=== PATIENT | male | born 1945 | race Caucasian/White ===

== ENCOUNTER 2018-01-18 03:44 | Outpatient (RCR) | payer MEDICARE, OTHER, SELFPAY | END 2018-01-18 23:59 | disposition home or self-care (01) | LOC: PRC 03:44 | DX: J44.9 Chronic obstructive pulmonary disease, unspecified (principal) ==

== ENCOUNTER 2018-01-30 10:45 | Emergency (ER) | payer MEDICARE, SELFPAY ==
[2018-01-30] VITALS (49 sets, daily range): BP systolic 97–143; BP diastolic 42–88; PULSE 68–87; RESP 8–30; TEMP 36.5; O2SAT 87–95
--- NOTE | 2018-01-30 11:02 | W.ED.GENAD ---
Discharge Plan Disposition Patient Disposition: AGAINST MEDICAL ADVICE Condition: Fair Discharge Details Chief Complaint: SOB Clinical Impression: COPD exacerbation Reason For Visit: SHORTNESS OF BREATH Primary Care Provider: [place] [place] Provider: Ness Selby Home Meds and New Rx's Prescriptions: New prednisone 50 mg tablet 50 mg PO DAILY Qty: 4 RF: 0 Continue albuterol sulfate 0.63 MG/3 ML solution for nebulization 0.5 mg NEB QID PRNRF: 0 atorvastatin 80 MG tablet 80 mg PO DAILY RF: 0 albuterol sulfate [ProAir HFA] 8.5 GM HFA aerosol inhaler 2 puff Inhalation Q4H PRN RF: 0 prednisone 20 MG tablet 40 mg PO DAILY PRNRF: 0 metformin 1,000 MG tablet 1,000 mg PO BID RF: 0 lisinopril 10 MG tablet 10 mg PO BID RF: 0 nitroglycerin [Nitrostat] 0.4 MG tablet, sublingual 0.4 mg Sublingual ONCE PRNRF: 0 furosemide 20 MG tablet 60 mg PO DAILY RF: 0 theophylline [Nikolay-24] 300 MG capsule,extended release 24hr 300 mg PO DAILY RF: 0 metoprolol tartrate 25 MG tablet 25 mg PO BID RF: 0 tiotropium bromide [Spiriva with HandiHaler] 18 MCG capsule, w/inhalation device 18 mcg Inhalation DAILY RF: 0 budesonide-formoterol [Symbicort] 10.2 GM HFA aerosol inhaler 2 puff Inhalation BID RF: 0 guaifenesin 600 MG tablet extended release 12hr 600 mg PO BID PRNRF: 0 benzonatate 200 MG capsule 200 mg PO TID PRN (Reason: Cough) Qty: 90 RF: 0 prednisone 20 MG tablet 40 mg PO DAILY Qty: 14 RF: 0 Discharge Instructions Instructions: COPD (Chronic Obstructive Pulmonary Disease) (ED), Energy Conservation Techniques (ED) Additional Instructions: You have elected to leave the emergency department AGAINST MEDICAL ADVICE. The risks of doing so are or permanent disability. May return to the emergency department any time if you change your mind. Please return to the emergency department immediately if you develop any new or worsening symptoms or if he become otherwise concerned. It is extremely important that you make an appointment to be seen by your primary care doctor within the next 24-48 hours in follow-up for this Referrals: [place] [place] [Primary Care Provider] - Discharge Data Discharge Date/Time-TO BE ENTERED AT DEPARTURE: 01/30/18 16:40 Medical Decision Making MDM Narrative Medical decision making narrative: Kiran Matthews is a-year-old man with history of COPD, chronic kidney disease, diarrhea presenting to the emergency department with cough and shortness of breath chronically but much worse in the past few days after recent course of prednisone finished. On exam patient appears somewhat chronically ill. He is mildly tachypneic but is able to speak in complete sentences. Bilateral wheeze on auscultation. Concern for COPD exacerbation versus pneumonia versus PE versus less likely ACS versus other. Exam/history not consistent with sepsis, acute aortic pathology at this time. Plan for EKG, chest x-ray, screening labs, telemetry, duo nebs, Solu-Medrol. Will monitor and reassess. Pt reports feeling improved after DuoNeb, so with continued wheeze. We will plan to repeat. Labs show leukocytosis, x-ray okay. Patient reports that he feels well and would like to go home after second DuoNeb. Patient appears mildly short of breath on exam. Wheeze improved. Plan for trial ambulation. Ambulation patient walked approximately 10 feet and became so dyspneic he was unable to continue and had to sit down. Patient reports that this is the condition that he came to the emergency department for today. He reports that since having breathing treatments he feels better while at rest, but unchanged with exertion. Plan for admission for COPD exacerbation. Pt reports that he does not want to be admitted to the hospital. He reports that he would be much more comfortable at home, and feels that his level of shortness of breath is chronic. He reports that he feels he would not be able to care for himself at home, and has family home will take care of him. Given significant dyspnea with short distance of ambulation it is my opinion that the patient would benefit from admission. Lengthy discussion with the patient regarding risks of leaving AGAINST MEDICAL ADVICE including and permanent disability, patient verbalizes understanding of these risks and continues to decline admission at this time. Patient offered DuoNeb and Rx prednisone and azithromycin. Patient accepted. A lengthy discussion with patient regarding return to emergency department precautions, the patient may return any time to the emergency department if he changes his mind, and importance of outpatient follow-up with his primary care divider within the next 48 hours. Care management was involved by me to facilitate outpatient follow-up within the next 2 days. Medical Records Medical records reviewed: Yes I reviewed the patient's medical records. Imaging Data Radiologic Study: Attestation: I personally reviewed and interpreted this imaging study as follows: Radiologist's impression: CHEST X-RAY, PA AND LATERAL: Comparison is 10/02/17 and 04/28/17. The heart size and pulmonary vasculature are within normal limits. No focal consolidating infiltrates, effusions or pneumothoraces are identified. There does appear to be some plate atelectasis or scarring in the left base. Degenerative changes are seen in the spine. No effusion or pneumothorax is identified. IMPRESSION: No acute pulmonary process. Lab Data Lab results reviewed: Yes I reviewed the patient's lab results. ECG Data Attestation: I personally reviewed and interpreted this ECG (s) as follows: Interpretation: EKG shows normal sinus rhythm at 68 with normal axis, 1 mm J-point elevation in lead II, leads V4 through V6, this appears consistent with his prior 09/2017 though there is artifact on both EKGs. No STEMI HPI - General Adult General Mode of arrival: wheelchair. Date/Time Provider Initiated Documentation: 01/30/18 11:02. Limitations to Documentation: no limitations. Information obtained by: patient. HPI Narrative: Kiran Matthews is a 9-year-old man with history of COPD, chronic kidney disease, diabetes presenting to the emergency department with shortness of breath. Patient reports that he has had issues with dyspnea for the past 15 years, but this is much worse in the past 2 days. He states that 2 or 3 weeks ago he was started on a course of prednisone for his COPD, but the prednisone course ended a few days ago and his symptoms seem to be much worse since then. He has had a productive cough over the past few weeks that is worsening. He denies any pain. No fevers. Has been eating and drinking normally. No nausea, vomiting, diarrhea. Has been very short of breath at rest and also with any exertion inside of his house. Has been using his COPD medications at home with minimal relief. Patient reports that he is on 3-1/2 L of oxygen 24 hours a day. His baseline O2 sat on home O2 is 93%. Related Data Home Medications Medication Instructions Recorded Confirmed albuterol sulfate 0.5 mg NEB QID PRN 02/28/17 10/02/17 albuterol sulfate [ProAir HFA] 2 puff INHALATION Q4H PRN inhaler 02/28/17 01/30/18 atorvastatin 80 mg PO DAILY tab-cap 02/28/17 01/30/18 budesonide-formoterol [Symbicort] 2 puff INHALATION BID inhaler 03/01/17 01/30/18 furosemide 60 mg PO DAILY tab-cap 03/01/17 01/30/18 guaifenesin 600 mg PO BID PRN 03/01/17 01/30/18 lisinopril 10 mg PO BID tab-cap 03/01/17 01/30/18 metformin 1,000 mg PO BID tab-cap 03/01/17 01/30/18 metoprolol tartrate 25 mg PO BID tab-cap 03/01/17 01/30/18 nitroglycerin [Nitrostat] 0.4 mg SUBLINGUAL ONCE PRN tab-cap 03/01/17 10/02/17 prednisone 40 mg PO DAILY PRN tab-cap 03/01/17 10/02/17 theophylline [Nikolay-24] 300 mg PO DAILY tab-cap 03/01/17 10/02/17 tiotropium bromide [Spiriva with 18 mcg INHALATION DAILY tab-cap 03/01/17 01/30/18 HandiHaler] Previous Rx's Medication Instructions Recorded benzonatate 200 mg PO TID PRN #90 cap 04/30/17 prednisone 40 mg PO DAILY #14 tab 10/03/17 prednisone 50 mg PO DAILY #4 tab 01/30/18 Allergies Allergy/AdvReac Type Severity Reaction Status Date / Time levofloxacin [From Levaquin] AdvReac Itching Verified 10/02/17 04:59 General Stated Complaint: SOB LAURA: 2 Review of Systems Review of Systems Constitutional: denies fevers Eyes: denies eye pain ENT: denies facial pain, dental pain, sore throat Cardiovascular: denies chest pain, denies edema Respiratory: reports SOB, cough GI: denies abdominal pain, vomiting, diarrhea : denies flank pain MSK: denies back pain, neck pain, arhtralgias, myalgias Skin: denies rash Neuro: denies headaches, lightheadedness, weakness PFSH Social History Smoking/Tobacco Use Status: Former Tobacco Use Exam Narrative Exam Narrative: Constitutional: non-toxic chronically ill-appearing, pleasant, conversing normally HENT: head atraumatic, normocephalic normal inspection, mucous membranes moist Eyes: conjunctiva normal, sclera normal, pupils 3mm b/l Neck: no stridor, normal ROM, trachea midline Chest: normal inspection Resp: Mildly increased work of breathing with mild tachypnea, somewhat decreased breath sounds bilaterally with mild wheezes bilaterally upon auscultation Cardio: normal rate, normal rhythm Back: normal inspection, no rash Skin: warm, dry, normal color, no rash Neuro: alert, not altered, grossly non-focal, normal tone Ext: Chronic venous stasis skin changes, posterior calves nontender to palpation, +1 edema bilaterally the patient reports is chronic in the Psych: normal mod, normal affect, normal behavior Course Vital Signs Temperature 36.5 C 01/30/18 10:54 Pulse 69 01/30/18 10:54 Respiratory Rate 22 01/30/18 10:54 Blood Pressure 123/56 L 01/30/18 10:54 Pulse Oximetry 94 L 01/30/18 10:54 Temperature 36.5 C 01/30/18 10:54 Pulse 69 01/30/18 10:54 Respiratory Rate 22 01/30/18 10:54 Blood Pressure 123/56 L 01/30/18 10:54 Pulse Oximetry 94 L 01/30/18 10:54
--- NOTE | 2018-01-30 11:19 | ED.GENADUL_ITS ---
Discharge Plan Disposition Patient Disposition: AGAINST MEDICAL ADVICE Condition: Fair Discharge Details Chief Complaint: SOB Clinical Impression: COPD exacerbation Reason For Visit: SHORTNESS OF BREATH Primary Care Provider: [place] Provider: Ness Selby Home Meds and New Rx's Prescriptions: New prednisone 50 mg tablet 50 mg PO DAILY Qty: 4 RF: 0 Continue albuterol sulfate 0.63 MG/3 ML solution for nebulization 0.5 mg NEB QID PRNRF: 0 atorvastatin 80 MG tablet 80 mg PO DAILY RF: 0 albuterol sulfate [ProAir HFA] 8.5 GM HFA aerosol inhaler 2 puff Inhalation Q4H PRN RF: 0 prednisone 20 MG tablet 40 mg PO DAILY PRNRF: 0 metformin 1,000 MG tablet 1,000 mg PO BID RF: 0 lisinopril 10 MG tablet 10 mg PO BID RF: 0 nitroglycerin [Nitrostat] 0.4 MG tablet, sublingual 0.4 mg Sublingual ONCE PRNRF: 0 furosemide 20 MG tablet 60 mg PO DAILY RF: 0 theophylline [Nikolay-24] 300 MG capsule,extended release 24hr 300 mg PO DAILY RF: 0 metoprolol tartrate 25 MG tablet 25 mg PO BID RF: 0 tiotropium bromide [Spiriva with HandiHaler] 18 MCG capsule, w/inhalation device 18 mcg Inhalation DAILY RF: 0 budesonide-formoterol [Symbicort] 10.2 GM HFA aerosol inhaler 2 puff Inhalation BID RF: 0 guaifenesin 600 MG tablet extended release 12hr 600 mg PO BID PRNRF: 0 benzonatate 200 MG capsule 200 mg PO TID PRN (Reason: Cough) Qty: 90 RF: 0 prednisone 20 MG tablet 40 mg PO DAILY Qty: 14 RF: 0 Discharge Instructions Instructions: COPD (Chronic Obstructive Pulmonary Disease) (ED), Energy Conservation Techniques (ED) Additional Instructions: You have elected to leave the emergency department AGAINST MEDICAL ADVICE. The risks of doing so are or permanent disability. May return to the emergency department any time if you change your mind. Please return to the emergency department immediately if you develop any new or worsening symptoms or if he become otherwise concerned. It is extremely important that you make an appointment to be seen by your primary care doctor within the next 24-48 hours in follow-up for this Referrals: [place] [place] [Primary Care Provider] - Discharge Data Discharge Date/Time-TO BE ENTERED AT DEPARTURE: 01/30/18 16:40 Medical Decision Making MDM Narrative Medical decision making narrative: Kiran Matthesw is a-year-old man with history of COPD, chronic kidney disease, diarrhea presenting to the emergency department with cough and shortness of breath chronically but much worse in the past few days after recent course of prednisone finished. On exam patient appears somewhat chronically ill. He is mildly tachypneic but is able to speak in complete sentences. Bilateral wheeze on auscultation. Concern for COPD exacerbation versus pneumonia versus PE versus less likely ACS versus other. Exam/history not consistent with sepsis, acute aortic pathology at this time. Plan for EKG, chest x-ray, screening labs, telemetry, duo nebs, Solu-Medrol. Will monitor and reassess. Pt reports feeling improved after DuoNeb, so with continued wheeze. We will plan to repeat. Labs show leukocytosis, x-ray okay. Patient reports that he feels well and would like to go home after second DuoNeb. Patient appears mildly short of breath on exam. Wheeze improved. Plan for trial ambulation. Ambulation patient walked approximately 10 feet and became so dyspneic he was unable to continue and had to sit down. Patient reports that this is the condition that he came to the emergency department for today. He reports that since having breathing treatments he feels better while at rest, but unchanged with exertion. Plan for admission for COPD exacerbation. Pt reports that he does not want to be admitted to the hospital. He reports that he would be much more comfortable at home, and feels that his level of shortness of breath is chronic. He reports that he feels he would not be able to care for himself at home, and has family home will take care of him. Given significant dyspnea with short distance of ambulation it is my opinion that the patient would benefit from admission. Lengthy discussion with the patient regarding risks of leaving AGAINST MEDICAL ADVICE including and permanent disability, patient verbalizes understanding of these risks and continues to decline admission at this time. Patient offered DuoNeb and Rx prednisone and azithromycin. Patient accepted. A lengthy discussion with patient regarding return to emergency department precautions, the patient may return any time to the emergency department if he changes his mind, and importance of outpatient follow-up with his primary care divider within the next 48 hours. Care management was involved by me to facilitate outpatient follow-up within the next 2 days. Medical Records Medical records reviewed: Yes I reviewed the patient's medical records. Imaging Data Radiologic Study: Attestation: I personally reviewed and interpreted this imaging study as follows: Radiologist's impression: CHEST X-RAY, PA AND LATERAL: Comparison is 10/02/17 and 04/28/17. The heart size and pulmonary vasculature are within normal limits. No focal consolidating infiltrates, effusions or pneumothoraces are identified. There does appear to be some plate atelectasis or scarring in the left base. Degenerative changes are seen in the spine. No effusion or pneumothorax is identified. IMPRESSION: No acute pulmonary process. Lab Data Lab results reviewed: Yes I reviewed the patient's lab results. ECG Data Attestation: I personally reviewed and interpreted this ECG (s) as follows: Interpretation: EKG shows normal sinus rhythm at 68 with normal axis, 1 mm J- point elevation in lead II, leads V4 through V6, this appears consistent with his prior 09/2017 though there is artifact on both EKGs. No STEMI HPI - General Adult General Mode of arrival: wheelchair . Date/Time Provider Initiated Documentation: 01/30/18 11:02 . Limitations to Documentation: no limitations . Information obtained by: patient . HPI Narrative: Kiran Matthews is a 9-year-old man with history of COPD, chronic kidney disease, diabetes presenting to the emergency department with shortness of breath. Patient reports that he has had issues with dyspnea for the past 15 years, but this is much worse in the past 2 days. He states that 2 or 3 weeks ago he was started on a course of prednisone for his COPD, but the prednisone course ended a few days ago and his symptoms seem to be much worse since then. He has had a productive cough over the past few weeks that is worsening. He denies any pain. No fevers. Has been eating and drinking normally. No nausea , vomiting, diarrhea. Has been very short of breath at rest and also with any exertion inside of his house. Has been using his COPD medications at home with minimal relief. Patient reports that he is on 3-1/2 L of oxygen 24 hours a day. His baseline O2 sat on home O2 is 93%. Related Data Home Medications Medication Instructions Recorded Confirmed albuterol sulfate 0.5 mg NEB QID PRN 02/28/17 10/02/17 albuterol sulfate [ProAir HFA] 2 puff INHALATION Q4H PRN inhaler 02/28/1701/30 atorvastatin 80 mg PO DAILY tab-cap 02/28/17 01/30/18 budesonide-formoterol [Symbicort] 2 puff INHALATION BID inhaler 03/01/17 furosemide 60 mg PO DAILY tab-cap 03/01/17 01/30/18 guaifenesin 600 mg PO BID PRN 03/01/17 01/30/18 lisinopril 10 mg PO BID tab-cap 03/01/17 01/30/18 metformin 1,000 mg PO BID tab-cap 03/01/17 01/30/18 metoprolol tartrate 25 mg PO BID tab-cap 03/01/17 01/30/18 nitroglycerin [Nitrostat] 0.4 mg SUBLINGUAL ONCE PRN tab-cap 03/01/17 10/02/17 prednisone 40 mg PO DAILY PRN tab-cap 03/01/17 10/02/17 theophylline [Nikolay-24] 300 mg PO DAILY tab-cap 03/01/17 10/02/17 tiotropium bromide [Spiriva with 18 mcg INHALATION DAILY tab-cap 03/01/1701/30 HandiHaler] Previous Rx's Medication Instructions Recorded benzonatate 200 mg PO TID PRN #90 cap 04/30/17 prednisone 40 mg PO DAILY #14 tab 10/03/17 prednisone 50 mg PO DAILY #4 tab 01/30/18 Allergies Allergy/AdvReac Type Severity Reaction Status Date / Time levofloxacin [From Levaquin] AdvReac Itching Verified 10/02/17 04:59 General Stated Complaint: SOB LAURA: 2 Review of Systems Review of Systems Constitutional: denies fevers Eyes: denies eye pain ENT: denies facial pain, dental pain, sore throat Cardiovascular: denies chest pain, denies edema Respiratory: reports SOB, cough GI: denies abdominal pain, vomiting, diarrhea : denies flank pain MSK: denies back pain, neck pain, arhtralgias, myalgias Skin: denies rash Neuro: denies headaches, lightheadedness, weakness PFSH Social History Smoking/Tobacco Use Status: Former Tobacco Use Exam Narrative Exam Narrative: Constitutional: non-toxic chronically ill-appearing, pleasant, conversing normally HENT: head atraumatic, normocephalic normal inspection, mucous membranes moist Eyes: conjunctiva normal, sclera normal, pupils 3mm b/l Neck: no stridor, normal ROM, trachea midline Chest: normal inspection Resp: Mildly increased work of breathing with mild tachypnea, somewhat decreased breath sounds bilaterally with mild wheezes bilaterally upon auscultation Cardio: normal rate, normal rhythm Back: normal inspection, no rash Skin: warm, dry, normal color, no rash Neuro: alert, not altered, grossly non-focal, normal tone Ext: Chronic venous stasis skin changes, posterior calves nontender to palpation , +1 edema bilaterally the patient reports is chronic in the Psych: normal mod, normal affect, normal behavior Course Vital Signs Temperature 36.5 C 01/30/18 10:54 Pulse 69 01/30/18 10:54 Respiratory Rate 22 01/30/18 10:54 Blood Pressure 123/56 L 01/30/18 10:54 Pulse Oximetry 94 L 01/30/18 10:54 Temperature 36.5 C 01/30/18 10:54 Pulse 69 01/30/18 10:54 Respiratory Rate 22 01/30/18 10:54 Blood Pressure 123/56 L 01/30/18 10:54 Pulse Oximetry 94 L 01/30/18 10:54
--- NOTE | 2018-01-30 11:22 | DI.RAD_ITS ---
SYMPTOMS/DIAGNOSIS: SHORTNESS OF BREATH CHEST X-RAY, PA AND LATERAL: Comparison is 10/02/17 and 04/28/17. The heart size and pulmonary vasculature are within normal limits. No focal consolidating infiltrates, effusions or pneumothoraces are identified. There does appear to be some plate atelectasis or scarring in the left base. Degenerative changes are seen in the spine. No effusion or pneumothorax is identified. IMPRESSION: No acute pulmonary process.
[2018-01-30] MEDS: Albuterol/Ipratropium 3 ML UPD VIAL UPD ×4 (11:45→16:20)
[2018-01-30] MEDS: methylPREDNISolone SUCC 125 MG VIAL IVP (11:45)
[2018-01-30 11:47] LABS: Abs Immature Grans 0.13 k/cumm (0.0-0.09); Absolute Basophil Count 0.07 k/cumm (0.0-0.2); Absolute Eosinophil Count 1.03 k/cumm (0.0-0.7); Absolute Lymphocyte Count 1.49 k/cumm (1.2-3.4); Absolute Monocyte Count 0.96 k/cumm (0.11-0.7); Absolute Neutrophil Count 9.84 k/cumm (1.2-6.7); Basophils % 0.5; Eosinophils % 7.6; HCO3 (Venous) 36 mmol/L (22-28); HCT 39.3 % (40.0-50.0); HGB 12.9 g/dL (13.5-17.5); Mean Corp. HGB Concentration 32.8 g/dL (32.0-36.0); Mean Corpuscular Hemoglobin 30.7 pg (27.0-33.0); Mean Corpuscular Volume 93.6 fL (80-95); Mean Platelet Volume 10.4 fL (8.0-11.0); Monocytes % 7.1; Neutrophils % 72.8; O2 Sat (Venous) 96 % (70-80); Platelet Count 269 x1000/uL (130-400); RBC Distribution Width 14.3 % (11.8-14.1); TCO2 (Venous) 32 mmol/L (22-29); White Blood Cell Count 13.52 k/cumm (4.4-10.8); pCO2 (Venous) 58 mm/Hg (34-47); pO2 (Venous) 85 mm/Hg (28-44)
[2018-01-30 11:49] LABS: Lactate-non-spesis 1.8 mmol/L (0.6-1.4)
[2018-01-30 12:00] LABS: Diff Comment Diff Reviewed; RBC Morphology Normal
[2018-01-30 12:14] LABS: ALT 26 U/L (12-78); AST 14 U/L (15-37); Albumin 3.5 g/dL (3.4-5.0); Alkaline Phosphatase 137 U/L (46-116); Anion Gap 2.7 mmol/L (3-11); BUN 28 mg/dL (7-18); Bilirubin, Total 0.5 mg/dL (0.2-1.0); CO2 36.3 mmol/L (21.0-32.0); CREATININE 1.22 mg/dL (0.70-1.30); Calcium 9.1 mg/dL (8.5-10.1); Chloride 100 mmol/L (98-107); Estimated GFR 58.73 (mL/min/1.73m2); Glucose 148 mg/dL (70-100); Potassium 4.9 mmol/L (3.5-5.1); Sodium 139 mmol/L (136-145); Total Protein 6.6 g/dL (6.4-8.2)
[2018-01-30 12:16] LABS: Troponin I < 0.02 ng/mL (0.00-0.06)
[2018-01-30 12:22] LABS: D-Dimer 469 ng/mlFEU (<500)
[2018-01-30 12:59] LABS: NT-proBNP 101 pg/mL
[2018-01-30 15:47] LABS: Troponin I < 0.02 ng/mL (0.00-0.06)
[2018-01-30] MEDS: Azithromycin 250 MG TAB 500 MG PO (16:20)
== END 2018-01-30 16:40 | disposition left against medical advice (07) ==
PROVIDERS: Emergency Provider Student in an Organized Health Care Education/Training Program
DX: J44.1 Chronic obstructive pulmonary disease with (acute) exacerbation (principal); Z87.891 Personal history of nicotine dependence; Z99.81 Dependence on supplemental oxygen; E11.22 Type 2 diabetes mellitus with diabetic chronic kidney disease; Z79.84 Long term (current) use of oral hypoglycemic drugs; I12.9 Hypertensive chronic kidney disease with stage 1 through stage 4 chronic kidney disease, or unspecified chronic kidney disease; N18.3 Chronic kidney disease, stage 3 (moderate)
CPT/HCPCS: 36415; 80053; 82805; 93005; 94640; 96374; 99285; 71046; 83605; 83880; 84484; 85025; 85379; 93010; J2930; J7620

== ENCOUNTER 2018-10-31 15:13 | Outpatient (REF) | payer MEDICARE, SELFPAY ==
[2018-10-31 16:48] LABS: Abs Immature Grans 0.21 k/cumm (0.0-0.09); Absolute Basophil Count 0.04 k/cumm (0.0-0.2); Absolute Eosinophil Count 0.14 k/cumm (0.0-0.7); Absolute Lymphocyte Count 0.52 k/cumm (1.2-3.4); Absolute Neutrophil Count 10.44 k/cumm (1.2-6.7); Basophils % 0.3; Eosinophils % 1.2; HCT 37.4 % (40.0-50.0); HGB 11.9 g/dL (13.5-17.5); Immature Grans % 1.8; Lymphocytes % 4.4; Mean Corp. HGB Concentration 31.8 g/dL (32.0-36.0); Mean Corpuscular Hemoglobin 30.3 pg (27.0-33.0); Mean Corpuscular Volume 95.2 fL (80-95); Mean Platelet Volume 11.2 fL (8.0-11.0); Monocytes % 4.2; Neutrophils % 88.1; Platelet Count 231 x1000/uL (130-400); RBC 3.93 m/cumm (4.50-6.00); RBC Distribution Width 14.2 % (11.8-14.1); White Blood Cell Count 11.85 k/cumm (4.4-10.8)
== END 2018-10-31 15:33 ==
LOC: LBN 15:13
PROVIDERS: Visit Provider Internal Medicine
DX: L03.90 Cellulitis, unspecified (principal)
CPT/HCPCS: 85025

== ENCOUNTER 2019-05-19 20:04 | Outpatient (REF) | payer MEDICARE, SELFPAY ==
[2019-05-19 18:50] LABS: Absolute Basophil Count 0.05 k/cumm (0.0-0.2); Absolute Eosinophil Count 0.13 k/cumm (0.0-0.7); Absolute Lymphocyte Count 1.17 k/cumm (1.2-3.4); Absolute Monocyte Count 0.91 k/cumm (0.11-0.7); Absolute Neutrophil Count 13.22 k/cumm (1.2-6.7); Basophils % 0.3; Eosinophils % 0.8; HCT 39.2 % (40.0-50.0); HGB 12.8 g/dL (13.5-17.5); Immature Grans % 1.9; Lymphocytes % 7.4; Mean Corp. HGB Concentration 32.7 g/dL (32.0-36.0); Mean Corpuscular Hemoglobin 30.9 pg (27.0-33.0); Mean Corpuscular Volume 94.7 fL (80-95); Mean Platelet Volume 11.1 fL (8.0-11.0); Monocytes % 5.8; Neutrophils % 83.8; Platelet Count 282 x1000/uL (130-400); RBC 4.14 m/cumm (4.50-6.00); White Blood Cell Count 15.77 k/cumm (4.4-10.8)
== END 2019-05-19 20:24 ==
LOC: LBN 20:04
PROVIDERS: Visit Provider Nurse Practitioner Primary Care
DX: E11.628 Type 2 diabetes mellitus with other skin complications (principal); L12.0 Bullous pemphigoid; Z48.00 Encounter for change or removal of nonsurgical wound dressing
CPT/HCPCS: 85025

== ENCOUNTER 2019-05-20 10:25 | Emergency (ER) | payer OTHER, SELFPAY ==
[2019-05-20 10:41] VITALS: BP 124/60; PULSE 74; RESP 20; TEMP 36.5; O2SAT 96
[2019-05-20 11:19] VITALS: BP 124/60; PULSE 74; RESP 20; TEMP 36.5; O2SAT 96
--- NOTE | 2019-05-20 12:15 | ED.GENADUL_ITS ---
Discharge Plan Disposition Patient Disposition: HOME Condition: Good Discharge Details Chief Complaint: Orthopedic Clinical Impression: Muscle strain Primary Care Provider: [facility] ED Provider: Brigette Romero Home Meds and New Rx's Prescriptions: Continued albuterol sulfate 0.63 MG/3 ML solution for nebulization 0.5 mg NEB QID PRNRF: 0 atorvastatin 80 MG tablet 80 mg PO DAILY RF: 0 albuterol sulfate [ProAir HFA] 8.5 GM HFA aerosol inhaler 2 puff Inhalation Q4H PRN RF: 0 prednisone 20 MG tablet 40 mg PO DAILY PRNRF: 0 metformin 1,000 MG tablet 1,000 mg PO BID RF: 0 lisinopril 10 MG tablet 10 mg PO BID RF: 0 nitroglycerin [Nitrostat] 0.4 MG tablet, sublingual 0.4 mg Sublingual ONCE PRNRF: 0 furosemide 20 MG tablet 60 mg PO DAILY RF: 0 theophylline [Nikolay-24] 300 MG capsule,extended release 24hr 300 mg PO DAILY RF: 0 metoprolol tartrate 25 MG tablet 25 mg PO BID RF: 0 tiotropium bromide [Spiriva with HandiHaler] 18 MCG capsule, w/inhalation device 18 mcg Inhalation DAILY RF: 0 budesonide-formoterol [Symbicort] 10.2 GM HFA aerosol inhaler 2 puff Inhalation BID RF: 0 guaifenesin 600 MG tablet extended release 12hr 600 mg PO BID PRNRF: 0 prednisone 50 mg tablet 50 mg PO DAILY Qty: 4 RF: 0 benzonatate 200 MG capsule 200 mg PO TID PRN (Reason: Cough) Qty: 90 RF: 0 prednisone 20 MG tablet 40 mg PO DAILY Qty: 14 RF: 0 Discharge Instructions Instructions: Muscle Strain (ED) Additional Instructions: Encourage hydration. Please continue with weight loss, good job with this. Stretching and rolling to the right thigh as discussed. I have asked for referral to home physical therapy be placed. Please follow-up with primary care for reevaluation in the next 2 weeks if not improving. If you develop new or worsening symptoms please seek care urgently once again. Referrals: [facility] [Primary Care Provider] - Discharge Data Discharge Date/Time-TO BE ENTERED AT DEPARTURE: 05/20/19 14:34 Medical Decision Making Patient is a pleasant 73-year-old male with hx of COPD, stage renal disease, type 2 diabetes, hyperkalemia presenting today with chief complaint of right thigh pain. He reports that 1 week ago he was getting into a jeep when he strained his hip. He states that he did not immediately have pain but did note this later in the evening. States that the pain is somewhat migratory. He reports that most of his pain is posteriorly toward the buttock. He does not have any pain with ambulation. No pain when weightbearing. States the pain is fairly intermittent and not easily reducible. He denies any altered sensation. No history of blood clot. Patient is chronically short of breath, requires home O2 at baseline, no change in this since onset of his discomfort. No recent travel. Patient is very sedentary at baseline. On exam, patient is obese gentleman on nasal cannula oxygen. He has full range of motion of his hip, 5 out of 5 strength. No pain elicited with flexion, extension, abduction or abduction against resistance. His pain is difficult to pinpoint. The area of discomfort seems to migrate and is not easily reproducible. No ecchymosis, evidence of trauma. No evidence to suggest a muscle rupture. The location is not consistent with DVT. However, given the patient's chronic comorbidities and sedentary nature, this is on the differential and will obtain an ultrasound. Patient was evaluated by Dr. Ngo. He advised the patient findings are most consistent with a rectus strain. However, given the patient's past medical history, I feel that further evaluation to rule out DVT is appropriate. Ultrasound was reviewed, read to be negative. Discussed these findings with the patient. Encourage stretching. Encouraged that he try to exercise more frequently and avoid his sedentary lifestyle. I encouraged close follow-up with primary care. Referral for physical therapy will be sent, patient does have home health care I feel the home physical therapy would be of benefit and of asked healthcare financial analyst help arrange for this. I also advised follow-up with orthopedics. He will follow-up with Dr. Ngo he was evaluated by today. He was given strict return precautions. All of his questions and concerns were addressed and he is in agreement this plan. HPI General Mode of arrival: wheelchair (ambulatory in the room) . Date/Time Provider Initiated Documentation: 05/20/19 12:07 . Limitations to Documentation: no limitations . Information obtained by: patient, family (daughter) and RN notes reviewed . History of Present Illness 73 year old M presents to the emergency department with the chief complaint of right thigh pain, described as moderate, with intensity rated at 7. Quality is described as aching, and is localized to the right and lower extremity. Patient reports no radiation. Patient started experiencing this week(s) (1) and it has been intermittent. Immobilization improves symptom(s), Movement worsens symptoms (not reproducible) . Patient notes no other symptoms.; denies fever/chills, nausea/vomiting, shortness of breath, syncope and weakness. Patient did receive the following treatments prior to arrival, none Related Data Home Medications Medication Instructions Recorded Confirmed albuterol sulfate 0.5 mg NEB QID PRN 02/28/17 10/02/17 albuterol sulfate [ProAir HFA] 2 puff INHALATION Q4H PRN inhaler 02/28/17 01/30/18 atorvastatin 80 mg PO DAILY tab-cap 02/28/17 01/30/18 budesonide-formoterol [Symbicort] 2 puff INHALATION BID inhaler 03/01/17 01/30/18 furosemide 60 mg PO DAILY tab-cap 03/01/17 01/30/18 guaifenesin 600 mg PO BID PRN 03/01/17 01/30/18 lisinopril 10 mg PO BID tab-cap 03/01/17 01/30/18 metformin 1,000 mg PO BID tab-cap 03/01/17 01/30/18 metoprolol tartrate 25 mg PO BID tab-cap 03/01/17 01/30/18 nitroglycerin [Nitrostat] 0.4 mg SUBLINGUAL ONCE PRN tab-cap 03/01/17 10/02/17 prednisone 40 mg PO DAILY PRN tab-cap 03/01/17 10/02/17 theophylline [Nikolay-24] 300 mg PO DAILY tab-cap 03/01/17 10/02/17 tiotropium bromide [Spiriva with 18 mcg INHALATION DAILY tab-cap 03/01/17 01/30/18 HandiHaler] benzonatate 200 mg PO TID PRN #90 cap 04/30/17 01/30/18 prednisone 40 mg PO DAILY #14 tab 10/03/17 prednisone 50 mg PO DAILY #4 tab 01/30/18 Previous Rx's Medication Instructions Recorded benzonatate 200 mg PO TID PRN #90 cap 04/30/17 prednisone 40 mg PO DAILY #14 tab 10/03/17 prednisone 50 mg PO DAILY #4 tab 01/30/18 Allergies Allergy/AdvReac Type Severity Reaction Status Date / Time levofloxacin [From Levaquin] AdvReac Itching Verified 05/20/19 11:22 General Stated Complaint: Orthopedic LAURA: 3 Review of Systems Constitutional Constitutional: Reports as per HPI, Denies chills, Denies fever(s), Denies headache(s) and Denies weakness ENT Ears, Nose, Mouth, and Throat: Denies headache(s) Cardiovascular Cardiovascular: Reports as per HPI and Reports dyspnea on exertion (chronic, unchanged, on home O2) Respiratory Respiratory: Reports as per HPI, Denies cough and Reports dyspnea on exertion (chronic, unchanged, on home O2) Musculoskeletal Musculoskeletal: Reports as per HPI and Denies tingling Integumentary/Breasts Skin/Breast: Reports as per HPI, Denies rash and Denies wounds Neurologic Neurologic: Reports as per HPI, Denies headache(s), Denies tingling, Denies paresthesias and Denies weakness [facility] Medical History Chronic renal disease, stage 3, moderately decreased glomerular filtration rate (GFR) between 30-59 mL/min/1.73 square meter (Acute) COPD exacerbation (Acute) Hyperkalemia, diminished renal excretion (Acute) Morbid obesity (Acute) Type 2 diabetes mellitus (Acute) Social History Smoking/Tobacco Use Status: Former Tobacco Use Alcohol Intake: never Drug use: Never Substance use type: does not use Do you feel safe at home: Yes Do you feel safe in your relationship?: Yes Exam Const General: cooperative, comfortable, no acute distress, well developed, well groomed and ill appearing chronically (obese, chronic O2 use) Nutritional Appearance: well nourished and obese Orientation: alert and awake Resp Effort & Inspection: normal respiratory effort, able to speak in complete sentences, no respiratory distress and other (breathing comfortably on [place] O2) Auscultation: clear to auscultation bilaterally Cardio Rate: regular rate Rhythm: regular rhythm Heart Sounds: S1 normal Skin General skin exam: no rashes or lesions noted Lesions: no lesions Rashes: no rashes Trauma: no lacerations or abrasions Neuro General: alert and awake Cognition: normal cognition Speech: speech normal Gait: normal gait Motor: muscle tone normal throughout Sensory Exam: no sensory deficits noted Extrem General: normal to inspection, full ROM, normal capillary refill, no joint enl argement, no calf tenderness and normal gait Right lower extremity: normal to inspection, full ROM, no joint enlargement, hip/thigh Details: normal to inspection and normal ROM; no tenderness, no swelling, no abrasions, no lacerations, no ecchymosis, no crepitus and no deformity and knee Details: normal to inspection, normal ROM and knee ligament exam normal; no tenderness and no swelling Psych Appearance: grossly normal and well kempt Mental Status: mental status grossly normal Speech and Movement: speech and movement normal Course Vital Signs Vital signs: Vital Signs Temperature 36.5 C 05/20/19 10:41 Pulse 74 05/20/19 10:41 Respiratory Rate 20 05/20/19 10:41 Blood Pressure 124/60 05/20/19 10:41 Pulse Oximetry 96 05/20/19 10:41 Temperature 36.5 C 05/20/19 11:19 Temperature Source Temporal Artery Scan 05/20/19 11:19 Pulse 74 05/20/19 11:19 Respiratory Rate 20 05/20/19 11:19 Respiratory Effort Non-Labored 05/20/19 11:20 Blood Pressure 124/60 05/20/19 11:19 Blood Pressure Position Sitting 05/20/19 11:19 Pulse Oximetry 96 05/20/19 11:19 Oxygen Delivery Method Room Air 05/20/19 11:19 Oxygen Flow Rate 0 05/20/19 11:19 Pain Level 7 05/20/19 11:19 Comment 05/20/19 10:41
--- NOTE | 2019-05-20 13:38 | DI.US_ITS ---
EXAM: US LOWER EXTREMITY VENOUS RT US LOWER EXTREMITY VENOUS RT CLINICAL HISTORY: posterior right thigh. posterior right thigh TECHNIQUE: Ultrasound performed using standard protocol. COMPARISON: No exams were available for comparison FINDINGS: Duplex venous ultrasound was performed according to the usual protocol. The deep veins are freely com pressible throughout and there is normal flow augmentation with manual calf compression. 2D and Doppl er evaluation are unremarkable. IMPRESSION: No evidence of deep venous thrombosis of the lower extremity
--- NOTE | 2019-05-20 14:33 | NUR.NOTE ---
patient received discharge and follow up instruction per provide rNursing Note:
--- NOTE | 2019-05-20 18:54 | PDOC.ERCMPRO ---
- If Service Date Differs Date of service: 05/20/19 Time of Service: 18:54 Care Management Progress Note CM was asked by ED provider to assist with adding Physical Therapy to the home health services for Kiran. He presented to the ED today with right thigh pain. CM contacted [facility] and requested that in addition to nursing, Kiran receive PT. HH will follow up with the order from provider in ED chart
--- NOTE | 2019-05-26 22:52 | W.ORTHOCONSU ---
Date of service: 05/20/19 Time of Service: 15:53 History of Present Illness History of Present Illness Chief Complaint: Right Hip/Thigh Pain Narrative: Kiran is a 73-year-old who presents to the emergency department today for right hip and thigh pain. This is described as being primarily anterior. He denies having any this pain prior until this week when he noticed that after trying to step up onto the high step of his truck. He has had weakness and fullness of the right thigh originate from the groin going down the anterior aspect of the right leg. It is not associate with any numbness or tingling. He does feel some discomfort around the hip itself but again the majority of the pain is anterior. He denies numbness or tingling. He denies any preinjury hip or groin pain. He does feel that there may be some increased swelling of the right leg. He denies any notable discoloration of the right leg although he does have some chronic stasis changes and chronic changes to the lower extremities with notable kidney disease and edema. No new shortness of breath or chest pain. Consults Consult date: 05/20/19 Requesting physician: Brigette Romero Consult Reason Right hip and thigh pain. Assessment and Plan Assessment and plan (1) Strain of flexor muscle of right hip: Status: Acute Assessment and plan: Kiran is a 73-year-old who has likely had a strain of his right hip flexor, rectus femorris. Could be a partial tear as well. Either way, the treatment would be the same. This likely happened due to him trying to get in and out of the high step of his truck. This is not something he usually does and given his large weight, it is quite likely this is all that happened. However, he does have some chronic medical conditions and given the pain in the right leg and ipsilateral swelling a DVT study is not unreasonable to rule out any clot. However, I expect that the symptoms will improve on their own. I reviewed some exercises to be performed. He currently has home health services coming to the house and we can arrange for home physical therapy as well. This likely will need no formal follow-up and should be self-limiting. Qualifiers: Encounter type: initial encounter Qualified Code(s): S76.011A - Strain of muscle, fascia and tendon of right hip, initial encounter Review of Systems All systems reviewed & are unremarkable except as noted in HPI and below PFSH Medical History (Updated 05/26/19 @ 22:59 by Bakari Ngo MD) Chronic renal disease, stage 3, moderately decreased glomerular filtration rate (GFR) between 30-59 mL/min/1.73 square meter (Acute) COPD exacerbation (Acute) Hyperkalemia, diminished renal excretion (Acute) Morbid obesity (Acute) Type 2 diabetes mellitus (Acute) Social History Smoking/Tobacco Use Status: Former Tobacco Use Alcohol Intake: never Drug use: Never Substance use type: does not use Do you feel safe at home: Yes Do you feel safe in your relationship?: Yes Exam Narrative Exam Narrative: Morbidly obese male sitting in a wheelchair. He is in no acute distress with oxygen. Evaluation of the right leg is somewhat challenging due to patient habitus. Abdominal pannus overlaps nearly to the knee in a seated position. Evaluation of the right thigh and leg does not show any signs of ecchymosis. There is a large girth of the right thigh which is difficult to compare to the contralateral side. 2+ pitting edema the right leg which is comparable to the left side. There is no significant pain to palpation throughout the posterior aspect of the thigh or into the popliteal space. Gentle, passive range of motion of the right hip does show some limited range to about 5 degrees of internal rotation and 40 degrees of external rotation. However, this does not necessarily reproduce pain. Any attempt at hip flexion causes pain. This is worsened if he also incorporates knee extension. He is unable to demonstrate a straight leg raise due to pain. Sensation intact light touch over the femoral nerve distribution. Very mild pain over the greater trochanter. Some pain to palpation along the anterior thigh especially at the anterior groin at the level of the AIIS. Results Last Vital Signs Temp 36.5 C 05/20/19 11:19 Pulse 74 05/20/19 11:19 Resp 20 05/20/19 11:19 BP 124/60 05/20/19 11:19 Pulse Ox 96 05/20/19 11:19
== END 2019-05-20 14:34 | disposition home or self-care (01) ==
PROVIDERS: Emergency Provider Physician Assistant
DX: S76.911A Strain of unspecified muscles, fascia and tendons at thigh level, right thigh, initial encounter (principal); X50.9XXA Other and unspecified overexertion or strenuous movements or postures, initial encounter; J44.9 Chronic obstructive pulmonary disease, unspecified; E11.22 Type 2 diabetes mellitus with diabetic chronic kidney disease; N18.3 Chronic kidney disease, stage 3 (moderate)
CPT/HCPCS: 99252; 99283; 99284; 93971

== ENCOUNTER 2019-06-13 12:04 | Emergency (ER) | payer OTHER, MEDICARE, SELFPAY ==
[2019-06-13 12:08] VITALS: BP 130/49; PULSE 77; RESP 20; TEMP 36.9; O2SAT 95
--- NOTE | 2019-06-13 12:20 | ED.GENADUL_ITS ---
Discharge Plan Disposition Patient Disposition: HOME Condition: Good Discharge Details Chief Complaint: Vascular Clinical Impression: Strain of flexor muscle of right hip Primary Care Provider: Sonia Alfonso ED Provider: Jasvir Gonzalez Home Meds and New Rx's Prescriptions: New lidocaine [Lidoderm] 1 PATCH patch 1 patch Topical Q24H Qty: 4 RF: 0 No Action albuterol sulfate 0.63 MG/3 ML solution for nebulization 0.5 mg NEB QID PRNRF: 0 atorvastatin 80 MG tablet 80 mg PO DAILY RF: 0 albuterol sulfate [ProAir HFA] 8.5 GM HFA aerosol inhaler 2 puff Inhalation Q4H PRN RF: 0 prednisone 20 MG tablet 40 mg PO DAILY PRNRF: 0 metformin 1,000 MG tablet 1,000 mg PO BID RF: 0 lisinopril 10 MG tablet 10 mg PO BID RF: 0 nitroglycerin [Nitrostat] 0.4 MG tablet, sublingual 0.4 mg Sublingual ONCE PRNRF: 0 furosemide 20 MG tablet 60 mg PO DAILY RF: 0 theophylline [Nikolay-24] 300 MG capsule,extended release 24hr 300 mg PO DAILY RF: 0 metoprolol tartrate 25 MG tablet 25 mg PO BID RF: 0 tiotropium bromide [Spiriva with HandiHaler] 18 MCG capsule, w/inhalation device 18 mcg Inhalation DAILY RF: 0 budesonide-formoterol [Symbicort] 10.2 GM HFA aerosol inhaler 2 puff Inhalation BID RF: 0 guaifenesin 600 MG tablet extended release 12hr 600 mg PO BID PRNRF: 0 prednisone 50 mg tablet 50 mg PO DAILY Qty: 4 RF: 0 benzonatate 200 MG capsule 200 mg PO TID PRN (Reason: Cough) Qty: 90 RF: 0 prednisone 20 MG tablet 40 mg PO DAILY Qty: 14 RF: 0 Discharge Instructions Instructions: Muscle Strain (ED) Additional Instructions: At this time your signs and symptoms are clinically consistent with a hip flexor muscle strain. There is no evidence of blood clot at this time. Please use a heating pad, and 1000 mg of Tylenol every 6 hours for the pain. Please also use the Lidoderm patch as directed. Gentle massage can also be helpful. If you notice any worsening of your symptoms, or any new symptoms such as vomiting, diarrhea, fever, chills, shortness of breath, chest pain, numbness, weakness, or fainting , please return immediately to the emergency department for reevaluation. Please follow up with your primary care provider as soon as possible for reassessment and reevaluation. As always, it was a pleasure participating in your medical care today. Referrals: Sonia Alfonso [Primary Care Provider] - Medical Decision Making This is a 73-year-old male with a past medical history of chronic renal disease, COPD, type 2 diabetes, morbid obesity, was recently diagnosed with muscle strain of his right anterior thigh. He was initially seen here few weeks ago where strain was suspected, rule out DVT ultrasound was performed whic h was negative at that time for any DVT. He was then seen and assessed by Dr. Ngo of orthopedics, who also felt that it was likely an anterior thigh muscle strain/potential partial tear. Is been doing well, and has had some mild continued pain but states that over the last 48 hours it has gotten slightly worse. It is worse with hip flexion, as well as trying to walk when he flexes his hip. Currently states he has 0 pain now while resting. Physical exam and history also demonstrate no concerning symptomatology concerning for acute fracture, cellulitis, trauma, or risk factors of PE/DVT with no recent long trips, surgeries procedures. Physical exam is unremarkable for the right lower extremity, no unilateral swelling, or evidence of vascular or neurologic compromise. Limited bedside ultrasound demonstrates no evidence of DVT all the major vessels. Is notable compressibility of all veins from the proximal inguinal crease distal through the calf. However in general patient signs and symptoms are clinically inconsistent with DVT and rather more clinically consistent with a muscle sprain/strain versus partial tear especially in respect to his chronic steroid use, of the sartorius muscle, or vastus medialis muscle. However even in spite of this I did offer formal ultrasonography the patient, however he has declined this and would like to hold off. At this time with sig ns and symptoms clinically inconsistent with DVT, and clinically consistent with a muscle strain/sprain, I do feel he can be safely discharged home with close follow-up. Recommend Lidoderm patch, Tylenol, heating pad, and close follow-up. Discussed red flags which to return, including signs and symptoms concerning for DVT which could occur in the future. I have extensively reviewed the treatment plan and discharge instructions with the patient and their family. I have addressed all patient concerns at this time. The patient and family was made aware of what symptoms to monitor for that would warrant a return to the emergency department. Discussed the plan with the patient and family, they demonstrate verbal understanding and agreement with our assessment and plan at this time. HPI General Date/Time Provider Initiated Documentation: 06/13/19 12:05 . HPI Narrative: This is a 73-year-old male with a past medical history of chronic renal disease, COPD, type 2 diabetes, morbid obesity, was recently diagnosed with muscle strain of his right anterior thigh. He was initially seen here few weeks ago where strain was suspected, rule out DVT ultrasound was performed which was negative at that time for any DVT. He was then seen and assessed by Dr. Ngo of orthopedics, who also felt that it was likely an anterior thigh muscle strain/potential partial tear. Is been doing well, and has had some mild continued pain but states that over the last 48 hours it has gotten slightly worse. It is worse with hip flexion, as well as trying to walk when he flexes his hip. Currently states he has 0 pain now while resting. He denies any redness, fever, chills, increased swelling in his lower extremities, cough, shortness of breath, chest pain, chest tightness. No other complaints at this time. He states that the consistency nature of the pain is otherwise unchanged. Related Data Home Medications Medication Instructions Recorded Confirmed albuterol sulfate 0.5 mg NEB QID PRN 02/28/17 10/02/17 albuterol sulfate [ProAir HFA] 2 puff INHALATION Q4H PRN inhaler 02/28/17 01/30/18 atorvastatin 80 mg PO DAILY tab-cap 02/28/17 01/30/18 budesonide-formoterol [Symbicort] 2 puff INHALATION BID inhaler 03/01/17 01/30/18 furosemide 60 mg PO DAILY tab-cap 03/01/17 01/30/18 guaifenesin 600 mg PO BID PRN 03/01/17 01/30/18 lisinopril 10 mg PO BID tab-cap 03/01/17 01/30/18 metformin 1,000 mg PO BID tab-cap 03/01/17 01/30/18 metoprolol tartrate 25 mg PO BID tab-cap 03/01/17 01/30/18 nitroglycerin [Nitrostat] 0.4 mg SUBLINGUAL ONCE PRN tab-cap 03/01/17 10/02/17 prednisone 40 mg PO DAILY PRN tab-cap 03/01/17 10/02/17 theophylline [Nikolay-24] 300 mg PO DAILY tab-cap 03/01/17 10/02/17 tiotropium bromide [Spiriva with 18 mcg INHALATION DAILY tab-cap 03/01/17 0 01/30/18 HandiHaler] benzonatate 200 mg PO TID PRN #90 cap 04/30/17 01/30/18 prednisone 40 mg PO DAILY #14 tab 10/03/17 prednisone 50 mg PO DAILY #4 tab 01/30/18 lidocaine [Lidoderm] 1 patch TOPICAL Q24H #4 patch 06/13/19 Previous Rx's Medication Instructions Recorded benzonatate 200 mg PO TID PRN #90 cap 04/30/17 prednisone 40 mg PO DAILY #14 tab 10/03/17 prednisone 50 mg PO DAILY #4 tab 01/30/18 lidocaine [Lidoderm] 1 patch TOPICAL Q24H #4 patch 06/13/19 Allergies Allergy/AdvReac Type Severity Reaction Status Date / Time levofloxacin [From Levaquin] AdvReac Itching Verified 05/20/19 11:22 General Stated Complaint: Vascular LAURA: 3 Review of Systems All systems reviewed & are unremarkable except as noted in HPI and below PFSH Social History Smoking/Tobacco Use Status: Former Tobacco Use Alcohol Intake: never Drug use: Never Substance use type: does not use Do you feel safe at home: Yes Do you feel safe in your relationship?: Yes Exam Narrative Exam Narrative: 1.Const: Well-nourished, Well-developed, appearing stated age, morbidly obese 2.Eyes: PERRL, no conjunctival injection, and symmetrical lids. 3.ENT: Atraumatic external nose and ears. Moist MM. Neck: Symmetric, trachea midline, No thyromegaly. 4.CVS: +S1/S2, No murmurs or gallops. Peripheral pulses 2+ and equal in all extremities. Brisk capillary refill in all extremities. 5.RESP: Unlabored respiratory effort. Clear to auscultation bilaterally. No wheezes rales or rhonchi 6.GI: Soft, Nontender/Nondistended, No hepatosplenomegaly. No guarding or rebound. 7.MSK: Normocephalic/Atraumatic, Extremities w/o deformity. No cyanosis or clubbing, compartments soft. No significant pain with palpation of the right anterior thigh or medial or lateral thigh. However with active flexion at the hip he does have pain that appears to be slightly superficial/muscular that goes from the inguinal crease rotating around medially to the medial aspect of the knee in the path of the sartorius and vastus medialis. He does have obese legs, but there is no unilateral swelling, no acute unilateral pitting edema. No evidence of vascular compromise with normal capillary refill, and dorsalis pedis pulse +2 bilaterally. Limited bedside ultrasound demonstrates no evidence of clot in the right lower extremity. Evaluating from the proximal right groin, all the way distally through the calf, there is good compressibility, good flow of all major vessels. No evidence of DVT. No warmth, no signs of cellulitis, no other significant abnormalities. 8.Skin: Warm, Dry. No rashes or lesions. 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 Sensation grossly intact, no focal neurologic deficits. 10.Psych: (AAO) x3. Appropriate mood and affect Course Vital Signs Vital signs: Vital Signs Temperature 36.9 C 06/13/19 12:08 Pulse 77 06/13/19 12:08 Respiratory Rate 20 06/13/19 12:08 Blood Pressure 130/49 L 06/13/19 12:08 Pulse Oximetry 95 06/13/19 12:08 Temperature 36.9 C 06/13/19 12:08 Temperature Source Skin 06/13/19 12:08 Pulse 77 06/13/19 12:08 Respiratory Rate 20 06/13/19 12:08 Respiratory Effort Non-Labored 06/13/19 12:13 Respiratory Depth Normal 06/13/19 12:13 Respiratory Pattern Normal 06/13/19 12:13 Blood Pressure 130/49 L 06/13/19 12:08 Blood Pressure Position Sitting 06/13/19 12:08 Pulse Oximetry 95 06/13/19 12:08 Oxygen Delivery Method Nasal Cannula 06/13/19 12:08 Oxygen Flow Rate 3 06/13/19 12:08 Pain Level 0 06/13/19 12:08
[2019-06-13] MEDS: Lidocaine 5% Patch 1 PATCH (12:36)
[2019-06-13 12:45] VITALS: BP 130/49; PULSE 77; RESP 20; TEMP 36.9; O2SAT 95
== END 2019-06-13 12:45 | disposition home or self-care (01) ==
LOC: ER 12:59
PROVIDERS: Emergency Provider Student in an Organized Health Care Education/Training Program; PCP Nurse Practitioner Primary Care
DX: S76.011A Strain of muscle, fascia and tendon of right hip, initial encounter (principal); X58.XXXA Exposure to other specified factors, initial encounter; E11.22 Type 2 diabetes mellitus with diabetic chronic kidney disease; N18.9 Chronic kidney disease, unspecified; Z79.84 Long term (current) use of oral hypoglycemic drugs; J44.9 Chronic obstructive pulmonary disease, unspecified; Z87.891 Personal history of nicotine dependence
CPT/HCPCS: 99283

== ENCOUNTER 2019-08-10 00:31 | Emergency (ER) | payer MEDICARE, SELFPAY ==
--- NOTE | 2019-08-10 00:30 | DI.RAD_ITS ---
EXAM: XR CHEST 2V PA LATERAL CLINICAL HISTORY: cough, sob TECHNIQUE: COMPARISON: PORTABLE CHEST ONE VIEW from 10/02/2017 XR CHEST 2V PA LATERAL from 01/30/2018 CT LUMBAR SPINE WO from 08/10/2019 CT LUMBAR SPINE WO from 08/10/2019 FINDINGS: AP and lateral views were obtained. There is a poor inspiration. Areas of scarring appear to be pre sent in both lung bases, mild associated atelectasis may be present as well. Apart from crowding of the pulmonary vessels, no definite infiltrate is seen. Comparison with prior chest films including S eptember 2018 does show question interval development of faint increased radiodensity in the left upp er lung field, focal infiltrate not entirely excluded. IMPRESSION: Poor inspiration, atelectasis and scarring. Left upper lobe infiltrate not excluded. Follow-up PA a nd lateral chest recommended.
--- NOTE | 2019-08-10 00:30 | DI.CT_ITS ---
EXAM: CT LUMBAR SPINE WO CLINICAL HISTORY: midline lumbar back pain TECHNIQUE: COMPARISON: No exams were available for comparison FINDINGS: CT examination lumbosacral spine was performed utilizing multi slice acquisition and multi planar rec onstruction. There are degenerative endplate and facet changes at L5-S1. There is moderate disc bul ge, mild superimposed disc herniation not excluded. At L4-5 there is loss of disc height and a prominent disc bulge. No convincing disc herniation. No central canal spinal stenosis. Moderate facet arthropathy present bilaterally. Mild loss of disc space height at L3-4, no evidence of disc herniation. No spinal stenosis. No significant findings at L 1 2 or L2-3. No focal bony lesion identified apart from the aforementioned degenerative changes. There are mild t o moderate hypertrophic degenerative changes of the SI joints noted. IMPRESSION: Degenerative changes as described above, no acute process.
[2019-08-10 00:31] VITALS: BP 134/96; PULSE 86; RESP 20; TEMP 36.7; O2SAT 99
--- NOTE | 2019-08-10 00:38 | ED.GENADUL_ITS ---
Discharge Plan Disposition Patient Disposition: HOME Condition: Good Discharge Details Chief Complaint: Nk/Back Pain Clinical Impression: Back pain Primary Care Provider: Sonia Alfonso ED Provider: Jasvir Gonzalez Home Meds and New Rx's Prescriptions: New cyclobenzaprine 10 mg tablet 10 mg PO TID Qty: 14 RF: 0 acetaminophen [Mapap Extra Strength] 500 MG tablet 1,000 mg PO Q6H 5 Days Qty: 60 RF: 0 prednisone 50 MG tablet 50 mg PO DAILY Qty: 5 RF: 0 lidocaine [Lidoderm] 1 PATCH patch 1 patch Topical Q24H Qty: 4 RF: 0 Continued albuterol sulfate 0.63 MG/3 ML solution for nebulization 0.5 mg NEB QID PRNRF: 0 atorvastatin 80 MG tablet 80 mg PO DAILY RF: 0 albuterol sulfate [ProAir HFA] 8.5 GM HFA aerosol inhaler 2 puff Inhalation Q4H PRN RF: 0 prednisone 20 MG tablet 40 mg PO DAILY PRNRF: 0 metformin 1,000 MG tablet 1,000 mg PO BID RF: 0 lisinopril 10 MG tablet 10 mg PO BID RF: 0 nitroglycerin [Nitrostat] 0.4 MG tablet, sublingual 0.4 mg Sublingual ONCE PRNRF: 0 furosemide 20 MG tablet 60 mg PO DAILY RF: 0 Nikolay-24 300 MG capsule,extended release 24hr 300 mg PO DAILY RF: 0 metoprolol tartrate 25 MG tablet 25 mg PO BID RF: 0 Spiriva with HandiHaler 18 MCG capsule, w/inhalation device 18 mcg Inhalation DAILY RF: 0 budesonide-formoterol [Symbicort] 10.2 GM HFA aerosol inhaler 2 puff Inhalation BID RF: 0 guaifenesin 600 MG tablet extended release 12hr 600 mg PO BID PRNRF: 0 prednisone 50 mg tablet 50 mg PO DAILY Qty: 4 RF: 0 benzonatate 200 MG capsule 200 mg PO TID PRN (Reason: Cough) Qty: 90 RF: 0 Discontinued lidocaine [Lidoderm] 1 PATCH patch 1 patch Topical Q24H Qty: 4 RF: 0 prednisone 20 MG tablet 40 mg PO DAILY Qty: 14 RF: 0 Discharge Instructions Instructions: Back Pain (ED) Additional Instructions: At this time your signs and symptoms are clinically consistent with a back sprain. This can cause significant pain and take a fair bit of time to heal. I expect 1 to 2 months for potential resolution. In the meantime do not lift anything greater than 5 pounds for the next 2 weeks. Avoid any significant vigorous physical activity. Perform easy gentle regular activities at home without any significant bending or lifting. Please take the steroids as directed. You have been given a prescription for Lidoderm patch. If your insurance does not cover this you can get [id number] Lidoderm patches at 4% which are almost just as effective. Please take the Flexeril as directed but do not take it when driving or operating any vehicles or heavy machinery, swimming, taking long baths, or operating firearms. Please use a heating pad as often as possible on your back. Perform daily gentle stretches on your back. Please continue to take the Tylenol and Motrin. You can take 1000 mg of Tylenol every 6 hours and 600 mg of ibuprofen every 6 hours. If you notice any worsening of your symptoms, or any new symptoms such as vomiting, diarrhea, fever, chills, shortness of breath, chest pain, numbness or tingling in your groin or legs, weakness in your legs, loss of control for your bowels or bladder, or fainting , please return immediately to the emergency department for reevaluation. Please follow up with your primary care provider as soon as possible for reassessment and reevaluation. As always, it was a pleasure participating in your medical care today. Referrals: Sonia Alfonso [Primary Care Provider] - Medical Decision Making This is a 74-year-old male with a past medical history of chronic r enal disease, COPD, coronary artery disease, type 2 diabetes, notable morbid obesity, who presents today by EMS for evaluation of back pain. Patient states that for the last 3 days after he woke up from sleeping on the couch she has had moderate back pain, worse with standing up and moving. Improved by nothing. He is not wanted to walk secondary to the notable back pain for the last 3 days. He denies any saddle anesthesia, bowel or bladder incontinence, numbness or tingling in the groin, difficulty urinating or having bowel movements. Patient denies any IV or illicit drug use, recent falls, or trauma to the back. Patient has no other complaints at this time. No other modifying factors. Of note patient does have a mild cough currently, he attributes this to his COPD, and states that it is not acute. He denies chest pain, chest tightness, shortness of breath, or other complaints. The patient denies any recent foreign travel or contact with recent immigrants, Travelers, or peoples of [place] or [facility]. The patient denies any recent travel to high risk countries or high risk areas in the [place], or other areas of noted or significant coronavirus infection. Physical exam demonstrates midline tenderness over L3 and L4, mild paraspinal tenderness and mild to moderate paraspinal muscle spasms in this area. Mild diffuse coarse breath sounds, moderate wheezes. Regards to the patient's back pain, I suspect the muscle spasm is primary etiology, worsened by the patient's weight, however due to the patient's age and clinical presentation I do feel that imaging would be merited in this scenario. Signs and symptoms at this time appear inconsistent with paraspinal abscess, or cauda equina syndrome. Although the patient denies any complaints with his lungs, his oxygen saturations are stable but he does have diffuse wheezes throughout. Do feel that there is likely a small component of CHF and/or COPD currently. Will give breathing treatments for this. Will monitor closely, treat the patient's back pain, and reassess. Will give 3 DuoNeb treatments here as well. 2 AM Patient still does have mild spasms, pain is slightly improved. Patient's breathing feels much better after the DuoNeb's. Chest x-ray negative for acute process per virtual radiology, CTs of the lumbar spine negative for acute process per virtual radiology. With no signs of cauda equina syndrome, no other significant abnormality on exam, no urinary symptoms whatsoever, see no indication at this time for further imaging, or management. We will give Valium to help with the spasms, recommend steroids, NSAIDs, Lidoderm patch, and Flexeril at home. I have extensively reviewed the treatment plan and discharge instructions with the patient. I have addressed all patient concerns at this time. The patient was made aware of what symptoms to monitor for that would warrant a return to the emergency department. Discussed the plan with the patient, they demonstrate verbal understanding and agreement with our assessment and plan at this time. 2:30 AM At time of discharge we did get the patient up, and help move him with both wheelchair and assistance. Patient insists that this is his baseline, and he feels that he can move better like before. Patient's family members here to pick him up. FINDINGS: The cardiomediastinal silhouette is grossly stable The osseous structures are grossly stable Minimal basilar subsegmental atelectasis versus scarring. No pleural effusion or pneumothorax IMPRESSION: Minimal basilar subsegmental atelectasis versus scarring No focal consolidation Thank you for allowing us to participate in the care of your patient. Dictated and Authenticated by: Sixto Corcoran MD IMPRESSION: Multilevel foraminal stenosis most pronounced at L4-L5 and L5-S1 No significant central canal stenosis Thank you for allowing us to participate in the care of your patient. Dictated and Authenticated by: Sixto Corcoran MD 08/10/2019 1:47 AM Eastern Time ([place] & [place]) HPI General Date/Time Provider Initiated Documentation: 08/10/19 01:49 . HPI Narrative: This is a 74-year-old male with a past medical history of chronic renal disease, COPD, coronary artery disease, type 2 diabetes, notable morbid obesity, who presents today by EMS for evaluation of back pain. Patient states that for the last 3 days after he woke up from sleeping on the couch she has had moderate back pain, worse with standing up and moving. Improved by nothing. He is not wanted to walk secondary to the notable back pain for the last 3 days. He denies any saddle anesthesia, bowel or bladder incontinence, numbness or tingling in the groin, difficulty urinating or having bowel movements. Patient denies any IV or illicit drug use, recent falls, or trauma to the back. Patient has no other complaints at this time. No other modifying factors. Of note bull ent does have a mild cough currently, he attributes this to his COPD, and states that it is not acute. He denies chest pain, chest tightness, shortness of breath, or other complaints. The patient denies any recent foreign travel or contact with recent immigrants, Travelers, or peoples of [place] or [facility]. The patient denies any recent travel to high risk countries or high risk areas in the [place], or other areas of noted or significant coronavirus infection. Related Data Home Medications Medication Instructions Recorded Confirmed albuterol sulfate 0.5 mg NEB QID PRN 02/28/17 10/02/17 albuterol sulfate [ProAir HFA] 2 puff INHALATION Q4H PRN inhaler 02/28/17 01/30/18 atorvastatin 80 mg PO DAILY tab-cap 02/28/17 01/30/18 Spiriva with HandiHaler 18 mcg INHALATION DAILY tab-cap 03/01/17 08/10/19 Nikolay-24 300 mg PO DAILY tab-cap 03/01/17 08/10/19 budesonide-formoterol [Symbicort] 2 puff INHALATION BID inhaler 03/01/17 01/30/18 furosemide 60 mg PO DAILY tab-cap 03/01/17 01/30/18 guaifenesin 600 mg PO BID PRN 03/01/17 01/30/18 lisinopril 10 mg PO BID tab-cap 03/01/17 01/30/18 metformin 1,000 mg PO BID tab-cap 03/01/17 01/30/18 metoprolol tartrate 25 mg PO BID tab-cap 03/01/17 01/30/18 nitroglycerin [Nitrostat] 0.4 mg SUBLINGUAL ONCE PRN tab-cap 03/01/17 10/02/17 prednisone 40 mg PO DAILY PRN tab-cap 03/01/17 10/02/17 benzonatate 200 mg PO TID PRN #90 cap 04/30/17 01/30/18 prednisone 50 mg PO DAILY #4 tab 01/30/18 acetaminophen [Mapap Extra 1,000 mg PO Q6H 5 Days #60 tab 08/10/19 Strength] cyclobenzaprine 10 mg PO TID #14 tab 08/10/19 lidocaine [Lidoderm] 1 patch TOPICAL Q24H #4 patch 08/10/19 prednisone 50 mg PO DAILY #5 tab 08/10/19 Previous Rx's Medication Instructions Recorded benzonatate 200 mg PO TID PRN #90 cap 04/30/17 prednisone 50 mg PO DAILY #4 tab 01/30/18 acetaminophen [Mapap Extra 1,000 mg PO Q6H 5 Days #60 tab 08/10/19 Strength] cyclobenzaprine 10 mg PO TID #14 tab 08/10/19 lidocaine [Lidoderm] 1 patch TOPICAL Q24H #4 patch 08/10/19 prednisone 50 mg PO DAILY #5 tab 08/10/19 Allergies Allergy/AdvReac Type Severity Reaction Status Date / Time levofloxacin [From Levaquin] AdvReac Itching Verified 08/10/19 00:40 General LAURA: 3 Review of Systems All systems reviewed & are unremarkable except as noted in HPI and below PFSH Social History Smoking/Tobacco Use Status: Former Tobacco Use Alcohol Intake: never Drug use: Never Substance use type: does not use Do you feel safe at home: Yes Do you feel safe in your relationship?: Yes Exam Narrative Exam Narrative: 1.Const: Well-nourished, obese, well-developed, appearing stated age 2.Eyes: PERRL, no conjunctival injection, and symmetrical lids. 3.ENT: Atraumatic external nose and ears. Moist MM. Neck: Symmetric, trachea midline, No thyromegaly. 4.CVS: +S1/S2, No murmurs or gallops. Peripheral pulses 2+ and equal in all extremities. Brisk capillary refill in all extremities. 5.RESP: Unlabored respiratory effort. Mild crackles in the bases bilaterally, mild wheeze throughout. 6.GI: Notably obese, soft, Nontender/Nondistended, No hepatosplenomegaly. No guarding or rebound. 7.MSK: Normocephalic/Atraumatic, Extremities w/o deformity or ttp No cyanosis or clubbing, Normal movement of all extremities. No midline tenderness to palpation over the CTS spine. Patient does have some slight tenderness over L3 and L4. There is also notable paraspinal spasm. Normal ROM in flexion, extension, side bend, and rotation. Patient has +5 out of 5 strength in the lower extremities in dorsiflexion and plantarflexion, knee flexion and extension, hip flexion and extension. Normal strength for dorsiflexion and plantar flexion of the great toe bilaterally. There is +2 over 2 dorsalis pedis pulses bilaterally. There is normal sensation to the skin with light touch at the foot, knee, and hip. Normal saddle sensation. Good sensation over the deep sural nerve area bilaterally. Rectal exam deferred. Normal reflexes in the lower extremities. 8.Skin: Warm, Dry. No rashes or lesions. 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 Sensation grossly intact, no focal neurologic deficits. 10.Psych: (AAO) x3. Appropriate mood and affect
[2019-08-10 00:47] VITALS: RESP 7; O2SAT 98
[2019-08-10] MEDS: Albuterol/Ipratropium 3 ML UPD VIAL 6 ML UPD (00:47)
[2019-08-10] MEDS: Ketorolac 30 MG/ML VIAL IM (00:47)
[2019-08-10] MEDS: Cyclobenzaprine 10 MG TAB PO (00:49)
[2019-08-10] MEDS: Lidocaine 5% Patch 1 PATCH (00:49)
[2019-08-10] MEDS: Acetaminophen 500 MG TAB 1000 MG PO (00:52)
--- NOTE | 2019-08-10 00:53 | NUR.NOTE ---
Nursing Note: Pt sitting up on sit of bed. States pain is better when I sit up. No c/o numbness or tingling.
--- NOTE | 2019-08-10 01:29 | NUR.NOTE ---
Nursing Note: Pt unable to verify his medications
[2019-08-10 01:38] VITALS: BP 108/51; PULSE 84; RESP 16; O2SAT 96
--- NOTE | 2019-08-10 01:43 | DI.VRAD_ITS ---
PROCEDURE INFORMATION: Exam: XR Chest, 2 Views Exam date and time: 08/10/2019 1:28 AM Age: 74 years old Clinical indication: Cough and shortness of breath; Patient HX: Cough, SOB TECHNIQUE: Imaging protocol: XR of the chest Views: 2 views. COMPARISON: CR XR CHEST 2V PA LATERAL 01/30/2018 12:06 PM FINDINGS: The cardiomediastinal silhouette is grossly stable The osseous structures are grossly stable Minimal basilar subsegmental atelectasis versus scarring. No pleural effusion or pneumothorax IMPRESSION: Minimal basilar subsegmental atelectasis versus scarring No focal consolidation Dictated and Authenticated by: Sixto Corcoran MD. Ordering:ELINA Tay MD
--- NOTE | 2019-08-10 01:47 | DI.VRAD_ITS ---
PROCEDURE INFORMATION: Exam: CT Lumbar Spine Without Contrast Exam date and time: 08/10/2019 12:41 AM Age: 74 years old Clinical indication: Low back pain; Patient HX: Midline lumbar back pain TECHNIQUE: Imaging protocol: Computed tomography images of the lumbar spine without contrast. COMPARISON: No relevant prior studies available. FINDINGS: Vertebrae: No acute fracture. Loss of lumbar lordosis is presumed degenerative her Discs/Spinal canal/Neural foramina: No significant central canal stenosis. Severe foraminal stenosis at L5-S1. Moderate to severe foraminal stenosis greater on the right at L4-L5. Mild foraminal stenosis at L3-L4 Soft tissues: Unremarkable. IMPRESSION: Multilevel foraminal stenosis most pronounced at L4-L5 and L5-S1 No significant central canal stenosis Dictated and Authenticated by: Sixto Corcoran MD. Ordering:ELINA Tay MD
--- NOTE | 2019-08-10 02:07 | NUR.NOTE ---
Nursing Note: Patient calling trying to arrange a ride home. Unable to reach anyone at this time.
[2019-08-10] MEDS: diazePAM 10 MG/2 ML SYR IM (02:19)
[2019-08-10 02:21] VITALS: BP 113/56; PULSE 84; RESP 20; O2SAT 97
--- NOTE | 2019-08-10 10:39 | NUR.NOTE ---
Nursing Note: Patient's nitro on a necklace was found in room after his discharge. I spoke with patient and he requested that we mail it to him. I wrapped it in a chux and mailed to patient. Antonina Tolliver.
== END 2019-08-10 02:25 | disposition home or self-care (01) ==
PROVIDERS: Emergency Provider Student in an Organized Health Care Education/Training Program; PCP Nurse Practitioner Primary Care
DX: S33.5XXA Sprain of ligaments of lumbar spine, initial encounter (principal); X58.XXXA Exposure to other specified factors, initial encounter; M62.830 Muscle spasm of back; R06.2 Wheezing; N18.3 Chronic kidney disease, stage 3 (moderate); E11.22 Type 2 diabetes mellitus with diabetic chronic kidney disease; Z79.84 Long term (current) use of oral hypoglycemic drugs; J44.9 Chronic obstructive pulmonary disease, unspecified; Z87.891 Personal history of nicotine dependence; E66.01 Morbid (severe) obesity due to excess calories; Z68.42 Body mass index [BMI] 45.0-49.9, adult
CPT/HCPCS: 94640; 96372; 99284; 71046; 72131; J1885; J3360; J7620

== ENCOUNTER 2019-08-19 19:25 | Inpatient (IN) | payer OTHER, MEDICARE, SELFPAY ==
[2019-08-19] VITALS (38 sets, daily range): BP systolic 81–174; BP diastolic 31–153; PULSE 103–158; RESP 19–35; TEMP 37.4–38.1; O2SAT 80–100
--- NOTE | 2019-08-19 19:45 | DI.RAD_ITS ---
EXAM: XR PORTABLE CHEST AP CLINICAL HISTORY: <SOB, weakness> TECHNIQUE: 2D digital imaging was performed. COMPARISON: XR CHEST 2V PA LATERAL from 08/10/2019 FINDINGS: Exam is limited by the patient's body habitus and immobility. The the heart size is within normal li mits for projection. Leads overlie the upper chest. There are bibasilar densities, similar to the p revious exam. The lungs are suboptimally inflated. There is no evidence of a pleural effusion or ov ert pulmonary edema. IMPRESSION: Bibasilar densities could indicate atelectasis versus infiltrates. DATA REPOSITORY: RADIATION DOSE DELIVERED:
--- NOTE | 2019-08-19 20:02 | ED.GENADUL_ITS ---
Discharge Plan Disposition Patient Disposition: [facility] INPATIENT Condition: Stable Discharge Details Chief Complaint: RespSymp Clinical Impression: Sepsis, Cellulitis Admit Date/Time: 08/19/19 21:59 Admit Provider: Bryson Payan Attending Provider: Bryson Payan Primary Care Provider: Sonia Alfonso ED Provider: Janet Coon Discharge Data Discharge Date/Time-TO BE ENTERED AT DEPARTURE: 08/20/19 00:02 Medical Decision Making Is a 74-year-old patient presenting to the emergency room for complaints of weakness. Patient reports at home he is having difficulty ambulating. He did have a fall this morning for which EMS lift assisted the patient. At that time he did not feel it necessary to be transferred to the emergency room. Patient reports throughout the day he continued to feel weak. Patient reports he did have a single episode of diarrhea today. Patient denies obvious fever but did report chills. Patient does report mild shortness of breath however does report chronic shortness of breath. Patient denying chest pain or abdominal pain at this time. Patient denies headache or dizziness. Patient predominantly presents to the emergency room due to difficulties with ADLs at home specifically due to weakness. Patient denies any back pain. Patient does report mild left knee pain. Patient reports he is currently taking his daily medications and took 20 mg of prednisone today. Patient reports his baseline COPD cough but no worsening. Patient does report he did try to make a phone call with his TV remote at home and found himself feeling somewhat confused. Patient is a very vague historian, requires redirecting multiple times. Patient is alert and oriented at this time. Patient's physical exam reveals no significant increase in respiratory effort, mild diffuse rhonchi. No obvious murmur. Tachycardia noted. Patient has no obvious abdominal pain or peritoneal signs on exam. Patient does have significant bilateral lower extremity edema moderate erythema of the right leg compared to the left. Superficial skin wounds noted in the lower extremities seemingly due to chronic edema. Patient is morbidly obese. Patient's vital signs revealed mild hypotension and tachycardia with a temperature of 37.4. Concern for possible sepsis. We will check chest x-ray, urinalysis, lactate and blood cultures. Patient denies chest pain at this time I doubt ACS. Although patient does report a history of COPD he has no diffuse wheezing at this time O2 saturations 98% I doubt COPD exacerbation. Patient does have significant edema of the lower legs therefore I do have concern of po ssible fluid overload, BMP ordered to rule out CHF. Patient does have chronic renal disease. Will provide judicial fluids at this time begin with 500 cc of normal saline. Labs obtained. IV access ordered. Given patient's complaints of weakness, chills and diarrhea, will maintain precautions for Covid while caring for this patient. Initial EKG reveals sinus tachycardia with a heart rate of 146. QTc 424. Patient has no obvious ST segment changes. This was discussed with Raul Selby who reviewed the EKG. Patient white blood cell count is 19.08 with absolute neutrophils of 16.98. Patient's sodium 134, chloride 95. Carbon dioxide 33.7. Patient's BUN and creatinine noted to be 64 and 2.08. Patient's chest x-ray redemonstrated atelectasis versus scarring in the lung bases without significant consolidation or obvious fluid pattern. Patient does report he typically gets [facility]. Patient reports he has had previous labs at the [facility]. Patient's heart rate has improved from 145 on initial presentation to 110's. Patient's lactate is noted to be 1.8. Initial troponin negative. This case was reviewed with Dr. Chintan Carrillo who did evaluate the patient also, he did review the chest x-ray, labs and urinalysis. He does agree with likely source of infection as lower extremity cellulitis and possibility for sepsis. He does recommend additional fluids of 500 cc at this time. Does agree plan of admission and care. Spoke with the [facility] who does give permission for patient to be admitted to [facility]. Patient's preference is admission to [facility]. Given patient's initial presentation, weakness, diarrhea, body ache, chills I suspect concern for possible sepsis with source of skin on the lower extremities. Patient's urinalysis appears normal and chest x-ray unremarkable for identifiable infection at this time. Given patient likely has a source we will plan to treat with skin covering antibiotics. Spoke with hospitalist regarding patient's admission to [facility]. He will accept patient's admission. His preference is initiating Zosyn at this time. Patient's creatinine clearance calculated to be 62. Hospitalist would like me to put an additional order of 3.375 of Zosyn at this time. Hospitalist will put in all remaining admission orders as well as additional fluid orders for normal saline. Patient remained in the emergency room due to bed placement issue. Patient's tachycardia returned, vital signs repeated patient noted to have a temperature of 38.4. Tylenol ordered. Patient did report he was feeling anxious regarding staying in his current room. I reached out to the hospitalist again who had put in admission orders and discussed the persistent tachycardia. Discussed use of additional medications. He does not recommend any additional medications at this time however does recommended an additional 500 cc bolus in the ER and continued 125 mL's per hour of normal saline. He will evaluate the patient when transferred to the ICU. HPI General Date/Time Provider Initiated Documentation: 08/19/19 19:28 . HPI Narrative: Is a 74-year-old patient presenting to the emergency room for complaints of weakness, fall earlier today mild shortness of breath. Patient arrives via EMS. EMS was called earlier in the day for a lift assist at home. Patient specifically reports increase in weakness, difficulty ambulating in his home. Does report onset of diarrhea today x1, patient reports he soiled his wheelchair. Patient also reports an episode of urge incontinence when attempting to get to the bathroom. Patient does report baseline cough which seems unchanged. Denies chest pain or back pain at this time. Patient denies abdominal pain, nausea or vomiting. Patient denies headache or dizziness. Patient does report widespread body ache as well as chills. Patient reports onset of symptoms today. Patient reports he lives alone. Patient does report today an episode of confusion during which he was trying to make a phone call with a TV remote then realized it became somewhat alarmed. Related Data Home Medications Medication Instructions Recorded Confirmed albuterol sulfate 0.5 mg NEB QID PRN 02/28/17 08/19/19 albuterol sulfate [ProAir HFA] 2 puff INHALATION Q4H PRN inhaler 02/28/17 08/19/19 atorvastatin 80 mg PO DAILY tab-cap 02/28/17 08/19/19 Spiriva with HandiHaler 18 mcg INHALATION DAILY tab-cap 03/01/17 08/19/19 Nikolay-24 300 mg PO DAILY tab-cap 03/01/17 08/19/19 budesonide-formoterol [Symbicort] 2 puff INHALATION BID inhaler 03/01/17 08/19/19 furosemide 60 mg PO DAILY tab-cap 03/01/17 08/19/19 guaifenesin 600 mg PO BID PRN 03/01/17 08/19/19 lisinopril 10 mg PO BID tab-cap 03/01/17 08/19/19 metformin 1,000 mg PO BID tab-cap 03/01/17 08/19/19 metoprolol tartrate 25 mg PO BID tab-cap 03/01/17 08/19/19 nitroglycerin [Nitrostat] 0.4 mg SUBLINGUAL ONCE PRN tab-cap 03/01/17 08/19/19 prednisone 40 mg PO DAILY PRN tab-cap 03/01/17 08/19/19 cyclobenzaprine 10 mg PO TID #14 tab 08/10/19 08/19/19 lidocaine [Lidoderm] 1 patch TOPICAL Q24H #4 patch 08/10/19 08/19/19 Previous Rx's Medication Instructions Recorded cyclobenzaprine 10 mg PO TID #14 tab 08/10/19 lidocaine [Lidoderm] 1 patch TOPICAL Q24H #4 patch 08/10/19 Allergies Allergy/AdvReac Type Severity Reaction Status Date / Time levofloxacin [From Levaquin] AdvReac Itching Verified 08/10/19 00:40 General Stated Complaint: RespSymp LAURA: 3 Review of Systems All systems reviewed & are unremarkable except as noted in HPI and below Constitutional Constitutional: Reports chills, Reports fatigue, Denies fever(s), Denies headache(s), Reports lethargy, Reports malaise and Reports weakness ENT Ears, Nose, Mouth, and Throat: Denies vertigo, Denies dizziness, Denies headache(s), Denies nasal congestion, Denies disequilibrium, Denies sinus pressure, Denies sore throat and Denies throat swelling Cardiovascular Cardiovascular: Denies chest pain, Denies diaphoresis, Denies syncope, Denies rapid heart rate (Denies subjective sensation. Objectively noted on vital signs), Reports leg edema, Denies lightheadedness, Denies radiating jaw, neck or arm pain, Denies palpitations and Reports dyspnea Respiratory Respiratory: Reports cough (Baseline), Denies pain with cough, Reports dyspnea and Denies wheezing Gastrointestinal Gastrointestinal: Denies abdominal pain, Reports diarrhea, Denies nausea and Denies vomiting Genitourinary Genitourinary: Denies hematuria, Denies oliguria and Reports urinary incontinence Neurologic Neurologic: Denies abnormal speech, Reports confusion (Since resolved), Denies vertigo, Denies dizziness, Denies syncope, Denies headache(s), Denies disequilibrium and Reports weakness Psychiatric Psychiatric: Reports confusion (Since resolved) Endocrine Endocrine: Reports fatigue and Denies palpitations Allergic/Immunologic Allergic/Immunologic: Denies throat swelling and Denies wheezing [facility], LAT[facility] Medical History (Updated 08/19/19 @ 22:17 by Bryson Payan) Chronic renal disease, stage 3, moderately decreased glomerular filtration rate (GFR) between 30-59 mL/min/1.73 square meter (Acute) 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 Atraumatic. Hearing grossly normal. EYES: General normal appearance. Alignment normal. Eyelids normal. Conjunctiva normal. Sclera normal. PERRL. NECK: Normal visual inspection. FROM. No lymphadenopathy. Trachea midline. No Midline tenderness. CHEST: Normal insepection of the chest. RESP: Normal respiratory effort. Speaking full sentences. No cough. No wheezing. No retractions. Diffuse rhonchi, no wheezing. Breath sound equal and present bilaterally. CARDIO: No JVD. Normal PMI. Regular Rate. Regular Rhythm. Normal peripheral pulses. GI: Normal inspection of abdomen. No distension. Soft. Nontender. Bowel sounds present in all 4 quadrants. No rebound. No gaurding. MUSCULOSKELETAL: Bilateral 2+ pitting edema extending proximal to knees bilaterally. moderated erythema and warmth to bilateraly LE right > left. c/w cellulitis. chronic calous formation. SKIN: see above description of LE's. NEURO: Alert and awake. Speech clear. PSYCH: Normal affect. Cooperative. Course Vital Signs Vital signs: Vital Signs Temperature 37.4 C 08/19/19 19:35 Pulse 145 H 08/19/19 19:35 Respiratory Rate 24 08/19/19 19:35 Blood Pressure 100/42 L 08/19/19 19:35 Pulse Oximetry 98 08/19/19 19:35 Temperature 37.4 C 08/19/19 19:35 Temperature Source Skin 08/19/19 19:35 Pulse 145 H 08/19/19 19:35 Respiratory Rate 24 08/19/19 19:35 Respiratory Effort 08/19/19 19:35 Respiratory Depth Normal 08/19/19 19:35 Blood Pressure 100/42 L 08/19/19 19:35 Blood Pressure Position Supine 08/19/19 19:35 Pulse Oximetry 98 08/19/19 19:35 Oxygen Delivery Method Nasal Cannula 08/19/19 19:35 Oxygen Flow Rate 6 08/19/19 19:35 Pain Level 0 08/19/19 19:35 Lab/Test Results Lab/Test Results: 08/19/19 19:54 Blood Blood Culture - Pending 08/19/19 19:54 Blood Blood Culture - Pending
[2019-08-19 20:10] LABS: Lactate 1.8 mmol/L (0.6-1.4)
[2019-08-19 20:17] LABS: Abs Immature Grans 0.17 k/cumm (0.0-0.09); HCT 34.7 % (40.0-50.0); HGB 11.1 g/dL (13.5-17.5); Mean Corpuscular Hemoglobin 29.9 pg (27.0-33.0); Mean Corpuscular Volume 93.5 fL (80-95); Mean Platelet Volume 9.6 fL (8.0-11.0); Platelet Count 347 x1000/uL (130-400); RBC 3.71 m/cumm (4.50-6.00); RBC Distribution Width 14.6 % (11.8-14.1); White Blood Cell Count 19.08 k/cumm (4.4-10.8)
[2019-08-19 20:21] LABS: INR 1.1 (0.9-1.1); PTT Activated 25.4 sec (21.0-31.4); Prothrombin Time 10.7 sec (9.3-11.0)
[2019-08-19 20:30] LABS: Absolute Lymphocyte Count 1.34 k/cumm (1.2-3.4); Absolute Monocyte Count 0.76 k/cumm (0.11-0.7); Absolute Neutrophil Count 16.98 k/cumm (1.2-6.7); Atypical Lymphocytes % 1
[2019-08-19 20:31] LABS: Diff Comment Manual Differential; RBC Morphology Normal
[2019-08-19] MEDS: Normal Saline 500 ML 1000 ML IV (20:36)
[2019-08-19 20:37] LABS: Bilirubin Negative (Negative); Blood Trace-intact (Negative); Clarity Clear (Clear); Glucose Negative (Negative); Ketones Negative (Negative); Leukocyte Esterase Negative (Negative); Nitrite Negative (Negative); Urobilinogen 0.2 EU/dL (Up TO 0.2); pH 5.5 (5-8)
[2019-08-19 20:50] LABS: Bacteria Rare HPF (Negative); C & S Indicated? C&S Done As Ordered; Casts Negative LPF (Negative); Crystals Negative HPF (Negative); Epithelial Cells Negative HPF (Negative); Mucus Negative (Negative); Other Cells Negative (Negative); RBC 0-2 HPF (0-2); WBC Negative HPF (0-5)
--- NOTE | 2019-08-19 20:52 | NUR.NOTE ---
Nursing Note: pt very vague, unclear regarding meds.
[2019-08-19 21:11] LABS: ALT 63 U/L (16-63); AST 30 U/L (15-37); Albumin 2.6 g/dL (3.4-5.0); Alkaline Phosphatase 97 U/L (46-116); Anion Gap 5.3 mmol/L (3-11); BUN 64 mg/dL (7-18); Bilirubin, Total 0.8 mg/dL (0.2-1.0); CO2 33.7 mmol/L (21.0-32.0); CREATININE 2.08 mg/dL (0.70-1.30); Calcium 9.6 mg/dL (8.5-10.1); Chloride 95 mmol/L (98-107); Estimated GFR 31.55 (mL/min/1.73m2); Glucose 171 mg/dL (74-106); Lipase 151 U/L (73-393); NT-proBNP 193 pg/mL (<300); Potassium 4.6 mmol/L (3.5-5.1); Sodium 134 mmol/L (136-145); Total Protein 7.1 g/dL (6.4-8.2); Troponin I < 0.05 ng/Ml (<0.06)
--- NOTE | 2019-08-19 21:13 | DI.VRAD_ITS ---
PROCEDURE INFORMATION: Exam: XR Chest, 1 View Exam date and time: 08/19/2019 8:51 PM Age: 74 years old Clinical indication: Shortness of breath and other: SOB, weakness TECHNIQUE: Imaging protocol: XR of the chest Views: 1 view. COMPARISON: CR XR CHEST 2V PA LATERAL 08/10/2019 1:28 AM FINDINGS: Lungs: Mild atelectasis versus scarring in the lung bases with an appearance similar to prior. No significant consolidation. Pleural space: Unremarkable. No pleural effusion. No pneumothorax. Heart/Mediastinum: Unremarkable. No cardiomegaly. Bones/joints: Chronic osseous changes. IMPRESSION: Redemonstrated atelectasis/scarring in the lung bases without significant consolidation. Dictated and Authenticated by: Tyron Bolden MD. Ordering:SAMUEL Gonzales MD
--- NOTE | 2019-08-19 21:31 | NUR.NOTE ---
Nursing Note: Pt given option to be admitted here or at [facility]. Pt states he will prefer to be admitted here. CAROL Flanagan informed
--- NOTE | 2019-08-19 21:56 | W.PM.HP.N ---
Date of service: 08/19/19 Time of Service: 21:56 Assessment and Plan Assessment and plan (1) SIRS (systemic inflammatory response syndrome): Start date: 08/19/19 Status: Acute Assessment and plan: This is a 74-year-old diabetic with obesity and severe COPD who presents with generalized weakness and early sepsis with cellulitis in his lower extremities a source of infection. He also appears to be slightly dehydrated from his baseline with CKD chronically. He will be IV hydrated which may help his tachycardia and aggressively treated for his COPD with broad-spectrum antibiotics for his cellulitis and possible sepsis. (2) Cellulitis: Start date: 08/19/19 Status: Acute Assessment and plan: Right more than lower extremity as a source of possible sepsis, started on Zosyn we will add vancomycin. Qualifiers: Laterality: unspecified laterality Site of cellulitis: extremity Site of cellulitis of extremity: lower extremity Qualified Code(s): L03.119 - Cellulitis of unspecified part of limb (3) COPD (chronic obstructive pulmonary disease) with emphysema: Status: Chronic Assessment and plan: Chronic with poorly controlled respiratory status at home and slight exacerbation presently. His x-ray revealed no acute filtrates and the patient will be treated aggressively with nebulizers and continue on his CPAP. The antibiotics for his possible sepsis should cover any early pneumonia. There is no indication of travel or exposure to be concerned about COVID-19. Qualifiers: Emphysema type: other Qualified Code(s): J43.8 - Other emphysema (4) Chronic renal disease, stage 3, moderately decreased glomerular filtration rate (GFR) between 30-59 mL/min/1.73 square meter: Status: Chronic Assessment and plan: Patient is acutely dehydrated and will be gently rehydrated with normal saline watch for fluid overload, follow-up lab. (5) Type 2 diabetes mellitus: Status: Chronic Assessment and plan: Hold usual treatment on the hospital and he will with before meals and at bedtime moderate short acting insulin coverage. Qualifiers: Chronic kidney disease stage: stage 3 (moderate) Diabetes mellitus complication detail: with chronic kidney disease Diabetes mellitus complication status: with kidney complications Diabetes mellitus residential insulin use: without residential use Qualified Code(s): E11.22 - Type 2 diabetes mellitus with diabetic chronic kidney disease; N18.3 - Chronic kidney disease, stage 3 (moderate) History of Present Illness History of Present Illness Chief Complaint: Weakness Narrative: This is a 74-year-old gentleman who lives alone and is a [facility] having served in the [employer]. On admission he had a fall while transferring in the morning and call for assistance to get up. At that time he did not think he needed evaluated and did not transfer to the ED. Later in the day he had continued weakness and confusion thinking that his TV remote was a phone and was trying to make a call. He did have one episode of loose stools but did not continue had no further abdominal complaints. He said that he had chills but no measured fever. His respiratory status was at baseline which is poor wearing CPAP at night for sleep apnea, being 100 pounds overweight over the recent past and less ambulatory due to obesity with arthritis and respiratory symptoms. In the ED he was found to have erythematous lower extremities with hot to the touch with chronic edema and at baseline with respiratory status with no measured fever until end of his ED evaluation. He was tachycardic and was treated with fluids also had a drop in his blood pressure with an elevated white blood cell count and tachypnea though this appeared chronic. He had no recent travel or exposure to COVID-19 with only [facility] nurses coming to his home and appears to have minimal or no family contact. Patient is a FULL [employer] but stated that if I get COVID-19, I do not want to be on a ventilator. Review of Systems Narrative: 13-point review of systems otherwise unrevealing or stable with the patient being a poor historian. [facility] Medical History (Updated 08/20/19 @ 06:09 by Bryson Payan) Chronic renal disease, stage 3, moderately decreased glomerular filtration rate (GFR) between 30-59 mL/min/1.73 square meter (Chronic) COPD (chronic obstructive pulmonary disease) with emphysema (Chronic) COPD exacerbation (Chronic) Hyperkalemia, diminished renal excretion (Acute) Morbid obesity (Acute) Type 2 diabetes mellitus (Chronic) Social History Smoking/Tobacco Use Status: Former Tobacco Use Alcohol Intake: never Drug use: Never Substance use type: does not use Do you feel safe at home: Yes Do you feel safe in your relationship?: Yes Meds Home Medications and Allergies Home Medications Medication Instructions Recorded Confirmed Type albuterol sulfate 0.5 mg NEB QID PRN 02/28/17 08/19/19 History albuterol sulfate [ProAir HFA] 2 puff INHALATION Q4H PRN inhaler 02/28/17 08/19/19 History atorvastatin 80 mg PO DAILY tab-cap 02/28/17 08/19/19 History Spiriva with HandiHaler 18 mcg INHALATION DAILY tab-cap 03/01/17 08/19/19 History Nikolay-24 300 mg PO DAILY tab-cap 03/01/17 08/19/19 History budesonide-formoterol [Symbicort] 2 puff INHALATION BID inhaler 03/01/17 08/19/19 History furosemide 60 mg PO DAILY tab-cap 03/01/17 08/19/19 History guaifenesin 600 mg PO BID PRN 03/01/17 08/19/19 History lisinopril 10 mg PO BID tab-cap 03/01/17 08/19/19 History metformin 1,000 mg PO BID tab-cap 03/01/17 08/19/19 History metoprolol tartrate 25 mg PO BID tab-cap 03/01/17 08/19/19 History nitroglycerin [Nitrostat] 0.4 mg SUBLINGUAL ONCE PRN tab-cap 03/01/17 08/19/19 History prednisone 40 mg PO DAILY PRN tab-cap 03/01/17 08/19/19 History cyclobenzaprine 10 mg PO TID #14 tab 08/10/19 08/19/19 Rx lidocaine [Lidoderm] 1 patch TOPICAL Q24H #4 patch 08/10/19 08/19/19 Rx Allergies Allergy/AdvReac Type Severity Reaction Status Date / Time levofloxacin [From Levaquin] AdvReac Itching Verified 08/10/19 00:40 Exam Narrative Exam Narrative: General: Patient appears to be in moderate distress with tachypnea with minimal movement. This is his baseline by history. He usually does frequent nebulizers and wears CPAP at night. He is alert and oriented at least to time place and possibly time. He is obese and appears older than stated age. HEENT: Normocephalic with balding scalp, eyes with pupils equal and reactive to light symmetrically with extraocular movement intact and sclera anicteric. Oropharynx with dry oral mucosa. Neck: Supple without JVD. Lungs: Initial exam with diffuse expiratory and expiratory coarse crackles and rhonchi without focalization and increased expiratory phase with diffuse expiratory wheeze. Bronchovesicular breath sounds diffusely with poor aeration. After nebulizer treatment improved expiratory phase with decreased expiratory wheeze and only rhonchi with less inspiratory adventitious sounds. Heart: Distant heart sounds with tachycardic rate and regular rhythm. No appreciable murmurs or gallops. Back: Stooped posture with no CVA tenderness. Decreased range of motion. Abdomen: Obese contour with atrophic lower midline abdominal surgical scar, no focal tenderness with soft abdomen to palpation though protuberant, no palpable hepatosplenomegaly but difficult exam with pannus. Bowel sounds positive in all quadrants. Genitalia/rectal: Exam deferred. Patient has Osman catheter in place. Extremities: Moderate nonpitting edema over lower extremities with atrophy over both ankles and no open ulcerations but superficial skin breakdown with hyperpigmentation, erythematous skin over the upper leg, knee and thigh on the right compared to left with increased warmth to touch. He does have an old scar over his left knee which he states is from a chain saw injury. He has had no left knee replacement. Fair range of motion of his knees with arthritic changes and no obvious knee effusions. No clubbing or cyanosis. Pulses are decreased but intact. Skin: Diffusely with actinic changes and erythematous over lower extremities especially right leg and thigh compared to left. Chronic skin changes over legs as described. Warm to the touch and slightly sweaty over his head which he states is because of the warm room in the ED. Does have a fever measured. Neuro: Cranial nerves II through XII grossly intact, motor sensory grossly intact though overall generalized weakness and difficulty being because arthritis and obesity. Psych: Easily agitated with depressed mood and some short-term memory loss with remote memory intact. Results Imaging Imaging Studies: Exam: XR Chest, 1 View Exam date and time: 08/19/2019 8:51 PM Age: 74 years old Clinical indication: Shortness of breath and other: SOB, weakness TECHNIQUE: Imaging protocol: XR of the chest Views: 1 view. COMPARISON: CR XR CHEST 2V PA LATERAL 08/10/2019 1:28 AM FINDINGS: Lungs: Mild atelectasis versus scarring in the lung bases with an appearance similar to prior. No significant consolidation. Pleural space: Unremarkable. No pleural effusion. No pneumothorax. Heart/Mediastinum: Unremarkable. No cardiomegaly. Bones/joints: Chronic osseous changes. IMPRESSION: Redemonstrated atelectasis/scarring in the lung bases without significant consolidation. Dictated and Authenticated by: Tyron Bolden MD. Labs Result diagrams: 08/19/19 19:56 08/19/19 19:56 Labs: Laboratory Results - last 24 hr 08/19/19 08/19/19 08/19/19 19:56 19:56 19:56 WBC 19.08 H RBC 3.71 L Hgb 11.1 L Hct 34.7 L MCV 93.5 MCH 29.9 MCHC 32.0 RDW 14.6 H Plt Count 347 MPV 9.6 Immature Gran % 0.0 Neutrophils % 89.0 Band Neutrophils % 0.0 Lymphocytes % 6.0 Atypical Lymphs % 1 Monocytes % 4.0 Eosinophils % 0.0 Basophils % 0.0 Absolute Neutrophils 16.98 H Absolute Lymphocytes 1.34 Absolute Monocytes 0.76 H Absolute Eosinophils 0.00 Absolute Basophils 0.00 Differential Comment Manual differential RBC Morphology Normal PT INR APTT Sodium 134 L Potassium 4.6 Chloride 95 L Carbon Dioxide 33.7 H Anion Gap 5.3 BUN 64 H Creatinine 2.08 H Estimated GFR/1.73 m2 31.55 Glucose 171 H Lactate 1.8 H Calcium 9.6 Total Bilirubin 0.8 AST 30 ALT 63 Alkaline Phosphatase 97 Troponin I < 0.05 NT-Pro-B Natriuret Pep 193 Total Protein 7.1 Albumin 2.6 L Lipase 151 Urine Color Urine Clarity Urine pH Ur Specific [place] Urine Protein Urine Ketones Urine Blood Urine Nitrite Urine Bilirubin Urine Urobilinogen Ur Leukocyte Esterase Urine RBC Urine WBC Ur Epithelial Cells Urine Crystals Urine Bacteria Urine Casts Urine Mucus Urine Other Ur Culture Indicated? Urine Glucose 08/19/19 08/19/19 19:56 20:20 WBC RBC Hgb Hct MCV MCH MCHC RDW Plt Count MPV Immature Gran % Neutrophils % Band Neutrophils % Lymphocytes % Atypical Lymphs % Monocytes % Eosinophils % Basophils % Absolute Neutrophils Absolute Lymphocytes Absolute Monocytes Absolute Eosinophils Absolute Basophils Differential Comment RBC Morphology PT 10.7 INR 1.1 APTT 25.4 Sodium Potassium Chloride Carbon Dioxide Anion Gap BUN Creatinine Estimated GFR/1.73 m2 Glucose Lactate Calcium Total Bilirubin AST ALT Alkaline Phosphatase Troponin I NT-Pro-B Natriuret Pep Total Protein Albumin Lipase Urine Color Yellow Urine Clarity Clear Urine pH 5.5 Ur Specific [place] 1.010 Urine Protein Negative Urine Ketones Negative Urine Blood Trace-intact H Urine Nitrite Negative Urine Bilirubin Negative Urine Urobilinogen 0.2 Ur Leukocyte Esterase Negative Urine RBC 0-2 Urine WBC Negative Ur Epithelial Cells Negative Urine Crystals Negative Urine Bacteria Rare Urine Casts Negative Urine Mucus Negative Urine Other Negative Ur Culture Indicated? C&s done as ordered Urine Glucose Negative Last Vital Signs Temp 37.4 C 08/19/19 19:35 Pulse 145 H 08/19/19 19:35 Resp 28 H 08/19/19 20:15 BP 100/42 L 08/19/19 19:35 Pulse Ox 94 L 08/19/19 20:00 COVID-19 Screening Traveled to [place] from one of the affected countries or regions?: No Recent travel in the [place] within the last 8 weeks?: No Recent out of the country travel within the last 8 weeks?: No Exposure or possible exposure to illness during travel?: No Had IN PERSON contact w/suspected or confirmed C-19 person: No Have you had the following symptoms in the past few days?: Yes Symptoms noted since travel?: Lower Respiratory Medical treatment received for symptoms/illness related to travel?: unsure of fever
[2019-08-19] MEDS: PIPERACILLIN/TAZO 3.375 GM in Normal Saline 50 ML IVPB (22:06)
[2019-08-19 22:55] LABS: Magnesium 1.8 mg/dL (1.8-2.4); TSH (W/Ref FT4) 0.35 uIU/mL (0.36-3.74)
[2019-08-19] MEDS: Normal Saline 1,000 ML 125 ML IV (23:10)
[2019-08-19] MEDS: Acetaminophen 500 MG TAB 1000 MG PO (23:20)
[2019-08-19 23:32] LABS: FREE T4 1.78 ng/dL (0.76-1.46)
[2019-08-19 23:37] LABS: Troponin I < 0.05 ng/Ml (<0.06)
[2019-08-20] VITALS (63 sets, daily range): BP systolic 81–141; BP diastolic 39–69; PULSE 70–160; RESP 2–37; TEMP 36.6–37.2; O2SAT 68–100
--- NOTE | 2019-08-20 | DI.RAD_ITS ---
EXAM: XR KNEE LT 2V AP,LAT portable CLINICAL HISTORY: Strep bacteremia, history left TKA. TECHNIQUE: 2D digital imaging was performed portably. COMPARISON: LEFT KNEE LIMITED 1 OR 2 VIEWS from 02/27/2017 FINDINGS: The lateral view is limited due to overlap with the contralateral knee. BONES: No acute fracture is present. No bony destructive lesion is seen. JOINTS: A total knee prosthesis is again noted which appears unchanged in position. The tibial stem component of the prosthesis at is again noted to be angulated and lying close to the cortex rather th an centered within the medullary region. There lucencies and chronic deformity in the proximal tibia which appear unchanged. No new abnormalities are seen. No joint effusion is seen. SOFT TISSUE: Vascular calcifications are seen. There is a rounded metallic density in the medial sof t tissues of the upper leg which is also present on the previous exam. IMPRESSION: No change in appearance the left total knee prosthesis or surrounding bone. DATA REPOSITORY: RADIATION DOSE DELIVERED:
--- NOTE | 2019-08-20 | DI.RAD_ITS ---
EXAM: XR SHOULDER RT COMPLETE 2+V portable CLINICAL HISTORY: Shoulder pain. TECHNIQUE: 2D digital imaging was performed. Portable examination was performed. COMPARISON: PORTABLE AP CHEST from 08/31/2010 CHEST 2 VIEWS PA,LAT from 04/03/2011 PORTABLE CHEST ONE VIEW from 04/28/2017 XR CHEST 2V PA LATERAL from 01/30/2018 XR CHEST 2V PA LATERAL from 08/10/2019 XR PORTABLE CHEST AP from 08/19/2019 FINDINGS: Exam is somewhat limited by portable technique. The positioning is suboptimal. BONES: No acute fracture is present. No bony destructive lesion is seen. JOINTS: No dislocation present. There is no significant spurring at the AC joint or AC joint widening . There are degenerative changes at the glenohumeral joint. A subchondral cyst is seen in the regio n of the greater tuberosity. SOFT TISSUE: Unremarkable. IMPRESSION: Degenerative changes of the glenohumeral joint. DATA REPOSITORY: RADIATION DOSE DELIVERED:
[2019-08-20] MEDS: Albuterol 2.5 MG/3 ML INH SOLN VIAL UPD ×3 (01:47→21:58)
[2019-08-20] MEDS: Albuterol/Ipratropium 3 ML UPD VIAL UPD ×3 (01:47→17:44)
[2019-08-20] MEDS: methylPREDNISolone SUCC 125 MG VIAL IVP (02:41)
[2019-08-20] MEDS: Metoprolol 25 MG TAB PO ×4 (02:41→21:32)
[2019-08-20] MEDS: MORPHine 2 MG/ML SYR IVP (02:41)
[2019-08-20] MEDS: Heparin 5,000 UNITS/ML VIAL 5000 UNITS SC ×2 (02:41→08:52)
[2019-08-20] MEDS: VANCOMYCIN 1,500 MG in Normal Saline 250 ML 166.667 MG IVPB (03:34)
[2019-08-20] MEDS: PIPERACILLIN/TAZO 3.375 GM in Normal Saline 50 ML IVPB (04:54)
[2019-08-20] MEDS: MORPHine 10 MG/ML VIAL 2 MG IVP (04:55)
[2019-08-20 06:55] LABS: HCT 31.1 % (40.0-50.0); HGB 9.9 g/dL (13.5-17.5); Mean Corp. HGB Concentration 31.8 g/dL (32.0-36.0); Mean Corpuscular Volume 94.2 fL (80-95); Mean Platelet Volume 9.8 fL (8.0-11.0); Platelet Count 266 x1000/uL (130-400); RBC Distribution Width 14.9 % (11.8-14.1); White Blood Cell Count 19.54 k/cumm (4.4-10.8)
[2019-08-20 07:18] LABS: ALT 56 U/L (16-63); AST 30 U/L (15-37); Albumin 2.2 g/dL (3.4-5.0); Alkaline Phosphatase 90 U/L (46-116); Anion Gap 7.3 mmol/L (3-11); BUN 66 mg/dL (7-18); Bilirubin, Total 0.8 mg/dL (0.2-1.0); CO2 29.7 mmol/L (21.0-32.0); CREATININE 2.42 mg/dL (0.70-1.30); Calcium 8.9 mg/dL (8.5-10.1); Chloride 98 mmol/L (98-107); Estimated GFR 26.49 (mL/min/1.73m2); Glucose 161 mg/dL (74-106); Potassium 4.9 mmol/L (3.5-5.1); Sodium 135 mmol/L (136-145); Total Protein 6.4 g/dL (6.4-8.2)
[2019-08-20 07:20] LABS: Troponin I 0.05 ng/Ml (<0.06)
[2019-08-20] MEDS: Normal Saline 1,000 ML 150 ML IV (07:40)
[2019-08-20] MEDS: Lidocaine 5% Patch 1 PATCH TP (08:52)
[2019-08-20] MEDS: Insulin Aspart 300 UNITS/3 ML PEN SC ×4 (08:53→22:51)
[2019-08-20] MEDS: Acetaminophen 325 MG TAB PO (08:55)
[2019-08-20] MEDS: Cyclobenzaprine 10 MG TAB PO ×3 (08:56→21:33)
--- NOTE | 2019-08-20 09:41 | RESPIRATORY ---
Spoke with patient today and he stated [facility]. He currently has home O2 which he uses throughout the day and his baseline is 3.5L.
[2019-08-20] MEDS: Insulin NPH-Human 300 UNITS/3 ML PEN 30 UNIT SC ×2 (09:54→17:51)
[2019-08-20] MEDS: CLINDAMYCIN 900 MG/50 ML BAG 50 MG IVPB ×3 (09:56→21:59)
[2019-08-20] MEDS: methylPREDNISolone SUCC 125 MG VIAL 60 MG IVP ×2 (09:57→18:04)
[2019-08-20] MEDS: Budesonide/Formoterol 160/4.5 6 GM 60 PUFF INH IH ×2 (10:53→21:37)
--- NOTE | 2019-08-20 11:10 | W.PM.PROGNOT ---
Date of Service Date of service: 08/20/19 Time of Service: 11:10 Assessment and Plan Assessment and plan (1) Sepsis: Status: Acute Assessment and plan: Antibiotics been changed from vancomycin to Zosyn to oxacillin and clindamycin. Presumably the final ID will be strep. Continue with supportive care with IV fluids monitoring renal function. His mental status has improved overnight. I will get an echo to rule out endocarditis. Presumed source of his infection cellulitis of his legs however given his prior history of infected prosthetic joint I will obtain an x-ray of his left knee. Clinically the left knee does not look inflamed or erythematous or hot to the touch. Qualifiers: Acute renal failure type: with acute tubular necrosis Sepsis acute organ dysfunction status: with acute organ dysfunction Sepsis type: Streptococcus, unspecified Severe sepsis acute organ dysfunction type: acute renal failure Severe sepsis shock status: without septic shock Qualified Code(s): A40.9 - Streptococcal sepsis, unspecified; R65.20 - Severe sepsis without septic shock; N17.0 - Acute kidney failure with tubular necrosis (2) Cellulitis: Status: Acute Assessment and plan: As above Qualifiers: Laterality: unspecified laterality Site of cellulitis: extremity Site of cellulitis of extremity: lower extremity Qualified Code(s): L03.119 - Cellulitis of unspecified part of limb (3) COPD (chronic obstructive pulmonary disease) with emphysema: Status: Chronic Assessment and plan: Patient was started on treatment for COPD exacerbation. Does not sound to me like his cough is any worse than usual nor is he a more short of breath than usual. I will quickly taper his IV corticosteroids. Continue DuoNeb treatments and resume his Symbicort. Qualifiers: Emphysema type: other Qualified Code(s): J43.8 - Other emphysema (4) Type 2 diabetes mellitus: Status: Chronic Assessment and plan: Monitor blood sugars before meals and at bedtime and cover with sliding scale. Continue basal insulin Qualifiers: Chronic kidney disease stage: stage 3 (moderate) Diabetes mellitus complication detail: with chronic kidney disease Diabetes mellitus complication status: with kidney complications Diabetes mellitus group home insulin use: without group home use Qualified Code(s): E11.22 - Type 2 diabetes mellitus with diabetic chronic kidney disease; N18.3 - Chronic kidney disease, stage 3 (moderate) (5) Chronic renal disease, stage 3, moderately decreased glomerular filtration rate (GFR) between 30-59 mL/min/1.73 square meter: Status: Chronic Assessment and plan: Continue to monitor urine output as well as daily BMP. Continue with IV fluids but will reduce the rate and once he is taking adequate p.o. and his BUN/creatinine are back to baseline we will discontinue IV fluids. (6) Anemia: Status: Chronic Assessment and plan: Appears that he has a chronic normocytic normochromic anemia. His baseline hemoglobin is between 11 and 12 g. Last night his hemoglobin is 11.1 and dropped down to 9.9. Some of this is delusional from IV fluids. However we will check stool for occult blood given his prior history of GI bleeding. I will put him on Protonix for GI protection. We will also obtain work-up of his anemia including serum iron and ferritin (7) DVT prophylaxis: Status: Acute Assessment and plan: Continue subcutaneous heparin. He is not a candidate for low molecular weight heparin due to his CKD (8) Discharge planning issues: Status: Acute Assessment and plan: Patient is desiring to return home however given his morbid obesity and difficulty with ambulation he may need some rehab once he recuperates from his infection. Subjective Subjective Interval history since last seen: 74 yr. male ([facility] w/ PMH COPD (on home oxygen), CKD, DM2, HTN, JANELLE (on CPAP at home), CAD(prior stent), OA (s/p L. TKA), GI bleed, who presented to the ER last night w/ generalized weakness and inablity to ambulate. He fell at home yesterday morning and required EMS lift assistance to get back to bed (he is morbidly obese). He did not feel the need to come to the hospital until later in the day when he felt more weak and complained of single episode of diarrhea and chills and apparently was confused (thinking his TV remote was a phone). He presented to the ER w/ a septic picture (fever 38.1, tachycardia 140-150, confusion, KHALIF (creatinine 2.08, now up to 2.42 and BUN 66), leukocytosis 19,000). The source was felt to be d/t cellulitis of his legs. He has chronic bilateral leg edema (?PHTN from JANELLE, ?CHF). CXR failed to demonstrated CHF or effusion but demonstrated bibasilar densities c/w atelectasis vs infiltrate. He admits to chronic cough but not coughing up any puruelent sputum. Blood cultures were taken and he was started on Zosyn and Vancomycin. HIs blood cultures are now showing positive for GPC in chains (c/w Strep bacteremia). He says that he had prior L. TKA infection that Dr. Brothers had to remove while he had antibiotic treatment for Strep. Exam Narrative Exam Narrative: Morbidly obese male lying in semi-mccord position who is sleeping and snoring. He awakens easily. When awakened he is alert and oriented person place time circumstance. Chest reveals scattered expiratory wheezes no rhonchi or rales. Heart is regular no appreciable murmur rub or gallop. Abdomen is obese soft and nontender. Lower extremities with 2+ firm edema with brawny skin changes consistent with chronic stasis dermatitis. Skin is thick. There is lichenification of the skin. I do not see any open sores. Both tibia are warm to the touch and erythematous. Upper extremities he has bruising on the right forearm and upper arm. Right shoulder is painful with abduction or external rotation. Otherwise he has normal hand manager behavioral strength and forearm strength. Objective Objective Clinical Data: Abnormal lab results 08/19/19 08/19/19 08/19/19 Range/Units 19:55 19:56 19:56 WBC (4.4-10.8) k/cumm RBC (4.50-6.00) m/cumm Hgb (13.5-17.5) g/dL Hct (40.0-50.0) % MCHC (32.0-36.0) g/dL RDW (11.8-14.1) % Absolute Neutrophils (1.2-6.7) k/cumm Absolute Monocytes (0.11-0.7) k/cumm Sodium 134 L (136-145) mmol/L Chloride 95 L (98-107) mmol/L Carbon Dioxide 33.7 H (21.0-32.0) mmol/L BUN 64 H (7-18) mg/dL Creatinine 2.08 H (0.70-1.30) mg/dL Glucose 171 H (74-106) mg/dL Lactate 1.8 H (0.6-1.4) mmol/L Albumin 2.6 L (3.4-5.0) g/dL TSH 0.35 L (0.36-3.74) uIU/mL Free T4 1.78 H (0.76-1.46) ng/dL Urine Blood (Negative) 08/19/19 08/19/19 08/20/19 Range/Units 19:56 20:20 06:12 WBC 19.08 H (4.4-10.8) k/cumm RBC 3.71 L (4.50-6.00) m/cumm Hgb 11.1 L (13.5-17.5) g/dL Hct 34.7 L (40.0-50.0) % MCHC (32.0-36.0) g/dL RDW 14.6 H (11.8-14.1) % Absolute Neutrophils 16.98 H (1.2-6.7) k/cumm Absolute Monocytes 0.76 H (0.11-0.7) k/cumm Sodium 135 L (136-145) mmol/L Chloride (98-107) mmol/L Carbon Dioxide (21.0-32.0) mmol/L BUN 66 H (7-18) mg/dL Creatinine 2.42 H (0.70-1.30) mg/dL Glucose 161 H (74-106) mg/dL Lactate (0.6-1.4) mmol/L Albumin 2.2 L (3.4-5.0) g/dL TSH (0.36-3.74) uIU/mL Free T4 (0.76-1.46) ng/dL Urine Blood Trace-intact H (Negative) 08/20/19 Range/Units 06:12 WBC 19.54 H (4.4-10.8) k/cumm RBC 3.30 L (4.50-6.00) m/cumm Hgb 9.9 L (13.5-17.5) g/dL Hct 31.1 L (40.0-50.0) % MCHC 31.8 L (32.0-36.0) g/dL RDW 14.9 H (11.8-14.1) % Absolute Neutrophils (1.2-6.7) k/cumm Absolute Monocytes (0.11-0.7) k/cumm Sodium (136-145) mmol/L Chloride (98-107) mmol/L Carbon Dioxide (21.0-32.0) mmol/L BUN (7-18) mg/dL Creatinine (0.70-1.30) mg/dL Glucose (74-106) mg/dL Lactate (0.6-1.4) mmol/L Albumin (3.4-5.0) g/dL TSH (0.36-3.74) uIU/mL Free T4 (0.76-1.46) ng/dL Urine Blood (Negative) Vital Signs Temperature 36.6 C 08/20/19 05:04 Temperature Source Tympanic 08/20/19 05:04 Pulse 83 08/20/19 08:00 Pulse 87 08/20/19 08:00 Respiratory Rate 26 H 08/20/19 08:00 Respiratory Effort Labored 08/20/19 05:04 Respiratory Depth Normal 08/20/19 05:04 Respiratory Pattern Tachypnea 08/20/19 05:04 Blood Pressure 109/44 L 08/20/19 08:00 Blood Pressure Mean 60 08/20/19 08:00 Blood Pressure Position Supine 08/19/19 19:35 Pulse Oximetry 94 L 08/20/19 11:01 Oxygen Delivery Method Hi Flow Nasal Cannula 08/20/19 11:01 Oxygen Flow Rate 4 08/20/19 11:01 Fraction of Inspired Oxygen (FIO2) 3 08/20/19 09:22 Pain Level 9 08/20/19 08:55 Intake & Output 08/19/19 08/19/19 08/20/19 11:59 23:59 11:59 Intake Total 1550 / 1550 600 / 600 Output Total 550 / 550 Balance 1550 / 1550 50 / 50 Weight 136.078 kg 136.078 kg Intake: IV 1550 / 1550 300 / 300 Oral 300 / 300 Output: Urine 550 / 550 Other: Urine Color Pale Dark Ester Urine Appearance Clear Cloudy Sediment Comment jones in place. Laboratory Results WBC 19.54 k/cumm (4.4-10.8) H 08/20/19 06:12 RBC 3.30 m/cumm (4.50-6.00) L 08/20/19 06:12 Hgb 9.9 g/dL (13.5-17.5) L 08/20/19 06:12 Hct 31.1 % (40.0-50.0) L 08/20/19 06:12 MCV 94.2 fL (80-95) 08/20/19 06:12 MCH 30.0 pg (27.0-33.0) 08/20/19 06:12 MCHC 31.8 g/dL (32.0-36.0) L 08/20/19 06:12 RDW 14.9 % (11.8-14.1) H 08/20/19 06:12 Plt Count 266 x1000/uL (130-400) 08/20/19 06:12 MPV 9.8 fL (8.0-11.0) 08/20/19 06:12 Immature Gran % 0.0 % 08/19/19 19:56 Neutrophils % 89.0 08/19/19 19:56 Band Neutrophils % 0.0 % 08/19/19 19:56 Lymphocytes % 6.0 08/19/19 19:56 Atypical Lymphs % 1 08/19/19 19:56 Monocytes % 4.0 08/19/19 19:56 Eosinophils % 0.0 08/19/19 19:56 Basophils % 0.0 08/19/19 19:56 Absolute Neutrophils 16.98 k/cumm (1.2-6.7) H 08/19/19 19:56 Absolute Lymphocytes 1.34 k/cumm (1.2-3.4) 08/19/19 19:56 Absolute Monocytes 0.76 k/cumm (0.11-0.7) H 08/19/19 19:56 Absolute Eosinophils 0.00 k/cumm (0.0-0.7) 08/19/19 19:56 Absolute Basophils 0.00 k/cumm (0.0-0.2) 08/19/19 19:56 Differential Comment Manual differential 08/19/19 19:56 RBC Morphology Normal 08/19/19 19:56 PT 10.7 sec (9.3-11.0) 08/19/19 19:56 INR 1.1 (0.9-1.1) 08/19/19 19:56 APTT 25.4 sec (21.0-31.4) 08/19/19 19:56 Sodium 135 mmol/L (136-145) L 08/20/19 06:12 Potassium 4.9 mmol/L (3.5-5.1) 08/20/19 06:12 Chloride 98 mmol/L (98-107) 08/20/19 06:12 Carbon Dioxide 29.7 mmol/L (21.0-32.0) 08/20/19 06:12 Anion Gap 7.3 mmol/L (3-11) 08/20/19 06:12 BUN 66 mg/dL (7-18) H 08/20/19 06:12 Creatinine 2.42 mg/dL (0.70-1.30) H 08/20/19 06:12 Estimated GFR/1.73 m2 26.49 (mL/min/1.73m2) 08/20/19 06:12 Glucose 161 mg/dL (74-106) H 08/20/19 06:12 Lactate 1.8 mmol/L (0.6-1.4) H 08/19/19 19:56 Calcium 8.9 mg/dL (8.5-10.1) 08/20/19 06:12 Magnesium 1.8 mg/dL (1.8-2.4) 08/19/19 19:55 Total Bilirubin 0.8 mg/dL (0.2-1.0) 08/20/19 06:12 AST 30 U/L (15-37) 08/20/19 06:12 ALT 56 U/L (16-63) 08/20/19 06:12 Alkaline Phosphatase 90 U/L (46-116) 08/20/19 06:12 Troponin I 0.05 ng/Ml (<0.06) 08/20/19 06:12 NT-Pro-B Natriuret Pep 193 pg/mL (<300) 08/19/19 19:56 Total Protein 6.4 g/dL (6.4-8.2) 08/20/19 06:12 Albumin 2.2 g/dL (3.4-5.0) L 08/20/19 06:12 Lipase 151 U/L (73-393) 08/19/19 19:56 TSH 0.35 uIU/mL (0.36-3.74) L 08/19/19 19:55 Free T4 1.78 ng/dL (0.76-1.46) H 08/19/19 19:55 Urine Color Yellow (Yellow) 08/19/19 20:20 Urine Clarity Clear (Clear) 08/19/19 20:20 Urine pH 5.5 (5-8) 08/19/19 20:20 Ur Specific [place] 1.010 (1.005-1.025) 08/19/19 20:20 Urine Protein Negative mg/dL (Negative) 08/19/19 20:20 Urine Ketones Negative mg/dL (Negative) 08/19/19 20:20 Urine Blood Trace-intact (Negative) H 08/19/19 20:20 Urine Nitrite Negative (Negative) 08/19/19 20:20 Urine Bilirubin Negative (Negative) 08/19/19 20:20 Urine Urobilinogen 0.2 EU/dL (Up TO 0.2) 08/19/19 20:20 Ur Leukocyte Esterase Negative (Negative) 08/19/19 20:20 Urine RBC 0-2 HPF (0-2) 08/19/19 20:20 Urine WBC Negative HPF (0-5) 08/19/19 20:20 Ur Epithelial Cells Negative HPF (Negative) 08/19/19 20:20 Urine Crystals Negative HPF (Negative) 08/19/19 20:20 Urine Bacteria Rare HPF (Negative) 08/19/19 20:20 Urine Casts Negative LPF (Negative) 08/19/19 20:20 Urine Mucus Negative (Negative) 08/19/19 20:20 Urine Other Negative (Negative) 08/19/19 20:20 Ur Culture Indicated? C&s done as ordered 08/19/19 20:20 Urine Glucose Negative mg/dL (Negative) 08/19/19 20:20
--- NOTE | 2019-08-20 13:13 | DI.US_ITS ---
APPROVED REPORT EXAM: Comprehensive 2D, Doppler, and color-flow Echocardiogram Patient Location: In-Patient Room/Bed: [address] Repairer: Rachana Waters RDCS (AE) Indications: Gram positive cocci bacteremia Conclusion Normal left ventricular wall thickness and chamber size. Estimated ejection fraction is 55 to 60%. There are no segmental wall motion abnormalities The right ventricle is mildly dilated. Right ventricular systolic function is normal Both atria are normal in size. The aortic valve is sclerotic and probably trileaflet. There is mild aortic stenosis. There is no a ortic regurgitation The mitral leaflets are thickened. There is mitral annular calcification. There is trace mitral reg urgitation There is trace tricuspid regurgitation. The tricuspid valve appears structurally normal No valvular vegetations were noted on this transthoracic echocardiogram. Suggest transesophageal ech o for further evaluation if clinically indicated Wall motion Left Ventricle The left ventricle is grossly normal size. The overall left ventricular systolic function appears nor mal. There is normal left ventricular wall thickness. There is normal LV segmental wall motion. The l eft ventricular diastolic function is normal. There is no ventricular septal defect visualized. LVEF is 55-60%. Right Ventricle Right ventricle is mildly dilated. The right ventricular systolic function is normal. Atria The left atrium size is normal. The right atrium size is normal. The interatrial septum is intact wit h no evidence for an atrial septal defect. Aortic Valve Aortic valve is calcified. Aortic valve is probably trileaflet. Mild aortic stenosis. Mitral Valve There is mitral annular calcification. Thickened mitral leaflets No evidence of mitral valve stenosis . Trace mitral regurgitation. Tricuspid Valve Tricuspid valve is grossly normal in structure and function. There is no tricuspid valve stenosis. Tr tiffanie tricuspid regurgitation. Pulmonic Valve Pulmonic valve is not well visualized. There is no pulmonic valvular stenosis. There is no pulmonic v alvular regurgitation. Great Vessels The aortic root is normal in size. Ascending aorta is not well visualized. Pericardium There is no pericardial effusion. 2D Dimensions IVSD d PLAX 0.92 cm M: 0.6-1.2 LA vol/ BSA A4C s A-L 40.9 mL/m2 LVPW d PLAX 0.97 cm M: 0.6 - 1.2 LA Area A4C s MOD 27.31 cm2 LVID d PLAX 5.73 cm M: 4.2 - 5.8 LVDs 3.70 cm M: 2.5 - 4.0 Ao Root d 3.09 cm M: 3.1 - 3.7 RA Area A4C 28.31 cm2 RA Vol/ BSA A4C s A-L 43.8 mL/m2 LV EF Teichholz 63.1 % FS 34.60 % M-Mode TAPSE 3.28 cm (M/F) <1.7 LV Diastology MV E' medial 0.109 (>0.07 m/s) E/A Ratio 1.3 LV E/e MED 10.45 (<14) MV E Vmax 1.14 (0.4-1.3 m/s) MV E' lateral 0.106 (>0.1 m/s) MV A Vmax 0.85 (0.4-1.3 m/s) LV E/e LAT 10.70 (<14) MV E/A Ratio 1.29 MV E/E' medial 10.46 MV E/E' lateral 10.70 Aortic Valve LVOT Area 3.20 cm2 AoV Area Vmax 1.81 cm2 LVOT Vmax 1.20 m/s AoV Area/ BSA (Vmax) 0.73 cm2/m2 LVOT Mean Adolfo. 0.75 m/s LENO Mean Adolfo. 1.57 cm2 LVOT Peak Grad 5.8 mmHg LENO Mean Adolfo. Index 0.63 cm2/m2 LVOT Mean Grad 2.7 mmHg LVOT VTI 0.235 m LVOT Diam s 2.00 cm (M/F) 1.5-2.5 AoV Vmax 2.13 (0.5-1.3 m/s) Velocity Ratio 0.56 AoV Mean Adolfo. 1.52 m/s AoV Peak Grad 18.1 mmHg LVOT SV 75.26 mL AoV Mean Grad 10.4 (<5 mmHg) AoV VTI 0.423 (0.18-0.25 m) AoV Area VTI 1.78 (2.5-4.5 cm2) AoV Area/ BSA (VTI) 0.72 cm/m2 Mitral Valve MV DT 271 (160-240 msec) MV PHT 79 msec MV Area PHT 2.80 cm2 Pulmonary Valve PV Vmax 1.11 (0.5-1.5 m/s) RVOT Peak Gr. 2.81 mmHg PV Peak Grad 4.9 mmHg RVOT Mean Gr. 1.45 mmHg PV Mean Grad 3.1 mmHg RVOT VTI 0.183 m PV VTI 0.249 m RVOT Vmax 0.84 m/s Tricuspid Valve TR Peak Grad 41.6 mmHg TR Vmax 3.23 m/s RA Pressure 10.00 mmHg RVSP (TR) 51.6 mmHg
--- NOTE | 2019-08-20 14:08 | PDOC.CMIN ---
- If Service Date Differs Date of service: 08/20/19 Time of Service: 14:08 Care Management Initial Assess REASON FOR HOSPITALIZATION:: Systemic inflammatory response syndrome, cellulitis baltazar LOVE'susan PAST MEDICAL HISTORY/PAST SURGICAL HISTORY:: Chronic renal disease stage 3, COPD, morbid obesity, Type 2 DM PREVIOUS FUNCTIONAL STATUS/SOCIAL/FAMILY SUPPORTS:: Kiran lives alone his daughter is his next of kin and grown. He is indpendent at baseline. Kiran is not able to answer many questions at this time due to illness. CURRENT FUNCTIONAL STATUS:: Kiran is not able to engage at this time he is not feeling well and unable to stay awake. CM will revisit with Kiran when he is feeling better. ADVANCE DIRECTIVES:: On file agent is Kiko Lockhart Has patient been provided with information about the portal?: No Did the patient sign up for the portal?: No CODE STATUS:: Full Code INSURANCE COVERAGE / FINANCIAL ISSUES:: Medicare/[employer] CURRENT HOME/COMMUNITY SERVICES/EQUIPMENT:: Currently Pt has no services in the community. Pt has home oxygen, a CPAP machine, shower chair, and a walker at home. PRIMARY CARE PHYSICIAN:: [facility] provider POTENTIAL DISCHARGE NEEDS:: Follow up appointment with primary care as directed scheduled prior to discharge. PATIENT/FAMILY EDUCATION NEEDS:: Discharge education, follow up plan of care, ask me three and self management. ANTICIPATED BARRIERS TO DISCHARGE:: No anticipated barriers TRANSPORTATION:: Pending discharge disposition PLAN:: Kiran will be discharged home when medically ready, he may need increase services at time of discharge including [facility]. CM will continue to assess for discharge needs and provide support to patient and family.
[2019-08-20 14:34] LABS: HCT 29.2 % (40.0-50.0); HGB 9.4 g/dL (13.5-17.5)
[2019-08-20] MEDS: Normal Saline 1,000 ML 85 ML IV (16:21)
[2019-08-20 16:30] LABS: Theophylline <1.2 ug/mL (10.0-20.0)
[2019-08-20] MEDS: Patch Removal 1 EACH TP (21:00)
[2019-08-20] MEDS: Atorvastatin 40 MG TAB PO (21:32)
[2019-08-21] VITALS (68 sets, daily range): BP systolic 109–145; BP diastolic 39–80; PULSE 71–104; RESP 2–34; TEMP 36.5–36.7; O2SAT 71–99
[2019-08-21] MEDS: Heparin 5,000 UNITS/ML VIAL 5000 UNITS SC ×3 (00:13→17:45)
[2019-08-21] MEDS: methylPREDNISolone SUCC 125 MG VIAL 60 MG IVP ×3 (02:00→18:06)
[2019-08-21] MEDS: Insulin NPH-Human 300 UNITS/3 ML PEN 30 UNIT SC ×3 (02:40→18:06)
[2019-08-21] MEDS: Metoprolol 25 MG TAB PO ×2 (02:53→08:44)
[2019-08-21] MEDS: Albuterol/Ipratropium 3 ML UPD VIAL UPD ×4 (04:55→17:45)
[2019-08-21] MEDS: CLINDAMYCIN 900 MG/50 ML BAG 50 MG IVPB ×4 (05:02→21:59)
[2019-08-21 06:40] LABS: Lactate 1.2 mmol/L (0.6-1.4)
[2019-08-21 06:41] LABS: Abs Immature Grans 0.13 k/cumm (0.0-0.09); Absolute Lymphocyte Count 0.36 k/cumm (1.2-3.4); Absolute Monocyte Count 0.51 k/cumm (0.11-0.7); Absolute Neutrophil Count 15.36 k/cumm (1.2-6.7); HCT 29.6 % (40.0-50.0); HGB 9.3 g/dL (13.5-17.5); Immature Grans % 0.8 %; Lymphocytes % 2.2; Mean Corp. HGB Concentration 31.4 g/dL (32.0-36.0); Mean Corpuscular Hemoglobin 29.5 pg (27.0-33.0); Mean Platelet Volume 9.5 fL (8.0-11.0); Monocytes % 3.1; Neutrophils % 93.9; Platelet Count 309 x1000/uL (130-400); RBC 3.15 m/cumm (4.50-6.00); RBC Distribution Width 14.4 % (11.8-14.1); Reticulocyte 1.1 % (0.5-2.4); White Blood Cell Count 16.36 k/cumm (4.4-10.8)
[2019-08-21 06:55] LABS: Iron 83 ug/dL (65-175); Total Iron Binding Capacity 164 ug/dL (250-450); Transferrin Sat 51 % (20-55)
[2019-08-21 06:59] LABS: Anion Gap 4.5 mmol/L (3-11); BUN 63 mg/dL (7-18); C-Reactive Protein 9.27 mg/dL (0.0-0.3); CO2 31.5 mmol/L (21.0-32.0); CREATININE 1.64 mg/dL (0.70-1.30); Calcium 9.4 mg/dL (8.5-10.1); Chloride 101 mmol/L (98-107); Glucose 190 mg/dL (74-106); LDH 173 U/L (85-227); Sodium 137 mmol/L (136-145)
[2019-08-21 07:23] LABS: Ferritin 547 ng/mL (26-388)
[2019-08-21] MEDS: Budesonide/Formoterol 160/4.5 6 GM 60 PUFF INH IH ×2 (08:05→21:09)
[2019-08-21] MEDS: Albuterol 2.5 MG/3 ML INH SOLN VIAL UPD ×2 (08:16→21:59)
[2019-08-21] MEDS: Insulin Aspart 300 UNITS/3 ML PEN SC ×4 (08:43→21:59)
[2019-08-21] MEDS: Lidocaine 5% Patch 1 PATCH TP (08:44)
[2019-08-21] MEDS: Cyclobenzaprine 10 MG TAB PO ×3 (08:44→21:09)
--- NOTE | 2019-08-21 09:47 | PGE_ITS ---
Date of Service Date of service: 08/21/19 Time of Service: 09:47 Assessment and Plan Assessment and plan (1) Sepsis: Status: Acute Assessment and plan: Patient is no longer showing signs of sepsis. He has a stable blood pressure and heart rate. His acute kidney injury is improving. This point he is no longer requiring ICU care and I will transfer him out to [facility] unit. Continue antibiotic treatment with clindamycin and oxacillin for strep bacteremia Qualifiers: Sepsis type: Streptococcus, unspecified Sepsis acute organ dysfunction status: with acute organ dysfunction Severe sepsis acute organ dysfunction type: acute renal failure Acute renal failure type: with acute tubular necrosis Severe sepsis shock status: without septic shock Qualified Code(s): A40.9 - Streptococcal sepsis, unspecified; R65.20 - Severe sepsis without septic shock; N17.0 - Acute kidney failure with tubular necrosis (2) Cellulitis: Status: Acute Assessment and plan: As above Qualifiers: Site of cellulitis: extremity Site of cellulitis of extremity: lower extremity Laterality: unspecified laterality Qualified Code(s): L03.119 - Cellulitis of unspecified part of limb (3) COPD (chronic obstructive pulmonary disease) with emphysema: Status: Chronic Assessment and plan: Patient has a chronic cough from his COPD is not producing any sputum. We resumed the Symbicort will continue with DuoNeb treatments every 4-6 hours while awake. There is been no history of exposure to COVID-19 that we are aware. Qualifiers: Emphysema type: other Qualified Code(s): J43.8 - Other emphysema (4) Type 2 diabetes mellitus: Status: Chronic Assessment and plan: Monitor blood sugars before meals and at bedtime and cover with sliding scale. Continue basal insulin Qualifiers: Diabetes mellitus superintendent terminal insulin use: without intermediate use Diabetes mellitus complication status: with kidney complications Diabetes mellitus complication detail: with chronic kidney disease Chronic kidney disease stage: stage 3 (moderate) Qualified Code(s): E11.22 - Type 2 diabetes mellitus with diabetic chronic kidney disease; N18.3 - Chronic kidney disease, stage 3 (moderate) (5) Chronic renal disease, stage 3, moderately decreased glomerular filtration rate (GFR) between 30-59 mL/min/1.73 square meter: Status: Chronic Assessment and plan: Continue to monitor urine output as well as daily BMP. Continue with IV fluids but will reduce the rate and once he is taking adequate p.o. and his BUN/creatinine are back to baseline we will discontinue IV fluids. (6) Anemia: Status: Chronic Assessment and plan: Stable hemoglobin 9.3. No evidence of overt GI bleeding. This appears to be an anemia of chronic kidney disease. Initial drop in H&H was secondary to dilution from his IV fluid resuscitation. (7) DVT prophylaxis: Status: Acute Assessment and plan: Continue subcutaneous heparin. He is not a candidate for low molecular weight heparin due to his CKD (8) Discharge planning issues: Status: Acute Assessment and plan: Patient is desiring to return home however given his morbid obesity and difficulty with ambulation he may need some rehab once he recuperates from his infection. I will consult physical therapy to work with the patient to improve his ambulation and strength. Patient will probably need swing bed or SNF placement for his antibiotics which he will need for 4 weeks. Subjective Subjective Interval history since last seen: Patient is doing better today. He remains afebrile. Blood cultures coming back positive for strep bacteremia. Presumed source is cellulitis of his legs. 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 Brothers. There is no visible swelling or induration of his left knee. He does have some right shoulder pain but we did an x-ray yesterday that shows DJD. I suspect he probably has a rotator cuff injury. That we could not find a other source for his strep. Echocardiogram was done yesterday showed normal left ventricular function with ejection fraction of 55 to 60% no vegetations were seen. RV is mildly dilated but normal RV systolic function. He has trace of MR, trace of aortic stenosis and tricuspid regurgitation but no vegetations. I will consult with his orthopedic surgeon Dr. Brothers to evaluate the left TKA. I did an x-ray yesterday of his left knee the tibial stem component of his left TKA appears to be slightly angulated and closer to the cortex rather than centered in the medullary portion of bone however this is unchanged from his prior images. I explained to the patient is ago need 4 weeks of parenteral antibiotics to treat the strep infection in order to prevent endocarditis or an infected knee prosthesis. I spoke with Dr. Brothers he will see the patient later today. Exam Narrative Exam Narrative: Elderly obese male who is alert and oriented person place time circumstance. He indicated to me that he wants to continue his advance directive as a DNR/DNI. He would like me to talk with his daughter. Lungs reveal scattered expiratory wheezes improved after aerosol treatment and coughing. Heart regular rate and rhythm without audible murmur rub or gallop. Abdomen is obese with a large pannus with no open sores. Lower extremities with 2+ pitting edema with lichenification of the skin no open sores but there is a number of cracks in the skin on his soles of his feet. Both legs have a diffuse erythema over both tibia. Objective Objective Clinical Data: Abnormal lab results 08/19/19 08/20/19 08/21/19 Range/Units 23:00 14:10 06:21 WBC (4.4-10.8) k/cumm RBC (4.50-6.00) m/cumm Hgb 9.4 L (13.5-17.5) g/dL Hct 29.2 L (40.0-50.0) % MCHC (32.0-36.0) g/dL RDW (11.8-14.1) % Absolute Neutrophils (1.2-6.7) k/cumm Absolute Lymphocytes (1.2-3.4) k/cumm BUN 63 H (7-18) mg/dL Creatinine 1.64 H D (0.70-1.30) mg/dL Glucose 190 H (74-106) mg/dL TIBC (250-450) ug/dL Ferritin 547 H (26-388) ng/mL C-Reactive Protein 9.27 H (0.0-0.3) mg/dL Theophylline <1.2 L (10.0-20.0) ug/ml 08/21/19 08/21/19 Range/Units 06:21 06:21 WBC 16.36 H (4.4-10.8) k/cumm RBC 3.15 L (4.50-6.00) m/cumm Hgb 9.3 L (13.5-17.5) g/dL Hct 29.6 L (40.0-50.0) % MCHC 31.4 L (32.0-36.0) g/dL RDW 14.4 H (11.8-14.1) % Absolute Neutrophils 15.36 H (1.2-6.7) k/cumm Absolute Lymphocytes 0.36 L (1.2-3.4) k/cumm BUN (7-18) mg/dL Creatinine (0.70-1.30) mg/dL Glucose (74-106) mg/dL TIBC 164 L (250-450) ug/dL Ferritin (26-388) ng/mL C-Reactive Protein (0.0-0.3) mg/dL Theophylline (10.0-20.0) ug/ml Vital Signs Temperature 36.6 C 08/21/19 03:32 Temperature Source Temporal Artery Scan 08/21/19 03:32 Pulse 80 08/21/19 08:30 Pulse 72 08/21/19 06:30 Respiratory Rate 22 08/21/19 08:30 Respiratory Effort Accessory Muscle Use 08/21/19 03:32 Respiratory Depth Shallow 08/21/19 03:32 Respiratory Pattern Tachypnea 08/21/19 03:32 Blood Pressure 129/60 08/21/19 06:01 Blood Pressure Mean 76 08/21/19 06:01 Blood Pressure Position Supine 08/21/19 03:32 Pulse Oximetry 94 L 08/21/19 08:30 Oxygen Delivery Method Hi Flow Nasal Cannula 08/21/19 08:04 Oxygen Flow Rate 3 08/21/19 08:23 Fraction of Inspired Oxygen (FIO2) 3 08/20/19 09:22 Pain Level 0 08/21/19 03:32 Intake & Output 08/20/19 08/20/19 08/21/19 11:59 23:59 11:59 Intake Total 1989 / 3466.417 1476.417 / 3466.417 150 / 150 Output Total 550 / 1550 1000 / 1550 1350 / 1350 Balance 1440 / 1916.417 476.417 / 1916.417 -1200 / -1200 Weight 136.078 kg Intake: IV 1690 / 2686.417 996.417 / 2686.417 150 / 150 Oral 300 / 780 480 / 780 Output: Urine 550 / 1550 1000 / 1550 1350 / 1350 Other: Urine Color Yellow Light Ester Straw Urine Appearance Clear Cloudy Cloudy Sediment Comment noting sediment of brown chunks and fine white particles jones- sediment and cloudy pt has indwelling jones catheter draining slightly cloudy straw colored urine Laboratory Results WBC 16.36 k/cumm (4.4-10.8) H 08/21/19 06:21 RBC 3.15 m/cumm (4.50-6.00) L 08/21/19 06:21 Hgb 9.3 g/dL (13.5-17.5) L 08/21/19 06:21 Hct 29.6 % (40.0-50.0) L 08/21/19 06:21 MCV 94.0 fL (80-95) 08/21/19 06:21 MCH 29.5 pg (27.0-33.0) 08/21/19 06:21 MCHC 31.4 g/dL (32.0-36.0) L 08/21/19 06:21 RDW 14.4 % (11.8-14.1) H 08/21/19 06:21 Plt Count 309 x1000/uL (130-400) 08/21/19 06:21 MPV 9.5 fL (8.0-11.0) 08/21/19 06:21 Immature Gran % 0.8 % 08/21/19 06:21 Neutrophils % 93.9 08/21/19 06:21 Band Neutrophils % 0.0 % 08/19/19 19:56 Lymphocytes % 2.2 08/21/19 06:21 Atypical Lymphs % 1 08/19/19 19:56 Monocytes % 3.1 08/21/19 06:21 Eosinophils % 0.0 08/21/19 06:21 Basophils % 0.0 08/21/19 06:21 Absolute Neutrophils 15.36 k/cumm (1.2-6.7) H 08/21/19 06:21 Absolute Lymphocytes 0.36 k/cumm (1.2-3.4) L 08/21/19 06:21 Absolute Monocytes 0.51 k/cumm (0.11-0.7) 08/21/19 06:21 Absolute Eosinophils 0.00 k/cumm (0.0-0.7) 08/21/19 06:21 Absolute Basophils 0.00 k/cumm (0.0-0.2) 08/21/19 06:21 Differential Comment Manual differential 08/19/19 19:56 RBC Morphology Normal 08/19/19 19:56 Retic Count 1.1 % (0.5-2.4) 08/21/19 06:21 PT 10.7 sec (9.3-11.0) 08/19/19 19:56 INR 1.1 (0.9-1.1) 08/19/19 19:56 APTT 25.4 sec (21.0-31.4) 08/19/19 19:56 Sodium 137 mmol/L (136-145) 08/21/19 06:21 Potassium 5.0 mmol/L (3.5-5.1) 08/21/19 06:21 Chloride 101 mmol/L (98-107) 08/21/19 06:21 Carbon Dioxide 31.5 mmol/L (21.0-32.0) 08/21/19 06:21 Anion Gap 4.5 mmol/L (3-11) 08/21/19 06:21 BUN 63 mg/dL (7-18) H 08/21/19 06:21 Creatinine 1.64 mg/dL (0.70-1.30) H D 08/21/19 06:21 Estimated GFR/1.73 m2 41.50 (mL/min/1.73m2) 08/21/19 06:21 Glucose 190 mg/dL (74-106) H 08/21/19 06:21 Lactate 1.2 mmol/L (0.6-1.4) 08/21/19 06:21 Calcium 9.4 mg/dL (8.5-10.1) 08/21/19 06:21 Magnesium 1.8 mg/dL (1.8-2.4) 08/19/19 19:55 Iron 83 ug/dL (65-175) 08/21/19 06:21 TIBC 164 ug/dL (250-450) L 08/21/19 06:21 Transferrin % Sat 51 % (20-55) 08/21/19 06:21 Ferritin 547 ng/mL (26-388) H 08/21/19 06:21 Total Bilirubin 0.8 mg/dL (0.2-1.0) 08/20/19 06:12 AST 30 U/L (15-37) 08/20/19 06:12 ALT 56 U/L (16-63) 08/20/19 06:12 Alkaline Phosphatase 90 U/L (46-116) 08/20/19 06:12 Lactate Dehydrogenase 173 U/L (85-227) 08/21/19 06:21 Troponin I 0.05 ng/Ml (<0.06) 08/20/19 06:12 C-Reactive Protein 9.27 mg/dL (0.0-0.3) H 08/21/19 06:21 NT-Pro-B Natriuret Pep 193 pg/mL (<300) 08/19/19 19:56 Total Protein 6.4 g/dL (6.4-8.2) 08/20/19 06:12 Albumin 2.2 g/dL (3.4-5.0) L 08/20/19 06:12 Lipase 151 U/L (73-393) 08/19/19 19:56 TSH 0.35 uIU/mL (0.36-3.74) L 08/19/19 19:55 Free T4 1.78 ng/dL (0.76-1.46) H 08/19/19 19:55 Urine Color Yellow (Yellow) 08/19/19 20:20 Urine Clarity Clear (Clear) 08/19/19 20:20 Urine pH 5.5 (5-8) 08/19/19 20:20 Ur Specific [place] 1.010 (1.005-1.025) 08/19/19 20:20 Urine Protein Negative mg/dL (Negative) 08/19/19 20:20 Urine Ketones Negative mg/dL (Negative) 08/19/19 20:20 Urine Blood Trace-intact (Negative) H 08/19/19 20:20 Urine Nitrite Negative (Negative) 08/19/19 20:20 Urine Bilirubin Negative (Negative) 08/19/19 20:20 Urine Urobilinogen 0.2 EU/dL (Up TO 0.2) 08/19/19 20:20 Ur Leukocyte Esterase Negative (Negative) 08/19/19 20:20 Urine RBC 0-2 HPF (0-2) 08/19/19 20:20 Urine WBC Negative HPF (0-5) 08/19/19 20:20 Ur Epithelial Cells Negative HPF (Negative) 08/19/19 20:20 Urine Crystals Negative HPF (Negative) 08/19/19 20:20 Urine Bacteria Rare HPF (Negative) 08/19/19 20:20 Urine Casts Negative LPF (Negative) 08/19/19 20:20 Urine Mucus Negative (Negative) 08/19/19 20:20 Urine Other Negative (Negative) 08/19/19 20:20 Ur Culture Indicated? C&s done as ordered 08/19/19 20:20 Urine Glucose Negative mg/dL (Negative) 08/19/19 20:20 Theophylline <1.2 ug/ml (10.0-20.0) L 08/19/19 23:00
[2019-08-21] MEDS: Normal Saline 1,000 ML 85 ML IV (10:11)
--- NOTE | 2019-08-21 11:23 | CMPROGNOTE_ITS ---
- If Service Date Differs Date of service: 08/21/19 Time of Service: 12:14 Care Management Progress Note S/O: Kiran remains ICU level of care, he continues to have some shortness of breath. His Blood Cultures are showing positive for strep B. He is being treated with IV Abx. CM [facility] [place] and she states he had been calling them frequently over the past week due to new uncontrolled back pain, urinary frequency, urgency and inability to void, she states he was also complaining of large liquid stool. Coordinator reports his baseline cr is 1.63 and his WBC is chronically elevated 16.0. She reports in the past he has had several admission related to his COPD and he is on chronic oxygen. 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 CM contact his daughter Kiko and provided update his daughter is concerned that he is not doing well at home on his own and may need assisted living, at the very least a skilled stay at a local SNF . CM faxed all the clinicals to the [facility]. A: Kiran is a 74 year old male admitted with SIRS, Diabetic leg cellulitis dehydration and CKD P:CM will continue to follow patient and assess for discharge needs. Anticipate short term rehab prior to returning home. CM will review the local sites with patient when he is more stable to determine next level of care and SNF options.
[2019-08-21] MEDS: Metoprolol CR 100 MG TABCR PO (11:43)
--- NOTE | 2019-08-21 11:50 | PT.INIE ---
Date of service: 08/21/19 Time of Service: 11:50 PT Notes Visit Reasons: SIRS W/DIABETIC LEG CELLULITIS,DEHYDRATION IN CKD3 Physical Therapy Inpatient Initial Evaluation Date: 08/21/2019 Referring Doctor: Robin Mendoza MD PT Orders: PT CONSULT: Fall safety assessment Precautions: Fall. Standard. Activity as tolerated. Patient Profile/Admitting Diagnosis: Patient is a 75-year-old male who presented to the ED on 08/19/2019 with chief complaint of weakness, difficulty with ambulation, fall in the morning (of 08/19/2019) as well as an episode of diarrhea at home prior to admission, and some confusion. Patient is diagnosed with SIRS attributable to cellulitis to bilateral lower extremities as well as dehydration, cellulitis of bilateral lower extremities, COPD exacerbation, stage III chronic kidney disease, and type 2 diabetes mellitus. PMHX: Medical History (Updated 08/20/19 @ 06:09 by Bryosn Payan) Chronic renal disease, stage 3, moderately decreased glomerular filtration rate (GFR) between 30-59 mL/min/1.73 square meter (Chronic) COPD (chronic obstructive pulmonary disease) with emphysema (Chronic) COPD exacerbation (Chronic) Hyperkalemia, diminished renal excretion (Acute) Morbid obesity (Acute) Type 2 diabetes mellitus (Chronic) Social History/Home Situation: Patient lives alone in a private home with a ramp to enter. He has a home health nurse who comes in once a week and a home health aide who comes in 2 hours every Sunday to help with grocery shopping, dishwashing, and house chores. Patient's main mode of mobility was through the use of the wheelchair indoors and outdoors. He was independent with all transfers using his front wheeled walker. He managed all bathing activities using a shower chair. He was independent with all self-care and dressing tasks prior to admission. He made his own meals Equipment Owned/DME: Front wheeled walker, wheelchair, recliner, shower chair, compression stockings, ramp Subjective: Patient is agreeable to a PT consult. He states that he has not walked long distances due to weakness of his legs. He reports low back pain, left knee pain, and a left anterior leg pain during manual muscle testing of bilateral lower extremities. He denies dizziness, chest pain, and headache throughout PT session. Objective: General Observation: Morbidly obese. Telemetry monitoring in place. Oxygen supplementation via NC on 3.5 L/min. IV in the left UE. Mental Status: Alert and oriented x4 Pain: Reported minimal pain in the low back during manual muscle testing of Vital Signs: 115/80 mmHg, 83 bpm, 94% on 3.5 L/min. ROM: Right Upper Extremity: Shoulder Flexion 0 to 70 degrees. Shoulder abduction 0 to 60 degrees. Elbow flexion WFL. Wrist flexion WFL. Opening and closing of hand WFL. Left Upper Extremity: Shoulder Flexion WFL. Shoulder abduction WFL. Elbow flexion WFL. Wrist flexion WFL. Opening and closing of hand WFL. Right Lower Extremity: Hip flexion allows up to 15 degrees beyond 90 while seated on chair. Hip abduction WFL. Knee flexion WFL. Ankle dorsiflexion WFL. Ankle plantarflexion WFL. Left Lower Extremity: Hip flexion llows up to 15 degrees beyond 90 while seated on chair. Hip abduction WFL. Knee flexion WFL. Ankle dorsiflexion WFL. Ankle plantarflexion WFL. Strength: Right Upper Extremity: Shoulder flexors 3-/5. Shoulder abductors 4/5. Elbow flexors 4/5. Elbow extensors 4/5. Inspector Boiler strong. Left Upper Extremity: Shoulder flexors 4/5. Shoulder abductors 4/5. Elbow flexors 4/5. Elbow extensors 4/5. Inspector Boiler strong. Right Lower Extremity: Hip flexors 3-/5. Hip abductors 4/5. Knee flexors 4/5. Knee extensors 4/5. Ankle dorsiflexors 4/5. Ankle plantarflexors 4/5. Left Lower Extremity: Hip flexors 3-/5. Hip abductors 4/5. Knee flexors 4/5. Knee extensors 4/5. Ankle dorsiflexors 4/5. Ankle plantarflexors 4/5. Sensation: Intact as to pain and pressure on bilateral lower extremities. Bed Mobility/Transfers: Rolling CGA Supine to sit CGA with HOB elevated to 45 degrees, able to use B UE for support Sit to supine CGA with HOB elevated to 45 degrees, able to use B UE for support Sit to stand CGA using FWW Stand to sit CGA using FWW Bed to chair CGA using FWW Chair to bed CGA using FWW Gait: Patient tolerated 8-10 steps from bedside to bedside recliner using front wheeled walker with CGA and minimal verbal cues for safety with minimal increase in pain on the left knee that subsided with rest. Reciprocal gait pattern. Decreased step height, decreased ameena, increased unsteadiness. Moderate breathlessness noted after activity Balance: Static Sitting: Good Dynamic Sitting: Good Static Standing: Fair Dynamic Standing: Fair Special Tests: Mobility Limitations Standardized Measure [facility] AM-PAC 6 clicks Basic Mobility Inpatient Short Form: Raw Score: 17 CMS Score: 51% deficit Informed Consent/Education: Patient instructed in purpose of PT consult and plan of care. Assessment: Functional mobility decline, decreased activity tolerance, difficulty with walking, unsteadiness on feet, increased fall risk, impaired mobility ADL performance, pain on left knee, and generalized weakness. Patient demonstrates a good prognosis for being able to achieve short distance ambulation of up to 15 feet using a front wheeled walker. Patient is a 75-year-old male who presented to the ED on 08/19/2019 with chief complaint of weakness, difficulty with ambulation, fall in the morning (of 08/19/2019) as well as an episode of diarrhea at home prior to admission, and some confusion. Patient is diagnosed with SIRS attributable to cellulitis to bilateral lower extremities as well as dehydration, cellulitis of bilateral lower extremities, COPD exacerbation, stage III chronic kidney disease, and type 2 diabetes mellitus. Patient presents with clinical signs and symptoms consistent with current/admitting diagnoses that have resulted to mobility limitations, gait instability, generalized weakness, and impairment of motor control as demonstrated by the following impairment level findings: 1. Decreased strength to B LE and right UE major muscle groups 2. Impaired sitting/standing balance 3. Impaired activity tolerance 4. Limitation of joint range of motion in right shoulder Impairments are contributing to the following functional limitations: 1. Dependent bed mobility skills 2. Increased dependence with transfers 3. Inability to safely ambulate without assistive device and physical assistance 4. Increase completion time for mobility ADL performance 5. Increased fall risk 6. Inability to negotiate steps alone safely Patient is assessed as a [id number] moderate complexity complexity based on the following: History: 74-year-old male with impairment level findings, functional limitations, and past medical history as listed above Examination: Demonstrable impairment in strength, balance, and range of motion with underlying impairments and functional limitations as documented above Presentation: Evolving Decision Makin moderate complexity Goals: Goals X1 week 1. Supine-Sit independent 2. Sit-Supine independent 3. Sit-Stand independent 4. Stand-Sit independent 5. Bed-Chair independent 6. Chair-Bed independent 7. Independent gait on level surface with use of least restrictive device for at least 15 feet without report of pain nor dyspnea 8. Independent with home exercise program 9. Good static and dynamic standing balance/tolerance Plan of Care/Treatment Plan: 1-2x/day, 7 days/week x 1 week. Plan of care has been reviewed with the LINE LOCATOR providing the service under Physical Therapy direction. Initiate Physical Therapy intervention for strengthening, bed mobility, transfers, gait, stairs, balance training, use of assistive device. PT Intervention: Session today consisted of PT evaluation as well as provision of assistance as well as training for safe transfer and ambulation task performance. We will plan on conducting gait oximetry for the afternoon session in order to identify the limits of activity tolerance. DISCHARGE RECOMMENDATIONS: Patient will highly benefit from the use of a bedside commode in order to reduce fall risk at home. Patient will benefit from home health PT services in order to progress mobility level using least restrictive assistive ambulatory device, assess home safety, identify additional equipment needs, and establish a functional maintenance program that will increase ability of patient to remain at home. TREATMENT CODE/TIME: 00715 x 30 minutes, 73988 x 15 minutes beginning at 11:50 AM. Thank you very much for this referral. Janine Calixto PT, DPT, CLT [facility] [place], [place]
--- NOTE | 2019-08-21 11:55 | OCONE_ITS ---
Date of service: 08/21/19 Time of Service: 11:55 History of Present Illness History of Present Illness Chief Complaint: Right shoulder pain, sepsis. Narrative: Is a 74-year-old white male well-known to me due to previous infected left total knee replacement. I follow him for some 20 years for his left knee. He was recently admitted to the hospital for septicemia due to strep. Source of the infection has not been determined. Presumed to be from cellulitis in his lower extremities. I was asked see the patient to see if I thought that his left knee could be the source of infection and also to check his right shoulder which has become painful. He denies any unusual pain in his left knee. He says it does not hurt at rest. When he was at home it did not hurt him to step on his left leg. He has not been out of bed from the ICU in the past 3 days. He says that he hurt his right shoulder getting up off the toilet a couple of weeks ago. He said he injured it a second time doing the same thing. His shoulder hurts when he moves it around basically getting the shoulder level. Since he has not been out of bed yet he does not know how much it is bothering him now. At rest its not hurting. Assessment and Plan Assessment and plan (1) Sepsis: Status: Acute Assessment and plan: Assessment: I do not think his left total knee replacement as a source of his septicemia at this time. I just do not see enough on physical examination to make a case for this. Presentation could change lead the next few days, however. If it does that I would consider aspirating his left knee. I will see how he does once he is being mobilized with physical therapy. Plan: Observe for the next few days while being mobilized. If his knee acts up I will aspirate it; if not, I will leave it alone. Qualifiers: Sepsis type: Streptococcus, unspecified Sepsis acute organ dysfunction status: with acute organ dysfunction Severe sepsis acute organ dysfunction type: acute renal failure Acute renal failure type: with acute tubular necrosis Severe sepsis shock status: without septic shock Qualified Code(s): A40.9 - Streptococcal sepsis, unspecified; R65.20 - Severe sepsis without septic shock; N17.0 - Acute kidney failure with tubular necrosis (2) Right rotator cuff tear: Status: Acute Assessment and plan: Assessment: I think he may have a tear of his right rotator cuff, specifically supraspinatus tendon. He is only had symptoms for the past 2 weeks. He is not having pain at rest. I think we should treat him conservatively for now. He will be mobilized with physical therapy. If his shoulder becomes more painful and limits his mobility, I would then consider injecting his right shoulder with steroid. If his shoulder does not flareup we just treat him with lidocaine patches and oral anti-inflammatory medications. Plan: Reassess him after he is being mobilized with PT. If his right shoulder becomes more painful would consider injecting his right shoulder with steroid. If his shoulder does not flareup would treat him with lidocaine patches and NSAIDs. I will follow with you. [facility] Medical History (Updated 08/21/19 @ 12:05 by Chintan Brothers MD) Chronic renal disease, stage 3, moderately decreased glomerular filtration rate (GFR) between 30-59 mL/min/1.73 square meter (Chronic) COPD (chronic obstructive pulmonary disease) with emphysema (Chronic) COPD exacerbation (Chronic) Hyperkalemia, diminished renal excretion (Acute) Morbid obesity (Acute) Type 2 diabetes mellitus (Chronic) Social History Smoking/Tobacco Use Status: Former Tobacco Use Alcohol Intake: never Drug use: Never Substance use type: does not use Do you feel safe at home: Yes Do you feel safe in your relationship?: Yes Exam Narrative Exam Narrative: He has 2+ discomfort on palpating over the greater tuberosity. He has some discomfort palpating the bicipital groove but he has normal biceps muscle contour and no pain with resisted biceps testing. Passive range of mot ion of his right shoulder is unrestricted and not painful. Actively he begins having pain with abduction at about 80 degrees and forward flexion about 90 degrees which limits further motion. Resisted external rotation with the elbow at the side shows good strength and no pain. Resisted abduction between 69 degrees of abduction produces pain and mild weakness. He is not tender over the AC joint. He has a negative impingement sign. He has chronic venous stasis changes in both lower legs which do not appear any different than they have for the last 15 years. He can do a good active straigh t leg raise on the left with no extensor lag. Is difficult to be sure because of his obesity but I do not think he has a significant effusion. He is not tender with palpating about the patella and the joint lines. I can flex him to a 80 to 85 degrees without discomfort. No laxity is noted. There is no evidence of any sinus tracts. No localized erythema about the knee. I reviewed x-rays of his left knee. There was extensive postsurgical changes in the proximal tibia. The stem of the tibial component is almost eroded through the lateral tibial cortex. However this is unchanged from several years. No evidence of any bone resorption no ostial lysis about the knee. Femoral component is well-positioned. No new subsidence of the components are noted. X-rays of the right shoulder reviewed. No fractures are seen. Glenohumeral joint is well-maintained no soft tissue calcifications about the shoulder. The x-rays look fairly benign to me. Results Last Vital Signs Temp 36.6 C 08/21/19 08:00 Pulse 80 08/21/19 08:30 Resp 22 08/21/19 08:30 BP 120/57 L 08/21/19 08:00 Pulse Ox 94 L 08/21/19 08:30 Labs Result diagrams: 08/21/19 06:21 08/21/19 06:21 Labs: Laboratory Results - last 24 hr 08/19/19 08/20/19 08/21/19 23:00 14:10 06:21 WBC RBC Hgb 9.4 L Hct 29.2 L MCV MCH MCHC RDW Plt Count MPV Immature Gran % Neutrophils % Lymphocytes % Monocytes % Eosinophils % Basophils % Absolute Neutrophils Absolute Lymphocytes Absolute Monocytes Absolute Eosinophils Absolute Basophils Retic Count Sodium 137 Potassium 5.0 Chloride 101 Carbon Dioxide 31.5 Anion Gap 4.5 BUN 63 H Creatinine 1.64 H D Estimated GFR/1.73 m2 41.50 Glucose 190 H Lactate Calcium 9.4 Iron TIBC Transferrin % Sat Ferritin 547 H Lactate Dehydrogenase 173 C-Reactive Protein 9.27 H Theophylline <1.2 L 08/21/19 08/21/19 08/21/19 06:21 06:21 06:21 WBC 16.36 H RBC 3.15 L Hgb 9.3 L Hct 29.6 L MCV 94.0 MCH 29.5 MCHC 31.4 L RDW 14.4 H Plt Count 309 MPV 9.5 Immature Gran % 0.8 Neutrophils % 93.9 Lymphocytes % 2.2 Monocytes % 3.1 Eosinophils % 0.0 Basophils % 0.0 Absolute Neutrophils 15.36 H Absolute Lymphocytes 0.36 L Absolute Monocytes 0.51 Absolute Eosinophils 0.00 Absolute Basophils 0.00 Retic Count 1.1 Sodium Potassium Chloride Carbon Dioxide Anion Gap BUN Creatinine Estimated GFR/1.73 m2 Glucose Lactate 1.2 Calcium Iron 83 TIBC 164 L Transferrin % Sat 51 Ferritin Lactate Dehydrogenase C-Reactive Protein Theophylline
--- NOTE | 2019-08-21 13:32 | W.INDIABCONS ---
Date of service: 08/21/19 Time of Service: 13:00 Diabetes Inpatient Consult DESCRIPTION/ASSESSMENT: DM consult per MD. 74 y/o male w/ dx DM2, CKD3, COPD, Edema, Anemia. ABN labs (08/19) include: BG 161(H), BUN+ Creat (H). Tolerates CHO/HH diet and reports >75% intake at meals. Currently 180% IBW with BMI 43 indicating obesity. INTERVENTION: Reviewed relationship b/t DM and CKD, CHO counting, meal planning tips, proper A1c and BG levels, consequences of untreated DM, benefits of maintaining weight control diet and medication regimen. Rec: Pro Heal supplement 30 ml BID. Provides 30mg/pro/day to help w/ cellulitis. PLAN: Patient was provided with NCM education handout for DM2 and practices CHO counts with CDM on daily meal orders. Monitor weight, BG and A1C. Time Spent in Nutritional Counseling and Treatment: 15 min
--- NOTE | 2019-08-21 14:50 | PTTR_ITS ---
Date of service: 08/21/19 Time of Service: 14:50 PT Notes Visit Reasons: SIRS W/DIABETIC LEG CELLULITIS,DEHYDRATION IN CKD3 Inpatient Physical Therapy Treatment Note [facility] Date: 08/21/2019 PRECAUTIONS: Fall. Standard. Activity as tolerated. SUBJECTIVE: Patient is agreeable to a second session this afternoon as planned. Patient was doubtful as to how far he is going to be able to walk as he has been complaining of pain in his left leg and knee. He is also worried about his breathlessness. He states that at home he has a wheelchair that he uses inside the house and does not walk much. Objective: General Observation: Morbidly obese. Telemetry monitoring in place. Oxygen supplementation via NC on 3.5 L/min. IV in the left UE. Mental Status: Alert and oriented x4 Pain: Reported minimal pain in the low back during manual muscle testing Bed Mobility/Transfers: Rolling CGA Supine to sit CGA with HOB elevated to 45 degrees, able to use B UE for support Sit to supine CGA with HOB elevated to 45 degrees, able to use B UE for support Sit to stand CGA using FWW Stand to sit CGA using FWW Bed to chair CGA using FWW Chair to bed CGA using FWW Gait: Patient tolerated 15 feet using front wheeled walker with CGA and minimal verbal cues for safety with minimal increase in pain on the left knee that subsided with rest. Wheelchair follow provided by nurse. Oxygen monitoring done by respiratory therapist. Reciprocal gait pattern. Decreased step height, decreased ameena, increased unsteadiness. Moderate breathlessness noted after activity. SaO2 ranged from 90% to 95% and heart rate from 82 bpm to 84 bpm. Assessment: Functional mobility decline, decreased activity tolerance, difficulty with walking, unsteadiness on feet, increased fall risk, impaired mobility ADL performance, pain on left knee, and generalized weakness. Patient demonstrates a good prognosis for being able to achieve short distance ambulation of up to 15 feet using a front wheeled walker. Patient is a 75-year- old male who presented to the ED on 08/19/2019 with chief complaint of weakness, difficulty with ambulation, fall in the morning (of 08/19/2019) as well as an episode of diarrhea at home prior to admission, and some confusion. Patient is diagnosed with SIRS attributable to cellulitis to bilateral lower extremities as well as dehydration, cellulitis of bilateral lower extremities, COPD exacerba tion, stage III chronic kidney disease, and type 2 diabetes mellitus. DISCHARGE RECOMMENDATIONS: Patient will highly benefit from the use of a bedside commode in order to reduce fall risk at home. Patient will benefit from home health PT services in order to progress mobility level using least restrictive assistive ambulatory device, assess home safety, identify additional equipment needs, and establish a functional maintenance program that will increase ability of patient to remain at home. TREATMENT CODE/TIME: 57490 x 47 minutes beginning at 14:50 p.m.
--- NOTE | 2019-08-21 15:26 | PHA.ADMREV ---
Pharmacy Clinical Review - Admission Clinical Review (Last Updated 08/19/19 @ 21:58 by Bryson Payan) Right rotator cuff tear (Acute) Discharge planning issues (Acute) DVT prophylaxis (Acute) SIRS (systemic inflammatory response syndrome) (Acute) Sepsis (Acute) Cellulitis (Acute) levofloxacin [From Levaquin] Adverse Reaction (Verified 08/10/19 00:40) Itching Height 5 ft 10 in Weight 136.078 kg - Renal Dosing Renal Dosing: BUN 63 mg/dL (7-18) H 08/21/19 06:21 Creatinine 1.64 mg/dL (0.70-1.30) H D 08/21/19 06:21 Medications needing adjustments: Reviewed (CrCl ~56.7 based on adjusted body weight; all meds are ok) - Anticoagulation Anticoagulation: Hgb 9.3 g/dL (13.5-17.5) L 08/21/19 06:21 Hct 29.6 % (40.0-50.0) L 08/21/19 06:21 Plt Count 309 x1000/uL (130-400) 08/21/19 06:21 INR 1.1 (0.9-1.1) 08/19/19 19:56 Creatinine 1.64 mg/dL (0.70-1.30) H D 08/21/19 06:21 DVT Prohphylaxis: Reviewed Medications: Heparin Therapeutic Anticoagulation: N/A - Opiate Usage Evaluate Pain Scale/Pains Meds: N/A Scheduled Bowel Reg ordered if on Opiates?: Yes - Relevant Labs Sodium 137 mmol/L (136-145) 08/21/19 06:21 Potassium 5.0 mmol/L (3.5-5.1) 08/21/19 06:21 Chloride 101 mmol/L (98-107) 08/21/19 06:21 Magnesium 1.8 mg/dL (1.8-2.4) 08/19/19 19:55 C-Reactive Protein 9.27 mg/dL (0.0-0.3) H 08/21/19 06:21 Electrolytes, C-Reactive P, ESR: Reviewed - Antimicrobial Stewardship Antibiotic appropriateness: Reviewed (Oxacillin plus clindamycin for strep bacteremia) Surgical Abx d/c within 24 hr: N/A - DM Control DM Control: Glucose 190 mg/dL (74-106) H 08/21/19 06:21 Finger Stick Blood Glucose 212 Finger Stick Blood Glucose 212 Finger Stick Blood Glucose 186 Insulin Dosing: Reviewed (aspart per SS plus NPH q8h) - Heart Failure/MD Heart Failure/MD: Troponin I 0.05 ng/Ml (<0.06) 08/20/19 06:12 NT-Pro-B Natriuret Pep 193 pg/mL (<300) 08/19/19 19:56 EF%, ALEJO's, B-Blockers, Diuretics: Reviewed - BP Control BP Control: Blood Pressure [Right Arm] 115/80 Blood Pressure [Right Arm] 120/57 Blood Pressure [Right Arm] 126/69 Blood Pressure 115/50 Blood Pressure 120/50 Blood Pressure 120/57 Blood Pressure 129/60 Blood Pressure 133/51 If elevated: Reviewed - QTc Review If Elevated: Reviewed - IV to PO Switch IV Medications: Reviewed (will need 4 weeks of IV abx to prevent endocarditis/infection of prosthetic knee) - Home Meds Home Med List reviewed: Reviewed (furosemide,) Relevent Home Meds Not ordered & why?: furosemide, lisinopril, metformin - Current meds Current Medication Order Review: Reviewed
[2019-08-21] MEDS: Patch Removal 1 EACH TP (21:00)
[2019-08-21] MEDS: Atorvastatin 40 MG TAB PO (21:09)
[2019-08-22] VITALS (15 sets, daily range): BP systolic 133–153; BP diastolic 55–72; PULSE 67–86; RESP 2–25; TEMP 36–37.1; O2SAT 90–98
[2019-08-22] MEDS: Heparin 5,000 UNITS/ML VIAL 5000 UNITS SC ×4 (00:17→23:46)
[2019-08-22] MEDS: Albuterol/Ipratropium 3 ML UPD VIAL UPD ×5 (00:18→23:44)
[2019-08-22] MEDS: Normal Saline 1,000 ML 85 ML IV (00:18)
[2019-08-22] MEDS: Insulin NPH-Human 300 UNITS/3 ML PEN 30 UNIT SC ×2 (03:14→10:19)
[2019-08-22] MEDS: methylPREDNISolone SUCC 125 MG VIAL 60 MG IVP ×2 (03:14→10:16)
[2019-08-22] MEDS: CLINDAMYCIN 900 MG/50 ML BAG 50 MG IVPB ×4 (03:40→21:27)
[2019-08-22] MEDS: Acetaminophen 325 MG TAB PO (06:35)
[2019-08-22 06:50] LABS: Abs Immature Grans 0.13 k/cumm (0.0-0.09); Absolute Lymphocyte Count 0.41 k/cumm (1.2-3.4); Absolute Monocyte Count 0.74 k/cumm (0.11-0.7); Absolute Neutrophil Count 17.33 k/cumm (1.2-6.7); HCT 30.6 % (40.0-50.0); HGB 9.8 g/dL (13.5-17.5); Immature Grans % 0.7 %; Lymphocytes % 2.2; Mean Corpuscular Hemoglobin 30.2 pg (27.0-33.0); Mean Corpuscular Volume 94.4 fL (80-95); Mean Platelet Volume 9.5 fL (8.0-11.0); Neutrophils % 93.1; Platelet Count 327 x1000/uL (130-400); RBC 3.24 m/cumm (4.50-6.00); RBC Distribution Width 14.3 % (11.8-14.1); White Blood Cell Count 18.61 k/cumm (4.4-10.8)
[2019-08-22 07:07] LABS: Anion Gap 3.4 mmol/L (3-11); BUN 63 mg/dL (7-18); C-Reactive Protein 4.47 mg/dL (0.0-0.3); CO2 30.6 mmol/L (21.0-32.0); CREATININE 1.51 mg/dL (0.70-1.30); Calcium 9.5 mg/dL (8.5-10.1); Chloride 106 mmol/L (98-107); Estimated GFR 45.65 (mL/min/1.73m2); Glucose 136 mg/dL (74-106); Potassium 4.9 mmol/L (3.5-5.1); Sodium 140 mmol/L (136-145)
[2019-08-22] MEDS: Budesonide/Formoterol 160/4.5 6 GM 60 PUFF INH IH ×2 (08:03→20:30)
[2019-08-22] MEDS: Metoprolol CR 100 MG TABCR PO (08:31)
[2019-08-22] MEDS: Cyclobenzaprine 10 MG TAB PO ×3 (08:31→20:31)
[2019-08-22] MEDS: Lidocaine 5% Patch 1 PATCH TP (08:32)
[2019-08-22] MEDS: Normal Saline Flush 10 ML SYR IVP ×2 (08:35→10:18)
--- NOTE | 2019-08-22 10:10 | PT.INTREAT ---
Date of service: 08/22/19 Time of Service: 10:10 PT Notes Visit Reasons: SIRS W/DIABETIC LEG CELLULITIS,DEHYDRATION IN CKD3 Physical Therapy Inpatient Treatment Note Date: 08/22/2019 PRECAUTIONS: Fall. Standard. Activity as tolerated. On 3.5 L of oxygen per minute via NC. SUBJECTIVE: Patient is agreeable to PT session this morning. He did complain that he he only got about 1 to 2 hours of sleep last night. He was compliant with plan of performing short distance ambulation although he stated that he is not that confident about how far he can go. Objective: General Observation: Morbidly obese. Telemetry monitoring in place. Oxygen supplementation via NC on 3.5 L/min. IV in the left UE. Mental Status: Alert and oriented x4 Pain: None reported Bed Mobility/Transfers: Sit to stand CGA using BUE to push from armrests, FWW needed Stand to sit CGA using BUE to control descent onto chair, FWW needed Bed to chair CGA using FWW, minimal cues provided for safety Chair to bed CGA using FWW, minimal cues provided for safety Gait: Patient tolerated 25 feet x 2 feet using front wheeled walker with CGA and minimal verbal cues for safety with minimal increase in pain on the left knee that subsided with rest. Wheelchair follow and IV pole management provided by nurse. Oxygen monitoring done by respiratory therapist. Reciprocal gait pattern. Patient demonstrated increased ameena after resting and going back from outside of the room to in room chair but remains limited by moderate breathlessness. SaO2 ranged from 95% to 97% at same supplementation rate. THERA EX: After her resting from ambulation activity, patient tolerated seated level exercises consisting of seated hip flexion as well as LAQs x 10 each. Patient was instructed to do set exercises every 1-2 hours as he is able to tolerate emphasizing resting in between to minimize fatigue. Assessment: Patient remains apprehensive about the distance that he is able to cover stating that his legs may not be that strong to hold him. He did not however complain of any increase in pain in his leg as he did yesterday afternoon. He will continue to benefit from skilled physical therapy services in order to improve mobility level and maximize activity tolerance. In the afternoon, charge nurse did update this PT that patient was significantly fatigued from this morning's activity and requested nurse and nurse orientee to be walked back to bed so that he could rest. Charge nurse Ness emphatically requested that letting the patient rest this afternoon will be very beneficial for patient. DISCHARGE RECOMMENDATIONS: Patient will highly benefit from the use of a bedside commode in order to reduce fall risk at home. Patient will benefit from home health PT services in order to progress mobility level using least restrictive assistive ambulatory device, assess home safety, identify additional equipment needs, and establish a functional maintenance program that will increase ability of patient to remain at home. TREATMENT CODE/TIME: 19951 x 41 minutes beginning at 14:50 p.m.
--- NOTE | 2019-08-22 11:50 | PGE_ITS ---
Date of Service Date of service: 08/22/19 Time of Service: 11:50 Assessment and Plan Assessment and plan (1) Streptococcus pneumoniae: Status: Acute Assessment and plan: Gram stain is showing gram-positive cocci in chains as well as diplococci consistent with streptococcal pneumonia. He is having clinical symptoms including cough productive of purulent sputum along with dif fuse wheezing. Patient is already on oxacillin and clindamycin for cellulitis and group B strep bacteremia. We will continue aerosolized bronchodilators along with parenteral antibiotics. (2) Sepsis: Status: Resolved Assessment and plan: His acute sepsis has resolved although he still has an acute kidney injury which is slowly resolving. His mental status has returned to baseline. His blood pressure and heart rate are stable. Continue current antibiotic regimen with oxacillin and clindamycin. He will need 4 weeks of parenteral antibiotics. I repeat his blood cultures and if there is no growth on his repeat cultures will plan for midline. Qualifiers: Sepsis type: Streptococcus, unspecified Sepsis acute organ dysfunction status: with acute organ dysfunction Severe sepsis acute organ dysfunction type: acute renal failure Acute renal failure type: with acute tubular necrosis Severe sepsis shock status: without septic shock Qualified Code(s): A40.9 - Streptococcal sepsis, unspecified; R65.20 - Severe sepsis without septic shock; N17.0 - Acute kidney failure with tubular necrosis (3) Cellulitis: Status: Acute Assessment and plan: As above Qualifiers: Site of cellulitis: extremity Site of cellulitis of extremity: lower e xtremity Laterality: unspecified laterality Qualified Code(s): L03.119 - Cellulitis of unspecified part of limb (4) COPD (chronic obstructive pulmonary disease) with emphysema: Status: Chronic Assessment and plan: Continue corticosteroids. Can DC IV corticosteroids and switch to p.o. prednisone. Continue with NPH coverage while on steroids. Continue acapella and aerosolized bronchodilators along with his Symbicort.. Qualifiers: Emphysema type: other Qualified Code(s): J43.8 - Other emphysema (5) Type 2 diabetes mellitus: Status: Chronic Assessment and plan: Monitor blood sugars before meals and at bedtime and cover with sliding scale. Continue basal insulin Qualifiers: Diabetes mellitus manager long term care insulin use: without manager long term care use Diabetes mellitus complication status: with kidney complications Diabetes mellitus complication detail: with chronic kidney disease Chronic kidney disease stage: stage 3 (moderate) Qualified Code(s): E11.22 - Type 2 diabetes mellitus with diabetic chronic kidney disease; N18.3 - Chronic kidney disease, stage 3 (moderate) (6) Chronic renal disease, stage 3, moderately decreased glomerular filtration rate (GFR) between 30-59 mL/min/1.73 square meter: Status: Chronic Assessment and plan: Continue to monitor urine output as well as daily BMP. Continue with IV fluids but will reduce the rate and once he is taking adequate p.o. and his BUN/creatinine are back to baseline we will discontinue IV fluids. (7) Anemia: Status: Chronic Assessment and plan: Probably anemia of chronic kidney disease. No evidence of overt GI bleeding. Hemoglobin is stable at 9.8 g.. (8) DVT prophylaxis: Status: Acute Assessment and plan: Continue subcutaneous heparin. He is not a candidate for low molecular weight heparin due to his CKD (9) Discharge planning issues: Status: Acute Assessment and plan: Patient desires to return home. However he is going to need 4 weeks of parenteral antibiotics. computer programming manager will work on making referrals once he is closer to discharge. Otherwise he may need to go on swing bed status for completion of his antibiotics. Subjective Subjective Interval history since last seen: Patient's cough is becoming more moist and more productive. Sputum was sent yesterday which demonstrated gram-positive cocci in chains including diplococci. This is consistent with Streptococcus pneumoniae. His initial chest x-ray showed bibasilar densities consistent with atelectasis versus pneumonia. Given his acute respiratory syndromes cough productive of purulent sputum along with wheezing I think he has an underlying strep pneumoniae. He is currently being treated for group B strep bacteremia with oxacillin and clindamycin. He remains afebrile although he continues to have a leukocytosis of 18,000, although his CRP is already starting to come down to 4.4. He remains on IV corticosteroids, and bronchodilators for his COPD. He has an Acapella device to help mobilize sputum. With respect to his diabetes his glucose this morning was 136 and is now 156. He is getting NPH to cover his corticosteroids. He is also on basal bolus insulin as well. Exam Narrative Exam Narrative: Morbidly obese male sitting up in his chair falling asleep. He awakens easily. He states he did not sleep well last night. Patient is alert and oriented person place time circumstance. Lungs reveal coarse wheezes and rhonchi diffusely Heart regular rate and rhythm Abdomen is obese soft and nontender. Lower extremities with 2+ edema with thickened lichenified skin Objective Objective Clinical Data: Abnormal lab results 08/22/19 08/22/19 Range/Units 06:34 06:34 WBC 18.61 H (4.4-10.8) k/cumm RBC 3.24 L (4.50-6.00) m/cumm Hgb 9.8 L (13.5-17.5) g/dL Hct 30.6 L (40.0-50.0) % RDW 14.3 H (11.8-14.1) % Absolute Neutrophils 17.33 H (1.2-6.7) k/cumm Absolute Lymphocytes 0.41 L (1.2-3.4) k/cumm Absolute Monocytes 0.74 H (0.11-0.7) k/cumm BUN 63 H (7-18) mg/dL Creatinine 1.51 H (0.70-1.30) mg/dL Glucose 136 H (74-106) mg/dL C-Reactive Protein 4.47 H (0.0-0.3) mg/dL Vital Signs Temperature 36.1 C L 08/22/19 07:55 Temperature Source Tympanic 08/22/19 07:55 Pulse 83 08/22/19 11:07 Pulse Rhythm Regular 08/22/19 07:57 Pulse 104 H 08/21/19 18:02 Respiratory Rate 24 08/22/19 11:07 Respiratory Effort 08/22/19 07:57 Respiratory Depth Shallow 08/22/19 07:57 Respiratory Pattern Normal 08/22/19 07:57 Blood Pressure 133/68 08/22/19 07:55 Blood Pressure Mean 53 08/21/19 18:02 Blood Pressure Position Sitting 08/21/19 17:30 Pulse Oximetry 96 08/22/19 11:07 Oxygen Delivery Method Nasal Cannula 08/22/19 11:07 Oxygen Flow Rate 3.5 08/22/19 11:07 Fraction of Inspired Oxygen (FIO2) 3 08/20/19 09:22 Pain Level 0 08/22/19 10:16 Comment 08/22/19 07:55 Intake & Output 08/21/19 08/21/19 08/22/19 11:59 23:59 11:59 Intake Total 1613.583 / 3103.583 1490 / 3103.583 400 / 400 Output Total 2350 / 3575 1225 / 3575 350 / 350 Balance -736.417 / -471.417 265 / -471.417 50 / 50 Weight 147.3 kg Intake: IV 1163.583 / 2413.583 1250 / 2413.583 200 / 200 Oral 450 / 690 240 / 690 200 / 200 Output: Urine 2350 / 3575 1225 / 3575 350 / 350 Other: Urine Color Straw Pale Yellow Urine Appearance Cloudy Clear Clear Urine Odor None Normal Comment pt has indwelling jones catheter draining slightly cloudy straw colored urine voiding in bedside commode per previous shift. Stool Size Moderate Stool Characteristics Soft Voiding Methods Urinal Urinal Laboratory Results WBC 18.61 k/cumm (4.4-10.8) H 08/22/19 06:34 RBC 3.24 m/cumm (4.50-6.00) L 08/22/19 06:34 Hgb 9.8 g/dL (13.5-17.5) L 08/22/19 06:34 Hct 30.6 % (40.0-50.0) L 08/22/19 06:34 MCV 94.4 fL (80-95) 08/22/19 06:34 MCH 30.2 pg (27.0-33.0) 08/22/19 06:34 MCHC 32.0 g/dL (32.0-36.0) 08/22/19 06:34 RDW 14.3 % (11.8-14.1) H 08/22/19 06:34 Plt Count 327 x1000/uL (130-400) 08/22/19 06:34 MPV 9.5 fL (8.0-11.0) 08/22/19 06:34 Immature Gran % 0.7 % 08/22/19 06:34 Neutrophils % 93.1 08/22/19 06:34 Band Neutrophils % 0.0 % 08/19/19 19:56 Lymphocytes % 2.2 08/22/19 06:34 Atypical Lymphs % 1 08/19/19 19:56 Monocytes % 4.0 08/22/19 06:34 Eosinophils % 0.0 08/22/19 06:34 Basophils % 0.0 08/22/19 06:34 Absolute Neutrophils 17.33 k/cumm (1.2-6.7) H 08/22/19 06:34 Absolute Lymphocytes 0.41 k/cumm (1.2-3.4) L 08/22/19 06:34 Absolute Monocytes 0.74 k/cumm (0.11-0.7) H 08/22/19 06:34 Absolute Eosinophils 0.00 k/cumm (0.0-0.7) 08/22/19 06:34 Absolute Basophils 0.00 k/cumm (0.0-0.2) 08/22/19 06:34 Differential Comment Manual differential 08/19/19 19:56 RBC Morphology Normal 08/19/19 19:56 Retic Count 1.1 % (0.5-2.4) 08/21/19 06:21 PT 10.7 sec (9.3-11.0) 08/19/19 19:56 INR 1.1 (0.9-1.1) 08/19/19 19:56 APTT 25.4 sec (21.0-31.4) 08/19/19 19:56 Sodium 140 mmol/L (136-145) 08/22/19 06:34 Potassium 4.9 mmol/L (3.5-5.1) 08/22/19 06:34 Chloride 106 mmol/L (98-107) 08/22/19 06:34 Carbon Dioxide 30.6 mmol/L (21.0-32.0) 08/22/19 06:34 Anion Gap 3.4 mmol/L (3-11) 08/22/19 06:34 BUN 63 mg/dL (7-18) H 08/22/19 06:34 Creatinine 1.51 mg/dL (0.70-1.30) H 08/22/19 06:34 Estimated GFR/1.73 m2 45.65 (mL/min/1.73m2) 08/22/19 06:34 Glucose 136 mg/dL (74-106) H 08/22/19 06:34 Lactate 1.2 mmol/L (0.6-1.4) 08/21/19 06:21 Calcium 9.5 mg/dL (8.5-10.1) 08/22/19 06:34 Magnesium 1.8 mg/dL (1.8-2.4) 08/19/19 19:55 Iron 83 ug/dL (65-175) 08/21/19 06:21 TIBC 164 ug/dL (250-450) L 08/21/19 06:21 Transferrin % Sat 51 % (20-55) 08/21/19 06:21 Ferritin 547 ng/mL (26-388) H 08/21/19 06:21 Total Bilirubin 0.8 mg/dL (0.2-1.0) 08/20/19 06:12 AST 30 U/L (15-37) 08/20/19 06:12 ALT 56 U/L (16-63) 08/20/19 06:12 Alkaline Phosphatase 90 U/L (46-116) 08/20/19 06:12 Lactate Dehydrogenase 173 U/L (85-227) 08/21/19 06:21 Troponin I 0.05 ng/Ml (<0.06) 08/20/19 06:12 C-Reactive Protein 4.47 mg/dL (0.0-0.3) H 08/22/19 06:34 NT-Pro-B Natriuret Pep 193 pg/mL (<300) 08/19/19 19:56 Total Protein 6.4 g/dL (6.4-8.2) 08/20/19 06:12 Albumin 2.2 g/dL (3.4-5.0) L 08/20/19 06:12 Lipase 151 U/L (73-393) 08/19/19 19:56 TSH 0.35 uIU/mL (0.36-3.74) L 08/19/19 19:55 Free T4 1.78 ng/dL (0.76-1.46) H 08/19/19 19:55 Urine Color Yellow (Yellow) 08/19/19 20:20 Urine Clarity Clear (Clear) 08/19/19 20:20 Urine pH 5.5 (5-8) 08/19/19 20:20 Ur Specific [place] 1.010 (1.005-1.025) 08/19/19 20:20 Urine Protein Negative mg/dL (Negative) 08/19/19 20:20 Urine Ketones Negative mg/dL (Negative) 08/19/19 20:20 Urine Blood Trace-intact (Negative) H 08/19/19 20:20 Urine Nitrite Negative (Negative) 08/19/19 20:20 Urine Bilirubin Negative (Negative) 08/19/19 20:20 Urine Urobilinogen 0.2 EU/dL (Up TO 0.2) 08/19/19 20:20 Ur Leukocyte Esterase Negative (Negative) 08/19/19 20:20 Urine RBC 0-2 HPF (0-2) 08/19/19 20:20 Urine WBC Negative HPF (0-5) 08/19/19 20:20 Ur Epithelial Cells Negative HPF (Negative) 08/19/19 20:20 Urine Crystals Negative HPF (Negative) 08/19/19 20:20 Urine Bacteria Rare HPF (Negative) 08/19/19 20:20 Urine Casts Negative LPF (Negative) 08/19/19 20:20 Urine Mucus Negative (Negative) 08/19/19 20:20 Urine Other Negative (Negative) 08/19/19 20:20 Ur Culture Indicated? C&s done as ordered 08/19/19 20:20 Urine Glucose Negative mg/dL (Negative) 08/19/19 20:20 Theophylline <1.2 ug/ml (10.0-20.0) L 08/19/19 23:00
[2019-08-22] MEDS: Insulin Aspart 300 UNITS/3 ML PEN SC ×3 (12:00→21:28)
--- NOTE | 2019-08-22 12:52 | W.NUTRFU ---
Date of service: 08/22/19 Time of Service: 12:53 Nutritional Follow up NOTE: Kiran is meeting nutrient and fluid needs by mouth at this time. Would recommend Proheal as liquid protein supplementation to aid in wound healing with with cellulitis. Will continue to follow and adjust meal plan for optimal intake. Time Spent in Nutritional Counseling and Treatment: 0 time spent face to face
[2019-08-22] MEDS: guaiFENesin 600 MG TABCR PO ×2 (13:12→20:31)
[2019-08-22] MEDS: Albuterol 2.5 MG/3 ML INH SOLN VIAL UPD (14:25)
--- NOTE | 2019-08-22 14:56 | PDOC.CMPRO ---
- If Service Date Differs Date of service: 08/22/19 Time of Service: 14:56 Care Management Progress Note S/O: Kiran continues on IV abx he will have a midline placed and will need 4 weeks of IV abx starting from the time of negative blood cultures. Pending frequency of abx he may be able to transition to a SNF if only once a day. Treatment and frequency to be determined. CM to continue to assess for ongoing needs and assist with transition to SB1 if needed. A: Kiran is a 74 year old male admitted with SIRS, Diabetic leg cellulitis dehydration and CKD, positive blood cultures. P:CM will continue to follow patient and assess for discharge needs. Anticipate IV abx x 4 weeks, mid line to be placed. SB1 vs short term rehab prior to returning home. CM to continue to assess for discharged needs.
[2019-08-22] MEDS: Normal Saline 1,000 ML 45 ML IV (18:09)
[2019-08-22] MEDS: Atorvastatin 40 MG TAB PO (20:31)
[2019-08-22] MEDS: Patch Removal 1 EACH TP (21:06)
[2019-08-23] VITALS (7 sets, daily range): BP systolic 131–153; BP diastolic 62–86; PULSE 65–90; RESP 2–25; TEMP 36.4–37.2; O2SAT 92–97
[2019-08-23] MEDS: CLINDAMYCIN 900 MG/50 ML BAG 50 MG IVPB ×4 (04:45→22:05)
[2019-08-23] MEDS: Acetaminophen 325 MG TAB PO (06:03)
[2019-08-23 07:14] LABS: Abs Immature Grans 0.18 k/cumm (0.0-0.09); Absolute Basophil Count 0.01 k/cumm (0.0-0.2); Absolute Eosinophil Count 0.01 k/cumm (0.0-0.7); Absolute Lymphocyte Count 0.82 k/cumm (1.2-3.4); Absolute Monocyte Count 0.97 k/cumm (0.11-0.7); Basophils % 0.1; Eosinophils % 0.1; HGB 10.4 g/dL (13.5-17.5); Immature Grans % 1.3 %; Lymphocytes % 5.8; Mean Corp. HGB Concentration 30.6 g/dL (32.0-36.0); Mean Corpuscular Hemoglobin 29.6 pg (27.0-33.0); Mean Corpuscular Volume 96.9 fL (80-95); Mean Platelet Volume 9.6 fL (8.0-11.0); Monocytes % 6.9; Neutrophils % 85.8; Platelet Count 354 x1000/uL (130-400); RBC 3.51 m/cumm (4.50-6.00); RBC Distribution Width 14.7 % (11.8-14.1)
[2019-08-23 07:27] LABS: Anion Gap 4.5 mmol/L (3-11); BUN 51 mg/dL (7-18); C-Reactive Protein 2.22 mg/dL (0.0-0.3); CO2 32.5 mmol/L (21.0-32.0); CREATININE 1.43 mg/dL (0.70-1.30); Chloride 106 mmol/L (98-107); Estimated GFR 48.61 (mL/min/1.73m2); Glucose 101 mg/dL (74-106); Potassium 5.2 mmol/L (3.5-5.1); Sodium 143 mmol/L (136-145)
[2019-08-23 07:38] LABS: Calcium 9.9 mg/dL (8.5-10.1)
[2019-08-23] MEDS: Budesonide/Formoterol 160/4.5 6 GM 60 PUFF INH IH ×2 (08:11→20:27)
[2019-08-23] MEDS: Heparin 5,000 UNITS/ML VIAL 5000 UNITS SC ×2 (08:59→15:46)
[2019-08-23] MEDS: Cyclobenzaprine 10 MG TAB PO ×3 (09:00→20:28)
[2019-08-23] MEDS: predniSONE 20 MG TAB 60 MG PO (09:00)
[2019-08-23] MEDS: Lidocaine 5% Patch 1 PATCH TP (09:00)
[2019-08-23] MEDS: guaiFENesin 600 MG TABCR PO ×2 (09:01→20:28)
[2019-08-23] MEDS: Metoprolol CR 100 MG TABCR PO (09:01)
[2019-08-23] MEDS: Insulin NPH-Human 300 UNITS/3 ML PEN 30 UNIT SC (09:12)
--- NOTE | 2019-08-23 13:56 | PT.INTREAT ---
Date of service: 08/23/19 Time of Service: 13:56 PT Notes Visit Reasons: SIRS W/DIABETIC LEG CELLULITIS,DEHYDRATION IN CKD3 Physical Therapy Inpatient Treatment Note Date: 08/23/2019 PRECAUTIONS: Fall. Standard. Activity as tolerated. On 3.5 L of oxygen per minute via NC. SUBJECTIVE: Kiran expressed his concern about the dreams that he has been having at nights about choosing between a blue and red pill where former gives oxygen and the latter does not. He said that he has been choosing the blue pill. He also dreams about choosing from among boxes, one of which will deprive him of oxygen. He also dreams about his grandmother visiting him. He reports pain in his back and his left knee aggravated with movement and weight bearing. Objective: General Observation: Morbidly obese. Telemetry monitoring in place. Oxygen supplementation via NC on 3.5 L/min. IV in the left UE. Mental Status: Alert and oriented x4 Pain: 8/10 on the left knee with ambulation but subsided to about 3/10 with rest. Bed Mobility/Transfers: Supine to sit: CGA with HOB elevated to 45 degrees Sit to supine: Minimal assist to BLE due to fatigue and low back pain Sit to stand CGA using BUE to push from armrests, FWW needed Stand to sit CGA using BUE to control descent onto chair, FWW needed Bed to chair CGA using FWW, minimal cues provided for safety. Patient requires minimal assist if coming from a lower chair/bed. Chair to bed CGA using FWW, minimal cues provided for safety. Patient requires minimal assist if coming from a lower chair/bed. Gait: Patient tolerated 10 feet x 2 in the morning and 20 feet +5 feet in the afternoon using front wheeled walker with minimal assist of PT and standby assist of [employer], minimal verbal cues for safety. Reciprocal gait pattern. Patient reported pain on the left knee at about 8/10 that subsided to 3/10 with rest. THERA EX: After her resting from ambulation activity, patient tolerated exercises while reclined on chair consisting of seated hip flexion and knee flexion x10, and ankle dorsiflexion plantarflexion x10. Assessment: Patient continues to be limited with his breathing difficulty, low back/left knee pain, and body habitus. Patient remains apprehensive about the distance that he is able to cover stating that his legs may not be that strong to hold him. He will continue to benefit from skilled physical therapy services in order to improve mobility level and maximize activity tolerance. DISCHARGE RECOMMENDATIONS: Patient will highly benefit from the use of a bedside commode in order to reduce fall risk at home. Patient will benefit from home health PT services in order to progress mobility level using least restrictive assistive ambulatory device, assess home safety, identify additional equipment needs, and establish a functional maintenance program that will increase ability of patient to remain at home. TREATMENT CODE/TIME: Session 1?9 7530 x38 minutes, 9711 0 x 20 minutes beginning at 10:33 AM. Session 2?9753 0 x 39 minutes beginning at 13:56 PM.
--- NOTE | 2019-08-23 15:20 | CMPROGNOTE_ITS ---
- If Service Date Differs Date of service: 08/23/19 Time of Service: 15:20 Care Management Progress Note S/O: Kiran was lying in bed when CM met with him. He reported that he was not feeling well. He stated that he has been working with PT, which has gone ok. Per report, he will require 4 weeks of IV abx, Q6H. Due to the frequency of the abx, Kiran will remain at [facility] and will transition to SWB 1 when medically ready. He will also receive continued PT while on SWB status, which will benefit him greatly. Kiran was pleasant and engaged in conversation with CM. CM called Kiko, his daughter, to review the plan, and left a voice message. CM will continue to follow. A: Kiran is a 74 year old male admitted with SIRS, Diabetic leg cellulitis dehydration and CKD, positive blood cultures. P:CM will continue to follow patient and assess for discharge needs. Anticipate IV abx x 4 weeks, mid line was placed yesterday. SB1 vs short term rehab prior to returning home. Per MD, his abx will likely be Q6H, so he will remain at [facility] on SWB 1. He will also receive PT while on SWB. CM will continue to support Kiran with discharge planning considerations.
--- NOTE | 2019-08-23 16:27 | PGE_ITS ---
Date of Service Date of service: 08/23/19 Time of Service: 16:27 Assessment and Plan Assessment and plan (1) Streptococcus pneumoniae: Status: Acute Assessment and plan: Presumed streptococcal pneumonia based on his sputum Gram stain. Cultures pending. Continue with oxacillin and clindamycin as per treatment of his cellulitis and group B strep sepsis. Continue with aerosolized bronchodilators and supplemental oxygen and mucolytic's. (2) Sepsis: Status: Resolved Assessment and plan: His sepsis has resolved. His acute kidney injury is improving his mental status is improved his blood pressure and heart rate are stable. Continue with antibiotic treatment as listed per information under strep pneumonia and cellulitis. Repeat blood cultures is still positive from yesterday. I wait another couple days before we recheck his blood cultures. He will need 4 weeks of parenteral antibiotics from his last negative culture Qualifiers: Sepsis type: Streptococcus, unspecified Sepsis acute organ dysfunction status: with acute organ dysfunction Severe sepsis acute organ dysfunction type: acute renal failure Acute renal failure type: with acute tubular necrosis Severe sepsis shock status: without septic shock Qualified Code(s): A40.9 - Streptococcal sepsis, unspecified; R65.20 - Severe sepsis without septic shock; N17.0 - Acute kidney failure with tubular necrosis (3) Cellulitis: Status: Acute Assessment and plan: As above Qualifiers: Site of cellulitis: extremity Site of cellulitis of extremity: lower extremity Laterality: unspecified laterality Qualified Code(s): L03.119 - Cellulitis of unspecified part of limb (4) COPD (chronic obstructive pulmonary disease) with emphysema: Status: Chronic Assessment and plan: Continue corticosteroids. Can DC IV corticosteroids and switch to p.o. prednisone. Continue with NPH coverage while on steroids. Continue acapella and aerosolized bronchodilators along with his Symbicort.. Qualifiers: Emphysema type: other Qualified Code(s): J43.8 - Other emphysema (5) Type 2 diabetes mellitus: Status: Chronic Assessment and plan: Monitor blood sugars before meals and at bedtime and cover with sliding scale. Continue basal insulin. Continue NPH while on corticosteroids Qualifiers: Diabetes mellitus fci insulin use: without fci use Diabetes mellitus complication status: with kidney complications Diabetes mellitus complication detail: with chronic kidney disease Chronic kidney disease stage: stage 3 (moderate) Qualified Code(s): E11.22 - Type 2 diabetes mellitus with diabetic chronic kidney disease; N18.3 - Chronic kidney disease, stage 3 (moderate) (6) Chronic renal disease, stage 3, moderately decreased glomerular filtration rate (GFR) between 30-59 mL/min/1.73 square meter: Status: Chronic Assessment and plan: Kidney function has recovered adequately enough that we can stop IV fluids particularly since he is taking p.o. fluids well (7) Anemia: Status: Chronic Assessment and plan: Probably anemia of chronic kidney disease. No evidence of overt GI bleeding. Hemoglobin is stable at 9.8 g.. Qualifiers: Anemia type: due to chronic kidney disease Chronic kidney disease stage: stage 4 (severe) Qualified Code(s): N18.4 - Chronic kidney disease, stage 4 (severe); D63.1 - Anemia in chronic kidney disease (8) DVT prophylaxis: Status: Acute Assessment and plan: Continue subcutaneous heparin. He is not a candidate for low molecular weight heparin due to his CKD (9) Discharge planning issues: Status: Acute Assessment and plan: Patient desires to return home. However he is going to need 4 weeks of parenteral antibiotics. [employer] division manager will work on making referrals once he is closer to discharge. Otherwise he may need to go on swing bed status for completion of his antibiotics. Subjective Subjective Interval history since last seen: Patient remains afebrile. Unfortunately, repeat blood cultures are showing 1 out of 2 sets from yesterday as being positive for gram-positive cocci in chains. He is currently on oxacillin and clindamycin for treatment of group B strep bacteremia. His sputum also has gram positive cocci in chains and diplococi c/w Strep. pneumoniae. His oxygen levels is in the mid to high 90%'s on 3 TO 4 lpm NC. He has a moist productive cough and is using his Acapella device. He has been working w/ P.T. to improve his strength and ambulation but tires easily. Exam Narrative Exam Narrative: Morbidly obese male sitting up at the bedside with physical therapy. He has a moist cough and seems to get winded pretty easily. Lungs with scattered expiratory wheezes Heart is regular rate and rhythm. Abdomen is obese soft and nontender. Legs with 2+ edema Objective Objective Clinical Data: Abnormal lab results 08/23/19 08/23/19 Range/Units 06:35 06:35 WBC 14.10 H (4.4-10.8) k/cumm RBC 3.51 L (4.50-6.00) m/cumm Hgb 10.4 L (13.5-17.5) g/dL Hct 34.0 L (40.0-50.0) % MCV 96.9 H (80-95) fL MCHC 30.6 L (32.0-36.0) g/dL RDW 14.7 H (11.8-14.1) % Absolute Neutrophils 12.10 H (1.2-6.7) k/cumm Absolute Lymphocytes 0.82 L (1.2-3.4) k/cumm Absolute Monocytes 0.97 H (0.11-0.7) k/cumm Potassium 5.2 H (3.5-5.1) mmol/L Carbon Dioxide 32.5 H (21.0-32.0) mmol/L BUN 51 H (7-18) mg/dL Creatinine 1.43 H (0.70-1.30) mg/dL C-Reactive Protein 2.22 H (0.0-0.3) mg/dL Vital Signs Temperature 37.2 C 08/23/19 15:49 Temperature Source Tympanic 08/23/19 15:49 Pulse 77 08/23/19 15:49 Pulse Rhythm Regular 08/23/19 10:45 Pulse 104 H 08/21/19 18:02 Respiratory Rate 24 08/23/19 15:49 Respiratory Effort Labored 08/23/19 10:45 Respiratory Depth Deep 08/23/19 10:45 Respiratory Pattern Tachypnea 08/23/19 10:45 Blood Pressure 153/86 H 08/23/19 15:49 Blood Pressure Mean 53 08/21/19 18:02 Blood Pressure Position Sitting 08/21/19 17:30 Pulse Oximetry 95 08/23/19 15:49 Oxygen Delivery Method Nasal Cannula 08/23/19 15:49 Oxygen Flow Rate 4 08/23/19 15:49 Fraction of Inspired Oxygen (FIO2) 3 08/20/19 09:22 Pain Level 2 08/23/19 07:35 Comment 08/22/19 12:11 Intake & Output 08/22/19 08/23/19 08/23/19 23:59 11:59 23:59 Intake Total 1830 / 2280 500 / 1660 1160 / 1660 Output Total 800 / 1150 710 / 985 275 / 985 Balance 1030 / 1130 -210 / 675 885 / 675 Weight 152.3 kg Intake: IV 1350 / 1600 500 / 600 100 / 600 Oral 480 / 680 1060 / 1060 Output: Urine 800 / 1150 710 / 985 275 / 985 Other: Urine Color Yellow Light Ester Yellow Urine Appearance Clear Clear Clear Urine Odor None None Comment urine mixed with stool Stool Size Moderate Stool Characteristics Soft Voiding Methods Urinal Urinal Urinal Laboratory Results WBC 14.10 k/cumm (4.4-10.8) H 08/23/19 06:35 RBC 3.51 m/cumm (4.50-6.00) L 08/23/19 06:35 Hgb 10.4 g/dL (13.5-17.5) L 08/23/19 06:35 Hct 34.0 % (40.0-50.0) L 08/23/19 06:35 MCV 96.9 fL (80-95) H 08/23/19 06:35 MCH 29.6 pg (27.0-33.0) 08/23/19 06:35 MCHC 30.6 g/dL (32.0-36.0) L 08/23/19 06:35 RDW 14.7 % (11.8-14.1) H 08/23/19 06:35 Plt Count 354 x1000/uL (130-400) 08/23/19 06:35 MPV 9.6 fL (8.0-11.0) 08/23/19 06:35 Immature Gran % 1.3 % 08/23/19 06:35 Neutrophils % 85.8 08/23/19 06:35 Band Neutrophils % 0.0 % 08/19/19 19:56 Lymphocytes % 5.8 08/23/19 06:35 Atypical Lymphs % 1 08/19/19 19:56 Monocytes % 6.9 08/23/19 06:35 Eosinophils % 0.1 08/23/19 06:35 Basophils % 0.1 08/23/19 06:35 Absolute Neutrophils 12.10 k/cumm (1.2-6.7) H 08/23/19 06:35 Absolute Lymphocytes 0.82 k/cumm (1.2-3.4) L 08/23/19 06:35 Absolute Monocytes 0.97 k/cumm (0.11-0.7) H 08/23/19 06:35 Absolute Eosinophils 0.01 k/cumm (0.0-0.7) 08/23/19 06:35 Absolute Basophils 0.01 k/cumm (0.0-0.2) 08/23/19 06:35 Differential Comment Manual differential 08/19/19 19:56 RBC Morphology Normal 08/19/19 19:56 Retic Count 1.1 % (0.5-2.4) 08/21/19 06:21 PT 10.7 sec (9.3-11.0) 08/19/19 19:56 INR 1.1 (0.9-1.1) 08/19/19 19:56 APTT 25.4 sec (21.0-31.4) 08/19/19 19:56 Sodium 143 mmol/L (136-145) 08/23/19 06:35 Potassium 5.2 mmol/L (3.5-5.1) H 08/23/19 06:35 Chloride 106 mmol/L (98-107) 08/23/19 06:35 Carbon Dioxide 32.5 mmol/L (21.0-32.0) H 08/23/19 06:35 Anion Gap 4.5 mmol/L (3-11) 08/23/19 06:35 BUN 51 mg/dL (7-18) H 08/23/19 06:35 Creatinine 1.43 mg/dL (0.70-1.30) H 08/23/19 06:35 Estimated GFR/1.73 m2 48.61 (mL/min/1.73m2) 08/23/19 06:35 Glucose 101 mg/dL (74-106) 08/23/19 06:35 Lactate 1.2 mmol/L (0.6-1.4) 08/21/19 06:21 Calcium 9.9 mg/dL (8.5-10.1) 08/23/19 06:35 Magnesium 1.8 mg/dL (1.8-2.4) 08/19/19 19:55 Iron 83 ug/dL (65-175) 08/21/19 06:21 TIBC 164 ug/dL (250-450) L 08/21/19 06:21 Transferrin % Sat 51 % (20-55) 08/21/19 06:21 Ferritin 547 ng/mL (26-388) H 08/21/19 06:21 Total Bilirubin 0.8 mg/dL (0.2-1.0) 08/20/19 06:12 AST 30 U/L (15-37) 08/20/19 06:12 ALT 56 U/L (16-63) 08/20/19 06:12 Alkaline Phosphatase 90 U/L (46-116) 08/20/19 06:12 Lactate Dehydrogenase 173 U/L (85-227) 08/21/19 06:21 Troponin I 0.05 ng/Ml (<0.06) 08/20/19 06:12 C-Reactive Protein 2.22 mg/dL (0.0-0.3) H 08/23/19 06:35 NT-Pro-B Natriuret Pep 193 pg/mL (<300) 08/19/19 19:56 Total Protein 6.4 g/dL (6.4-8.2) 08/20/19 06:12 Albumin 2.2 g/dL (3.4-5.0) L 08/20/19 06:12 Lipase 151 U/L (73-393) 08/19/19 19:56 TSH 0.35 uIU/mL (0.36-3.74) L 08/19/19 19:55 Free T4 1.78 ng/dL (0.76-1.46) H 08/19/19 19:55 Urine Color Yellow (Yellow) 08/19/19 20:20 Urine Clarity Clear (Clear) 08/19/19 20:20 Urine pH 5.5 (5-8) 08/19/19 20:20 Ur Specific [place] 1.010 (1.005-1.025) 08/19/19 20:20 Urine Protein Negative mg/dL (Negative) 08/19/19 20:20 Urine Ketones Negative mg/dL (Negative) 08/19/19 20:20 Urine Blood Trace-intact (Negative) H 08/19/19 20:20 Urine Nitrite Negative (Negative) 08/19/19 20:20 Urine Bilirubin Negative (Negative) 08/19/19 20:20 Urine Urobilinogen 0.2 EU/dL (Up TO 0.2) 08/19/19 20:20 Ur Leukocyte Esterase Negative (Negative) 08/19/19 20:20 Urine RBC 0-2 HPF (0-2) 08/19/19 20:20 Urine WBC Negative HPF (0-5) 08/19/19 20:20 Ur Epithelial Cells Negative HPF (Negative) 08/19/19 20:20 Urine Crystals Negative HPF (Negative) 08/19/19 20:20 Urine Bacteria Rare HPF (Negative) 08/19/19 20:20 Urine Casts Negative LPF (Negative) 08/19/19 20:20 Urine Mucus Negative (Negative) 08/19/19 20:20 Urine Other Negative (Negative) 08/19/19 20:20 Ur Culture Indicated? C&s done as ordered 08/19/19 20:20 Urine Glucose Negative mg/dL (Negative) 08/19/19 20:20 Theophylline <1.2 ug/ml (10.0-20.0) L 08/19/19 23:00
[2019-08-23] MEDS: Albuterol/Ipratropium 3 ML UPD VIAL UPD (18:22)
[2019-08-23] MEDS: Atorvastatin 40 MG TAB PO (20:28)
[2019-08-23] MEDS: Patch Removal 1 EACH TP (20:52)
[2019-08-23] MEDS: Insulin Aspart 300 UNITS/3 ML PEN SC (22:04)
[2019-08-24] VITALS (9 sets, daily range): BP systolic 136–159; BP diastolic 61–64; PULSE 66–94; RESP 2–25; TEMP 37.3–37.4; O2SAT 94–99
[2019-08-24] MEDS: Normal Saline Flush 10 ML SYR IVP ×2 (00:04→21:31)
[2019-08-24] MEDS: Heparin 5,000 UNITS/ML VIAL 5000 UNITS SC ×4 (00:05→23:27)
[2019-08-24] MEDS: Albuterol/Ipratropium 3 ML UPD VIAL UPD ×4 (00:18→23:27)
[2019-08-24] MEDS: Acetaminophen 325 MG TAB PO ×3 (04:42→21:06)
[2019-08-24] MEDS: CLINDAMYCIN 900 MG/50 ML BAG 50 MG IVPB ×2 (04:42→10:30)
[2019-08-24] MEDS: Budesonide/Formoterol 160/4.5 6 GM 60 PUFF INH IH ×2 (08:08→19:57)
[2019-08-24] MEDS: Cyclobenzaprine 10 MG TAB PO ×3 (08:32→19:58)
[2019-08-24] MEDS: guaiFENesin 600 MG TABCR PO ×2 (08:32→19:58)
[2019-08-24] MEDS: Metoprolol CR 100 MG TABCR PO (08:33)
[2019-08-24] MEDS: Lidocaine 5% Patch 1 PATCH TP (08:44)
--- NOTE | 2019-08-24 11:10 | W.PM.PROGNOT ---
Date of Service Date of service: 08/24/19 Time of Service: 11:10 Assessment and Plan Assessment and plan (1) Confusion and disorientation: Status: Acute Assessment and plan: His acute confusion during the night may be secondary to nocturnal hypoglycemia or may represent hypercarbia or could be sundowning. I will check an ABG today and have made adjustment of his insulin and ordered prn fingerstick glucose readings for any confusion or nightmares. (2) Community acquired pneumonia: Status: Acute Assessment and plan: In light of patient's confusing micro reports, it is now unclear as to what the etiology of his pneumonia actually is due to. His gram stain would suggest Strep pneumoniae, however, the culture is growing gram negative organisms. In light of his Enterococcus bacteremia, I am switching his antibiotics to Unasyn Qualifiers: Laterality: unspecified laterality Qualified Code(s): J18.9 - Pneumonia, unspecified organism (3) Cellulitis: Status: Acute Assessment and plan: Improving. swtich to Unasyn for his bacteremia and pneumonia Qualifiers: Site of cellulitis: extremity Site of cellulitis of extremity: lower extremity Laterality: unspecified laterality Qualified Code(s): L03.119 - Cellulitis of unspecified part of limb (4) COPD (chronic obstructive pulmonary disease) with emphysema: Status: Chronic Assessment and plan: cont. Acapella, Symbicort, DuoNeb and antibiotics (as above) Qualifiers: Emphysema type: other Qualified Code(s): J43.8 - Other emphysema (5) Type 2 diabetes mellitus: Status: Chronic Assessment and plan: Still having early am relative hypoglycemia. Will dc his NPH and decrease his sliding scale to insulin sensitive levels Qualifiers: Diabetes mellitus intermediate insulin use: without intermediate use Diabetes mellitus complication status: with kidney complications Diabetes mellitus complication detail: with chronic kidney disease Chronic kidney disease stage: stage 3 (moderate) Qualified Code(s): E11.22 - Type 2 diabetes mellitus with diabetic chronic kidney disease; N18.3 - Chronic kidney disease, stage 3 (moderate) (6) Chronic renal disease, stage 3, moderately decreased glomerular filtration rate (GFR) between 30-59 mL/min/1.73 square meter: Status: Chronic Assessment and plan: renal function continues to improve. Now off iv fluids. Will repeat labs in the a.m. He may need to resume his diuretics at this point. (7) Anemia: Status: Chronic Assessment and plan: Probably anemia of chronic kidney disease. No evidence of overt GI bleeding. Hemoglobin is stable at 9.8 g.. Qualifiers: Anemia type: due to chronic kidney disease Chronic kidney disease stage: stage 4 (severe) Qualified Code(s): N18.4 - Chronic kidney disease, stage 4 (severe); D63.1 - Anemia in chronic kidney disease (8) DVT prophylaxis: Status: Acute Assessment and plan: Continue subcutaneous heparin. He is not a candidate for low molecular weight heparin due to his CKD (9) Discharge planning issues: Status: Acute Assessment and plan: Patient desires to return home. However he is going to need 4 weeks of parenteral antibiotics. convenience store manager will work on making referrals once he is closer to discharge. Otherwise he may need to go on swing bed status for completion of his antibiotics. Subjective Subjective Interval history since last seen: Patient had episode of confusion last night was found on the floor kneeling next to his bed. He reportedly had a nightmare which he dreamed his brother was trapped in a fire. Review of his labs his fasting glucose was only 78 this morning. It is possible that his acute confusion last night was related to hypoglycemic spell however no blood sugars were checked during the night. His bedtime glucose was 187. I discontinued his NPH in response to his low glucose this morning and changed his sliding scale from moderate dose to insulin sensitive. I have also asked the nurses to do PRN blood sugar checks if there is signs of confusion or agitation With respect to his infection there is confusion from microbiology as to what organism is causing his bacteremia. Initially this was reported as beta-hemolytic strep from August 19, 2019 he grew strep agalactiae in 2 out of 2 cultures however repeat blood culture from August [id number] had 1 out of 2 bottles positive for enterococcus. I had the lab run sensitivity testing against clindamycin on his original cultures from August 18 and [facility] is reporting that they are growing enterococcus out of the original culture. Furthermore his sputum culture is growing gram-negative rods of a moderate amount. His Gram stain however originally showed gram-positive cocci in chains and diplococci based on that I presume that he had strep pneumonia. He is currently on oxacillin and clindamycin however in light of his enterococcus I am switching his antibiotics to Unasyn. Exam Narrative Exam Narrative: Obese male who is somnolent falling asleep in his wheelchair with his CPAP mask on. He awakens easily but then falls asleep in mid sentence. Lungs reveal coarse rhonchi and wheezes. Heart is regular rate and rhythm no appreciable murmur rub or gallop Abdomen is obese soft and nontender. Legs with 2+ pitting edema with chronic venous stasis skin changes including lichenification of the skin there is a market decrease in the amount of erythematous legs. However he has a chronic rubor discoloration to his skin from stasis Objective Objective Clinical Data: Vital Signs Temperature 36.8 C 08/23/19 23:46 Temperature Source Tympanic 08/23/19 23:46 Pulse 65 08/23/19 23:46 Pulse Rhythm Regular 08/23/19 21:26 Pulse 104 H 08/21/19 18:02 Respiratory Rate 20 08/24/19 00:48 Respiratory Effort Labored 08/23/19 21:26 Respiratory Depth Deep 08/23/19 21:26 Respiratory Pattern Tachypnea 08/23/19 21:26 Blood Pressure 140/62 08/23/19 23:46 Blood Pressure Mean 53 08/21/19 18:02 Blood Pressure Position Sitting 08/21/19 17:30 Pulse Oximetry 96 08/24/19 00:48 Oxygen Delivery Method Cpap 08/24/19 00:18 Oxygen Flow Rate 3 08/24/19 08:37 Fraction of Inspired Oxygen (FIO2) 3 08/20/19 09:22 Pain Level 2 08/23/19 07:35 Comment 08/22/19 12:11 Intake & Output 08/23/19 08/23/19 08/24/19 11:59 23:59 11:59 Intake Total 500 / 2200 1700 / 2200 370 / 370 Output Total 710 / 2970 2260 / 2970 300 / 300 Balance -210 / -770 -560 / -770 70 / 70 Weight 152.3 kg Intake: IV 500 / 900 400 / 900 250 / 250 Oral 1300 / 1300 120 / 120 Output: Urine 710 / 2970 2260 / 2970 300 / 300 Other: Urine Color Light Ester Yellow Yellow Urine Appearance Clear Clear Clear Urine Odor Normal Voiding Methods Urinal Urinal Urinal Laboratory Results WBC 14.10 k/cumm (4.4-10.8) H 08/23/19 06:35 RBC 3.51 m/cumm (4.50-6.00) L 08/23/19 06:35 Hgb 10.4 g/dL (13.5-17.5) L 08/23/19 06:35 Hct 34.0 % (40.0-50.0) L 08/23/19 06:35 MCV 96.9 fL (80-95) H 08/23/19 06:35 MCH 29.6 pg (27.0-33.0) 08/23/19 06:35 MCHC 30.6 g/dL (32.0-36.0) L 08/23/19 06:35 RDW 14.7 % (11.8-14.1) H 08/23/19 06:35 Plt Count 354 x1000/uL (130-400) 08/23/19 06:35 MPV 9.6 fL (8.0-11.0) 08/23/19 06:35 Immature Gran % 1.3 % 08/23/19 06:35 Neutrophils % 85.8 08/23/19 06:35 Band Neutrophils % 0.0 % 08/19/19 19:56 Lymphocytes % 5.8 08/23/19 06:35 Atypical Lymphs % 1 08/19/19 19:56 Monocytes % 6.9 08/23/19 06:35 Eosinophils % 0.1 08/23/19 06:35 Basophils % 0.1 08/23/19 06:35 Absolute Neutrophils 12.10 k/cumm (1.2-6.7) H 08/23/19 06:35 Absolute Lymphocytes 0.82 k/cumm (1.2-3.4) L 08/23/19 06:35 Absolute Monocytes 0.97 k/cumm (0.11-0.7) H 08/23/19 06:35 Absolute Eosinophils 0.01 k/cumm (0.0-0.7) 08/23/19 06:35 Absolute Basophils 0.01 k/cumm (0.0-0.2) 08/23/19 06:35 Differential Comment Manual differential 08/19/19 19:56 RBC Morphology Normal 08/19/19 19:56 Retic Count 1.1 % (0.5-2.4) 08/21/19 06:21 PT 10.7 sec (9.3-11.0) 08/19/19 19:56 INR 1.1 (0.9-1.1) 08/19/19 19:56 APTT 25.4 sec (21.0-31.4) 08/19/19 19:56 Sodium 143 mmol/L (136-145) 08/23/19 06:35 Potassium 5.2 mmol/L (3.5-5.1) H 08/23/19 06:35 Chloride 106 mmol/L (98-107) 08/23/19 06:35 Carbon Dioxide 32.5 mmol/L (21.0-32.0) H 08/23/19 06:35 Anion Gap 4.5 mmol/L (3-11) 08/23/19 06:35 BUN 51 mg/dL (7-18) H 08/23/19 06:35 Creatinine 1.43 mg/dL (0.70-1.30) H 08/23/19 06:35 Estimated GFR/1.73 m2 48.61 (mL/min/1.73m2) 08/23/19 06:35 Glucose 101 mg/dL (74-106) 08/23/19 06:35 Lactate 1.2 mmol/L (0.6-1.4) 08/21/19 06:21 Calcium 9.9 mg/dL (8.5-10.1) 08/23/19 06:35 Magnesium 1.8 mg/dL (1.8-2.4) 08/19/19 19:55 Iron 83 ug/dL (65-175) 08/21/19 06:21 TIBC 164 ug/dL (250-450) L 08/21/19 06:21 Transferrin % Sat 51 % (20-55) 08/21/19 06:21 Ferritin 547 ng/mL (26-388) H 08/21/19 06:21 Total Bilirubin 0.8 mg/dL (0.2-1.0) 08/20/19 06:12 AST 30 U/L (15-37) 08/20/19 06:12 ALT 56 U/L (16-63) 08/20/19 06:12 Alkaline Phosphatase 90 U/L (46-116) 08/20/19 06:12 Lactate Dehydrogenase 173 U/L (85-227) 08/21/19 06:21 Troponin I 0.05 ng/Ml (<0.06) 08/20/19 06:12 C-Reactive Protein 2.22 mg/dL (0.0-0.3) H 08/23/19 06:35 NT-Pro-B Natriuret Pep 193 pg/mL (<300) 08/19/19 19:56 Total Protein 6.4 g/dL (6.4-8.2) 08/20/19 06:12 Albumin 2.2 g/dL (3.4-5.0) L 08/20/19 06:12 Lipase 151 U/L (73-393) 08/19/19 19:56 TSH 0.35 uIU/mL (0.36-3.74) L 08/19/19 19:55 Free T4 1.78 ng/dL (0.76-1.46) H 08/19/19 19:55 Urine Color Yellow (Yellow) 08/19/19 20:20 Urine Clarity Clear (Clear) 08/19/19 20:20 Urine pH 5.5 (5-8) 08/19/19 20:20 Ur Specific [place] 1.010 (1.005-1.025) 08/19/19 20:20 Urine Protein Negative mg/dL (Negative) 08/19/19 20:20 Urine Ketones Negative mg/dL (Negative) 08/19/19 20:20 Urine Blood Trace-intact (Negative) H 08/19/19 20:20 Urine Nitrite Negative (Negative) 08/19/19 20:20 Urine Bilirubin Negative (Negative) 08/19/19 20:20 Urine Urobilinogen 0.2 EU/dL (Up TO 0.2) 08/19/19 20:20 Ur Leukocyte Esterase Negative (Negative) 08/19/19 20:20 Urine RBC 0-2 HPF (0-2) 08/19/19 20:20 Urine WBC Negative HPF (0-5) 08/19/19 20:20 Ur Epithelial Cells Negative HPF (Negative) 08/19/19 20:20 Urine Crystals Negative HPF (Negative) 08/19/19 20:20 Urine Bacteria Rare HPF (Negative) 08/19/19 20:20 Urine Casts Negative LPF (Negative) 08/19/19 20:20 Urine Mucus Negative (Negative) 08/19/19 20:20 Urine Other Negative (Negative) 08/19/19 20:20 Ur Culture Indicated? C&s done as ordered 08/19/19 20:20 Urine Glucose Negative mg/dL (Negative) 08/19/19 20:20 Theophylline <1.2 ug/ml (10.0-20.0) L 08/19/19 23:00
[2019-08-24 13:10] LABS: BE 8.3 mmol/L (-3-3); HCO3 34 mmol/L (22-28); pH 7.33 (7.35-7.45); pO2 63 mmHg (83-108); sO2 92 % (94-98); tCO2 33 mmol/L (22-29)
[2019-08-24 13:15] LABS: FIO2L 3 L; Site Left Radial; pCO2 66 mmHg (34-47)
--- NOTE | 2019-08-24 14:21 | PDOC.CMPRO ---
- If Service Date Differs Date of service: 08/24/19 Time of Service: 14:21 Care Management Progress Note S/O: Kiran was sitting up in his chair when CM met with him. He reported that he wished he could sleep. He stated that he will fall asleep but then wake back up in a panic, so he is not getting any quality sleep currently. Per reports, he has been confused and was found praying on his knees at one point yesterday. CM called and spoke with his daughter, Kiko, who stated that that is not characteristic of her father. She reported that he has had some confusion, but nothing terribly confusing. He does currently live alone, and she doesn't feel that he will be successful at home at this point. CM suggested filling out a LTM application which may provide a payer source for care home care, if approved. She stated that she would support that and provide documentation, as needed. He does currently own his trailer, but not the land it is on. Other than that he does not have assets. CM will continue to follow. A: Kiran is a 74 year old male admitted with SIRS, Diabetic leg cellulitis dehydration and CKD, positive blood cultures. P:CM will continue to follow patient and assess for discharge needs. Anticipate IV abx x 4 weeks, mid line was placed yesterday. SB1 vs short term rehab prior to returning home. Per MD, his abx will likely be Q6H, so he will remain at [facility] on SWB 1. He will also receive PT while on SWB. CM will continue to support Kiran with discharge planning considerations.
[2019-08-24] MEDS: AMPICILLIN/SULBACTAM 3 GM in Normal Saline 100 ML IVPB ×2 (14:37→21:32)
--- NOTE | 2019-08-24 15:50 | PTTR_ITS ---
Date of service: 08/24/19 Time of Service: 15:50 PT Notes Visit Reasons: SIRS W/DIABETIC LEG CELLULITIS,DEHYDRATION IN CKD3 Physical Therapy Inpatient Treatment Note Date: 08/24/2019 PRECAUTIONS: Fall. Standard. Activity as tolerated. On 3.0 L of oxygen per minute via NC. SUBJECTIVE: Patient continues to be anxious about ambulation activity due to his back and left knee pain. He finally agreed to walking with this PT after reassuring him that he will be followed with a wheelchair as has been done for the past several days with him. He did not talk of about any dreams today for both sessions but nurse Howard did indicate that patient told her that his brother was in bed with him last night. Objective: General Observation: Morbidly obese. Telemetry monitoring in place. Oxygen supplementation via NC on 3.0 L/min. IV in the left UE. Mental Status: Alert and oriented x4 Pain: Considerable back pain with positional changes and left knee pain with ambulation activity Bed Mobility/Transfers: Sit to stand minimal assist from wheelchair or a low transfer surface using BUE to push from armrests, FWW needed Stand to sit minimal assist from wheelchair or a low transfer surface using BUE to push from armrests, FWW needed Bed to chair CGA from edge of high bed using FWW, minimal cues provided for safety. Patient requires minimal assist if coming from a lower chair/bed. Chair to bed CGA from edge of high bed using FWW, minimal cues provided for safety. Patient requires minimal assist if coming from a lower chair/bed. Gait: Patient tolerated 30 feet using front wheeled walker with minimal assist of PT and nurse Anita Vargas was provided wheelchair follow for patient. Minimal to moderate verbal cues for walker management during directional changes. Reciprocal gait pattern. Desaturated to 84% right after ambulation activity but re-saturated back to 94% on 3 L/min. Patient reported significant pain on left knee with weight bearing. Moderate breathlessness seen during and after gait activity THERA EX: In the afternoon patient was agreeable to performing seated level exercises consisting of long arc quads x15, alternate knee extension exercises x15, horizontal abduction adduction of shoulder coordinated with chest expansion exercises x5, and hip abduction adduction exercises x15. Intermittent rests needed to minimize fatigue. Assessment: Patient will benefit from the use of a hinged knee brace on the left side in order to provide stability during ambulation activity. We will plan on consulting with MD regarding the use of this device. Patient participation and mobility progression continues to be limited with his breathing difficulty, low back/left knee pain, and body habitus. Patient remains apprehensive about the distance that he is able to cover stating that his legs may not be that strong to hold him. He will continue to benefit from skilled physical therapy services in order to improve mobility level and maximize activity tolerance. DISCHARGE RECOMMENDATIONS: Patient will benefit from custodial facility placement for continued skilled physical therapy services in order to progress mobility level, strength, and balance in preparation for a safe discharge to [facility] TREATMENT CODE/TIME: Session 1?64973 x 42 minutes beginning at 10:40 AM. Session 2?[id number] x 24 minutes beginning at 15:50 PM.
[2019-08-24] MEDS: Insulin Aspart 300 UNITS/3 ML PEN SC ×2 (17:05→22:56)
[2019-08-24] MEDS: Albuterol 2.5 MG/3 ML INH SOLN VIAL UPD ×2 (18:27→21:06)
[2019-08-24] MEDS: Atorvastatin 40 MG TAB PO (19:58)
[2019-08-24] MEDS: Patch Removal 1 EACH TP (20:22)
[2019-08-25] VITALS (13 sets, daily range): BP systolic 105–158; BP diastolic 57–71; PULSE 69–83; RESP 4–25; TEMP 36.3–37.2; O2SAT 90–99
[2019-08-25] MEDS: Acetaminophen 325 MG TAB PO (05:40)
[2019-08-25] MEDS: Normal Saline Flush 10 ML SYR IVP ×3 (05:41→21:26)
[2019-08-25] MEDS: Albuterol/Ipratropium 3 ML UPD VIAL UPD (05:42)
[2019-08-25] MEDS: AMPICILLIN/SULBACTAM 3 GM in Normal Saline 100 ML IVPB ×3 (05:43→21:21)
--- NOTE | 2019-08-25 07:00 | HOME_ITS ---
Home Ventilator Equipment Home care company Reason: Obstructive Sleep Apnea Make: ResMed Model: AirCurve Mask type: Nasal mask Mask size: Medium Mode: BiPAP Settings: 25/8 PS 8 Oxygen bleed in (lpm): 3 Condition: Good Date last checked: 08/25/19 Year of last sleep study: Compliance Daily Comments: DME: [facility]
[2019-08-25 07:13] LABS: Anion Gap 1.3 mmol/L (3-11); BUN 36 mg/dL (7-18); C-Reactive Protein 1.16 mg/dL (0.0-0.3); CO2 33.7 mmol/L (21.0-32.0); CREATININE 1.26 mg/dL (0.70-1.30); Calcium 9.8 mg/dL (8.5-10.1); Chloride 106 mmol/L (98-107); Estimated GFR 56.26 (mL/min/1.73m2); Glucose 96 mg/dL (74-106); Potassium 5.2 mmol/L (3.5-5.1); Sodium 141 mmol/L (136-145)
[2019-08-25 07:16] LABS: Abs Immature Grans 0.23 k/cumm (0.0-0.09); Absolute Eosinophil Count 0.11 k/cumm (0.0-0.7); Absolute Monocyte Count 1.06 k/cumm (0.11-0.7); Absolute Neutrophil Count 12.53 k/cumm (1.2-6.7); Basophils % 0.1; Eosinophils % 0.7; HCT 32.4 % (40.0-50.0); HGB 10.3 g/dL (13.5-17.5); Immature Grans % 1.5 %; Lymphocytes % 7.6; Mean Corp. HGB Concentration 31.8 g/dL (32.0-36.0); Mean Corpuscular Hemoglobin 30.1 pg (27.0-33.0); Mean Corpuscular Volume 94.7 fL (80-95); Mean Platelet Volume 9.5 fL (8.0-11.0); Neutrophils % 83.1; Platelet Count 280 x1000/uL (130-400); RBC 3.42 m/cumm (4.50-6.00); RBC Distribution Width 14.1 % (11.8-14.1); White Blood Cell Count 15.08 k/cumm (4.4-10.8)
[2019-08-25 07:21] LABS: Absolute Basophil Count 0.02 k/cumm (0.0-0.2); Absolute Lymphocyte Count 1.15 k/cumm (1.2-3.4)
[2019-08-25] MEDS: Budesonide/Formoterol 160/4.5 6 GM 60 PUFF INH IH ×2 (08:24→21:20)
[2019-08-25] MEDS: Lidocaine 5% Patch 1 PATCH TP (08:35)
[2019-08-25] MEDS: Cyclobenzaprine 10 MG TAB PO (08:36)
[2019-08-25] MEDS: predniSONE 10 MG, predniSONE 20 MG 30 MG PO (08:36)
[2019-08-25] MEDS: Metoprolol CR 100 MG TABCR PO (08:36)
[2019-08-25] MEDS: guaiFENesin 600 MG TABCR PO ×2 (08:36→21:20)
[2019-08-25] MEDS: Heparin 5,000 UNITS/ML VIAL 5000 UNITS SC ×2 (08:37→15:54)
--- NOTE | 2019-08-25 08:49 | PDOC.CMPRO ---
- If Service Date Differs Date of service: 08/25/19 Time of Service: 08:49 Care Management Progress Note S/O: Kiran is sitting up in the chair he is alert however continues to have some periods of confusion. No change in the plan today he is currently receiving IV abx anticipate he will need to transition to SB1 for IV abx for a total of 6 weeks per provider. CM requested a referral to OT and he will need ongoing PT throughout his stay. A: Kiran is a 74 year old male admitted with SIRS, Diabetic leg cellulitis dehydration and CKD, positive blood cultures. P:CM will continue to follow patient and assess for discharge needs. Anticipate IV abx x 4 weeks, mid line was placed yesterday. SB1 vs short term rehab prior to returning home. Per MD, his abx will likely be Q8H, so he will remain at [facility] on SWB 1. He will also receive PT while on SWB. CM will continue to support Kiran with discharge planning considerations.
--- NOTE | 2019-08-25 09:56 | DI.CT_ITS ---
EXAM: CT HEAD WO CLINICAL HISTORY: acute confusion. TECHNIQUE: Imaging Protocol: Axial computed tomography images with coronal and sagittal reformatted images were created and reviewed COMPARISON: No exams were available for comparison FINDINGS: Ventricles and Extra axial spaces: Normal in size and morphology for the patient's age. Hemorrhage: None. Cerebral parenchyma: There are areas of decreased attenuation in the white matter consistent with sma ll vessel ischemic disease. No evidence of an acute territorial infarct is present. Midline shift: None. Brainstem/Cerebellum: Normal. Calvarium: Normal. Visualized Paranasal sinuses/Mastoids: There is mucosal thickening in the maxillary sinuses bilateral ly, the ethmoid air cells and sphenoid sinuses bilaterally. There is thickening of the hill of the maxillary sinuses bilaterally consistent chronic sinus disease. Soft Tissues: Unremarkable. IMPRESSION: No acute intracranial process. RADIATION DOSE DELIVERED: DATA REPOSITORY: All CT scans at this facility are submitted to the National Radiology Data Registry (NRDR) Dose Index Registry (DIR) with the [employer] (ACR). RADIATION OPTIMIZATION: All CT scans at this facility use at least one of these dose optimization te chniques: automated exposure control; mA and/or kV adjustment per patient size (includes targeted exa ms where dose is matched to clinical indication); or iterative reconstruction.
[2019-08-25] MEDS: Insulin Aspart 300 UNITS/3 ML PEN SC ×3 (11:59→23:02)
--- NOTE | 2019-08-25 13:52 | NUR.NOTE ---
Nursing Note: 1345 Pts rang maury, Nurse enters room to see pt with eyes partially shut, somewhat rolled back in his head. Pt with small tremors noted to his entire body. When I shook the patient he woke and was disoriented. He wondered what Finn wanted. When I asked who Finn was he said, My brother in law. I asked if he knew where he was and he stated Yes, [place] When I asked what was in [place] he did not respond. Respiratory in to evaluate pt. VSS T 37.4, 154/84, 89, 94% on Cpap @ 3.5L., RR 20. Blood sugar 211. notified.
--- NOTE | 2019-08-25 14:20 | PTTR_ITS ---
Date of service: 08/25/19 Time of Service: 14:20 PT Notes Visit Reasons: SIRS W/DIABETIC LEG CELLULITIS,DEHYDRATION IN CKD3 Physical Therapy Inpatient Treatment Note Date: 08/25/2019 PRECAUTIONS: Fall. Standard. Activity as tolerated. On 3.0 L of oxygen per minute via NC. SUBJECTIVE: Patient was agreeable to both morning and afternoon sessions today. Patient denies right shoulder pain, left knee pain, and back pain during ambulation activity. When asked about how the left knee brace is helping he said that it does not make that much of a difference. He requested that a bigger fan, his wallet, and his mushroom-shaped grzegorz charm be brought in to the hospital. Objective: General Observation: Morbidly obese. Telemetry monitoring in place. Oxygen supplementation via NC on 3.0 L/min. IV in the left UE. Mental Status: Patient has been mildly confused for both morning and afternoon sessions but is able to follow simple commands when redirected. Pain: Only complained of a short-lived back pain with supine to sit activity Bed Mobility/Transfers: Sit to stand minimal assist from wheelchair or a low transfer surface using BUE to push from armrests, FWW needed in the morning; CGA in the afternoon from high bed Stand to sit minimal assist from wheelchair or a low transfer surface using BUE to push from armrests, FWW needed Bed to chair CGA from edge of high bed using FWW, minimal cues provided for safety. Patient requires minimal assist if coming from a lower chair/bed. Chair to bed CGA from edge of high bed using FWW, minimal cues provided for safety. Patient requires minimal assist if coming from a lower chair/bed. Gait: Patient tolerated 10 feet in the morning and in the afternoon 15 feet + 10 feet using front wheeled walker with minimal assist of PT and wheelchair follow of [facility] Rita. Minimal to moderate verbal cues for walker management during directional changes. Reciprocal gait pattern. Patient reported pain on left knee with weight bearing but denied pain in the afternoon. Moderate breathlessness seen during and after gait activity. 95% to 97% on 3 L of oxygen supplementation. Patient did verbalize that the use of a left hinged knee brace felt somewhat the same as without it. Assessment: Variable periods of confusion, morbid obesity, intermittent back and knee pain continue to limit patient participation and consistent progress with mobility ADL performance. Although patient stated that the use of a left hinged knee brace did not make much of a difference, we will continue to use it for all ambulation activities to objectively assess its benefit for the next 3 days. The brace is being kept in the first drawer of his bureau inside his room. He will continue to benefit from skilled physical therapy services in order to improve mobility level and maximize activity tolerance. DISCHARGE RECOMMENDATIONS: Patient will benefit from correction facility placement for continued skilled physical therapy services in order to progress mobility level, strength, and balance in preparation for a safe discharge to home. TREATMENT CODE/TIME: Session 1?[id number] x 32 minutes beginning at 11:29 AM. Session 2?[id number] x 34 minutes beginning at 14:20 PM.
[2019-08-25] MEDS: Multivitamin TAB 1 TAB PO (15:25)
[2019-08-25] MEDS: Thiamine 100 MG TAB PO (15:25)
[2019-08-25] MEDS: Folic Acid 1 MG TAB PO (15:25)
--- NOTE | 2019-08-25 16:00 | DI.RAD_ITS ---
EXAM: XR PORTABLE CHEST AP CLINICAL HISTORY: dyspnea TECHNIQUE: COMPARISON: PORTABLE CHEST ONE VIEW from 10/02/2017 XR PORTABLE CHEST AP from 08/19/2019 FINDINGS: Portable AP chest was obtained at 1615 hours. Cardiac size is at the upper limits of normal. There is mild diffuse prominence of the pulmonary interstitial markings. Question mild bibasilar areas of atelectasis. No gross consolidation on this portable film. IMPRESSION: No gross interval change from film of August 18. Slight interstitial prominence, question bibasilar atelectasis.
--- NOTE | 2019-08-25 16:21 | W.PM.PROGNOT ---
Date of Service Date of service: 08/25/19 Time of Service: 16:21 Assessment and Plan Assessment and plan (1) Confusion and disorientation: Status: Acute Assessment and plan: Differential diagnoses include sepsis, hypercapnia, steroid induced delirium (although I have been weaning his corticosteroids and over the weekend dc his solumedrol and put him on prednisone and have decr. to 30 mg daily). I will dc prednisone altogether. I have dc his flexeril. Per multiple sources including his daughter, his PCP at the [facility]. and [facility] notes from his PCP, the patient has not had an issue w/ alcoholism or alcohol withdrawal. Therefore I have dc'ed any CIWA scoring or treatment w/ benzodiazepines. (2) Community acquired pneumonia: Status: Acute Assessment and plan: confusion regarding his sputum cultures. Now growing GNR, despite initial gram stain showing GPC in chains and diplococci. I will repeat his CXR Qualifiers: Laterality: unspecified laterality Qualified Code(s): J18.9 - Pneumonia, unspecified organism (3) COPD (chronic obstructive pulmonary disease) with emphysema: Status: Chronic Qualifiers: Emphysema type: other Qualified Code(s): J43.8 - Other emphysema (4) Back pain: Status: Acute Assessment and plan: recent CT of LS spine just showed DJD of LS spine but no spinal stenosis or abscess. I will check MRI of his LS spine. Qualifiers: Back pain laterality: unspecified Back pain location: low back pain Chronicity: acute Sciatica presence: without sciatica Qualified Code(s): M54.5 - Low back pain (5) Type 2 diabetes mellitus: Status: Chronic Qualifiers: Chronic kidney disease stage: stage 3 (moderate) Diabetes mellitus complication detail: with chronic kidney disease Diabetes mellitus complication status: with kidney complications Diabetes mellitus buttermaker continuous churn insulin use: without buttermaker continuous churn use Qualified Code(s): E11.22 - Type 2 diabetes mellitus with diabetic chronic kidney disease; N18.3 - Chronic kidney disease, stage 3 (moderate) (6) Acute on chronic renal failure: Status: Acute Assessment and plan: his KHALIF has improved since admission and he is now back to his baseline creatinine of 1.26. Avoid use of NSAID in treating his knee or back pain Qualifiers: Acute renal failure type: unspecified Chronic kidney disease stage: stage 3 (moderate) Qualified Code(s): N17.9 - Acute kidney failure, unspecified; N18.3 - Chronic kidney disease, stage 3 (moderate) (7) Knee pain, left: Status: Acute Assessment and plan: will get MRI of his knee to assess for infection; I will ask Dr. Brothers to re-evaluate his knee once I get his MRI back Qualifiers: Chronicity: acute Qualified Code(s): M25.562 - Pain in left knee Subjective Subjective Interval history since last seen: Kiran has had more episodes of confusion. This is been observed by respiratory therapy as well as nursing. Seems to be intermittent in nature. This afternoon he is much more alert and oriented. He knows he is in the hospital in [facility] and he knows that it is August 2019. However at times when he is called his daughter she is alsobeen confused. Review of his social history reveals that he is not been a regular drinker of alcohol recently. He has not had a history of alcohol withdrawal and his primary care provider at the [facility] in [facility] also has not expressed any concerns of alcoholism or alcohol withdrawal. There is been some mixed information about his culture results. His initial blood culture showed beta-hemolytic strep however when it was tested against clindamycin resistance by the [facility] they were saying that the culture was growing enterococcus. Repeat blood cultures obtained August 22, 2019 are also showing 1 out of 2 sets positive for enterococcus faecalis. I have since discontinued his oxacillin and clindamycin and put him on Unasyn. His sputum culture which initially suggested gram-positive cocci in diplococci which would indicate streptococcal pneumonia is now growing gram-negative rods. Kiran is not been compliant with wearing his BiPAP mask. He cannot tolerate a full facemask has been wearing a nasal mask from home. Respiratory now has him on nasal cannula. His oxygen saturation on nasal BiPAP has been 96 to 98%. He is currently 93% on nasal cannula. Labs this morning continue to show persistent leukocytosis of 15,000. He has acute kidney injury has recovered his creatinine is down to 1.26 and his BUN is 36. C-reactive protein remains high at 1.1. His only complaints today is that his left knee is painful over the medial aspect and he continues to have low back pain. Imaging was obtained last week of his lumbar spine and his knee and in fact on August 10, [address] scan of his lumbar spine that just showed degenerative changes with no acute process. He has moderate facet arthropathy and loss of disc height at L4-L5 with no central canal spinal stenosis. He also has loss of disc space height at L3-L4. His x-ray of his left knee from August 20, 2019 showed no change in the appearance of his left TKA. And Dr. Brothers saw the patient early in this hospitalization and felt that there was no evidence for a septic joint. In light of his continued low back pain and new complaints of left knee pain I will get an MRI scan of his lumbosacral spine and his left knee and asked Dr. Brothers to reevaluate that left knee. Exam Narrative Exam Narrative: Obese male sitting up in bed. He has a ready complexion to his face. He is fully awake and is oriented to place month and year and circumstance. Lungs reveal coarse rhonchi and expiratory wheezes. Heart is regular rate and rhythm. Abdomen is obese soft and nontender. Lower extremities with 2+ edema. Left knee is tender and appears to be more edematous than the right knee and feels warmer to the touch. Objective Objective Clinical Data: Abnormal lab results 08/25/19 08/25/19 Range/Units 06:50 06:50 WBC 15.08 H (4.4-10.8) k/cumm RBC 3.42 L (4.50-6.00) m/cumm Hgb 10.3 L (13.5-17.5) g/dL Hct 32.4 L (40.0-50.0) % MCHC 31.8 L (32.0-36.0) g/dL Absolute Neutrophils 12.53 H (1.2-6.7) k/cumm Absolute Lymphocytes 1.15 L (1.2-3.4) k/cumm Absolute Monocytes 1.06 H (0.11-0.7) k/cumm Potassium 5.2 H (3.5-5.1) mmol/L Carbon Dioxide 33.7 H (21.0-32.0) mmol/L Anion Gap 1.3 L (3-11) mmol/L BUN 36 H D (7-18) mg/dL C-Reactive Protein 1.16 H (0.0-0.3) mg/dL Vital Signs Temperature 37.2 C 08/25/19 15:10 Temperature Source Tympanic 08/25/19 15:10 Pulse 83 08/25/19 15:10 Pulse Rhythm Regular 08/25/19 10:16 Pulse 104 H 08/21/19 18:02 Respiratory Rate 20 08/25/19 15:10 Respiratory Effort 08/24/19 23:55 Respiratory Depth Deep 08/24/19 23:55 Respiratory Pattern Normal 08/24/19 23:55 Blood Pressure 137/60 08/25/19 15:10 Blood Pressure Mean 53 08/21/19 18:02 Blood Pressure Position Sitting 08/21/19 17:30 Pulse Oximetry 93 L 08/25/19 15:10 Oxygen Delivery Method Nasal Cannula 08/25/19 15:10 Oxygen Flow Rate 3 08/25/19 15:10 Fraction of Inspired Oxygen (FIO2) 3 08/20/19 09:22 Pain Level 0 08/25/19 15:10 Comment 08/22/19 12:11 Intake & Output 08/24/19 08/25/19 08/25/19 23:59 11:59 23:59 Intake Total 490 / 860 420 / 760 340 / 760 Output Total 1100 / 1700 700 / 1125 425 / 1125 Balance -610 / -840 -280 / -365 -85 / -365 Weight 148 kg Intake: IV 250 / 500 100 / 200 100 / 200 Oral 240 / 360 320 / 560 240 / 560 Output: Urine 1100 / 1700 700 / 1125 425 / 1125 Other: Urine Color Yellow Yellow Yellow Urine Appearance Clear Clear Clear Urine Odor Normal Foul Normal Comment urine mixed with stool Stool Size Large Stool Characteristics Soft Foamy Voiding Methods Bedside Commode Bedside Commode Urinal Laboratory Results WBC 15.08 k/cumm (4.4-10.8) H 08/25/19 06:50 RBC 3.42 m/cumm (4.50-6.00) L 08/25/19 06:50 Hgb 10.3 g/dL (13.5-17.5) L 08/25/19 06:50 Hct 32.4 % (40.0-50.0) L 08/25/19 06:50 MCV 94.7 fL (80-95) 08/25/19 06:50 MCH 30.1 pg (27.0-33.0) 08/25/19 06:50 MCHC 31.8 g/dL (32.0-36.0) L 08/25/19 06:50 RDW 14.1 % (11.8-14.1) 08/25/19 06:50 Plt Count 280 x1000/uL (130-400) 08/25/19 06:50 MPV 9.5 fL (8.0-11.0) 08/25/19 06:50 Immature Gran % 1.5 % 08/25/19 06:50 Neutrophils % 83.1 08/25/19 06:50 Band Neutrophils % 0.0 % 08/19/19 19:56 Lymphocytes % 7.6 08/25/19 06:50 Atypical Lymphs % 1 08/19/19 19:56 Monocytes % 7.0 08/25/19 06:50 Eosinophils % 0.7 08/25/19 06:50 Basophils % 0.1 08/25/19 06:50 Absolute Neutrophils 12.53 k/cumm (1.2-6.7) H 08/25/19 06:50 Absolute Lymphocytes 1.15 k/cumm (1.2-3.4) L 08/25/19 06:50 Absolute Monocytes 1.06 k/cumm (0.11-0.7) H 08/25/19 06:50 Absolute Eosinophils 0.11 k/cumm (0.0-0.7) 08/25/19 06:50 Absolute Basophils 0.02 k/cumm (0.0-0.2) 08/25/19 06:50 Differential Comment Manual differential 08/19/19 19:56 RBC Morphology Normal 08/19/19 19:56 Retic Count 1.1 % (0.5-2.4) 08/21/19 06:21 PT 10.7 sec (9.3-11.0) 08/19/19 19:56 INR 1.1 (0.9-1.1) 08/19/19 19:56 APTT 25.4 sec (21.0-31.4) 08/19/19 19:56 ABG Sample Site Left radial 08/24/19 13:03 ABG pH 7.33 (7.35-7.45) L 08/24/19 13:03 ABG pCO2 66 mmHg (34-47) H* 08/24/19 13:03 ABG pO2 63 mmHg (83-108) L 08/24/19 13:03 ABG HCO3 34 mmol/L (22-28) H 08/24/19 13:03 ABG Total CO2 33 mmol/L (22-29) H 08/24/19 13:03 ABG O2 Saturation 92 % (94-98) L 08/24/19 13:03 ABG Base Excess 8.3 mmol/L (-3-3) H 08/24/19 13:03 Oxygen Liter Flow 3 L 08/24/19 13:03 Sodium 141 mmol/L (136-145) 08/25/19 06:50 Potassium 5.2 mmol/L (3.5-5.1) H 08/25/19 06:50 Chloride 106 mmol/L (98-107) 08/25/19 06:50 Carbon Dioxide 33.7 mmol/L (21.0-32.0) H 08/25/19 06:50 Anion Gap 1.3 mmol/L (3-11) L 08/25/19 06:50 BUN 36 mg/dL (7-18) H D 08/25/19 06:50 Creatinine 1.26 mg/dL (0.70-1.30) 08/25/19 06:50 Estimated GFR/1.73 m2 56.26 (mL/min/1.73m2) 08/25/19 06:50 Glucose 96 mg/dL (74-106) 08/25/19 06:50 Lactate 1.2 mmol/L (0.6-1.4) 08/21/19 06:21 Calcium 9.8 mg/dL (8.5-10.1) 08/25/19 06:50 Magnesium 1.8 mg/dL (1.8-2.4) 08/19/19 19:55 Iron 83 ug/dL (65-175) 08/21/19 06:21 TIBC 164 ug/dL (250-450) L 08/21/19 06:21 Transferrin % Sat 51 % (20-55) 08/21/19 06:21 Ferritin 547 ng/mL (26-388) H 08/21/19 06:21 Total Bilirubin 0.8 mg/dL (0.2-1.0) 08/20/19 06:12 AST 30 U/L (15-37) 08/20/19 06:12 ALT 56 U/L (16-63) 08/20/19 06:12 Alkaline Phosphatase 90 U/L (46-116) 08/20/19 06:12 Lactate Dehydrogenase 173 U/L (85-227) 08/21/19 06:21 Troponin I 0.05 ng/Ml (<0.06) 08/20/19 06:12 C-Reactive Protein 1.16 mg/dL (0.0-0.3) H 08/25/19 06:50 NT-Pro-B Natriuret Pep 193 pg/mL (<300) 08/19/19 19:56 Total Protein 6.4 g/dL (6.4-8.2) 08/20/19 06:12 Albumin 2.2 g/dL (3.4-5.0) L 08/20/19 06:12 Lipase 151 U/L (73-393) 08/19/19 19:56 TSH 0.35 uIU/mL (0.36-3.74) L 08/19/19 19:55 Free T4 1.78 ng/dL (0.76-1.46) H 08/19/19 19:55 Urine Color Yellow (Yellow) 08/19/19 20:20 Urine Clarity Clear (Clear) 08/19/19 20:20 Urine pH 5.5 (5-8) 08/19/19 20:20 Ur Specific [place] 1.010 (1.005-1.025) 08/19/19 20:20 Urine Protein Negative mg/dL (Negative) 08/19/19 20:20 Urine Ketones Negative mg/dL (Negative) 08/19/19 20:20 Urine Blood Trace-intact (Negative) H 08/19/19 20:20 Urine Nitrite Negative (Negative) 08/19/19 20:20 Urine Bilirubin Negative (Negative) 08/19/19 20:20 Urine Urobilinogen 0.2 EU/dL (Up TO 0.2) 08/19/19 20:20 Ur Leukocyte Esterase Negative (Negative) 08/19/19 20:20 Urine RBC 0-2 HPF (0-2) 08/19/19 20:20 Urine WBC Negative HPF (0-5) 08/19/19 20:20 Ur Epithelial Cells Negative HPF (Negative) 08/19/19 20:20 Urine Crystals Negative HPF (Negative) 08/19/19 20:20 Urine Bacteria Rare HPF (Negative) 08/19/19 20:20 Urine Casts Negative LPF (Negative) 08/19/19 20:20 Urine Mucus Negative (Negative) 08/19/19 20:20 Urine Other Negative (Negative) 08/19/19 20:20 Ur Culture Indicated? C&s done as ordered 08/19/19 20:20 Urine Glucose Negative mg/dL (Negative) 08/19/19 20:20 Theophylline <1.2 ug/ml (10.0-20.0) L 08/19/19 23:00
[2019-08-25 16:57] LABS: BE 10.6 mmol/L (-3-3); HCO3 37 mmol/L (22-28); pH 7.33 (7.35-7.45); pO2 100 mmHg (83-108); sO2 97 % (94-98); tCO2 35 mmol/L (22-29)
[2019-08-25 17:01] LABS: FIO2L 3.5 L; Site Left Radial; pCO2 70 mmHg (34-47)
[2019-08-25] MEDS: Atorvastatin 40 MG TAB PO (21:20)
[2019-08-25] MEDS: Patch Removal 1 EACH TP (21:28)
[2019-08-26] VITALS (38 sets, daily range): BP systolic 128–180; BP diastolic 60–143; PULSE 76–108; RESP 2–38; TEMP 36.4–37.7; O2SAT 76–100
--- NOTE | 2019-08-26 | DI.MRI_ITS ---
EXAM: MR LUMBAR SPINE WO CLINICAL HISTORY: BACK PAIN, SEPSIS. TECHNIQUE: Multiplanar multisequence MRI was performed. MR examination of the lumbosacral spine was performed according to the usual protocol. COMPARISON: No exams were available for comparison FINDINGS: There is mild peridiscal signal abnormality at the L4-5 level consistent with disc degeneration. At L5-S1, there is also signal abnormality seen in the adjacent vertebral bodies but the pattern is more diffuse, findings may be due to disc degeneration but other etiology including infectious process no t excluded. There is signal loss in the L3-4 and L4-5 intervertebral discs. There is increased sign al on T2 weighted and T2 STIR images at L5-S1. No other significant bony signal abnormality identified in the lumbar region. No bony central canal spinal stenosis. There is mild bony neural foraminal narrowing at L5-S1, right greater than left. The conus medullaris appears intact. No significant findings at L2-3 and above involving the discs. At L3-4, there is a small disc herniation left paracentral. At L4-5, there is a small broad-based disc herniation, most prominent left paracentral. At L5-S1, there is a disc herniation and there is deformity of the dural sac at the anterior aspect o f the spinal canal, this may in part include disc contents, inflammation may be present with intermed iate signal intensity noted superimposed on the epidural fat. IMPRESSION: Abnormal findings at L5-S1 with abnormal appearance of the intervertebral disc and adjoining vertebra l bodies and abnormal signal in the epidural fat in the anterior spinal canal along with disruption o f the disc margin. Possibility of infectious process should be considered in the presence of these f indings, additional MR scan with pre and post contrast multiplanar T1 fat-sat imaging recommended for further evaluation. DATA REPOSITORY:
--- NOTE | 2019-08-26 | DI.MRI_ITS ---
EXAM: MR LUMBAR SPINE W CLINICAL HISTORY: back pain, L4-5 epidural abscess?. TECHNIQUE: Multiplanar multisequence MRI was performed. COMPARISON: MR LUMBAR SPINE WO from 08/26/2019 FINDINGS: MR examination of the lumbosacral spine was performed utilizing T1 fat sat sagittal and axial imaging pre and post contrast, examination is compared with lumbar MR obtained earlier today. The area of abnormal signal in L5 vertebral body posteroinferiorly shows significant enhancement. Mi nimal enhancement of vertebral endplate at S1 and anterior endplate of L5 inferiorly. There is enhan cement of epidural fat posterior to the posterior vertebral cortex at L5 and S1. There is a moderate disc bulge and/or disc herniation. There appears to be enhancement of the L5-S1 intervertebral disc , particularly anteriorly. The findings as described are worrisome for discitis and/or osteomyelitis, neoplastic disease not excluded. No alysia epidural abscess. Moderate disc bulge at L4-5 and small broad-based left paracentral disc herniation at L4-5 noted as s een on noncontrast examination. No significant enhancement at this level. No enhancing lesion above the L4-5 level. IMPRESSION: Findings worrisome for infectious process, discitis and/or osteomyelitis, at L5-S1. No gross epidura l abscess identified although there is enhancement of the epidural fat and displacement of the thecal sac posteriorly at this level. Neoplastic disease not excluded. Additional evaluation with whole-b robert bone scan may be considered. DATA REPOSITORY:
--- NOTE | 2019-08-26 01:10 | NUR.NOTE ---
Nursing Note: Pt received sitting at the edge of the bed, confused and restless, able to managed to get back to bed with alarm in progress. RT worked on Cpap , pt slept until 1900 . When he woke up he was found on the floor, no sounding on bed alarm, unwitnessed fall event noted. Upon nursing assessment , pt is conscious , reported that that he hit his head on the wall. No physical injury noted. Tansferred by cherelle lift to bed. Increasingly agitated, Requested COMPUTER TEACHER to stay at bedside for safety but pt became combative, kicked COMPUTER TEACHER on abdomen. Redirected by Charge nurse. Neuro checks performed as protocol. Admin of cpap, nasal prong and O2 therapy alternates per patient comfort. and demands. Pt attempted to pull midline, 2 inches of plastic wire seen out from the site., school nurse cleansed and drsg applied,, flushed and no resistance. After Atbx IV admin, midline flushed and had blood returned. Continue to closely monitor.
[2019-08-26] MEDS: AMPICILLIN/SULBACTAM 3 GM in Normal Saline 100 ML IVPB ×3 (06:34→22:08)
[2019-08-26] MEDS: Acetaminophen 325 MG TAB PO ×2 (06:34→14:21)
[2019-08-26] MEDS: Normal Saline Flush 10 ML SYR IVP ×6 (06:34→22:10)
[2019-08-26 07:10] LABS: Abs Immature Grans 0.19 k/cumm (0.0-0.09); Absolute Basophil Count 0.01 k/cumm (0.0-0.2); Absolute Eosinophil Count 0.26 k/cumm (0.0-0.7); Absolute Lymphocyte Count 0.98 k/cumm (1.2-3.4); Absolute Monocyte Count 0.96 k/cumm (0.11-0.7); Basophils % 0.1; HCT 31.4 % (40.0-50.0); Immature Grans % 1.5 %; Lymphocytes % 7.5; Mean Corp. HGB Concentration 31.8 g/dL (32.0-36.0); Mean Corpuscular Hemoglobin 30.4 pg (27.0-33.0); Mean Corpuscular Volume 95.4 fL (80-95); Mean Platelet Volume 9.6 fL (8.0-11.0); Monocytes % 7.4; Neutrophils % 81.5; Platelet Count 273 x1000/uL (130-400); RBC 3.29 m/cumm (4.50-6.00); RBC Distribution Width 14.1 % (11.8-14.1); White Blood Cell Count 13.04 k/cumm (4.4-10.8)
[2019-08-26 07:14] LABS: Absolute Neutrophil Count 10.63 k/cumm (1.2-6.7)
[2019-08-26 07:24] LABS: ALT 46 U/L (16-63); AST 25 U/L (15-37); Albumin 2.2 g/dL (3.4-5.0); Alkaline Phosphatase 74 U/L (46-116); Anion Gap 0.3 mmol/L (3-11); BUN 28 mg/dL (7-18); Bilirubin, Direct 0.12 mg/dL (0.00-0.20); Bilirubin, Total 0.5 mg/dL (0.2-1.0); CO2 35.7 mmol/L (21.0-32.0); CREATININE 1.07 mg/dL (0.70-1.30); Calcium 9.9 mg/dL (8.5-10.1); Chloride 105 mmol/L (98-107); Glucose 102 mg/dL (74-106); Magnesium 1.5 mg/dL (1.8-2.4); Sodium 141 mmol/L (136-145)
[2019-08-26] MEDS: Multivitamin TAB 1 TAB PO (07:52)
[2019-08-26] MEDS: Docusate Sodium 100 MG CAP PO (07:52)
[2019-08-26] MEDS: Folic Acid 1 MG TAB PO (07:52)
[2019-08-26] MEDS: Metoprolol CR 100 MG TABCR PO (07:52)
[2019-08-26] MEDS: guaiFENesin 600 MG TABCR PO (07:52)
[2019-08-26] MEDS: Thiamine 100 MG TAB PO (07:52)
[2019-08-26] MEDS: Budesonide/Formoterol 160/4.5 6 GM 60 PUFF INH IH (08:02)
[2019-08-26] MEDS: Albuterol/Ipratropium 3 ML UPD VIAL UPD (08:03)
[2019-08-26] MEDS: Lidocaine 5% Patch 1 PATCH TP (09:29)
--- NOTE | 2019-08-26 10:47 | PGE_ITS ---
Date of Service Date of service: 08/26/19 Time of Service: 10:47 Assessment and Plan Assessment and plan (1) Confusion and disorientation: Status: Acute Assessment and plan: Differential diagnoses include encephalopathy related to his bacteremia, hypercapnia, and steroid or other medication induced delirium. Now off cyclobenzaprine, which is anticholinergic. Off steroids t ambar as well, monitoring for signs of adrenal insufficiency. His infection does seem to be responding to treatment. Working with respiratory therapy to try to better treat his obstructive sleep apnea and improve his hypercarbia, though the acute component to this does not seem severe enough to cause mental status changes. We will continue to monitor Per multiple sources including his daughter, his PCP at [facility]. and [facility] notes from his PCP, the patient has not had an issue w/ alcoholism or alcohol withdrawal. CIWA and benzodiazepines have been discontinued. (2) Community acquired pneumonia: Status: Acute Assessment and plan: Repeat chest x-ray yesterday showed no change. Confusion regarding his sputum cultures. Now growing actinobacter, despite initial gram stain showing GPC in chains and diplococci. To sensitive to amp/sulbactam and he is clinically improving overall so we will continue IV Unasyn. Qualifiers: Laterality: unspecified laterality Qualified Code(s): J18.9 - Pneumonia, unspecified organism (3) COPD (chronic obstructive pulmonary disease) with emphysema: Status: Chronic Assessment and plan: cont. Acapella, Symbicort, DuoNeb and antibiotics (as above). Adding long-acting muscarinic to his controller medication regimen would be appropriate. Qualifiers: Emphysema type: other Qualified Code(s): J43.8 - Other emphysema (4) Back pain: Status: Acute Assessment and plan: recent CT of LS spine just showed DJD of LS spine but no spinal stenosis or abscess. MRI of his LS spine pending today to assess for any possible infectious cause for pain. Qualifiers: Back pain location: low back pain Chronicity: acute Back pain laterality: unspecified Sciatica presence: without sciatica Qualified Code(s): M54.5 - Low back pain (5) Type 2 diabetes mellitus: Status: Chronic Assessment and plan: NPH discontinued and sliding scale now at insulin sensitive levels. Steroids were also stopped. Blood sugars well controlled this morning. Continue to monitor and titrate as needed. 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 Avoid use of NSAID in treating his knee or back pain Qualifiers: Acute renal failure type: unspecified Chronic kidney disease stage: stage 3 (moderate) Qualified Code(s): N17.9 - Acute kidney failure, unspecified; N18.3 - Chronic kidney disease, stage 3 (moderate) (7) Knee pain, left: Status: Acute Assessment and plan: will get MRI of his knee to assess for infection; plan is to ask Dr. Brothers to re-evaluate his knee once I get his MRI back Qualifiers: Chronicity: acute Qualified Code(s): M25.562 - Pain in left knee (8) Hypomagnesemia: Status: Acute Assessment and plan: Replete IV today and follow. (9) DVT prophylaxis: Status: Acute Assessment and plan: We will resume heparin as he is high risk. Subjective Subjective Patient reports: tolerating a regular diet; denies diarrhea, blood in stool, vomiting and fever Interval history since last seen: 24-hour: Head CT and chest x-ray done yesterday due to mental status changes, no new findings Patient fell overnight when he got up when he was confused, minor head trauma, but no neurologic changes noted. Steroids discontinued yesterday due to concern they were contributing to mental status changes Patient denies new complaints. Does have a deep pain in the left anterior lower leg. Still has some low back pain as well. Per nursing, he gets more confused at night. Describing some visual hallucinations such as fish in the window and blood on the floor. Not sleeping well. Tends to mouth breathe when he has his home nasal BiPAP mask, and has difficulty tolerating full facemask. Exam Narrative Exam Narrative: Obese male sitting up in bed. He has a alysa complexion. He is fully awake and is oriented x3. Lungs reveal coarse rhonchi and some expiratory wheezes, no rales, normal effort at rest. Heart is regular rate and rhythm, no murmurs. Abdomen is obese soft and nontender. Lower extremities with 2+ edema, more on left. Left knee is tender and appears to be more edematous than the right knee and feels warmer to the touch, but he does not have severe pain with flexion of that knee. Dark red discoloration and thickening of the skin bilaterally from the ankles up the pulido, but color deeper on the left. No open wounds. Margins of redness poorly defined. Objective Objective Clinical Data: Abnormal lab results 08/25/19 08/26/19 08/26/19 Range/Units 16:55 06:58 06:58 WBC 13.04 H (4.4-10.8) k/cumm RBC 3.29 L (4.50-6.00) m/cumm Hgb 10.0 L (13.5-17.5) g/dL Hct 31.4 L (40.0-50.0) % MCV 95.4 H (80-95) fL MCHC 31.8 L (32.0-36.0) g/dL Absolute Neutrophils 10.63 H (1.2-6.7) k/cumm Absolute Lymphocytes 0.98 L (1.2-3.4) k/cumm Absolute Monocytes 0.96 H (0.11-0.7) k/cumm ABG pH 7.33 L (7.35-7.45) ABG pCO2 70 H* (34-47) mmHg ABG HCO3 37 H (22-28) mmol/L ABG Total CO2 35 H (22-29) mmol/L ABG Base Excess 10.6 H (-3-3) mmol/L Carbon Dioxide 35.7 H (21.0-32.0) mmol/L Anion Gap 0.3 L (3-11) mmol/L BUN 28 H (7-18) mg/dL Magnesium 1.5 L (1.8-2.4) mg/dL Total Protein 6.0 L (6.4-8.2) g/dL Albumin 2.2 L (3.4-5.0) g/dL Vital Signs Temperature 37.5 C 08/26/19 07:20 Temperature Source Tympanic 08/26/19 07:20 Pulse 90 08/26/19 08:20 Pulse Rhythm Regular 08/26/19 07:40 Pulse 104 H 08/21/19 18:02 Respiratory Rate 20 08/26/19 10:06 Respiratory Effort 08/26/19 07:40 Respiratory Depth Normal 08/26/19 07:40 Respiratory Pattern Normal 08/26/19 07:40 Blood Pressure 128/61 08/26/19 07:20 Blood Pressure Mean 53 08/21/19 18:02 Blood Pressure Position Sitting 08/21/19 17:30 Pulse Oximetry 93 L 08/26/19 10:06 Oxygen Delivery Method Nasal Cannula 08/26/19 09:34 Oxygen Flow Rate 2 08/26/19 09:34 Fraction of Inspired Oxygen (FIO2) 26 08/26/19 10:06 Pain Level 8 08/26/19 07:20 Comment 08/22/19 12:11 Intake & Output 08/25/19 08/25/19 08/26/19 11:59 23:59 11:59 Intake Total 420 / 860 440 / 860 480 / 480 Output Total 700 / 1375 675 / 1375 450 / 450 Balance -280 / -515 -235 / -515 30 / 30 Weight 148 kg 147.4 kg Intake: IV 100 / 300 200 / 300 Oral 320 / 560 240 / 560 480 / 480 Output: Urine 700 / 1375 675 / 1375 450 / 450 Other: Urine Color Yellow Yellow Straw Urine Appearance Clear Clear Clear Urine Odor Foul Normal Normal Voiding Methods Bedside Commode Urinal Urinal Incontinent Laboratory Results WBC 13.04 k/cumm (4.4-10.8) H 08/26/19 06:58 RBC 3.29 m/cumm (4.50-6.00) L 08/26/19 06:58 Hgb 10.0 g/dL (13.5-17.5) L 08/26/19 06:58 Hct 31.4 % (40.0-50.0) L 08/26/19 06:58 MCV 95.4 fL (80-95) H 08/26/19 06:58 MCH 30.4 pg (27.0-33.0) 08/26/19 06:58 MCHC 31.8 g/dL (32.0-36.0) L 08/26/19 06:58 RDW 14.1 % (11.8-14.1) 08/26/19 06:58 Plt Count 273 x1000/uL (130-400) 08/26/19 06:58 MPV 9.6 fL (8.0-11.0) 08/26/19 06:58 Immature Gran % 1.5 % 08/26/19 06:58 Neutrophils % 81.5 08/26/19 06:58 Band Neutrophils % 0.0 % 08/19/19 19:56 Lymphocytes % 7.5 08/26/19 06:58 Atypical Lymphs % 1 08/19/19 19:56 Monocytes % 7.4 08/26/19 06:58 Eosinophils % 2.0 08/26/19 06:58 Basophils % 0.1 08/26/19 06:58 Absolute Neutrophils 10.63 k/cumm (1.2-6.7) H 08/26/19 06:58 Absolute Lymphocytes 0.98 k/cumm (1.2-3.4) L 08/26/19 06:58 Absolute Monocytes 0.96 k/cumm (0.11-0.7) H 08/26/19 06:58 Absolute Eosinophils 0.26 k/cumm (0.0-0.7) 08/26/19 06:58 Absolute Basophils 0.01 k/cumm (0.0-0.2) 08/26/19 06:58 Differential Comment Manual differential 08/19/19 19:56 RBC Morphology Normal 08/19/19 19:56 Retic Count 1.1 % (0.5-2.4) 08/21/19 06:21 PT 10.7 sec (9.3-11.0) 08/19/19 19:56 INR 1.1 (0.9-1.1) 08/19/19 19:56 APTT 25.4 sec (21.0-31.4) 08/19/19 19:56 ABG Sample Site Left radial 08/25/19 16:55 ABG pH 7.33 (7.35-7.45) L 08/25/19 16:55 ABG pCO2 70 mmHg (34-47) H* 08/25/19 16:55 ABG pO2 100 mmHg (83-108) 08/25/19 16:55 ABG HCO3 37 mmol/L (22-28) H 08/25/19 16:55 ABG Total CO2 35 mmol/L (22-29) H 08/25/19 16:55 ABG O2 Saturation 97 % (94-98) 08/25/19 16:55 ABG Base Excess 10.6 mmol/L (-3-3) H 08/25/19 16:55 Oxygen Liter Flow 3.5 L 08/25/19 16:55 Sodium 141 mmol/L (136-145) 08/26/19 06:58 Potassium 5.0 mmol/L (3.5-5.1) 08/26/19 06:58 Chloride 105 mmol/L (98-107) 08/26/19 06:58 Carbon Dioxide 35.7 mmol/L (21.0-32.0) H 08/26/19 06:58 Anion Gap 0.3 mmol/L (3-11) L 08/26/19 06:58 BUN 28 mg/dL (7-18) H 08/26/19 06:58 Creatinine 1.07 mg/dL (0.70-1.30) 08/26/19 06:58 Estimated GFR/1.73 m2 >= 60.00 (mL/min/1.73m2) 08/26/19 06:58 Glucose 102 mg/dL (74-106) 08/26/19 06:58 Lactate 1.2 mmol/L (0.6-1.4) 08/21/19 06:21 Calcium 9.9 mg/dL (8.5-10.1) 08/26/19 06:58 Magnesium 1.5 mg/dL (1.8-2.4) L 08/26/19 06:58 Iron 83 ug/dL (65-175) 08/21/19 06:21 TIBC 164 ug/dL (250-450) L 08/21/19 06:21 Transferrin % Sat 51 % (20-55) 08/21/19 06:21 Ferritin 547 ng/mL (26-388) H 08/21/19 06:21 Total Bilirubin 0.5 mg/dL (0.2-1.0) 08/26/19 06:58 Conjugated Bilirubin 0.12 mg/dL (0.00-0.20) 08/26/19 06:58 AST 25 U/L (15-37) 08/26/19 06:58 ALT 46 U/L (16-63) 08/26/19 06:58 Alkaline Phosphatase 74 U/L (46-116) 08/26/19 06:58 Lactate Dehydrogenase 173 U/L (85-227) 08/21/19 06:21 Troponin I 0.05 ng/Ml (<0.06) 08/20/19 06:12 C-Reactive Protein 1.16 mg/dL (0.0-0.3) H 08/25/19 06:50 NT-Pro-B Natriuret Pep 193 pg/mL (<300) 08/19/19 19:56 Total Protein 6.0 g/dL (6.4-8.2) L 08/26/19 06:58 Albumin 2.2 g/dL (3.4-5.0) L 08/26/19 06:58 Lipase 151 U/L (73-393) 08/19/19 19:56 TSH 0.35 uIU/mL (0.36-3.74) L 08/19/19 19:55 Free T4 1.78 ng/dL (0.76-1.46) H 08/19/19 19:55 Urine Color Yellow (Yellow) 08/19/19 20:20 Urine Clarity Clear (Clear) 08/19/19 20:20 Urine pH 5.5 (5-8) 08/19/19 20:20 Ur Specific Grover 1.010 (1.005-1.025) 08/19/19 20:20 Urine Protein Negative mg/dL (Negative) 08/19/19 20:20 Urine Ketones Negative mg/dL (Negative) 08/19/19 20:20 Urine Blood Trace-intact (Negative) H 08/19/19 20:20 Urine Nitrite Negative (Negative) 08/19/19 20:20 Urine Bilirubin Negative (Negative) 08/19/19 20:20 Urine Urobilinogen 0.2 EU/dL (Up TO 0.2) 08/19/19 20:20 Ur Leukocyte Esterase Negative (Negative) 08/19/19 20:20 Urine RBC 0-2 HPF (0-2) 08/19/19 20:20 Urine WBC Negative HPF (0-5) 08/19/19 20:20 Ur Epithelial Cells Negative HPF (Negative) 08/19/19 20:20 Urine Crystals Negative HPF (Negative) 03/31/20 20:20 Urine Bacteria Rare HPF (Negative) 08/19/19 20:20 Urine Casts Negative LPF (Negative) 08/19/19 20:20 Urine Mucus Negative (Negative) 08/19/19 20:20 Urine Other Negative (Negative) 08/19/19 20:20 Ur Culture Indicated? C&s done as ordered 08/19/19 20:20 Urine Glucose Negative mg/dL (Negative) 08/19/19 20:20 Theophylline <1.2 ug/ml (10.0-20.0) L 08/19/19 23:00
--- NOTE | 2019-08-26 11:09 | W.NUTRFU ---
Date of service: 08/26/19 Time of Service: 11:10 Nutritional Follow up NOTE: Kiran continues to be confused, with encephalopthy related to bacteremia. Labs reviewed, blood sugars adequately controlled. Continues on diabetic heart healthy diet with excellent intake (100%). Due to acute chronic renal failure, no longer recommend proheal as liquid protien supplement, current intake adequate to support optimal healing of cellulitis. Will continue to follow and adjust meal plan as needed for positive nutritional outcome. Time Spent in Nutritional Counseling and Treatment: 10 min spent face to face
--- NOTE | 2019-08-26 11:09 | PDOC.CMPRO ---
- If Service Date Differs Date of service: 08/26/19 Time of Service: 11:09 Care Management Progress Note S/O:Kiran remains alert and oriented to person and place but appears to be having visual and auditory hallucinations per staff. He has had 2 MRI exams today; one without contrast and one with contrast. There is a question of an infection in the lumbar spine. In addition, Dr. Brothers aspirated Kiran's left knee which Kiran states is painful, and the fluid was turbid and reportedly had over 42,000 WBCs. His peripheral WBC remains elevated as well, but is lower than has been reported this admission. A: Kiran is a 74 year old male admitted with SIRS, Diabetic leg cellulitis dehydration and CKD, positive blood cultures. P:CM will continue to follow patient and assess for discharge needs. Anticipate IV abx x 4 weeks, mid line was placed yesterday. Per MD, his abx will likely be Q8H, so he will likely need to remain at [facility] on SWB 1. He will also receive PT while on SWB. CM will continue to support Kiran with discharge planning considerations.
[2019-08-26] MEDS: LORazepam 1 MG TAB PO ×2 (11:15→15:09)
--- NOTE | 2019-08-26 11:45 | PT.INTREAT ---
Date of service: 08/26/19 Time of Service: 09:30 PT Notes Visit Reasons: SIRS W/DIABETIC LEG CELLULITIS,DEHYDRATION IN CKD3 Physical Therapy Inpatient Treatment Note Date: 08/26/2019 PRECAUTIONS: Fall. Standard. Activity as tolerated. On 3.0 L of oxygen per minute via NC. SUBJECTIVE: Patient was agreeable to morning and afternoon session however remains tired and very weak. He continues to note of knee pain right and does not think that the brace was helpful however was agreeable to continued use during ambulation. An MRI is being obtained due to continued pain. Also continues to complain of back pain with ambulation and with bed mobility. Objective: General Observation: Morbidly obese. Telemetry monitoring in place. Oxygen supplementation via NC on 3.0 L/min. IV in the left UE. Mental Status: Patient has been mildly confused but is able to follow simple commands when redirected. Pain: Complained of back pain with transfers and knee pain with ambulation. Bed Mobility/Transfers: Sit to supine mod assist x2, max assist x 3 to obtain proper positioning in bed to rest. Sit to stand mod assist x2 from chair using B UE to push from armrests, FWW needed in the morning with another person holding onto walker to avoid it lifting in front due to patient pulling to assume standing position. Stand to sit min assist x2 from standing back to bed using B UE to to reach back to bed, FWW needed Chair to bed CGAx2 from chair to high bed using FWW, minimal cues provided for safety. Patient seemed very shaky and weak during PT session. 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 Minimal to moderate verbal cues for walker management during directional changes. Reciprocal gait pattern. Patient reported pain on left knee with weight bearing. Moderate breathlessness seen during and after gait activity tends to hold his breath during transfers. Patient unable to ambulate in afternoon session due to fatigue and shortness of breath. Had just returned from getting MRI. Completed light therex in seated position to include LAQ 10 reps with each leg. Ankle pumps 10 reps each leg. Refused any further exercises due to complaints of back pain while seated bedside. Wanted to return to bed to rest. Assessment: Variable periods of confusion, morbid obesity, intermittent back and knee pain continue to limit patient participation and consistent progress with mobility ADL performance. Will continue with use of knee brace which is being kept in the first drawer of his bureau inside his room during ambulation. He will continue to benefit from skilled physical therapy services in order to improve mobility level and maximize activity tolerance. Afternoon visit limited secondary to fatigue will continue to advance with exercises within symptom allowance. DISCHARGE RECOMMENDATIONS: Patient will benefit from care home facility placement for continued skilled physical therapy services in order to progress mobility level, strength, and balance in preparation for a safe discharge to home. TREATMENT CODE/TIME: Session 1?[id number] 15 minutes beginning at 9:30 AM. Session 2 [id number] beginning at 1:30 PM
--- NOTE | 2019-08-26 12:45 | W.ORTHOCONSU ---
Date of service: 08/26/19 Time of Service: 12:45 History of Present Illness History of Present Illness Chief Complaint: Left knee pain possible septic arthritis Narrative: I was asked by Dr. Mccray to reevaluate Kiran's left knee. He is now growing enterococcus faecalis from blood cultures taken on 08/23/2019. No primary source of infection has been identified. He denies any abdominal discomfort. Denies any problem with appetite. Now that he has been mobilized his left knee is sore. His right shoulder is not causing much problems. Assessment and Plan Assessment and plan (1) Knee pain, left: Status: Acute Assessment and plan: Assessment: I cannot tell whether his left total knee is a primary source of infection or whether it is secondarily infected from another source. From the appearance of the knee and the fluid, I do not think it is a primary source of infection. I am not even sure whether anything is going to grow from the fluid. I sent the specimen of fluid for routine culture and sensitivity. I sent the second specimen for cell count differential of the fluid. The cell count and differential may give more valuable information about septic arthritis. Plan: Check the cell count with differential tomorrow. We will follow the culture of the fluid along to see if anything grows or not. The antibiotics he has been receiving may prevent any growth in the lab. We will check in with the hospitalist over the next few days to offer an opinion about further treatment from the orthopedic standpoint. In the meantime, should continue with his antibiotics for pneumonia and bacteremia. Qualifiers: Chronicity: acute Qualified Code(s): M25.562 - Pain in left knee [facility] Medical History (Updated 08/26/19 @ 11:06 by Freddy Lee) Chronic renal disease, stage 3, moderately decreased glomerular filtration rate (GFR) between 30-59 mL/min/1.73 square meter (Chronic) COPD (chronic obstructive pulmonary disease) with emphysema (Chronic) COPD exacerbation (Chronic) Hyperkalemia, diminished renal excretion (Acute) Hypomagnesemia (Acute) Morbid obesity (Acute) Type 2 diabetes mellitus (Chronic) Social History Smoking/Tobacco Use Status: Former Tobacco Use Alcohol Intake: never Drug use: Never Substance use type: does not use Do you feel safe at home: Yes Do you feel safe in your relationship?: Yes Exam Narrative Exam Narrative: I cannot tell whether he has an effusion. There were no sinus tracts about his knee. Passive motion of his left knee causes him some moderate discomfort. No erythema is noted about the knee. Using sterile technique and a superolateral approach, I perform an aspiration of his left knee. I aspirated about 20 cc of turbid joint fluid. Specimen is sent for cell count differential and another specimen for routine culture and sensitivity. I then injected to his knee 15 cc of 0.5% Marcaine solution for postprocedure analgesia. He reports after I cycle his knee for a minute that his knee feels much better. Results Last Vital Signs Temp 37.3 C 08/26/19 11:16 Pulse 81 08/26/19 11:16 Resp 20 08/26/19 11:16 BP 153/73 H 08/26/19 11:16 Pulse Ox 96 08/26/19 12:24 Labs Result diagrams: 08/26/19 06:58 08/26/19 06:58 Labs: Laboratory Results - last 24 hr 08/25/19 08/26/19 08/26/19 16:55 06:58 06:58 WBC 13.04 H RBC 3.29 L Hgb 10.0 L Hct 31.4 L MCV 95.4 H MCH 30.4 MCHC 31.8 L RDW 14.1 Plt Count 273 MPV 9.6 Immature Gran % 1.5 Neutrophils % 81.5 Lymphocytes % 7.5 Monocytes % 7.4 Eosinophils % 2.0 Basophils % 0.1 Absolute Neutrophils 10.63 H Absolute Lymphocytes 0.98 L Absolute Monocytes 0.96 H Absolute Eosinophils 0.26 Absolute Basophils 0.01 ABG Sample Site Left radial ABG pH 7.33 L ABG pCO2 70 H* ABG pO2 100 ABG HCO3 37 H ABG Total CO2 35 H ABG O2 Saturation 97 ABG Base Excess 10.6 H Oxygen Liter Flow 3.5 Sodium 141 Potassium 5.0 Chloride 105 Carbon Dioxide 35.7 H Anion Gap 0.3 L BUN 28 H Creatinine 1.07 Estimated GFR/1.73 m2 >= 60.00 Glucose 102 Calcium 9.9 Magnesium 1.5 L Total Bilirubin 0.5 Conjugated Bilirubin 0.12 AST 25 ALT 46 Alkaline Phosphatase 74 Total Protein 6.0 L Albumin 2.2 L
[2019-08-26 13:51] LABS: Clarity CLOUDY; Mononuclear Cells 7 % (0-0); Polynuclear Cells 93 % (0-0); Source L KNEE
[2019-08-26] MEDS: MAGNESIUM SULFATE 2 GM/50 ML BAG IVPB ×2 (14:44→16:32)
[2019-08-26 15:32] LABS: BE 13.1 mmol/L (-3-3); HCO3 38 mmol/L (22-28); pH 7.39 (7.35-7.45); pO2 54 mmHg (83-108); sO2 89 % (94-98); tCO2 36 mmol/L (22-29)
[2019-08-26 15:36] LABS: FIO2L 2 L; Site Left Radial; pCO2 62 mmHg (34-47)
--- NOTE | 2019-08-26 15:59 | NUR.NOTE ---
08/26/19 1559 Had to stop magnesium infusion for over an hour d/t testing and IV issues. Will hang new bag of magnesium for remainder of prior infusion (31.9 ml) to complete the full 2 grams as ordered.
[2019-08-26] MEDS: Gadoterate meglumine 20 ML VIAL IVP (16:01)
[2019-08-26] MEDS: Heparin 5,000 UNITS/ML VIAL 5000 UNITS SC (16:33)
[2019-08-26] MEDS: Insulin Aspart 300 UNITS/3 ML PEN SC (16:55)
--- NOTE | 2019-08-26 17:08 | DI.VRAD_ITS ---
PROCEDURE INFORMATION: Exam: MR Lumbar Spine With Contrast. Exam date and time: 08/26/2019 4:19 PM Age: 74 years old Clinical indication: Low back pain; Additional info: Patient had mri l-spine without earlier today TECHNIQUE: Imaging protocol: Multiplanar magnetic resonance images of the lumbar spine with intravenous contrast. Contrast material: DOTAREM; Contrast volume: 20 ml; Contrast route: IV; COMPARISON: MR LUMBAR SPINE WO 08/26/2019 11:44 AM FINDINGS: Vertebrae: Comparison to the earlier MRI lumbar spine study from 08/26/2019 shows that the area of bone marrow edema-like signal in the posterior inferior L5 vertebral body enhances post IV contrast. This could be secondary to a moderately severe acute discovertebral inflammatory disease or represent a metastasis or acute osteomyelitis. Spinal cord: Normal signal in the distal thoracic cord. No cord compression. L1-L2: No significant disc disease. No significant spinal canal stenosis. No neural foraminal stenosis. L2-L3: No significant disc disease. No significant spinal canal stenosis. No neural foraminal stenosis. L3-L4: Minimal posterior disc bulging. No significant spinal canal stenosis. No neural foraminal stenosis. L4-L5: Diminished disc height with a broad-based mild posterior disc bulge. No significant spinal canal stenosis. No neural foraminal stenosis. L5-S1: Diminished disc height. Mild broad-based posterior disc bulging. Mild enhancement of the anterior disc at L5/S1. No significant spinal canal stenosis. No neural foraminal stenosis. Enhancement of the epidural fat is present in keeping with other levels of the lumbar spine. No evidence of an epidural abscess. Soft tissues: Unremarkable. IMPRESSION: 1. Features suggestive of a differential diagnosis of moderately severe acute discovertebral inflammatory disease at L5/S1 versus a metastasis or focus of acute osteomyelitis in the inferior posterior L5 vertebral body, with enhancement of the anterior disc at L5/S1 which could represent a discitis. 2. A nuclear medicine whole body bone scan might be of additional diagnostic value if there is any history of previous cancer. A nuclear medicine white blood cell scan also may be of further diagnostic value if there are other clinical signs of sepsis. Dictated and Authenticated by: Adama Bonds MD. Ordering:MARIA GUADALUPE Hayes MD
[2019-08-26] MEDS: Furosemide 20 MG/2 ML VIAL IVP (18:43)
--- NOTE | 2019-08-26 19:00 | DI.RAD_ITS ---
EXAM: XR PORTABLE CHEST AP CLINICAL HISTORY: Respiratory decline TECHNIQUE: COMPARISON: XR CHEST 2V PA LATERAL from 08/10/2019 XR PORTABLE CHEST AP from 08/25/2019 FINDINGS: Portable AP chest at 1920 hours. Cardiomegaly again noted. Prominence of pulmonary interstitial mar kings and pulmonary vascular redistribution into upper lobe vessels, question incipient CHF. Pleural effusion may now be present on the left. IMPRESSION: Findings raising the possibility of developing CHF. PA and lateral chest suggested for correlation. Underlying pneumonia not entirely excluded but no gross consolidation is seen.
[2019-08-26] MEDS: MORPHine 2 MG/ML SYR IVP ×2 (19:12→19:58)
[2019-08-26] MEDS: Lidocaine 2% Jelly 6 ML SYR UR (19:30)
--- NOTE | 2019-08-26 19:47 | NUR.NOTE ---
Nursing Note: 1850 pt transferred via bed to icu. pt desating to 70s and very aggressive/agitated at this time. pts belongings transferred, including home cpap.
--- NOTE | 2019-08-26 19:48 | DI.VRAD_ITS ---
PROCEDURE INFORMATION: Exam: XR Chest, 1 View Exam date and time: 08/26/2019 7:19 PM Age: 74 years old Clinical indication: Fever TECHNIQUE: Imaging protocol: XR of the chest Views: 1 view. COMPARISON: CR XR PORTABLE CHEST AP 10/23/2019 16:10 FINDINGS: Lungs: EKG wires overlie the. The lung volumes are low. Persistent prominence of the pulmonary vascular. Pleural space: Blunted left lateral costophrenic angle may represent a pleural effusions. Heart/Mediastinum: Cardiomegaly. Vasculature: Atherosclerotic disease. Bones/joints: Unremarkable for patient's age. IMPRESSION: Cardiomegaly. Pulmonary vascular congestion. Possible left pleural effusion. Dictated and Authenticated by: Irma Hawley MD. Ordering:WILL Massey MD
[2019-08-26 20:19] LABS: BE 11.6 mmol/L (-3-3); HCO3 38 mmol/L (22-28); pH 7.29 (7.35-7.45); pO2 64 mmHg (83-108); sO2 91 % (94-98); tCO2 37 mmol/L (22-29)
[2019-08-26 20:22] LABS: Site Left Radial
[2019-08-26 20:23] LABS: FIO2 35% %; pCO2 80 mmHg (34-47)
[2019-08-26] MEDS: Patch Removal 1 EACH TP (21:06)
--- NOTE | 2019-08-26 21:52 | W.PM.PROGNOT ---
Date of Service Date of service: 08/26/19 Time of Service: 21:53 Assessment and Plan Assessment and plan (1) CHF exacerbation: Start date: 08/26/19 Status: Acute Assessment and plan: This is a 74-year-old gentleman who was admitted for sepsis and was dehydrated upon admission being on Lasix 60 mg daily at home. This is been held during his hospitalization and he did receive IV fluid resuscitation. He went into acute CHF clinically and by chest x-ray and did respond to IV Lasix with a Osman catheter placed and IV morphine for comfort with patient placed back on his BiPAP with appropriate settings with respiratory therapy consulted. 45 minutes of direct ICU time and care was rendered to this patient assessing him for his acute respiratory distress with review of chest x-ray, labs and assessing patient at bedside. Qualifiers: Heart failure type: diastolic Qualified Code(s): I50.33 - Acute on chronic diastolic (congestive) heart failure (2) Confusion and disorientation: Status: Acute Assessment and plan: This problem has been progressive over the last couple days and could have been associated with his worsening respiratory status with CHF. Monitor as we treat the CHF. (3) COPD (chronic obstructive pulmonary disease) with emphysema: Status: Chronic Assessment and plan: Stabilizing on BiPAP but arterial blood gases do show CO2 retention with hypoxemia. Continue to adjust BiPAP settings. Continue to adjust FiO2 needs to keep pulse ox above 92%. Qualifiers: Emphysema type: other Qualified Code(s): J43.8 - Other emphysema (4) Sepsis: Status: Resolved Assessment and plan: Adequately treated with IV antibiotics but patient is slow to improve and now may have an abscess over his back with MRI and contrast report pending. Follow-up with morning. Qualifiers: Sepsis type: Streptococcus, unspecified Sepsis acute organ dysfunction status: with acute organ dysfunction Severe sepsis acute organ dysfunction type: acute renal failure Acute renal failure type: with acute tubular necrosis Severe sepsis shock status: without septic shock Qualified Code(s): A40.9 - Streptococcal sepsis, unspecified; R65.20 - Severe sepsis without septic shock; N17.0 - Acute kidney failure with tubular necrosis Subjective Subjective Interval history since last seen: I was called at home that the patient was escalating in his agitated behavior and spitting at nurses. I did order an IV Ativan which was never given and then the patient became acutely tachypneic with decrease in mentation though continued agitation and uncooperativeness with his pulse oximeter dropping below 70%. He did not respond to O2 and the nurse did report that his lungs had diffuse coarse crackles. Patient had been on IV hydration early in his hospitalization and not the last several days but has had increasing confusion. An MRI was being done for back pain with question of an abscess. I ordered a stat chest x-ray and arterial blood gases with the patient transferred to the ICU with IV Lasix 20 mg being given and a Osman catheter ordered. At the time I arrived to the hospital patient was less agitated after 2 mg of IV morphine were given. He did have a Osman catheter placed and after some amount of urinary incontinence prior to the Osman catheter he had a good output approaching 1 L of urine. When I approached the patient in the ICU he was still tachypneic on his BiPAP with settings readjusted by respiratory therapy but not agitated and resting with his eyes closed. I did call his daughter and updated her on his status. He is a DNR/DNI. Exam Narrative Exam Narrative: General: Patient is morbidly obese lying with his head up at a 45 degree angle and BiPAP in place responding to verbal stimuli but sedated and tachypneic in moderate respiratory distress but improving. Did not open his eyes or converse. Lungs: Occasional upper airway noise with no increased expiratory phase and poor aeration diffusely with no focalizing rales. No intercostal retractions. Heart: Distant heart sounds with tachycardia and regular rhythm. Abdomen: Protuberant and obese with pannus, soft but no focalizing guarding or tenderness. Extremities: Less erythema than I saw upon admission over his lower extremities but chronic skin changes with chronic heart edema, decreased capillary refill bilaterally. Neuro: Patient moves all extremities, is restless at times and is not verbalizing at the time I examined him. Objective Objective Clinical Data: Abnormal lab results 08/26/19 08/26/19 08/26/19 Range/Units 06:58 06:58 12:25 WBC 13.04 H (4.4-10.8) k/cumm RBC 3.29 L (4.50-6.00) m/cumm Hgb 10.0 L (13.5-17.5) g/dL Hct 31.4 L (40.0-50.0) % MCV 95.4 H (80-95) fL MCHC 31.8 L (32.0-36.0) g/dL Absolute Neutrophils 10.63 H (1.2-6.7) k/cumm Absolute Lymphocytes 0.98 L (1.2-3.4) k/cumm Absolute Monocytes 0.96 H (0.11-0.7) k/cumm ABG pH (7.35-7.45) ABG pCO2 (34-47) mmHg ABG pO2 (83-108) mmHg ABG HCO3 (22-28) mmol/L ABG Total CO2 (22-29) mmol/L ABG O2 Saturation (94-98) % ABG Base Excess (-3-3) mmol/L Carbon Dioxide 35.7 H (21.0-32.0) mmol/L Anion Gap 0.3 L (3-11) mmol/L BUN 28 H (7-18) mg/dL Magnesium 1.5 L (1.8-2.4) mg/dL Total Protein 6.0 L (6.4-8.2) g/dL Albumin 2.2 L (3.4-5.0) g/dL Fluid WBC 18079 H (0-0) /MM3 Fluid Mononuclear Cell 7 H (0-0) % Fl Polymorphonucl Cell 93 H (0-0) % 08/26/19 08/26/19 Range/Units 15:30 20:10 WBC (4.4-10.8) k/cumm RBC (4.50-6.00) m/cumm Hgb (13.5-17.5) g/dL Hct (40.0-50.0) % MCV (80-95) fL MCHC (32.0-36.0) g/dL Absolute Neutrophils (1.2-6.7) k/cumm Absolute Lymphocytes (1.2-3.4) k/cumm Absolute Monocytes (0.11-0.7) k/cumm ABG pH 7.29 L (7.35-7.45) ABG pCO2 62 H* 80 H* (34-47) mmHg ABG pO2 54 L 64 L (83-108) mmHg ABG HCO3 38 H 38 H (22-28) mmol/L ABG Total CO2 36 H 37 H (22-29) mmol/L ABG O2 Saturation 89 L 91 L (94-98) % ABG Base Excess 13.1 H 11.6 H (-3-3) mmol/L Carbon Dioxide (21.0-32.0) mmol/L Anion Gap (3-11) mmol/L BUN (7-18) mg/dL Magnesium (1.8-2.4) mg/dL Total Protein (6.4-8.2) g/dL Albumin (3.4-5.0) g/dL Fluid WBC (0-0) /MM3 Fluid Mononuclear Cell (0-0) % Fl Polymorphonucl Cell (0-0) % Vital Signs Temperature 37.2 C 08/26/19 18:30 Temperature Source Tympanic 08/26/19 18:30 Pulse 84 08/26/19 21:33 Pulse Rhythm Regular 08/26/19 16:30 Pulse 85 08/26/19 21:33 Respiratory Rate 31 H 08/26/19 21:33 Respiratory Effort Accessory Muscle Use 08/26/19 20:03 Respiratory Depth Deep 08/26/19 20:03 Respiratory Pattern Tachypnea 08/26/19 20:03 Blood Pressure 163/77 H 08/26/19 21:33 Blood Pressure Mean 91 08/26/19 21:33 Blood Pressure Position Sitting 08/21/19 17:30 Pulse Oximetry 94 L 08/26/19 21:33 Oxygen Delivery Method Nasal Cannula 08/26/19 18:30 Oxygen Flow Rate 3 08/26/19 18:30 Fraction of Inspired Oxygen (FIO2) 35 08/26/19 20:44 Pain Level 0 08/26/19 18:30 Comment 08/26/19 10:30 Intake & Output 08/25/19 08/26/19 08/26/19 23:59 11:59 23:59 Intake Total 440 / 860 220 / 370.0 150.0 / 370.0 Output Total 675 / 1375 690 / 1040 350 / 1040 Balance -235 / -515 -470 / -670.0 -200.0 / -670.0 Weight 148 kg 147.4 kg 147.4 kg Intake: IV 200 / 300 100 / 250.0 150.0 / 250.0 Oral 240 / 560 120 / 120 Output: Urine 675 / 1375 690 / 1040 350 / 1040 Other: Urine Color Yellow Yellow Yellow Urine Appearance Clear Clear Urine Odor Normal Normal Comment 11,115,116 Voiding Methods Urinal Urinal Urinal Incontinent Laboratory Results WBC 13.04 k/cumm (4.4-10.8) H 08/26/19 06:58 RBC 3.29 m/cumm (4.50-6.00) L 08/26/19 06:58 Hgb 10.0 g/dL (13.5-17.5) L 08/26/19 06:58 Hct 31.4 % (40.0-50.0) L 08/26/19 06:58 MCV 95.4 fL (80-95) H 08/26/19 06:58 MCH 30.4 pg (27.0-33.0) 08/26/19 06:58 MCHC 31.8 g/dL (32.0-36.0) L 08/26/19 06:58 RDW 14.1 % (11.8-14.1) 08/26/19 06:58 Plt Count 273 x1000/uL (130-400) 08/26/19 06:58 MPV 9.6 fL (8.0-11.0) 08/26/19 06:58 Immature Gran % 1.5 % 08/26/19 06:58 Neutrophils % 81.5 08/26/19 06:58 Band Neutrophils % 0.0 % 08/19/19 19:56 Lymphocytes % 7.5 08/26/19 06:58 Atypical Lymphs % 1 08/19/19 19:56 Monocytes % 7.4 08/26/19 06:58 Eosinophils % 2.0 08/26/19 06:58 Basophils % 0.1 08/26/19 06:58 Absolute Neutrophils 10.63 k/cumm (1.2-6.7) H 08/26/19 06:58 Absolute Lymphocytes 0.98 k/cumm (1.2-3.4) L 08/26/19 06:58 Absolute Monocytes 0.96 k/cumm (0.11-0.7) H 08/26/19 06:58 Absolute Eosinophils 0.26 k/cumm (0.0-0.7) 08/26/19 06:58 Absolute Basophils 0.01 k/cumm (0.0-0.2) 08/26/19 06:58 Differential Comment Manual differential 08/19/19 19:56 RBC Morphology Normal 08/19/19 19:56 Retic Count 1.1 % (0.5-2.4) 08/21/19 06:21 PT 10.7 sec (9.3-11.0) 08/19/19 19:56 INR 1.1 (0.9-1.1) 08/19/19 19:56 APTT 25.4 sec (21.0-31.4) 08/19/19 19:56 ABG Sample Site Left radial 08/26/19 20:10 ABG pH 7.29 (7.35-7.45) L 08/26/19 20:10 ABG pCO2 80 mmHg (34-47) H* 08/26/19 20:10 ABG pO2 64 mmHg (83-108) L 08/26/19 20:10 ABG HCO3 38 mmol/L (22-28) H 08/26/19 20:10 ABG Total CO2 37 mmol/L (22-29) H 08/26/19 20:10 ABG O2 Saturation 91 % (94-98) L 08/26/19 20:10 ABG Base Excess 11.6 mmol/L (-3-3) H 08/26/19 20:10 Oxygen Liter Flow Bipap 18/8 L 08/26/19 20:10 FiO2 35% % 08/26/19 20:10 Sodium 141 mmol/L (136-145) 08/26/19 06:58 Potassium 5.0 mmol/L (3.5-5.1) 08/26/19 06:58 Chloride 105 mmol/L (98-107) 08/26/19 06:58 Carbon Dioxide 35.7 mmol/L (21.0-32.0) H 08/26/19 06:58 Anion Gap 0.3 mmol/L (3-11) L 08/26/19 06:58 BUN 28 mg/dL (7-18) H 08/26/19 06:58 Creatinine 1.07 mg/dL (0.70-1.30) 08/26/19 06:58 Estimated GFR/1.73 m2 >= 60.00 (mL/min/1.73m2) 08/26/19 06:58 Glucose 102 mg/dL (74-106) 08/26/19 06:58 Lactate 1.2 mmol/L (0.6-1.4) 08/21/19 06:21 Calcium 9.9 mg/dL (8.5-10.1) 08/26/19 06:58 Magnesium 1.5 mg/dL (1.8-2.4) L 08/26/19 06:58 Iron 83 ug/dL (65-175) 08/21/19 06:21 TIBC 164 ug/dL (250-450) L 08/21/19 06:21 Transferrin % Sat 51 % (20-55) 08/21/19 06:21 Ferritin 547 ng/mL (26-388) H 08/21/19 06:21 Total Bilirubin 0.5 mg/dL (0.2-1.0) 08/26/19 06:58 Conjugated Bilirubin 0.12 mg/dL (0.00-0.20) 08/26/19 06:58 AST 25 U/L (15-37) 08/26/19 06:58 ALT 46 U/L (16-63) 08/26/19 06:58 Alkaline Phosphatase 74 U/L (46-116) 08/26/19 06:58 Lactate Dehydrogenase 173 U/L (85-227) 08/21/19 06:21 Troponin I 0.05 ng/Ml (<0.06) 08/20/19 06:12 C-Reactive Protein 1.16 mg/dL (0.0-0.3) H 08/25/19 06:50 NT-Pro-B Natriuret Pep 193 pg/mL (<300) 08/19/19 19:56 Total Protein 6.0 g/dL (6.4-8.2) L 08/26/19 06:58 Albumin 2.2 g/dL (3.4-5.0) L 08/26/19 06:58 Lipase 151 U/L (73-393) 08/19/19 19:56 TSH 0.35 uIU/mL (0.36-3.74) L 08/19/19 19:55 Free T4 1.78 ng/dL (0.76-1.46) H 08/19/19 19:55 Urine Color Yellow (Yellow) 08/19/19 20:20 Urine Clarity Clear (Clear) 08/19/19 20:20 Urine pH 5.5 (5-8) 08/19/19 20:20 Ur Specific [place] 1.010 (1.005-1.025) 08/19/19 20:20 Urine Protein Negative mg/dL (Negative) 08/19/19 20:20 Urine Ketones Negative mg/dL (Negative) 08/19/19 20:20 Urine Blood Trace-intact (Negative) H 08/19/19 20:20 Urine Nitrite Negative (Negative) 08/19/19 20:20 Urine Bilirubin Negative (Negative) 08/19/19 20:20 Urine Urobilinogen 0.2 EU/dL (Up TO 0.2) 08/19/19 20:20 Ur Leukocyte Esterase Negative (Negative) 08/19/19 20:20 Urine RBC 0-2 HPF (0-2) 08/19/19 20:20 Urine WBC Negative HPF (0-5) 08/19/19 20:20 Ur Epithelial Cells Negative HPF (Negative) 08/19/19 20:20 Urine Crystals Negative HPF (Negative) 08/19/19 20:20 Urine Bacteria Rare HPF (Negative) 08/19/19 20:20 Urine Casts Negative LPF (Negative) 08/19/19 20:20 Urine Mucus Negative (Negative) 08/19/19 20:20 Urine Other Negative (Negative) 08/19/19 20:20 Ur Culture Indicated? C&s done as ordered 08/19/19 20:20 Urine Glucose Negative mg/dL (Negative) 08/19/19 20:20 Fluid Source Cancelled 08/26/19 12:58 Fluid Color Cancelled 08/26/19 12:58 Fluid Clarity Cancelled 08/26/19 12:58 Fluid WBC Cancelled 08/26/19 12:58 Fluid Mononuclear Cell Cancelled 08/26/19 12:58 Fl Polymorphonucl Cell Cancelled 08/26/19 12:58 Fluid Other Cells Cancelled 08/26/19 12:58 Theophylline <1.2 ug/ml (10.0-20.0) L 08/19/19 23:00 Path Cons Comment Cancelled 08/26/19 12:58 Exam: XR Chest, 1 View Exam date and time: 08/26/2019 7:19 PM Age: 74 years old Clinical indication: Fever TECHNIQUE: Imaging protocol: XR of the chest Views: 1 view. COMPARISON: CR XR PORTABLE CHEST AP 10/23/2019 16:10 FINDINGS: Lungs: EKG wires overlie the. The lung volumes are low. Persistent prominence of the pulmonary vascular. Pleural space: Blunted left lateral costophrenic angle may represent a pleural effusions. Heart/Mediastinum: Cardiomegaly. Vasculature: Atherosclerotic disease. Bones/joints: Unremarkable for patient's age. IMPRESSION: Cardiomegaly. Pulmonary vascular congestion. Possible left pleural effusion. Dictated and Authenticated by: Irma Hawley MD. Reviewed Pertinent PMH: Yes
[2019-08-27] VITALS (65 sets, daily range): BP systolic 124–171; BP diastolic 51–122; PULSE 70–90; RESP 12–30; TEMP 36–36.8; O2SAT 85–100
[2019-08-27] MEDS: Heparin 5,000 UNITS/ML VIAL 5000 UNITS SC ×4 (01:05→23:38)
[2019-08-27] MEDS: MORPHine 2 MG/ML SYR IVP ×5 (01:08→09:03)
[2019-08-27] MEDS: AMPICILLIN/SULBACTAM 3 GM in Normal Saline 100 ML IVPB ×3 (05:39→22:37)
[2019-08-27 05:50] LABS: Magnesium 1.6 mg/dL (1.8-2.4)
[2019-08-27] MEDS: Budesonide/Formoterol 160/4.5 6 GM 60 PUFF INH IH ×2 (07:37→20:00)
[2019-08-27] MEDS: Tiotropium Bromide-Respimat 10 PUFF INH 2 PUFF IH (07:37)
[2019-08-27 07:57] LABS: Abs Immature Grans 0.17 k/cumm (0.0-0.09); Absolute Basophil Count 0.01 k/cumm (0.0-0.2); Absolute Eosinophil Count 0.37 k/cumm (0.0-0.7); Absolute Lymphocyte Count 1.03 k/cumm (1.2-3.4); Basophils % 0.1; Eosinophils % 3.2; HCT 32.5 % (40.0-50.0); HGB 10.1 g/dL (13.5-17.5); Immature Grans % 1.5 %; Lymphocytes % 8.9; Mean Corp. HGB Concentration 31.1 g/dL (32.0-36.0); Mean Corpuscular Hemoglobin 30.1 pg (27.0-33.0); Mean Platelet Volume 10.2 fL (8.0-11.0); Monocytes % 8.4; Neutrophils % 77.9; Platelet Count 258 x1000/uL (130-400); RBC 3.35 m/cumm (4.50-6.00); RBC Distribution Width 14.3 % (11.8-14.1); White Blood Cell Count 11.61 k/cumm (4.4-10.8)
[2019-08-27 08:09] LABS: Absolute Monocyte Count 0.98 k/cumm (0.11-0.7); Absolute Neutrophil Count 9.04 k/cumm (1.2-6.7)
[2019-08-27 08:15] LABS: Anion Gap -1.3 mmol/L (3-11); BUN 25 mg/dL (7-18); CO2 39.3 mmol/L (21.0-32.0); CREATININE 1.08 mg/dL (0.70-1.30); Calcium 9.9 mg/dL (8.5-10.1); Chloride 105 mmol/L (98-107); Glucose 99 mg/dL (74-106); Sodium 143 mmol/L (136-145)
--- NOTE | 2019-08-27 08:39 | PT.INNT ---
Date of service: 08/27/19 Time of Service: 08:39 PT Notes Visit Reasons: SIRS W/DIABETIC LEG CELLULITIS,DEHYDRATION IN CKD3 Due to decline in status with patient transferred to ICU, patient is on hold and will require further MD orders for skilled PT.
--- NOTE | 2019-08-27 08:49 | PDOC.CMPRO ---
- If Service Date Differs Date of service: 08/27/19 Time of Service: 08:49 Care Management Progress Note S/O:Kiran has transferred to the ICU with respiratory distress. He was diuressed and placed on BIPAP, he continues on IV abx. CM contacted his daughter Kiko and provided update. Kiran's WBC has improved, anticipate he will need 4 more weeks of IV abx and he will transition to SB1 when medically stable. Kiran's daughter has the salvage determiner medicaid application and will complete. [facility] related to recent events and testing. A: Kiran is a 74 year old male admitted with SIRS, Diabetic leg cellulitis dehydration and CKD, positive blood cultures. P:CM will continue to follow patient and assess for discharge needs. Anticipate IV abx x 4 weeks, mid line was placed yesterday. Per MD, his abx will likely be Q8H, so he will likely need to remain at [facility] on [facility]. He will also receive PT while on SWB. CM will continue to support Kiran with discharge planning considerations.
[2019-08-27] MEDS: Furosemide 40 MG/4 ML VIAL 20 MG IVP ×2 (09:03→16:15)
[2019-08-27] MEDS: Lidocaine 5% Patch 1 PATCH TP (09:21)
[2019-08-27] MEDS: MAGNESIUM SULFATE 2 GM/50 ML BAG IVPB (09:32)
[2019-08-27] MEDS: Metoprolol 5 MG/5 ML VIAL 10 MG IVP ×3 (10:57→21:56)
--- NOTE | 2019-08-27 13:27 | W.NUTRFU ---
Date of service: 08/27/19 Time of Service: 13:27 Nutritional Follow up NOTE: Kiran transferred to ICU. Has refused or been unable to eat since transfer/decline. COLST indicates will not want artifical nutrition if unable to meet nutrient needs by mouth. Will be available and will continue to follow. Time Spent in Nutritional Counseling and Treatment: 0 time spent face to face
--- NOTE | 2019-08-27 13:43 | W.PM.PROGNOT ---
Date of Service Date of service: 08/27/19 Time of Service: 13:46 Assessment and Plan Assessment and plan (1) Confusion and disorientation: Status: Acute Assessment and plan: I think his delirium represents encephalopathy related to his severe infection. He has had some intermittent worsening of his chronic hypercapnia, but his ABG during the episode of confusion yesterday was improved with a fully compensated pH. He has been off his steroids and cyclobenzaprine for 2 days, so I do not think we can blame these medications for his delirium. And steroid or other medication induced delirium. His infection does seem to be responding to treatment. Working with respiratory therapy to try to better treat his obstructive sleep apnea and improve his hypercarbia, though the acute component to this does not seem severe enough to cause mental status changes. We will continue to monitor Per multiple sources including his daughter, his PCP at the [facility] in [facility]. and [facility] notes from his PCP, the patient has not had an issue w/ alcoholism or alcohol withdrawal. CIWA and benzodiazepines have been discontinued. (2) SIRS (systemic inflammatory response syndrome): Status: Acute Assessment and plan: Patient's hemodynamics have been stable with improvements in white blood cell count and CRP all consistent with improving infection. However, clinical picture is a bit confusing with one culture growing GBS, another growing enterococcus, and the third organism on sputum. Fortunately, all are sensitive to ampicillin sulbactam, which she has been getting IV. It does appear that his knee fluid and possibly his lumbar spine are both infected. Given multiple foci of infection I am concerned about endocarditis. I do not think transthoracic echocardiogram is sensitive enough in this very large patient, and cardiology is currently very hesitant to do transesophageal studies due to see COVID. Patient will need 4 to [address], so at this point does not affect his treatment. (3) CHF exacerbation: Status: Acute Assessment and plan: Patient is responding to torsemide overnight. We will continue a slightly higher than his baseline dose today, instead of backing down again tomorrow. Given his precarious respiratory situation, continue ICU level of care. Qualifiers: Heart failure type: diastolic Qualified Code(s): I50.33 - Acute on chronic diastolic (congestive) heart failure (4) Community acquired pneumonia: Status: Acute Assessment and plan: Repeat chest x-ray August 24 showed no change. Sputum culture growing actinobacter, while blood cultures growing GBS and Enterobacter as above. sensitive to amp/sulbactam and he is clinically improving overall so we will continue IV Unasyn. Qualifiers: Laterality: unspecified laterality Qualified Code(s): J18.9 - Pneumonia, unspecified organism (5) COPD (chronic obstructive pulmonary disease) with emphysema: Status: Chronic Assessment and plan: cont. Acapella, Symbicort. Stop nebs due to concern around the coronavirus. I did initiate long-acting muscarinic agonist. Qualifiers: Emphysema type: other Qualified Code(s): J43.8 - Other emphysema (6) Back pain: Status: Acute Assessment and plan: recent CT of LS spine just showed DJD of LS spine but no spinal stenosis or abscess. MRI of his LS spine did show inflammation at L4-5 concerning for infection or abscess. MRI with contrast was done which was concerning for discitis. He is on IV antibiotics as noted above. Does not look like it is a surgical case at this point so continue current therapy. Qualifiers: Back pain location: low back pain Chronicity: acute Back pain laterality: unspecified Sciatica presence: without sciatica Qualified Code(s): M54.5 - Low back pain (7) Type 2 diabetes mellitus: Status: Chronic Assessment and plan: NPH discontinued and sliding scale now at insulin sensitive levels. Steroids were also stopped. Blood sugars adequately controlled this morning. Continue to monitor and titrate as needed. Qualifiers: Diabetes mellitus terminal make up operator insulin use: without half-way use Diabetes mellitus complication status: with kidney complications Diabetes mellitus complication detail: with chronic kidney disease Chronic kidney disease stage: stage 3 (moderate) Qualified Code(s): E11.22 - Type 2 diabetes mellitus with diabetic chronic kidney disease; N18.3 - Chronic kidney disease, stage 3 (moderate) (8) Acute on chronic renal failure: Status: Acute Assessment and plan: his KHALIF has resolved. Avoid use of NSAID in treating his knee or back pain Qualifiers: Acute renal failure type: unspecified Chronic kidney disease stage: stage 3 (moderate) Qualified Code(s): N17.9 - Acute kidney failure, unspecified; N18.3 - Chronic kidney disease, stage 3 (moderate) (9) Knee pain, left: Status: Acute Assessment and plan: Dr. Brothers aspirated the knee and the white count does appear consistent with septic joint. Unsure if primary or secondary infection. Cultures pending. Continue Unasyn. Will discuss plan with Dr. Brothers after the cultures are back. Qualifiers: Chronicity: acute Qualified Code(s): M25.562 - Pain in left knee (10) Hypomagnesemia: Status: Acute Assessment and plan: Additional magnesium given today. (11) DVT prophylaxis: Status: Acute Assessment and plan: We will resume heparin as he is high risk. Subjective Subjective Patient reports: denies still having pain, diarrhea, vomiting and fever Interval history since last seen: 24-hour: MRI of the lumbar spine concerning for possible infection, repeat with contrast also concerning for possible discitis Patient seen by Dr. Brothers and knee aspirated patient with agitation and hallucinations, given one-time dose of quetiapine 25 mg Patient managed throughout the day by respiratory therapy, on BiPAP Respiratory status decompensated and evening, transferred to the ICU, evaluation consistent with CHF, furosemide initiated Metoprolol succinate 100 changed to IV metoprolol 10 mg every 6 hours Per nursing, patient has stabilized throughout the day. Responded well to IV metoprolol without bradycardia or hypotension. Good urine output on furosemide. More responsive this afternoon with improving mental status. Patient unable to give additional history other than nod yes or no when I evaluated him this morning. Exam Narrative Exam Narrative: Obese male lying in bed with full facemask. He has a alysa complexion. He does awaken and cooperate with exam, including nodding to questions. Lungs diffusely diminished, I do not appreciate rales or wheezes Heart is regular rate and rhythm, no murmurs. Abdomen is obese soft and nontender. Lower extremities with 2+ edema, more on left. Left knee is tender and appears to be more edematous than the right knee and feels warmer to the touch. Dark red discoloration and thickening of the skin bilaterally from the ankles up the pulido, but color deeper on the left. No open wounds. Margins of redness poorly defined. No redness or swelling evident over lower back. Objective Objective Clinical Data: Abnormal lab results 08/26/19 08/26/19 08/26/19 Range/Units 12:25 15:30 20:10 WBC (4.4-10.8) k/cumm RBC (4.50-6.00) m/cumm Hgb (13.5-17.5) g/dL Hct (40.0-50.0) % MCV (80-95) fL MCHC (32.0-36.0) g/dL RDW (11.8-14.1) % Absolute Neutrophils (1.2-6.7) k/cumm Absolute Lymphocytes (1.2-3.4) k/cumm Absolute Monocytes (0.11-0.7) k/cumm ABG pH 7.29 L (7.35-7.45) ABG pCO2 62 H* 80 H* (34-47) mmHg ABG pO2 54 L 64 L (83-108) mmHg ABG HCO3 38 H 38 H (22-28) mmol/L ABG Total CO2 36 H 37 H (22-29) mmol/L ABG O2 Saturation 89 L 91 L (94-98) % ABG Base Excess 13.1 H 11.6 H (-3-3) mmol/L Carbon Dioxide (21.0-32.0) mmol/L Anion Gap (3-11) mmol/L BUN (7-18) mg/dL Magnesium (1.8-2.4) mg/dL Fluid WBC 94882 H (0-0) /MM3 Fluid Mononuclear Cell 7 H (0-0) % Fl Polymorphonucl Cell 93 H (0-0) % 08/27/19 08/27/19 08/27/19 Range/Units 05:25 05:25 05:25 WBC 11.61 H (4.4-10.8) k/cumm RBC 3.35 L (4.50-6.00) m/cumm Hgb 10.1 L (13.5-17.5) g/dL Hct 32.5 L (40.0-50.0) % MCV 97.0 H (80-95) fL MCHC 31.1 L (32.0-36.0) g/dL RDW 14.3 H (11.8-14.1) % Absolute Neutrophils 9.04 H (1.2-6.7) k/cumm Absolute Lymphocytes 1.03 L (1.2-3.4) k/cumm Absolute Monocytes 0.98 H (0.11-0.7) k/cumm ABG pH (7.35-7.45) ABG pCO2 (34-47) mmHg ABG pO2 (83-108) mmHg ABG HCO3 (22-28) mmol/L ABG Total CO2 (22-29) mmol/L ABG O2 Saturation (94-98) % ABG Base Excess (-3-3) mmol/L Carbon Dioxide 39.3 H (21.0-32.0) mmol/L Anion Gap -1.3 L (3-11) mmol/L BUN 25 H (7-18) mg/dL Magnesium 1.6 L (1.8-2.4) mg/dL Fluid WBC (0-0) /MM3 Fluid Mononuclear Cell (0-0) % Fl Polymorphonucl Cell (0-0) % Vital Signs Temperature 36.8 C 08/27/19 09:00 Temperature Source Temporal Artery Scan 08/27/19 09:00 Pulse 89 08/27/19 10:57 Pulse Rhythm Regular 08/26/19 16:30 Pulse 81 08/27/19 09:13 Respiratory Rate 23 08/27/19 09:13 Respiratory Effort 08/27/19 09:00 Respiratory Depth Shallow 08/27/19 09:00 Respiratory Pattern Tachypnea 08/27/19 09:00 Blood Pressure 171/67 H 08/27/19 10:57 Blood Pressure Mean 88 08/27/19 09:13 Blood Pressure Position Supine 08/27/19 09:00 Pulse Oximetry 95 08/27/19 09:13 Oxygen Delivery Method Bi-pap 08/27/19 09:00 Oxygen Flow Rate 3 08/26/19 18:30 Fraction of Inspired Oxygen (FIO2) 35 08/27/19 09:00 Pain Level 0 08/27/19 04:36 Comment 08/26/19 10:30 Intake & Output 08/26/19 08/27/19 08/27/19 23:59 11:59 23:59 Intake Total 150.0 / 370.0 220 / 220 Output Total 350 / 1040 2850 / 2850 Balance -200.0 / -670.0 -2630 / -2630 Weight 147.4 kg 150.9 kg Intake: IV 150.0 / 250.0 220 / 220 Output: Urine 350 / 1040 2850 / 2850 Other: Urine Color Yellow Pale Yellow Urine Appearance Clear Comment 11,115,[address] and patent. Response to 20mg of lasix Voiding Methods Urinal Laboratory Results WBC 11.61 k/cumm (4.4-10.8) H 08/27/19 05:25 RBC 3.35 m/cumm (4.50-6.00) L 08/27/19 05:25 Hgb 10.1 g/dL (13.5-17.5) L 08/27/19 05:25 Hct 32.5 % (40.0-50.0) L 08/27/19 05:25 MCV 97.0 fL (80-95) H 08/27/19 05:25 MCH 30.1 pg (27.0-33.0) 08/27/19 05:25 MCHC 31.1 g/dL (32.0-36.0) L 08/27/19 05:25 RDW 14.3 % (11.8-14.1) H 08/27/19 05:25 Plt Count 258 x1000/uL (130-400) 08/27/19 05:25 MPV 10.2 fL (8.0-11.0) 08/27/19 05:25 Immature Gran % 1.5 % 08/27/19 05:25 Neutrophils % 77.9 08/27/19 05:25 Band Neutrophils % 0.0 % 08/19/19 19:56 Lymphocytes % 8.9 08/27/19 05:25 Atypical Lymphs % 1 08/19/19 19:56 Monocytes % 8.4 08/27/19 05:25 Eosinophils % 3.2 08/27/19 05:25 Basophils % 0.1 08/27/19 05:25 Absolute Neutrophils 9.04 k/cumm (1.2-6.7) H 08/27/19 05:25 Absolute Lymphocytes 1.03 k/cumm (1.2-3.4) L 08/27/19 05:25 Absolute Monocytes 0.98 k/cumm (0.11-0.7) H 08/27/19 05:25 Absolute Eosinophils 0.37 k/cumm (0.0-0.7) 08/27/19 05:25 Absolute Basophils 0.01 k/cumm (0.0-0.2) 08/27/19 05:25 Differential Comment Manual differential 08/19/19 19:56 RBC Morphology Normal 08/19/19 19:56 Retic Count 1.1 % (0.5-2.4) 08/21/19 06:21 PT 10.7 sec (9.3-11.0) 08/19/19 19:56 INR 1.1 (0.9-1.1) 08/19/19 19:56 APTT 25.4 sec (21.0-31.4) 08/19/19 19:56 ABG Sample Site Left radial 08/26/19 20:10 ABG pH 7.29 (7.35-7.45) L 08/26/19 20:10 ABG pCO2 80 mmHg (34-47) H* 08/26/19 20:10 ABG pO2 64 mmHg (83-108) L 08/26/19 20:10 ABG HCO3 38 mmol/L (22-28) H 08/26/19 20:10 ABG Total CO2 37 mmol/L (22-29) H 08/26/19 20:10 ABG O2 Saturation 91 % (94-98) L 08/26/19 20:10 ABG Base Excess 11.6 mmol/L (-3-3) H 08/26/19 20:10 Oxygen Liter Flow Bipap 18/8 L 08/26/19 20:10 FiO2 35% % 08/26/19 20:10 Sodium 143 mmol/L (136-145) 08/27/19 05:25 Potassium 5.0 mmol/L (3.5-5.1) 08/27/19 05:25 Chloride 105 mmol/L (98-107) 08/27/19 05:25 Carbon Dioxide 39.3 mmol/L (21.0-32.0) H 08/27/19 05:25 Anion Gap -1.3 mmol/L (3-11) L 08/27/19 05:25 BUN 25 mg/dL (7-18) H 08/27/19 05:25 Creatinine 1.08 mg/dL (0.70-1.30) 08/27/19 05:25 Estimated GFR/1.73 m2 >= 60.00 (mL/min/1.73m2) 08/27/19 05:25 Glucose 99 mg/dL (74-106) 08/27/19 05:25 Lactate 1.2 mmol/L (0.6-1.4) 08/21/19 06:21 Calcium 9.9 mg/dL (8.5-10.1) 08/27/19 05:25 Magnesium 1.6 mg/dL (1.8-2.4) L 08/27/19 05:25 Iron 83 ug/dL (65-175) 08/21/19 06:21 TIBC 164 ug/dL (250-450) L 08/21/19 06:21 Transferrin % Sat 51 % (20-55) 08/21/19 06:21 Ferritin 547 ng/mL (26-388) H 08/21/19 06:21 Total Bilirubin 0.5 mg/dL (0.2-1.0) 08/26/19 06:58 Conjugated Bilirubin 0.12 mg/dL (0.00-0.20) 08/26/19 06:58 AST 25 U/L (15-37) 08/26/19 06:58 ALT 46 U/L (16-63) 08/26/19 06:58 Alkaline Phosphatase 74 U/L (46-116) 08/26/19 06:58 Lactate Dehydrogenase 173 U/L (85-227) 08/21/19 06:21 Troponin I 0.05 ng/Ml (<0.06) 08/20/19 06:12 C-Reactive Protein 1.16 mg/dL (0.0-0.3) H 08/25/19 06:50 NT-Pro-B Natriuret Pep 193 pg/mL (<300) 08/19/19 19:56 Total Protein 6.0 g/dL (6.4-8.2) L 08/26/19 06:58 Albumin 2.2 g/dL (3.4-5.0) L 08/26/19 06:58 Lipase 151 U/L (73-393) 08/19/19 19:56 TSH 0.35 uIU/mL (0.36-3.74) L 08/19/19 19:55 Free T4 1.78 ng/dL (0.76-1.46) H 08/19/19 19:55 Urine Color Yellow (Yellow) 08/19/19 20:20 Urine Clarity Clear (Clear) 08/19/19 20:20 Urine pH 5.5 (5-8) 08/19/19 20:20 Ur Specific [employer] 1.010 (1.005-1.025) 08/19/19 20:20 Urine Protein Negative mg/dL (Negative) 08/19/19 20:20 Urine Ketones Negative mg/dL (Negative) 08/19/19 20:20 Urine Blood Trace-intact (Negative) H 08/19/19 20:20 Urine Nitrite Negative (Negative) 08/19/19 20:20 Urine Bilirubin Negative (Negative) 08/19/19 20:20 Urine Urobilinogen 0.2 EU/dL (Up TO 0.2) 08/19/19 20:20 Ur Leukocyte Esterase Negative (Negative) 08/19/19 20:20 Urine RBC 0-2 HPF (0-2) 08/19/19 20:20 Urine WBC Negative HPF (0-5) 08/19/19 20:20 Ur Epithelial Cells Negative HPF (Negative) 08/19/19 20:20 Urine Crystals Negative HPF (Negative) 08/19/19 20:20 Urine Bacteria Rare HPF (Negative) 08/19/19 20:20 Urine Casts Negative LPF (Negative) 08/19/19 20:20 Urine Mucus Negative (Negative) 08/19/19 20:20 Urine Other Negative (Negative) 08/19/19 20:20 Ur Culture Indicated? C&s done as ordered 08/19/19 20:20 Urine Glucose Negative mg/dL (Negative) 08/19/19 20:20 Fluid Source Cancelled 08/26/19 12:58 Fluid Color Cancelled 08/26/19 12:58 Fluid Clarity Cancelled 08/26/19 12:58 Fluid WBC Cancelled 08/26/19 12:58 Fluid Mononuclear Cell Cancelled 08/26/19 12:58 Fl Polymorphonucl Cell Cancelled 08/26/19 12:58 Fluid Other Cells Cancelled 08/26/19 12:58 Theophylline <1.2 ug/ml (10.0-20.0) L 08/19/19 23:00 Path Cons Comment Cancelled 08/26/19 12:58
[2019-08-27] MEDS: Normal Saline Flush 10 ML SYR IVP ×2 (15:31→16:23)
[2019-08-27] MEDS: Acetaminophen 325 MG TAB PO (17:16)
[2019-08-27] MEDS: guaiFENesin 600 MG TABCR PO (19:59)
[2019-08-27] MEDS: Atorvastatin 40 MG TAB PO (19:59)
[2019-08-27] MEDS: Patch Removal 1 EACH TP (21:50)
[2019-08-28] VITALS (39 sets, daily range): BP systolic 120–164; BP diastolic 50–76; PULSE 78–102; RESP 14–33; TEMP 36.4–37; O2SAT 87–98
[2019-08-28] MEDS: Metoprolol 5 MG/5 ML VIAL 10 MG IVP (03:48)
[2019-08-28] MEDS: AMPICILLIN/SULBACTAM 3 GM in Normal Saline 100 ML IVPB ×2 (06:07→14:33)
[2019-08-28 07:34] LABS: HCO3 41 mmol/L (22-28); pCO2 58 mmHg (34-47); pH 7.46 (7.35-7.45); pO2 53 mmHg (83-108); sO2 90 % (94-98); tCO2 38 mmol/L (22-29)
[2019-08-28 07:36] LABS: BE > 15.0 mmol/L (-3-3); FIO2 27 %; Site Left Radial
[2019-08-28] MEDS: Budesonide/Formoterol 160/4.5 6 GM 60 PUFF INH IH ×2 (08:26→19:29)
[2019-08-28] MEDS: Tiotropium Bromide-Respimat 10 PUFF INH 2 PUFF IH (08:26)
--- NOTE | 2019-08-28 08:27 | PT.INDS ---
Date of service: 08/28/19 Time of Service: 08:28 PT Notes Visit Reasons: SIRS W/DIABETIC LEG CELLULITIS,DEHYDRATION IN CKD3 Physical Therapy Inpatient Discharge Summary Date: 08/28/2019 Dates of Service: 08/21/2019 through 08/26/2019 This is a clinical summary of care provided on the duration of dates listed above. No charge was made in the completion of this documentation. Referring Doctor: Robin Mendoza MD PT Orders: PT CONSULT: Fall safety assessment Precautions: Fall. Standard. Activity as tolerated. Patient Profile/Admitting Diagnosis: Patient was transferred to the ICU on 08/26/2019 due to worsening of symptoms and exacerbation of CHF. Patient is a 75-year-old male who presented to the ED on 08/19/2019 with chief complaint of weakness, difficulty with ambulation, fall in the morning (of 08/19/2019) as well as an episode of diarrhea at home prior to admission, and some confusion. Patient is diagnosed with SIRS attributable to cellulitis to bilateral lower extremities as well as dehydration, cellulitis of bilateral lower extremities, COPD exacerbation, stage III chronic kidney disease, and type 2 diabetes mellitus. PMHX: Medical History (Updated 08/20/19 @ 06:09 by Bryson Payan) Chronic renal disease, stage 3, moderately decreased glomerular filtration rate (GFR) between 30-59 mL/min/1.73 square meter (Chronic) COPD (chronic obstructive pulmonary disease) with emphysema (Chronic) COPD exacerbation (Chronic) Hyperkalemia, diminished renal excretion (Acute) Morbid obesity (Acute) Type 2 diabetes mellitus (Chronic) Social History/Home Situation: Patient lives alone in a private home with a ramp to enter. He has a home health nurse who comes in once a week and a home health aide who comes in 2 hours every Sunday to help with grocery shopping, dishwashing, and house chores. Patient's main mode of mobility was through the use of the wheelchair indoors and outdoors. He was independent with all transfers using his front wheeled walker. He managed all bathing activities using a shower chair. He was independent with all self-care and dressing tasks prior to admission. He made his own meals Equipment Owned/DME: Front wheeled walker, wheelchair, recliner, shower chair, compression stockings, ramp Subjective: NT. See most recent PT notes. Objective: General Observation: NT. See most recent PT notes. Mental Status: NT. See most recent PT notes. Pain: NT. See most recent PT notes. ROM: Right Upper Extremity: Shoulder Flexion 0 to 70 degrees. Shoulder abduction 0 to 60 degrees. Elbow flexion WFL. Wrist flexion WFL. Opening and closing of hand WFL. Left Upper Extremity: Shoulder Flexion WFL. Shoulder abduction WFL. Elbow flexion WFL. Wrist flexion WFL. Opening and closing of hand WFL. Right Lower Extremity: Hip flexion allows up to 15 degrees beyond 90 while seated on chair. Hip abduction WFL. Knee flexion WFL. Ankle dorsiflexion WFL. Ankle plantarflexion WFL. Left Lower Extremity: Hip flexion llows up to 15 degrees beyond 90 while seated on chair. Hip abduction WFL. Knee flexion WFL. Ankle dorsiflexion WFL. Ankle plantarflexion WFL. Strength: Right Upper Extremity: Shoulder flexors 3-/5. Shoulder abductors 4/5. Elbow flexors 4/5. Elbow extensors 4/5. 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 Left Upper Extremity: Shoulder flexors 4/5. Shoulder abductors 4/5. Elbow flexors 4/5. Elbow extensors 4/5. 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 Right Lower Extremity: Hip flexors 3-/5. Hip abductors 4/5. Knee flexors 4/5. Knee extensors 4/5. Ankle dorsiflexors 4/5. Ankle plantarflexors 4/5. Left Lower Extremity: Hip flexors 3-/5. Hip abductors 4/5. Knee flexors 4/5. Knee extensors 4/5. Ankle dorsiflexors 4/5. Ankle plantarflexors 4/5. Sensation: Intact as to pain and pressure on bilateral lower extremities. Bed Mobility/Transfers: Rolling max assistance of 3 Supine to sit moderate assistance x2 Sit to supine mod assistance x2 Sit to stand mod assistance x2 Stand to sit mod assistance x2 Bed to chair mod assistance x2 Chair to bed mod assistance x2 Gait: Unable to tolerate as of 08/26/2019. Per PT notes, patient was able to do static standing at bedside only due to worsening of symptoms. Balance: Static Sitting: Fair Dynamic Sitting: Fair Static Standing: Poor Dynamic Standing: Unable to perform Assessment: Patient was transferred to the ICU on 08/26/2019 due to worsening of symptoms and exacerbation of CHF. This episode of care was limited by complaints of back pain, bilateral knee pain with left more affected than the right, increasing confusion, and lack of motivation. Functional mobility decline, decreased activity tolerance, difficulty with walking, unsteadiness on feet, increased fall risk, impaired mobility ADL performance, pain on left knee, and generalized weakness. Patient demonstrates a good prognosis for being able to achieve short distance ambulation of up to 15 feet using a front wheeled walker. Patient is a 75-year-old male who presented to the ED on 08/19/2019 with chief complaint of weakness, difficulty with ambulation, fall in the morning (of 08/19/2019) as well as an episode of diarrhea at home prior to admission, and some confusion. Patient is diagnosed with SIRS attributable to cellulitis to bilateral lower extremities as well as dehydration, cellulitis of bilateral lower extremities, COPD exacerbation, stage III chronic kidney disease, and type 2 diabetes mellitus. Patient continues to present with clinical signs and symptoms consistent with current/admitting diagnoses that have resulted to mobility limitations, gait instability, generalized weakness, and impairment of motor control as demonstrated by the following impairment level findings: 1. Decreased strength to B LE and right UE major muscle groups 2. Impaired sitting/standing balance 3. Impaired activity tolerance 4. Limitation of joint range of motion in right shoulder Impairments continue to contribute to the following functional limitations: 1. Dependent bed mobility skills 2. Increased dependence with transfers 3. Inability to safely ambulate without assistive device and physical assistance 4. Increase completion time for mobility ADL performance 5. Increased fall risk 6. Inability to negotiate steps alone safely Goals: Goals X1 week 1. Supine-Sit independent NOT MET 2. Sit-Supine independent NOT MET 3. Sit-Stand independent NOT MET 4. Stand-Sit independent NOT MET 5. Bed-Chair independent NOT MET 6. Chair-Bed independent NOT MET 7. Independent gait on level surface with use of least restrictive device for at least 15 feet without report of pain nor dyspnea NOT MET 8. Independent with home exercise program NOT MET 9. Good static and dynamic standing balance/tolerance NOT MET DISCHARGE RECOMMENDATIONS: Will re-evaluate patient when another referral from MD is received. TREATMENT CODE/TIME: NC. Thank you very much for this referral. Janine Calixto PT, DPT, CLT [facility] [place], [place]
[2019-08-28 08:29] LABS: Abs Immature Grans 0.16 k/cumm (0.0-0.09); Absolute Eosinophil Count 0.36 k/cumm (0.0-0.7); Absolute Lymphocyte Count 1.05 k/cumm (1.2-3.4); Absolute Monocyte Count 1.07 k/cumm (0.11-0.7); Eosinophils % 3.3; HGB 10.1 g/dL (13.5-17.5); Immature Grans % 1.5 %; Lymphocytes % 9.5; Mean Corp. HGB Concentration 31.6 g/dL (32.0-36.0); Mean Corpuscular Hemoglobin 30.1 pg (27.0-33.0); Mean Corpuscular Volume 95.5 fL (80-95); Mean Platelet Volume 9.7 fL (8.0-11.0); Monocytes % 9.7; Platelet Count 223 x1000/uL (130-400); RBC 3.35 m/cumm (4.50-6.00); RBC Distribution Width 14.2 % (11.8-14.1); White Blood Cell Count 11.03 k/cumm (4.4-10.8)
[2019-08-28 08:38] LABS: Absolute Neutrophil Count 8.38 k/cumm (1.2-6.7)
[2019-08-28 08:42] LABS: ALT 39 U/L (16-63); AST 20 U/L (15-37); Alkaline Phosphatase 72 U/L (46-116); Anion Gap 2.2 mmol/L (3-11); BUN 21 mg/dL (7-18); Bilirubin, Total 0.7 mg/dL (0.2-1.0); CO2 38.8 mmol/L (21.0-32.0); CREATININE 1.01 mg/dL (0.70-1.30); Calcium 9.6 mg/dL (8.5-10.1); Chloride 98 mmol/L (98-107); Glucose 92 mg/dL (74-106); Magnesium 1.5 mg/dL (1.8-2.4); Potassium 4.6 mmol/L (3.5-5.1); Sodium 139 mmol/L (136-145); Total Protein 5.9 g/dL (6.4-8.2)
[2019-08-28] MEDS: Furosemide 40 MG/4 ML VIAL 20 MG IVP ×2 (08:58→16:48)
[2019-08-28] MEDS: Acetaminophen 325 MG TAB PO (08:59)
[2019-08-28] MEDS: guaiFENesin 600 MG TABCR PO ×2 (08:59→19:28)
[2019-08-28] MEDS: Thiamine 100 MG TAB PO (09:00)
[2019-08-28] MEDS: Normal Saline Flush 10 ML SYR IVP (09:01)
[2019-08-28] MEDS: Folic Acid 1 MG TAB PO (09:01)
[2019-08-28] MEDS: Multivitamin TAB 1 TAB PO (09:01)
[2019-08-28] MEDS: Lidocaine 5% Patch 1 PATCH TP (09:04)
[2019-08-28] MEDS: Heparin 5,000 UNITS/ML VIAL 5000 UNITS SC ×3 (09:07→23:44)
--- NOTE | 2019-08-28 09:36 | PDOC.CMPRO ---
- If Service Date Differs Date of service: 08/28/19 Time of Service: 09:36 Care Management Progress Note S/O:Kiran was sitting up in bed when CM met with him. He was alert and oriented and, when asked, stated that his breathing was OK. He did complain of back pain and was agreeable to receiving medication for it, if ordered. Kiran also asked to be able to call his daughter. There was no phone in his room but his nurse borrowed one for him to be able to make the call. He shared that he wanted his daughter to pay his bills for him. Kiran's WBC continues to drop and he remains afebrile. The culture from his knee did not grow any bacteria and new blood cultures were drawn today. A midline was placed today for continued, residential IV access. A: Kiran is a 74 year old male admitted with SIRS, Diabetic leg cellulitis dehydration and CKD, positive blood cultures. 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 Dr. Lee plans to consult ID for recommendations regarding his multiple infections and their treatment. Kiran will likely need to go into swing bed status to complete the antibiotic therapy. CM will continue to follow and support patient and family and assess for discharge needs.
[2019-08-28] MEDS: Metoprolol CR 100 MG TABCR PO (09:59)
--- NOTE | 2019-08-28 10:29 | PGE_ITS ---
Date of Service Date of service: 08/28/19 Time of Service: 10:29 Assessment and Plan Assessment and plan (1) Confusion and disorientation: Status: Acute Assessment and plan: I think his delirium represents encephalopathy related to his severe infection with bacteremia. He has had some intermittent worsening of his chronic hypercapnia, but hypercapnia on ABG has not correlated with his delirium. He has been off his steroids and cyclobenzaprine for 3 days, so I do not think we can blame these medications for his delirium. His infection does seem to be responding to treatment. We will continue to monitor Per multiple sources including his daughter, his PCP at [facility]. and [facility] notes from his PCP, the patient has not had an issue w/ alcoholism or alcohol withdrawal. CIWA and benzodiazepines have been discontinued. (2) SIRS (systemic inflammatory response syndrome): Status: Acute Assessment and plan: Patient's hemodynamics have been stable with improvements in white blood cell count and CRP all consistent with improving infection. However, clinical picture is a bit confusing with one blood culture growing GBS, another growing enterococcus, and the third organism on sputum. Fortunately, all are sensitive to ampicillin/sulbactam, which she has been getting IV. It does appear that his knee fluid and possibly his lumbar spine are both infected. Given multiple foci of infection I am concerned about endocarditis. Echocardiogram was done August 19, but I do not think transthoracic echocardiogram is sensitive enough to rule out endocarditis in this very large patient, and cardiology is currently very hesitant to do transesophageal studies due to COVID. Patient will need 4 to [address], so at this point does not affect his treatment. Order for new midline today. Repeat blood cultures to see if we can get a negative in case he needs a PICC line. Plan to consult ID to make sure we are not missing something. (3) CHF exacerbation: Status: Acute Assessment and plan: Patient is responding to furosemide. We will continue a slightly higher than his baseline dose today and consider backing down tomorrow. Given his precarious respiratory situation, continue ICU level of care. Qualifiers: Heart failure type: diastolic Qualified Code(s): I50.33 - Acute on chronic diastolic (congestive) heart failure (4) Community acquired pneumonia: Status: Acute Assessment and plan: Repeat chest x-ray August 24 showed no change. Sputum culture growing actinobacter, while blood cultures growing GBS and Enterobacter as above. sensitive to amp/sulbactam and he is clinically improving overall so we will continue IV Unasyn. Qualifiers: Laterality: unspecified laterality Qualified Code(s): J18.9 - Pneumonia, unspecified organism (5) COPD (chronic obstructive pulmonary disease) with emphysema: Status: Chronic Assessment and plan: cont. Acapella, Symbicort. Stopped nebs due to concern around the coronavirus. I did initiate long-acting muscarinic agonist. Qualifiers: Emphysema type: other Qualified Code(s): J43.8 - Other emphysema (6) Back pain: Status: Acute Assessment and plan: recent CT of LS spine just showed DJD of LS spine but no spinal stenosis or abscess. MRI of his LS spine did show inflammation at L4-5 concerning for infection or abscess. MRI with contrast was done which was concerning for discitis. He is on IV antibiotics as noted above. Does not look like it is a surgical case at this point so continue current therapy, check in with ID as above. Qualifiers: Back pain location: low back pain Chronicity: acute Back pain laterality: unspecified Sciatica presence: without sciatica Qualified Code(s): M54.5 - Low back pain (7) Type 2 diabetes mellitus: Status: Chronic Assessment and plan: NPH discontinued and sliding scale now at insulin sensitive levels. Steroids were also stopped. Blood sugars adequately controlled this morning. Continue to monitor and titrate as needed. 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 Avoid use of NSAID in treating his knee or back pain. Resume lisinopril as blood pressure slightly high. Qualifiers: Acute renal failure type: unspecified Chronic kidney disease stage: stage 3 (moderate) Qualified Code(s): N17.9 - Acute kidney failure, unspecified; N18.3 - Chronic kidney disease, stage 3 (moderate) (9) Knee pain, left: Status: Acute Assessment and plan: Dr. Brothers aspirated the knee and the white count does appear consistent with septic joint. Unsure if primary or secondary infection. Cultures pending. Continue Unasyn. Will discuss plan with Dr. Brothers after the cultures are back. Qualifiers: Chronicity: acute Qualified Code(s): M25.562 - Pain in left knee (10) Hypomagnesemia: Status: Acute Assessment and plan: Additional magnesium given today. (11) DVT prophylaxis: Status: Acute Assessment and plan: Back on heparin as he is high risk. Subjective Subjective Patient reports: denies diarrhea and vomiting Interval history since last seen: 24 hr: Patient on BiPAP overnight growing, Patient feeling better today. He denies any hallucinations or confusion today he states his vision is not great because of his cataract. He denies fevers or chills. Still coughing. He describes pain in his right shoulder and lower back and posterior hip. His knee is not bothering him. Exam Narrative Exam Narrative: Obese male sitting up in chair with nasal cannula. He is alert and oriented to place and self. Stated month was September. Lungs exam with increased air movement, rhonchi with slight rales in bilateral lower lung heck posteriorly. Heart is regular rate and rhythm, no murmurs. Abdomen is obese soft and nontender. Lower extremities with 1+ edema. His left knee no longer feels hot, moves without pain.. Dark red discoloration and thickening of the skin bilaterally from the ankles up the pulido, now more symmetric bilaterally. Similar thickening and scale without that discoloration on lower pannus. No open wounds. No redness or swelling evident over lower back, but he does have pain in lower back with shifting in the chair. Pain in right shoulder with any abduction. No pain with internal and external rotation of the hip with the knee flexed and sitting. Objective Objective Clinical Data: Abnormal lab results 08/28/19 08/28/19 08/28/19 Range/Units 07:27 07:40 07:40 WBC 11.03 H (4.4-10.8) k/cumm RBC 3.35 L (4.50-6.00) m/cumm Hgb 10.1 L (13.5-17.5) g/dL Hct 32.0 L (40.0-50.0) % MCV 95.5 H (80-95) fL MCHC 31.6 L (32.0-36.0) g/dL RDW 14.2 H (11.8-14.1) % Absolute Neutrophils 8.38 H (1.2-6.7) k/cumm Absolute Lymphocytes 1.05 L (1.2-3.4) k/cumm Absolute Monocytes 1.07 H (0.11-0.7) k/cumm ABG pH 7.46 H (7.35-7.45) ABG pCO2 58 H (34-47) mmHg ABG pO2 53 L (83-108) mmHg ABG HCO3 41 H (22-28) mmol/L ABG Total CO2 38 H (22-29) mmol/L ABG O2 Saturation 90 L (94-98) % ABG Base Excess > 15.0 H (-3-3) mmol/L Carbon Dioxide 38.8 H (21.0-32.0) mmol/L Anion Gap 2.2 L (3-11) mmol/L BUN 21 H (7-18) mg/dL Magnesium 1.5 L (1.8-2.4) mg/dL Total Protein 5.9 L (6.4-8.2) g/dL Albumin 2.0 L (3.4-5.0) g/dL Vital Signs Temperature 36.5 C 08/28/19 08:56 Temperature Source Temporal Artery Scan 08/28/19 08:56 Pulse 100 H 08/28/19 10:00 Pulse Rhythm Regular 08/26/19 16:30 Pulse 102 H 08/28/19 10:00 Respiratory Rate 33 H 08/28/19 10:00 Respiratory Effort 08/28/19 08:56 Respiratory Depth Normal 08/28/19 08:56 Respiratory Pattern Normal 08/28/19 08:56 Blood Pressure 123/50 L 08/28/19 10:00 Blood Pressure Mean 66 08/28/19 10:00 Blood Pressure Position Supine 08/27/19 21:03 Pulse Oximetry 87 L 08/28/19 10:00 Oxygen Delivery Method Nasal Cannula 08/28/19 08:56 Oxygen Flow Rate 2 08/28/19 08:56 Fraction of Inspired Oxygen (FIO2) 27 08/28/19 08:45 Pain Level 0 08/28/19 01:00 Comment 08/26/19 10:30 Intake & Output 08/27/19 08/27/19 08/28/19 11:59 23:59 11:59 Intake Total 220 / 1320 1100 / 1320 550 / 550 Output Total 2850 / 4100 1250 / 4100 650 / 650 Balance -2630 / -2780 -150 / -2780 -100 / -100 Weight 150.9 kg 149.7 kg Intake: IV 220 / 420 200 / 420 100 / 100 Oral 900 / 900 450 / 450 Output: Urine 2850 / 4100 1250 / 4100 650 / 650 Other: Urine Color Pale Yellow Light Ester Yellow Urine Appearance Clear Clear Clear Comment jones in place and patent. Response to 20mg of lasix Jones draining clear yellow urine. Jones is patent and draining Laboratory Results WBC 11.03 k/cumm (4.4-10.8) H 08/28/19 07:40 RBC 3.35 m/cumm (4.50-6.00) L 08/28/19 07:40 Hgb 10.1 g/dL (13.5-17.5) L 08/28/19 07:40 Hct 32.0 % (40.0-50.0) L 08/28/19 07:40 MCV 95.5 fL (80-95) H 08/28/19 07:40 MCH 30.1 pg (27.0-33.0) 08/28/19 07:40 MCHC 31.6 g/dL (32.0-36.0) L 08/28/19 07:40 RDW 14.2 % (11.8-14.1) H 08/28/19 07:40 Plt Count 223 x1000/uL (130-400) 08/28/19 07:40 MPV 9.7 fL (8.0-11.0) 08/28/19 07:40 Immature Gran % 1.5 % 08/28/19 07:40 Neutrophils % 76.0 08/28/19 07:40 Band Neutrophils % 0.0 % 08/19/19 19:56 Lymphocytes % 9.5 08/28/19 07:40 Atypical Lymphs % 1 08/19/19 19:56 Monocytes % 9.7 08/28/19 07:40 Eosinophils % 3.3 08/28/19 07:40 Basophils % 0.0 08/28/19 07:40 Absolute Neutrophils 8.38 k/cumm (1.2-6.7) H 08/28/19 07:40 Absolute Lymphocytes 1.05 k/cumm (1.2-3.4) L 08/28/19 07:40 Absolute Monocytes 1.07 k/cumm (0.11-0.7) H 08/28/19 07:40 Absolute Eosinophils 0.36 k/cumm (0.0-0.7) 08/28/19 07:40 Absolute Basophils 0.00 k/cumm (0.0-0.2) 08/28/19 07:40 Differential Comment Manual differential 08/19/19 19:56 RBC Morphology Normal 08/19/19 19:56 Retic Count 1.1 % (0.5-2.4) 08/21/19 06:21 PT 10.7 sec (9.3-11.0) 08/19/19 19:56 INR 1.1 (0.9-1.1) 08/19/19 19:56 APTT 25.4 sec (21.0-31.4) 08/19/19 19:56 ABG Sample Site Left radial 08/28/19 07:27 ABG pH 7.46 (7.35-7.45) H 08/28/19 07:27 ABG pCO2 58 mmHg (34-47) H 08/28/19 07:27 ABG pO2 53 mmHg (83-108) L 08/28/19 07:27 ABG HCO3 41 mmol/L (22-28) H 08/28/19 07:27 ABG Total CO2 38 mmol/L (22-29) H 08/28/19 07:27 ABG O2 Saturation 90 % (94-98) L 08/28/19 07:27 ABG Base Excess > 15.0 mmol/L (-3-3) H 08/28/19 07:27 Oxygen Liter Flow Bipap 18/8 L 08/26/19 20:10 FiO2 27 % 08/28/19 07:27 Sodium 139 mmol/L (136-145) 08/28/19 07:40 Potassium 4.6 mmol/L (3.5-5.1) 08/28/19 07:40 Chloride 98 mmol/L (98-107) 08/28/19 07:40 Carbon Dioxide 38.8 mmol/L (21.0-32.0) H 08/28/19 07:40 Anion Gap 2.2 mmol/L (3-11) L 08/28/19 07:40 BUN 21 mg/dL (7-18) H 08/28/19 07:40 Creatinine 1.01 mg/dL (0.70-1.30) 08/28/19 07:40 Estimated GFR/1.73 m2 >= 60.00 (mL/min/1.73m2) 08/28/19 07:40 Glucose 92 mg/dL (74-106) 08/28/19 07:40 Lactate 1.2 mmol/L (0.6-1.4) 08/21/19 06:21 Calcium 9.6 mg/dL (8.5-10.1) 08/28/19 07:40 Magnesium 1.5 mg/dL (1.8-2.4) L 08/28/19 07:40 Iron 83 ug/dL (65-175) 08/21/19 06:21 TIBC 164 ug/dL (250-450) L 08/21/19 06:21 Transferrin % Sat 51 % (20-55) 08/21/19 06:21 Ferritin 547 ng/mL (26-388) H 08/21/19 06:21 Total Bilirubin 0.7 mg/dL (0.2-1.0) 08/28/19 07:40 Conjugated Bilirubin 0.12 mg/dL (0.00-0.20) 08/26/19 06:58 AST 20 U/L (15-37) 08/28/19 07:40 ALT 39 U/L (16-63) 08/28/19 07:40 Alkaline Phosphatase 72 U/L (46-116) 08/28/19 07:40 Lactate Dehydrogenase 173 U/L (85-227) 08/21/19 06:21 Troponin I 0.05 ng/Ml (<0.06) 08/20/19 06:12 C-Reactive Protein 1.16 mg/dL (0.0-0.3) H 08/25/19 06:50 NT-Pro-B Natriuret Pep 193 pg/mL (<300) 08/19/19 19:56 Total Protein 5.9 g/dL (6.4-8.2) L 08/28/19 07:40 Albumin 2.0 g/dL (3.4-5.0) L 08/28/19 07:40 Lipase 151 U/L (73-393) 08/19/19 19:56 TSH 0.35 uIU/mL (0.36-3.74) L 08/19/19 19:55 Free T4 1.78 ng/dL (0.76-1.46) H 08/19/19 19:55 Urine Color Yellow (Yellow) 08/19/19 20:20 Urine Clarity Clear (Clear) 08/19/19 20:20 Urine pH 5.5 (5-8) 08/19/19 20:20 Ur Specific [place] 1.010 (1.005-1.025) 08/19/19 20:20 Urine Protein Negative mg/dL (Negative) 08/19/19 20:20 Urine Ketones Negative mg/dL (Negative) 08/19/19 20:20 Urine Blood Trace-intact (Negative) H 08/19/19 20:20 Urine Nitrite Negative (Negative) 08/19/19 20:20 Urine Bilirubin Negative (Negative) 08/19/19 20:20 Urine Urobilinogen 0.2 EU/dL (Up TO 0.2) 08/19/19 20:20 Ur Leukocyte Esterase Negative (Negative) 08/19/19 20:20 Urine RBC 0-2 HPF (0-2) 08/19/19 20:20 Urine WBC Negative HPF (0-5) 08/19/19 20:20 Ur Epithelial Cells Negative HPF (Negative) 08/19/19 20:20 Urine Crystals Negative HPF (Negative) 08/19/19 20:20 Urine Bacteria Rare HPF (Negative) 08/19/19 20:20 Urine Casts Negative LPF (Negative) 08/19/19 20:20 Urine Mucus Negative (Negative) 08/19/19 20:20 Urine Other Negative (Negative) 08/19/19 20:20 Ur Culture Indicated? C&s done as ordered 08/19/19 20:20 Urine Glucose Negative mg/dL (Negative) 08/19/19 20:20 Fluid Source Cancelled 08/26/19 12:58 Fluid Color Cancelled 08/26/19 12:58 Fluid Clarity Cancelled 08/26/19 12:58 Fluid WBC Cancelled 08/26/19 12:58 Fluid Mononuclear Cell Cancelled 08/26/19 12:58 Fl Polymorphonucl Cell Cancelled 08/26/19 12:58 Fluid Other Cells Cancelled 08/26/19 12:58 Theophylline <1.2 ug/ml (10.0-20.0) L 08/19/19 23:00 Path Cons Comment Cancelled 08/26/19 12:58
[2019-08-28] MEDS: MAGNESIUM SULFATE 4 GM/100 ML BAG IVPB (12:44)
[2019-08-28] MEDS: MORPHine 2 MG/ML SYR IVP ×2 (14:58→23:43)
[2019-08-28] MEDS: AMPICILLIN SODIUM 2 GM in Normal Saline 100 ML IVPB ×2 (18:47→22:46)
[2019-08-28] MEDS: Insulin Aspart 300 UNITS/3 ML PEN SC (18:58)
[2019-08-28] MEDS: Lisinopril 10 MG TAB PO (19:28)
[2019-08-28] MEDS: cefTRIAXone 2 GM/50 ML BAG IVPB (19:29)
[2019-08-28] MEDS: Atorvastatin 40 MG TAB PO (19:29)
[2019-08-28] MEDS: Normal Saline Flush 10 ML SYR 20 ML IVP (19:30)
[2019-08-28] MEDS: Patch Removal 1 EACH TP (23:50)
[2019-08-29] VITALS (21 sets, daily range): BP systolic 89–148; BP diastolic 45–90; PULSE 80–98; RESP 19–36; TEMP 36.6–37; O2SAT 83–96
[2019-08-29] MEDS: AMPICILLIN SODIUM 2 GM in Normal Saline 100 ML IVPB ×6 (01:47→22:31)
[2019-08-29 06:50] LABS: Anion Gap 2.6 mmol/L (3-11); BUN 22 mg/dL (7-18); CO2 38.4 mmol/L (21.0-32.0); CREATININE 1.01 mg/dL (0.70-1.30); Calcium 9.1 mg/dL (8.5-10.1); Chloride 98 mmol/L (98-107); Glucose 107 mg/dL (74-106); Magnesium 1.8 mg/dL (1.8-2.4); Potassium 4.3 mmol/L (3.5-5.1); Sodium 139 mmol/L (136-145)
[2019-08-29] MEDS: Budesonide/Formoterol 160/4.5 6 GM 60 PUFF INH IH ×2 (07:59→21:05)
[2019-08-29] MEDS: Tiotropium Bromide-Respimat 10 PUFF INH 2 PUFF IH (07:59)
[2019-08-29] MEDS: Normal Saline 500 ML 30 ML IV ×2 (08:30→21:06)
[2019-08-29] MEDS: cefTRIAXone 2 GM/50 ML BAG IVPB ×2 (08:30→21:05)
[2019-08-29] MEDS: Normal Saline Flush 10 ML SYR 20 ML IVP ×2 (08:31→21:05)
[2019-08-29] MEDS: Lidocaine 5% Patch 1 PATCH TP (08:32)
[2019-08-29] MEDS: Thiamine 100 MG TAB PO (08:33)
[2019-08-29] MEDS: guaiFENesin 600 MG TABCR PO ×2 (08:33→20:30)
[2019-08-29] MEDS: Folic Acid 1 MG TAB PO (08:33)
[2019-08-29] MEDS: Multivitamin TAB 1 TAB PO (08:33)
[2019-08-29] MEDS: Docusate Sodium 100 MG CAP PO (08:33)
[2019-08-29] MEDS: Heparin 5,000 UNITS/ML VIAL 5000 UNITS SC ×2 (08:34→16:47)
[2019-08-29] MEDS: Furosemide 40 MG/4 ML VIAL 20 MG IVP (08:35)
[2019-08-29] MEDS: Lisinopril 10 MG TAB PO ×2 (08:36→20:30)
[2019-08-29] MEDS: Metoprolol CR 100 MG TABCR PO (08:36)
--- NOTE | 2019-08-29 09:05 | CMPROGNOTE_ITS ---
- If Service Date Differs Date of service: 08/29/19 Time of Service: 09:05 Care Management Progress Note S/O:Kiran was sitting up in bed when CM met with him. He remains alert and oriented. Kiran states that he continues to have back and knee pain but that medication does help. He admitted to being bored in the ICU. He stated that there isn't anything to do. Kiran was offered puzzle books from the [employer]. Kiran has been changed to Med-surg status and will be moved out of the ICU later today. A: Kiran is a 74 year old male admitted with SIRS, Diabetic leg cellulitis dehydration and CKD, positive blood cultures. P: Kiran will require care home antibiotics to treat the bacteremia. Dr. Lee plans to consult ID for recommendations regarding his multiple infections and their treatment. Kiran will likely need to go into swing bed status to complete the antibiotic therapy. CM will continue to follow and support patient and family and assess for discharge needs.
--- NOTE | 2019-08-29 12:37 | PGE_ITS ---
Date of Service Date of service: 08/29/19 Time of Service: 12:37 Assessment and Plan Assessment and plan (1) Confusion and disorientation: Status: Acute Assessment and plan: This seems to be finally resolving. I do think this was encephalopathy related to his severe infection with bacteremia. Hypercapnia on ABG has not correlated with his delirium. Stopping steroids and c yclobenzaprine did not resolve his delirium. Per multiple sources, no concern for alcohol use disorder. His infection does seem to be responding to treatment. Continue to monitor mental status. (2) SIRS (systemic inflammatory response syndrome): Status: Acute Assessment and plan: Patient's hemodynamics have been stable with improvements in white blood cell count and CRP all consistent with improving infection on Unasyn. Cultures clarified, both 08/18 and 08/21 blood cultures growing enterococcus faecalis. At this point, we suspect osteomyelitis/discitis and lumbar spine and infected left knee prosthesis, and pneumonia in addition to documented bacteremia. Given multiple foci of infection I am concerned about endocarditis. Echocardiogram was done August 19, but I do not think transthoracic echocardiogram is sensitive enough to rule out endocarditis in this very large patient, and cardiology is currently very hesitant to do transesophageal studies due to COVID. I did get a chance to review the case with infectious disease consult at [facility]. Recommendation was high-dose ampicillin and high-dose ceftriaxone for full 6 weeks. Midline was replaced yesterday and repeat cultures drawn. This point, he will need to remain in patient to get appropriate therapy. I am not sure about the availability of home infusion for this regimen. (3) CHF exacerbation: Status: Acute Assessment and plan: Patient is responding to furosemide at 20 mg IV twice daily. He is on 20 mg p.o. daily as an outpatient. Back him down to 20 mg IV daily and monitor his I's and O's. With stabilization of CHF and infection and mental status, I think he can go back to MedSurg status today. Qualifiers: Heart failure type: diastolic Qualified Code(s): I50.33 - Acute on chronic diastolic (congestive) heart failure (4) Osteomyelitis of lumbar spine: Status: Acute Assessment and plan: recent CT of LS spine just showed DJD of LS spine but no spinal stenosis or abscess. MRI of his LS spine did show inflammation at L4-5 concerning for infection or abscess. MRI with contrast was done which was concerning for osteomyelitis and discitis, so this does appear to be acute. This does not appear to be a surgical case, but he will need a full 6 weeks of IV antibiotics as above (5) Septic arthritis of knee, left: Status: Acute Assessment and plan: Knee aspirated 08/26/[address] Brothers. White blood cell count consistent with septic arthritis, though the cultures not growing, this was done after the patient had been on IV antibiotics for several days. The patient is already had one episode of infected joint prosthesis, but unfortunately he will likely need this prosthesis again removed due to his bacteremia and evidence of joint infection. Will await orthopedic recommendations regarding the best setting and timing of this procedure. (6) Community acquired pneumonia: Status: Acute Assessment and plan: Repeat chest x-ray August 24 showed no change, at this point he is clinically improving. Sputum culture growing actinobacter, which can initially appear gram-positive per Dr. Love, which clarifies the initial discrepancy between the Gram stain and the culture. Current antibiotics as above should be adequate. Qualifiers: Laterality: unspecified laterality Qualified Code(s): J18.9 - Pneumonia, unspecified organism (7) COPD (chronic obstructive pulmonary disease) with emphysema: Status: Chronic Assessment and plan: Currently getting Acapella, Symbicort, and addition of tiotropium. My impression is that patient requires NIV via the trilogy due to his chronic respiratory failure secondary to COPD as reflected in the ABG results 09/01/2019. Bruises been using the Drager sahil and IV while being hospitalized with settings 8/18, PS of 8, backup rate of 6, and variable tidal volumes is imperative that he receive NIV via trilogy to treat COPD in his home upon discharge a as it has proved to be successful. Trilogy is medically necessary as it allows for variety of settings exclusive only to this device which will better meet his needs given his disease progression. Currently attritional BiPAP is no longer effective and obstructive sleep apnea is not an underlying cause contributing to his current complex medical condition, nor is it treating his COPD and the most effective manner. In addition the patient has had trouble tolerating the rigid setting of his traditional BiPAP, which do not allow for an adjustable tidal volume, thus creating flow limitations. Trilogy allows for 2 different NIV prescriptions: one to use during the day time or wakefulness (MPV) and one to use when sleeping (AVAPS-Ae). Both of these modes are found only with the trilogy NIV device. AVAPS-Ae will assist him in meeting his demands of a tidal volume and minute ventilation by allowing a longer expiratory time, reducing the effects of flow limitations and air trapping and decreasing his current work of breathing and CO2 retention. It will also increase his oxygenation and most importantly improve his current quality of life. Mouthpiece ventilation (MVV) will allow the patient to sip and puff breaths during the daytime. When he finds himself short of breath and needs extra support. It is medically necessary that he use the NIV via the trilogy up to 24 hours daily (MVP/AVAPS-Ae). Trilogy operates on the batteries we can use to therapy unerupted for medical appointments or even during power outages as a lapse in use may lead to life-threatening consequences. Failure to receive this device may also result in serious consequences and future readmissions. Qualifiers: Emphysema type: other Qualified Code(s): J43.8 - Other emphysema (8) Type 2 diabetes mellitus: Status: Chronic Assessment and plan: NPH discontinued and sliding scale now at insulin sensitive levels. Steroids were also stopped. Blood sugars adequately controlled this morning. Continue to monitor and titrate as needed. Qualifiers: Diabetes mellitus mcc insulin use: without mcc use Diabetes mellitus complication status: with kidney complications Diabetes mellitus complication detail: with chronic kidney disease Chronic kidney disease stage: stage 3 (moderate) Qualified Code(s): E11.22 - Type 2 diabetes mellitus with diabetic chronic kidney disease; N18.3 - Chronic kidney disease, stage 3 (moderate) (9) Acute on chronic renal failure: Status: Acute Assessment and plan: his KHALIF has resolved. Avoid use of NSAID in treating his knee or back pain. Resumed lisinopril 08/28/2019 as blood pressure slightly high, and potassium and creatinine have been stable. Qualifiers: Acute renal failure type: unspecified Chronic kidney disease stage: stage 3 (moderate) Qualified Code(s): N17.9 - Acute kidney failure, unspecified; N18.3 - Chronic kidney disease, stage 3 (moderate) (10) Hypomagnesemia: Status: Acute Assessment and plan: Improved after multiple doses of IV magnesium. (11) DVT prophylaxis: Status: Acute Assessment and plan: Back on heparin as he is high risk. Subjective Subjective Patient reports: feels better and tolerating a regular diet; denies diarrhea, nausea, vomiting and fever Interval history since last seen: 24-hour events: Initial blood culture from August 18 reread as enterococcus rather than repeat strep. Case reviewed with infectious disease at [facility], antibiotic changed to ampicillin without sulbactam along with high-dose ceftriaxone Kiran is feeling a little better. His breathing has improved. Still a mild cough but this is improved. He has not felt febrile. Per nursing he has been oriented and has not reported any visual hallucinations. His sleep is fitful, but this is chronic for him. He did use his home BiPAP overnight and is back on nasal cannula currently. Still having back and hip pain. Exam Narrative Exam Narrative: Obese male sitting up in bed with nasal cannula. He is alert and oriented x3. Speech is more clear today. Lungs exam with improved air movement, rhonchi in bilateral lower lung heck posteriorly, I do not hear rales today. Heart is regular rate and rhythm, no murmurs. Abdomen is obese soft and nontender. Lower extremities with 1+ edema. Dark red discoloration and thickening of the skin bilaterally from the ankles up the pulido, now more symmetric bilaterally. Similar thickening and scale without that discoloration on lower pannus. No open wounds. Objective Objective Clinical Data: Abnormal lab results 08/29/19 Range/Units 06:10 Carbon Dioxide 38.4 H (21.0-32.0) mmol/L Anion Gap 2.6 L (3-11) mmol/L BUN 22 H (7-18) mg/dL Glucose 107 H (74-106) mg/dL Vital Signs Temperature 36.8 C 08/29/19 08:45 Temperature Source Temporal Artery Scan 08/29/19 08:45 Pulse 89 08/29/19 10:00 Pulse Rhythm Regular 08/26/19 16:30 Pulse 91 H 08/29/19 10:00 Respiratory Rate 32 H 08/29/19 10:00 Respiratory Effort Short of Breath 08/29/19 08:45 Respiratory Depth Normal 08/29/19 08:45 Respiratory Pattern Normal 08/29/19 08:45 Blood Pressure 136/90 08/29/19 10:00 Blood Pressure Mean 103 08/29/19 10:00 Blood Pressure Position Sitting 08/29/19 08:45 Pulse Oximetry 91 L 08/29/19 10:00 Oxygen Delivery Method Nasal Cannula 08/29/19 08:45 Oxygen Flow Rate 3 08/29/19 08:45 Fraction of Inspired Oxygen (FIO2) 27 08/28/19 08:45 Pain Level 8 08/29/19 08:45 Comment 08/26/19 10:30 Intake & Output 08/28/19 08/29/19 08/29/19 23:59 11:59 23:59 Intake Total 1140 / 1690 350 / 350 Output Total 1950 / 2600 1300 / 1300 Balance -810 / -910 -950 / -950 Intake: IV 250 / 350 350 / 350 Oral 890 / 1340 Output: Urine 1949 / 2600 1300 / 1300 Other: Urine Color Yellow Yellow Urine Appearance Clear Clear Comment jones to gravity with concentrated yellow urine jones Laboratory Results WBC 11.03 k/cumm (4.4-10.8) H 08/28/19 07:40 RBC 3.35 m/cumm (4.50-6.00) L 08/28/19 07:40 Hgb 10.1 g/dL (13.5-17.5) L 08/28/19 07:40 Hct 32.0 % (40.0-50.0) L 08/28/19 07:40 MCV 95.5 fL (80-95) H 08/28/19 07:40 MCH 30.1 pg (27.0-33.0) 08/28/19 07:40 MCHC 31.6 g/dL (32.0-36.0) L 08/28/19 07:40 RDW 14.2 % (11.8-14.1) H 08/28/19 07:40 Plt Count 223 x1000/uL (130-400) 08/28/19 07:40 MPV 9.7 fL (8.0-11.0) 08/28/19 07:40 Immature Gran % 1.5 % 08/28/19 07:40 Neutrophils % 76.0 08/28/19 07:40 Band Neutrophils % 0.0 % 08/19/19 19:56 Lymphocytes % 9.5 08/28/19 07:40 Atypical Lymphs % 1 08/19/19 19:56 Monocytes % 9.7 08/28/19 07:40 Eosinophils % 3.3 08/28/19 07:40 Basophils % 0.0 08/28/19 07:40 Absolute Neutrophils 8.38 k/cumm (1.2-6.7) H 08/28/19 07:40 Absolute Lymphocytes 1.05 k/cumm (1.2-3.4) L 08/28/19 07:40 Absolute Monocytes 1.07 k/cumm (0.11-0.7) H 08/28/19 07:40 Absolute Eosinophils 0.36 k/cumm (0.0-0.7) 08/28/19 07:40 Absolute Basophils 0.00 k/cumm (0.0-0.2) 08/28/19 07:40 Differential Comment Manual differential 08/19/19 19:56 RBC Morphology Normal 08/19/19 19:56 Retic Count 1.1 % (0.5-2.4) 08/21/19 06:21 PT 10.7 sec (9.3-11.0) 08/19/19 19:56 INR 1.1 (0.9-1.1) 08/19/19 19:56 APTT 25.4 sec (21.0-31.4) 08/19/19 19:56 ABG Sample Site Left radial 08/28/19 07:27 ABG pH 7.46 (7.35-7.45) H 08/28/19 07:27 ABG pCO2 58 mmHg (34-47) H 08/28/19 07:27 ABG pO2 53 mmHg (83-108) L 08/28/19 07:27 ABG HCO3 41 mmol/L (22-28) H 08/28/19 07:27 ABG Total CO2 38 mmol/L (22-29) H 08/28/19 07:27 ABG O2 Saturation 90 % (94-98) L 08/28/19 07:27 ABG Base Excess > 15.0 mmol/L (-3-3) H 08/28/19 07:27 Oxygen Liter Flow Bipap 18/8 L 08/26/19 20:10 FiO2 27 % 08/28/19 07:27 Sodium 139 mmol/L (136-145) 08/29/19 06:10 Potassium 4.3 mmol/L (3.5-5.1) 08/29/19 06:10 Chloride 98 mmol/L (98-107) 08/29/19 06:10 Carbon Dioxide 38.4 mmol/L (21.0-32.0) H 08/29/19 06:10 Anion Gap 2.6 mmol/L (3-11) L 08/29/19 06:10 BUN 22 mg/dL (7-18) H 08/29/19 06:10 Creatinine 1.01 mg/dL (0.70-1.30) 08/29/19 06:10 Estimated GFR/1.73 m2 >= 60.00 (mL/min/1.73m2) 08/29/19 06:10 Glucose 107 mg/dL (74-106) H 08/29/19 06:10 Lactate 1.2 mmol/L (0.6-1.4) 08/21/19 06:21 Calcium 9.1 mg/dL (8.5-10.1) 08/29/19 06:10 Magnesium 1.8 mg/dL (1.8-2.4) 08/29/19 06:10 Iron 83 ug/dL (65-175) 08/21/19 06:21 TIBC 164 ug/dL (250-450) L 08/21/19 06:21 Transferrin % Sat 51 % (20-55) 08/21/19 06:21 Ferritin 547 ng/mL (26-388) H 08/21/19 06:21 Total Bilirubin 0.7 mg/dL (0.2-1.0) 08/28/19 07:40 Conjugated Bilirubin 0.12 mg/dL (0.00-0.20) 08/26/19 06:58 AST 20 U/L (15-37) 08/28/19 07:40 ALT 39 U/L (16-63) 08/28/19 07:40 Alkaline Phosphatase 72 U/L (46-116) 08/28/19 07:40 Lactate Dehydrogenase 173 U/L (85-227) 08/21/19 06:21 Troponin I 0.05 ng/Ml (<0.06) 08/20/19 06:12 C-Reactive Protein 1.16 mg/dL (0.0-0.3) H 08/25/19 06:50 NT-Pro-B Natriuret Pep 193 pg/mL (<300) 08/19/19 19:56 Total Protein 5.9 g/dL (6.4-8.2) L 08/28/19 07:40 Albumin 2.0 g/dL (3.4-5.0) L 08/28/19 07:40 Lipase 151 U/L (73-393) 08/19/19 19:56 TSH 0.35 uIU/mL (0.36-3.74) L 08/19/19 19:55 Free T4 1.78 ng/dL (0.76-1.46) H 08/19/19 19:55 Urine Color Yellow (Yellow) 08/19/19 20:20 Urine Clarity Clear (Clear) 08/19/19 20:20 Urine pH 5.5 (5-8) 08/19/19 20:20 Ur Specific [place] 1.010 (1.005-1.025) 08/19/19 20:20 Urine Protein Negative mg/dL (Negative) 08/19/19 20:20 Urine Ketones Negative mg/dL (Negative) 08/19/19 20:20 Urine Blood Trace-intact (Negative) H 08/19/19 20:20 Urine Nitrite Negative (Negative) 08/19/19 20:20 Urine Bilirubin Negative (Negative) 08/19/19 20:20 Urine Urobilinogen 0.2 EU/dL (Up TO 0.2) 08/19/19 20:20 Ur Leukocyte Esterase Negative (Negative) 08/19/19 20:20 Urine RBC 0-2 HPF (0-2) 08/19/19 20:20 Urine WBC Negative HPF (0-5) 08/19/19 20:20 Ur Epithelial Cells Negative HPF (Negative) 08/19/19 20:20 Urine Crystals Negative HPF (Negative) 08/19/19 20:20 Urine Bacteria Rare HPF (Negative) 08/19/19 20:20 Urine Casts Negative LPF (Negative) 08/19/19 20:20 Urine Mucus Negative (Negative) 08/19/19 20:20 Urine Other Negative (Negative) 08/19/19 20:20 Ur Culture Indicated? C&s done as ordered 08/19/19 20:20 Urine Glucose Negative mg/dL (Negative) 08/19/19 20:20 Fluid Source Cancelled 08/26/19 12:58 Fluid Color Cancelled 08/26/19 12:58 Fluid Clarity Cancelled 08/26/19 12:58 Fluid WBC Cancelled 08/26/19 12:58 Fluid Mononuclear Cell Cancelled 08/26/19 12:58 Fl Polymorphonucl Cell Cancelled 08/26/19 12:58 Fluid Other Cells Cancelled 08/26/19 12:58 Theophylline <1.2 ug/ml (10.0-20.0) L 08/19/19 23:00 Path Cons Comment Cancelled 08/26/19 12:58
--- NOTE | 2019-08-29 13:58 | W.NUTRFU ---
Date of service: 08/29/19 Time of Service: 13:58 Nutritional Follow up NOTE: Kiran has improved in last 24 hours, now able to complete his meals and meeting 100% nutrient and fluid needs by mouth. Will continue to follow labs, weights and make needed meal adjustments. Met with Kiran today and reviewed menu options, he requests jelly donuts and hamburgers and is unhappy with Diabetic Diet options. Will continue to provide carb controlled diet and educate about benefits of limiting simple carbohydrates for weight, blood sugar maintenance and healing. Time Spent in Nutritional Counseling and Treatment: 10 min spent face to face
[2019-08-29] MEDS: Normal Saline Flush 10 ML SYR IVP (14:18)
[2019-08-29] MEDS: Acetaminophen 325 MG TAB PO (16:44)
[2019-08-29] MEDS: Polyethylene Glycol 3350 17 GM PACKET PO (16:46)
[2019-08-29] MEDS: Atorvastatin 40 MG TAB PO (20:30)
[2019-08-29] MEDS: Patch Removal 1 EACH TP (21:10)
[2019-08-29] MEDS: Insulin Aspart 300 UNITS/3 ML PEN SC (22:02)
[2019-08-30] VITALS (12 sets, daily range): BP systolic 121–173; BP diastolic 60–74; PULSE 88–101; RESP 18–32; TEMP 37–37.7; O2SAT 85–96
[2019-08-30] MEDS: Heparin 5,000 UNITS/ML VIAL 5000 UNITS SC ×3 (01:07→15:30)
[2019-08-30] MEDS: AMPICILLIN SODIUM 2 GM in Normal Saline 100 ML IVPB ×4 (01:08→14:42)
[2019-08-30] MEDS: Normal Saline Flush 10 ML SYR IVP ×4 (01:21→15:32)
[2019-08-30 06:50] LABS: Platelet Count 261 x1000/uL (130-400)
[2019-08-30] MEDS: cefTRIAXone 2 GM/50 ML BAG IVPB (07:51)
[2019-08-30] MEDS: Furosemide 40 MG/4 ML VIAL 20 MG IVP (07:52)
[2019-08-30] MEDS: Normal Saline Flush 10 ML SYR 20 ML IVP (07:52)
[2019-08-30] MEDS: Lisinopril 10 MG TAB PO (07:53)
[2019-08-30] MEDS: Multivitamin TAB 1 TAB PO (07:53)
[2019-08-30] MEDS: Metoprolol CR 100 MG TABCR PO (07:54)
[2019-08-30] MEDS: Thiamine 100 MG TAB PO (07:54)
[2019-08-30] MEDS: Folic Acid 1 MG TAB PO (07:54)
[2019-08-30] MEDS: guaiFENesin 600 MG TABCR PO ×2 (07:54→10:11)
[2019-08-30] MEDS: Budesonide/Formoterol 160/4.5 6 GM 60 PUFF INH IH (08:01)
[2019-08-30] MEDS: Lidocaine 5% Patch 1 PATCH TP (08:37)
[2019-08-30] MEDS: Tiotropium Bromide-Respimat 10 PUFF INH 2 PUFF IH (09:22)
[2019-08-30] MEDS: Albuterol HFA 8 GM 60 PUFF INH IH (09:47)
[2019-08-30 09:50] LABS: C-Reactive Protein 12.32 mg/dL (0.0-0.3)
--- NOTE | 2019-08-30 10:30 | DI.RAD_ITS ---
EXAM: XR PORTABLE CHEST AP CLINICAL HISTORY: follow up CHF/pneumonia TECHNIQUE: 2D digital imaging was performed. COMPARISON: XR PORTABLE CHEST AP from 08/19/2019 XR PORTABLE CHEST AP from 08/26/2019 FINDINGS: The exam is limited by patient body habitus and immobility. Three attempts were made. The left cos tophrenic angle is partially obscured. The lungs are not well inflated. Basilar infiltrates cannot be excluded. There is calcification at the aorta. IMPRESSION: Limited exam. Question of bibasilar infiltrates versus atelectasis.
--- NOTE | 2019-08-30 10:32 | DI.VRAD_ITS ---
PROCEDURE INFORMATION: Exam: XR Chest, 1 View Exam date and time: 08/30/2019 10:15 AM Age: 74 years old Clinical indication: Other: Follow up chf/pneumonia TECHNIQUE: Imaging protocol: XR of the chest Views: 1 view. COMPARISON: CR XR PORTABLE CHEST AP 08/26/2019 7:15 PM FINDINGS: Lungs: Persistent prominence of the interstitium and pulmonary vasculature. Left basilar opacities are again noted. Pleural space: Redemonstrated blunting of the left lateral costophrenic angle. No pneumothorax. Heart/Mediastinum: Unchanged cardiomegaly. Vasculature: Calcified tortuous aorta. Bones/joints: Unchanged. IMPRESSION: Redemonstrated cardiomegaly, possible left pleural effusion, mild interstitial vascular prominence may represent decompensated cardiogenic pulmonary edema; however, cannot exclude underlying infectious process in the proper clinical setting. Dictated and Authenticated by: Freddy Gutierrez MD. Ordering:MÓNICA Lucero MD
--- NOTE | 2019-08-30 11:27 | PT.INIE ---
Date of service: 08/30/19 Time of Service: 11:27 PT Notes Visit Reasons: SIRS W/DIABETIC LEG CELLULITIS,DEHYDRATION IN CKD3 Physical Therapy Inpatient Initial Evaluation Date: 08/30/2019 Referring Doctor: Millie Mariscal NP PT Orders: PT CONSULT: Extended Stay Weakness Precautions: Fall. Standard. Will await orthopedic surgeon's WB recommendations. Patient Profile/Admitting Diagnosis: Patient is a 75-year-old male who was transferred to ICU on 08/26/2019 for exacerbation of CHF, SIRS, and COPD and returned to [facility] unit on 08/29/2019. Patient initially presented to the ED on 08/19/2019 with chief complaint of weakness, difficulty with ambulation, fall in the morning (of 08/19/2019) as well as an episode of diarrhea at home prior to admission, and some confusion with diagnoses of SIRS, cellulitis to bilateral lower extremities, dehydration, COPD exacerbation, stage III chronic kidney disease, and type 2 diabetes mellitus. Patient's L knee joint was aspirated by Dr. Brothers on 08/26/2019 and is found to have septic arthritis. MRI of the lumbar spine showed osteomyelitis/discitis of L4-L5. PMHX: Medical History (Updated 08/20/19 @ 06:09 by Bryson Payan) Chronic renal disease, stage 3, moderately decreased glomerular filtration rate (GFR) between 30-59 mL/min/1.73 square meter (Chronic) COPD (chronic obstructive pulmonary disease) with emphysema (Chronic) COPD exacerbation (Chronic) Hyperkalemia, diminished renal excretion (Acute) Morbid obesity (Acute) Type 2 diabetes mellitus (Chronic) Social History/Home Situation: Patient lives alone in a private home with a ramp to enter. He has a home health nurse who comes in once a week and a home health aide who comes in 2 hours every Sunday to help with grocery shopping, dishwashing, and house chores. Patient's main mode of mobility was through the use of the wheelchair indoors and outdoors. He was independent with all transfers using his front wheeled walker. He managed all bathing activities using a shower chair. He was independent with all self-care and dressing tasks prior to admission. He made his own meals Equipment Owned/DME: Front wheeled walker, wheelchair, recliner, shower chair, compression stockings, ramp Subjective: Patient states that there is an old lady standing close to the laundry bag who has been observing him and everybody who has been in this room. He reports low back pain, left knee pain, and a left anterior leg pain when mobilized for this consult. He complained of increased pain across his low back when this PT attempted to reposition him to sit upright. He did deny dizziness, chest pain, and headache throughout PT session. Objective: General Observation: Morbidly obese. Patient sitting on bedside chair with excessive trunk lean to left. Hyperkeratosis to skin of B legs. Telemetry monitoring in place. Oxygen supplementation via NC on 3.0 L/min. IV in the left UE. Mental Status: Patient is able to follow simple step commands and mostly is able to answer questions appropriately. He does get distracted with visual hallucinations on and off through PT session today Pain: Low back pain when patient was assisted to lean to the right while seated on chair. Complained of significant pain on B knees with left more than the right and was not able to stand straight ROM: Right Upper Extremity: Shoulder Flexion 0 to 70 degrees. Shoulder abduction 0 to 60 degrees. Elbow flexion WFL. Wrist flexion WFL. Opening and closing of hand WFL. Left Upper Extremity: Shoulder Flexion WFL. Shoulder abduction WFL. Elbow flexion WFL. Wrist flexion WFL. Opening and closing of hand WFL. Right Lower Extremity: Hip flexion allows up to 15 degrees beyond 90 while seated on chair. Hip abduction WFL. Knee flexion WFL. Ankle dorsiflexion WFL. Ankle plantarflexion WFL. Left Lower Extremity: Hip flexion llows up to 15 degrees beyond 90 while seated on chair. Hip abduction WFL. Knee flexion WFL. Knee extension at -50 degrees. Ankle dorsiflexion WFL. Ankle plantarflexion WFL. Strength: Right Upper Extremity: Shoulder flexors 3-/5. Shoulder abductors 4/5. Elbow flexors 4/5. Elbow extensors 4/5. Education Dean strong. Left Upper Extremity: Shoulder flexors 4/5. Shoulder abductors 4/5. Elbow flexors 4/5. Elbow extensors 4/5. Education Dean strong. Right Lower Extremity: Hip flexors 3-/5. Hip abductors 4/5. Knee flexors 4/5. Knee extensors 4/5. Ankle dorsiflexors 4/5. Ankle plantarflexors 4/5. Left Lower Extremity: Hip flexors 3-/5. Hip abductors 4/5. Knee flexors 4/5. Knee extensors 3-/5. Ankle dorsiflexors 4/5. Ankle plantarflexors 4/5. Sensation: Intact as to pain and pressure on bilateral lower extremities. Bed Mobility/Transfers: Rolling maximum asist of 2 Supine to sit maximum asist of 2 Sit to supine maximum asist of 2 Sit to stand maximum asist of 2 Stand to sit maximum asist of 2 Bed to chair maximum asist of 2 Chair to bed maximum asist of 2 Gait: Unable to pivot nor to take a step due to pain and morbid obesity Balance: Static Sitting: Poor Dynamic Sitting: Poor Static Standing: Unable Dynamic Standing: Unable Special Tests: Mobility Limitations Standardized Measure [facility] AM-PAC 6 clicks Basic Mobility Inpatient Short Form: Raw Score: 6 CMS Score: 100% deficit Informed Consent/Education: Patient instructed in purpose of PT consult and plan of care. Assessment: Inability to fully WB due to painful back and B knees and morbid obesity, functional mobility decline, decreased activity tolerance, difficulty with walking, unsteadiness on feet, increased fall risk, impaired mobility ADL performance, and generalized weakness. L knee erythematous, warm, significantly weak, and with AROM of -50 degrees. Prognosis is poor due to co-morbid conditions, ongoing encephalopathy, body habitus, and lack of motivation. Patient did clarify last week on initial evalaution that he did not walk too far at home prior to this most recent hospitalization. Would like to recommend holding off on any weight bearing activities and on performing any joint mobilization to L knee until cleared by orthopedic surgeon in light of ongoing L knee sepsis/prosthetic joint infection. Patient presents with clinical signs and symptoms consistent with current/admitting diagnoses that have resulted to mobility limitations, gait instability, generalized weakness, and impairment of motor control as demonstrated by the following impairment level findings: 1. Decreased strength to B LE and right UE major muscle groups 2. Impaired sitting/standing balance 3. Impaired activity tolerance 4. Limitation of joint range of motion in right shoulder and L knee Impairments are contributing to the following functional limitations: 1. Dependent bed mobility skills 2. Increased dependence with transfers 3. Inability to safely ambulate without assistive device and physical assistance 4. Increase completion time for mobility ADL performance 5. Increased fall risk 6. Inability to negotiate steps alone safely Patient is assessed as a 75642 high complexity complexity based on the following: History: 74-year-old male with impairment level findings, functional limitations, and past medical history as listed above Examination: Demonstrable impairment in strength, balance, and range of motion with underlying impairments and functional limitations as documented above Presentation: Evolving Decision Makin high complexity Goals: Goals X1 week 1. Supine-Sit SBA 2. Sit-Supine SBA 3. Sit-Stand SBA 4. Stand-Sit SBA 5. Bed-Chair SBA 6. Chair-Bed SBA 7. Minimal assist for all transfer task performance using FWW 9. Good static and dynamic standing balance/tolerance Plan of Care/Treatment Plan: 1-2x/day, 7 days/week x 1 week. Plan of care has been reviewed with the [employer] providing the service under Physical Therapy direction. Initiate Physical Therapy intervention for strengthening, bed mobility, transfers, gait, stairs, balance training, use of assistive device. PT Intervention: Session today consisted of PT evaluation as well as provision of assistance as well as training for safe transfer task performance. DISCHARGE RECOMMENDATIONS: Patient will highly benefit from the use of a bariatric motorized wheelchair at discharge destination. Patient will benefit from long term facility placement for continued skilled physical therapy services in order to progress mobility level, strength, and balance in preparation for a safe discharge to home. TREATMENT CODE/TIME: 41424 x 35 minutes, 17036 x 9 minutes beginning at 11:27 AM. Thank you very much for this referral. Janine Calixto PT, DPT, CLT [facility] [place], [place]
--- NOTE | 2019-08-30 13:05 | W.PM.PROGNOT ---
Objective Objective Clinical Data: Abnormal lab results 08/30/19 Range/Units 06:15 C-Reactive Protein 12.32 H (0.0-0.3) mg/dL Vital Signs Temperature 37.0 C 08/30/19 11:30 Temperature Source Tympanic 08/30/19 11:30 Pulse 94 H 08/30/19 11:30 Pulse Rhythm Regular 08/30/19 07:55 Pulse 94 H 08/29/19 14:01 Respiratory Rate 21 08/30/19 11:30 Respiratory Effort Short of Breath 08/30/19 09:23 Respiratory Depth Normal 08/30/19 09:23 Respiratory Pattern Normal 08/30/19 09:23 Blood Pressure 173/74 H 08/30/19 11:30 Blood Pressure Mean 85 08/29/19 16:44 Blood Pressure Position Sitting 08/29/19 16:40 Pulse Oximetry 92 L 08/30/19 11:30 Oxygen Delivery Method Nasal Cannula 08/30/19 11:30 Oxygen Flow Rate 3 08/30/19 11:30 Fraction of Inspired Oxygen (FIO2) 3 08/29/19 12:46 Pain Level 8 08/30/19 11:30 Comment 08/30/19 01:10 Intake & Output 08/29/19 08/30/19 08/30/19 23:59 11:59 23:59 Intake Total 980 / 1430 670 / 670 Output Total 700 / 1999 825 / 825 Balance 280 / -570 -155 / -155 Weight 142.7 kg Intake: IV 680 / 1130 320 / 320 Oral 300 / 300 350 / 350 Output: Urine 700 / 2000 825 / 825 Other: Urine Color Dark Ester Straw Urine Appearance Clear Clear Urine Odor Normal Normal Comment jones discontinued pt voided Voiding Methods Bedside Commode Bedside Commode Laboratory Results WBC 11.03 k/cumm (4.4-10.8) H 08/28/19 07:40 RBC 3.35 m/cumm (4.50-6.00) L 08/28/19 07:40 Hgb 10.1 g/dL (13.5-17.5) L 08/28/19 07:40 Hct 32.0 % (40.0-50.0) L 08/28/19 07:40 MCV 95.5 fL (80-95) H 08/28/19 07:40 MCH 30.1 pg (27.0-33.0) 08/28/19 07:40 MCHC 31.6 g/dL (32.0-36.0) L 08/28/19 07:40 RDW 14.2 % (11.8-14.1) H 08/28/19 07:40 Plt Count 261 x1000/uL (130-400) 08/30/19 06:15 MPV 9.7 fL (8.0-11.0) 08/28/19 07:40 Immature Gran % 1.5 % 08/28/19 07:40 Neutrophils % 76.0 08/28/19 07:40 Band Neutrophils % 0.0 % 08/19/19 19:56 Lymphocytes % 9.5 08/28/19 07:40 Atypical Lymphs % 1 08/19/19 19:56 Monocytes % 9.7 08/28/19 07:40 Eosinophils % 3.3 08/28/19 07:40 Basophils % 0.0 08/28/19 07:40 Absolute Neutrophils 8.38 k/cumm (1.2-6.7) H 08/28/19 07:40 Absolute Lymphocytes 1.05 k/cumm (1.2-3.4) L 08/28/19 07:40 Absolute Monocytes 1.07 k/cumm (0.11-0.7) H 08/28/19 07:40 Absolute Eosinophils 0.36 k/cumm (0.0-0.7) 08/28/19 07:40 Absolute Basophils 0.00 k/cumm (0.0-0.2) 08/28/19 07:40 Differential Comment Manual differential 08/19/19 19:56 RBC Morphology Normal 08/19/19 19:56 Retic Count 1.1 % (0.5-2.4) 08/21/19 06:21 PT 10.7 sec (9.3-11.0) 08/19/19 19:56 INR 1.1 (0.9-1.1) 08/19/19 19:56 APTT 25.4 sec (21.0-31.4) 08/19/19 19:56 ABG Sample Site Left radial 08/28/19 07:27 ABG pH 7.46 (7.35-7.45) H 08/28/19 07:27 ABG pCO2 58 mmHg (34-47) H 08/28/19 07:27 ABG pO2 53 mmHg (83-108) L 08/28/19 07:27 ABG HCO3 41 mmol/L (22-28) H 08/28/19 07:27 ABG Total CO2 38 mmol/L (22-29) H 08/28/19 07:27 ABG O2 Saturation 90 % (94-98) L 08/28/19 07:27 ABG Base Excess > 15.0 mmol/L (-3-3) H 08/28/19 07:27 Oxygen Liter Flow Bipap 18/8 L 08/26/19 20:10 FiO2 27 % 08/28/19 07:27 Sodium 139 mmol/L (136-145) 08/29/19 06:10 Potassium 4.3 mmol/L (3.5-5.1) 08/29/19 06:10 Chloride 98 mmol/L (98-107) 08/29/19 06:10 Carbon Dioxide 38.4 mmol/L (21.0-32.0) H 08/29/19 06:10 Anion Gap 2.6 mmol/L (3-11) L 08/29/19 06:10 BUN 22 mg/dL (7-18) H 08/29/19 06:10 Creatinine 1.01 mg/dL (0.70-1.30) 08/29/19 06:10 Estimated GFR/1.73 m2 >= 60.00 (mL/min/1.73m2) 08/29/19 06:10 Glucose 107 mg/dL (74-106) H 08/29/19 06:10 Lactate 1.2 mmol/L (0.6-1.4) 08/21/19 06:21 Calcium 9.1 mg/dL (8.5-10.1) 08/29/19 06:10 Magnesium 1.8 mg/dL (1.8-2.4) 08/29/19 06:10 Iron 83 ug/dL (65-175) 08/21/19 06:21 TIBC 164 ug/dL (250-450) L 08/21/19 06:21 Transferrin % Sat 51 % (20-55) 08/21/19 06:21 Ferritin 547 ng/mL (26-388) H 08/21/19 06:21 Total Bilirubin 0.7 mg/dL (0.2-1.0) 08/28/19 07:40 Conjugated Bilirubin 0.12 mg/dL (0.00-0.20) 08/26/19 06:58 AST 20 U/L (15-37) 08/28/19 07:40 ALT 39 U/L (16-63) 08/28/19 07:40 Alkaline Phosphatase 72 U/L (46-116) 08/28/19 07:40 Lactate Dehydrogenase 173 U/L (85-227) 08/21/19 06:21 Troponin I 0.05 ng/Ml (<0.06) 08/20/19 06:12 C-Reactive Protein 12.32 mg/dL (0.0-0.3) H 08/30/19 06:15 NT-Pro-B Natriuret Pep 193 pg/mL (<300) 08/19/19 19:56 Total Protein 5.9 g/dL (6.4-8.2) L 08/28/19 07:40 Albumin 2.0 g/dL (3.4-5.0) L 08/28/19 07:40 Lipase 151 U/L (73-393) 08/19/19 19:56 TSH 0.35 uIU/mL (0.36-3.74) L 08/19/19 19:55 Free T4 1.78 ng/dL (0.76-1.46) H 08/19/19 19:55 Urine Color Yellow (Yellow) 08/19/19 20:20 Urine Clarity Clear (Clear) 08/19/19 20:20 Urine pH 5.5 (5-8) 08/19/19 20:20 Ur Specific [place] 1.010 (1.005-1.025) 08/19/19 20:20 Urine Protein Negative mg/dL (Negative) 08/19/19 20:20 Urine Ketones Negative mg/dL (Negative) 08/19/19 20:20 Urine Blood Trace-intact (Negative) H 08/19/19 20:20 Urine Nitrite Negative (Negative) 08/19/19 20:20 Urine Bilirubin Negative (Negative) 08/19/19 20:20 Urine Urobilinogen 0.2 EU/dL (Up TO 0.2) 08/19/19 20:20 Ur Leukocyte Esterase Negative (Negative) 08/19/19 20:20 Urine RBC 0-2 HPF (0-2) 08/19/19 20:20 Urine WBC Negative HPF (0-5) 08/19/19 20:20 Ur Epithelial Cells Negative HPF (Negative) 08/19/19 20:20 Urine Crystals Negative HPF (Negative) 08/19/19 20:20 Urine Bacteria Rare HPF (Negative) 08/19/19 20:20 Urine Casts Negative LPF (Negative) 08/19/19 20:20 Urine Mucus Negative (Negative) 08/19/19 20:20 Urine Other Negative (Negative) 08/19/19 20:20 Ur Culture Indicated? C&s done as ordered 08/19/19 20:20 Urine Glucose Negative mg/dL (Negative) 08/19/19 20:20 Fluid Source Cancelled 08/26/19 12:58 Fluid Color Cancelled 08/26/19 12:58 Fluid Clarity Cancelled 08/26/19 12:58 Fluid WBC Cancelled 08/26/19 12:58 Fluid Mononuclear Cell Cancelled 08/26/19 12:58 Fl Polymorphonucl Cell Cancelled 08/26/19 12:58 Fluid Other Cells Cancelled 08/26/19 12:58 Theophylline <1.2 ug/ml (10.0-20.0) L 08/19/19 23:00 Path Cons Comment Cancelled 08/26/19 12:58
--- NOTE | 2019-08-30 13:52 | PT.INTREAT ---
Date of service: 08/30/19 Time of Service: 13:52 PT Notes Visit Reasons: SIRS W/DIABETIC LEG CELLULITIS,DEHYDRATION IN CKD3 Inpatient Physical Therapy Treatment Note [facility] Date: 08/30/2019 PRECAUTIONS: Fall. Standard. Confusion. NWB until cleared by orthopedic surgeon. SUBJECTIVE: Patient did not want people to hurt him. There were about five people in his room to assist with chair to bed transfer. Patient remains confused and was telling everybody not to make him do anything as putting weight on his knee and moving his trunk hurts his back. OBJECTIVE: Oxygen supplementation via NC. Patient appeared confused and required moderate to maximal verbal cueing chair to bed transfer using the mechanical lift. patient turns red in the layne due to overexertion during sit<>stand activity PAIN: Significant pain reported on L knee and low back. BED MOBILITY/TRANSFERS Rolling L/R: Maximum assist of 2 with maximal verbal cueing Sit-stand: Maximal assist of 2 with maximal verbal cueing for hand placement with patient unable to assume upright standing due to pain in low back Stand-sit: Maximal assist of 2 with maximal verbal cueing for hand placement with patient unable to assume upright standing due to pain in low back Bed-Chair: Unable to perform Chair-bed: Unable to perform GAIT Assistive Device: Unable to perform Weight bearing: Unable to perform Assist: Unable to perform Distance: Unable to perform Deviation: Unable to perform THEREX: Unable to perform ASSESSMENT: Please minimize weight bearing on L LE and low back until cleared by orthopedic MD. There is increased pain on L knee with weight bearing. There is increased back pain and inability to extend trunk with sit<>stand activity. Patient demonstrates increased leaning to L while seated on chair and while lying in bed as this is his position of comfort. Continued confusion, morbid obesity, knee pain/back pain with weight bearing/standing, ongoing infection in knee joint/prosthetic joint all preclude any weight bearing activities and joint mobilization by physical therapy at this time until cleared by orthopedic surgeon. PLAN: Will await instructions from orthopedic surgeon regarding actiity restrictions/recommendations. Patient will highly benefit from the use of a bariatric motorized wheelchair at discharge destination. Patient will most likely benefit from custodial facility placement (once medically cleared to transfer) for continued skilled physical therapy services in order to progress mobility level, strength, and balance. TREATMENT CODE/TIME: 69218 x 23 minutes beginning at 1:52 PM.
[2019-08-30 14:04] LABS: Abs Immature Grans 0.22 k/cumm (0.0-0.09); Absolute Basophil Count 0.01 k/cumm (0.0-0.2); Basophils % 0.1; Eosinophils % 1.6; HCT 32.9 % (40.0-50.0); HGB 10.6 g/dL (13.5-17.5); Immature Grans % 1.6 %; Lymphocytes % 9.7; Mean Corp. HGB Concentration 32.2 g/dL (32.0-36.0); Mean Corpuscular Hemoglobin 30.3 pg (27.0-33.0); Monocytes % 12.8; Neutrophils % 74.2; Platelet Count 282 x1000/uL (130-400); RBC Distribution Width 14.4 % (11.8-14.1); White Blood Cell Count 13.39 k/cumm (4.4-10.8)
[2019-08-30 14:05] LABS: BE (Venous) > 15.0 mmol/L (-3-3); HCO3 (Venous) 40 mmol/L (22-28); O2 Sat (Venous) 65 % (70-80); TCO2 (Venous) 37 mmol/L (22-29); pH (Venous) 7.42 (7.35-7.45); pO2 (Venous) 33 mm/Hg (28-44)
[2019-08-30 14:07] LABS: pCO2 (Venous) 61 mm/Hg (34-47)
[2019-08-30 14:08] LABS: Absolute Eosinophil Count 0.21 k/cumm (0.0-0.7); Absolute Monocyte Count 1.71 k/cumm (0.11-0.7); Absolute Neutrophil Count 9.94 k/cumm (1.2-6.7)
[2019-08-30 14:11] LABS: Ammonia 16 umol/L (11-32); Anion Gap 3.5 mmol/L (3-11); BUN 25 mg/dL (7-18); C-Reactive Protein 14.56 mg/dL (0.0-0.3); CO2 36.5 mmol/L (21.0-32.0); CREATININE 1.49 mg/dL (0.70-1.30); Calcium 9.6 mg/dL (8.5-10.1); Chloride 97 mmol/L (98-107); Estimated GFR 46.36 (mL/min/1.73m2); Glucose 130 mg/dL (74-106); Magnesium 1.7 mg/dL (1.8-2.4); Potassium 4.7 mmol/L (3.5-5.1); Sodium 137 mmol/L (136-145)
[2019-08-30 14:16] LABS: ALT 55 U/L (16-63); AST 33 U/L (15-37); Albumin 2.3 g/dL (3.4-5.0); Alkaline Phosphatase 100 U/L (46-116); Bilirubin, Direct 0.13 mg/dL (0.00-0.20); Bilirubin, Total 0.6 mg/dL (0.2-1.0); Total Protein 6.9 g/dL (6.4-8.2)
[2019-08-30 14:22] LABS: Diff Comment Agrees w/ Instrument; RBC Morphology Normal
[2019-08-30 14:37] LABS: INR 1.1 (0.9-1.1); Prothrombin Time 10.9 sec (9.3-11.0)
--- NOTE | 2019-08-30 14:48 | CMPROGNOTE_ITS ---
- If Service Date Differs Date of service: 08/30/19 Time of Service: 14:48 Care Management Progress Note S/O: No change in plan. Chest x-ray done today reveals a possible left pleural effusion. Per physical therapy notes, Kiran continues to report left knee and low back pain and remains confused. Physical therapist recommends a long-term facility placement when ready for discharge and the use of a bariatric motorized wheelchair at discharge destination. CM will continue to follow. A: Kiran is a 74 year old male admitted to [facility] on 08/19/2019 with SIRS, diabetic leg cellulitis dehydration and CKD, and positive blood cultures. P: Kiran will require termite treater helper antibiotics to treat the bacteremia. Dr. Lee plans to consult [place] for recommendations regarding his multiple infections and their treatment. Kiran will likely need to go into swing bed status to complete the antibiotic therapy. CM will continue to follow and support patient and discharge planning needs.
[2019-08-30 14:56] LABS: Procalcitonin 0.1 ng/mL
--- NOTE | 2019-08-30 14:56 | W.PM.DS.N ---
Date of service: 08/30/19 Time of Service: 14:56 DS: Diagnosis Discharge Diagnosis (1) Sepsis: Status: Acute (2) Enterococcal bacteremia: Status: Acute (3) Epidural abscess: Status: Suspected (4) Infection of prosthetic left knee joint: Status: Acute (5) Osteomyelitis of lumbar spine: Status: Acute (6) Septic discitis of lumbosacral region: Status: Acute (7) Toxic metabolic encephalopathy: Status: Acute (8) Community acquired pneumonia: Status: Acute Asessment and Plan: Sputum cx on 08/21/2019 with Acinetobacter Lwoffii and mixed gram negative rods. (9) COPD exacerbation: Status: Acute (10) CHF exacerbation: Status: Acute Asessment and Plan: Acute on chronic; EF 65%, presumed diastolic and R-sided (11) Acute on chronic renal failure: Status: Acute (12) Type 2 diabetes mellitus: Status: Chronic (13) Pulmonary hypertension: Status: Chronic (14) Chronic respiratory failure with hypoxia and hypercapnia: Status: Chronic (15) JANELLE treated with BiPAP: Status: Chronic (16) Obesity hypoventilation syndrome: Status: Chronic (17) Obesity, morbid, BMI 40.0-49.9: Status: Chronic (18) Anemia: Status: Chronic (19) Chronic venous stasis dermatitis: Status: Acute (20) Hypomagnesemia: Status: Acute Discharge Plan Disposition Patient Disposition: [facility] Condition: Serious Discharge Details Chief Complaint: RespSymp Clinical Impression: Sepsis, Cellulitis Reason For Visit: SIRS W/DIABETIC LEG CELLULITIS,DEHYDRATION IN CKD3 Admit Date/Time: 08/19/19 21:59 Admit Provider: Bryson Payan Attending Provider: Bryson Payan Primary Care Provider: Sonia Alfonso ED Provider: Janet Coon Hospital Course Hospital Course: Mr Matthews is a 74 year old male with PMHx of prior left total knee replacement and infection of knee prosthesis (no further information is available on this at this time, as well as h/o oxygen-dependent COPD (normally on 3.5 L of O2 during the day), JANELLE/OHS on BiPAP with 3 L bleed in, [place] pulmonary hypertension, HFpEF, among others, who was admitted to [facility] ICU on 08/19/2019 after presenting to ED with weakness and falls, confusion, left knee pain, and chronic shortness of breath. He was found to be septic with presumed source being cellulitis of his legs. He became suddenly hypotensive to SBPs in the 80's in ED, warranting ICU admission. He was not tested for COVID-19 as he had a negative screen. He was initiated on empiric vancomycin/zosyn. Blood cultures drawn on admission came back positive for Enterococcus facecalis. The patient's antibiotics were changed to clindamycin and oxacillin on 08/20/2019. At this point, he is also being treated for COPD exacerbation and pneumonia, sputum culture growing acinetobacter. Echo was obtained to rule out endocarditis - TTE did not show valvular lesions. The patient did report L knee pain and, with his history of prior infected knee prosthesis, orthopedic consultation was obtained. He was transferred out of ICU on 08/21/2019 as his HR and BP normalized (he never required vasopressors and responded to IVF). He was seen by Dr Brothers of orthopedics on 08/21/2019, who is well familiar with the patient (we are obtaining records at this time) - he did not at the time feel that the patient had a septic knee. On 08/24/2019, the patient's antibiotics were changed to unasyn, as one out of 4 blood cultures repeated on 08/22/2019 was still growing E. faecalis. The patient was noted to be episodically more confused, warranting an ABG due to concerns for hypercapnia, which did show mild respiratory acidosis with CO2 retention and his chronic hypoxemia, but even with normalization of his pH, mental status did not normalize. He had a negative CT of the head and does not have meningeal signs. Simultaneously, his left knee pain got worse, and the patient started reporting back pain, warranting a repeat consultation with orthopedics and an MRI of his Lumbar spine. The patient had an arthrocenthesis of L knee by Dr Brothers on 08/26/2019, with synovial fluid now also growing E. faecalis. MRI of the lumbar spine was obtained with results remarkable for septic discitis at L5-S1 and osteomyelitis of adjoining vertebra; a definitive epidural abscess was not seen, but there was a posterior displacement of the thecal sac and enhancement of the epidural fat. At this point, the decision was made to treat him as if he had endocarditis - with at least 6 weeks of antibiotics as ERICA's are not being performed at our facility at this time due to COVID pandemic. On 08/26/2019, the patient went into acute CHF requiring IV diuresis and being placed on BiPAP. He was transferred back to the ICU. He remained quite encephalopathic, clinically most likely due to sepsis. We clarified with the patient's family that he does not have a history of alcohol abuse, and hypercapnia did not appear to be the sole coach driver of his delirium. Case was discussed with [place] at [facility] [place] recommendations to switch antibiotics to high dose ampicillin and high dose ceftriaxone for 6 weeks as endocarditis could not be ruled out without a ERICA. Blood cultures repeated on 08/28/2019 have shown no growth to date. With diuresis, the patient's respirator status improved, and he was able to be transferred out of the ICU on 08/29/2019. On 08/30/2019, the patient reports more back pain and left knee pain. He remains encephalopathic and his CRP is climbing (it is 14.56 today, up from 1.16 on 08/25/2019). MRIs of his lumbar spine were reviewed with [facility] [place], with recommendation for transfer to a facility where spine surger evaluation would be possible as the patient's clinical picture is concerning for development of an epidural abscess. Additionally, he is high risk, and now that the results of synovial fluid confirm infection of left knee prosthesis (results came back today), he necessitates transfer to a tertiary care facility with neurosurgery/spine surgery, ID and high-risk anesthesia are available for further evaluation and treatment of the patient, such as [facility]. He was accepted in transfer by Dr Cantrell of hospitalist medicine service at [facility] with spine and orthopedic surgery seeing the in consult. The patient is medically stable for transfer and is in agreement with transfer to [facility]. Care for patient as well as completion of his transfer summary on day of transfer took 90 minutes. Home Meds and New Rx's Prescriptions: No Action albuterol sulfate 0.63 MG/3 ML solution for nebulization 0.5 mg NEB QID PRNRF: 0 atorvastatin 80 MG tablet 80 mg PO DAILY RF: 0 albuterol sulfate [ProAir HFA] 8.5 GM HFA aerosol inhaler 2 puff Inhalation Q4H PRN RF: 0 prednisone 20 MG tablet 40 mg PO DAILY PRNRF: 0 metformin 1,000 MG tablet 1,000 mg PO BID RF: 0 lisinopril 10 MG tablet 10 mg PO BID RF: 0 nitroglycerin [Nitrostat] 0.4 MG tablet, sublingual 0.4 mg Sublingual ONCE PRNRF: 0 furosemide 20 MG tablet 60 mg PO DAILY RF: 0 Nikolay-24 300 MG capsule,extended release 24hr 300 mg PO DAILY RF: 0 metoprolol tartrate 25 MG tablet 25 mg PO BID RF: 0 Spiriva with HandiHaler 18 MCG capsule, w/inhalation device 18 mcg Inhalation DAILY RF: 0 budesonide-formoterol [Symbicort] 10.2 GM HFA aerosol inhaler 2 puff Inhalation BID RF: 0 guaifenesin 600 MG tablet extended release 12hr 600 mg PO BID PRNRF: 0 cyclobenzaprine 10 mg tablet 10 mg PO TID Qty: 14 RF: 0 lidocaine [Lidoderm] 1 PATCH patch 1 patch Topical Q24H Qty: 4 RF: 0 Discharge Instructions Activity:: non-weight bearing to L knee Diet:: Carb Counting Discharge Orders Discharge Orders: Discharge Order (Routine); Ordered 08/30/19 Ordered By: Jazmine Hua DS: Summary Status at Discharge Functional status at discharge: bed bound Overall status at discharge: patient is not back to baseline Mental Status: other (delirious, A&Ox2, inattentive) Speech and Movement: speech and movement normal Mood: congruent mood and other (delirious, A&Ox2, inattentive) Affect: normal affect Exam Narrative Exam Narrative: General: Obese male who is delirious, answers often nonsensical, not remembering what he said moments earlier, answering questions other than what I actually asked him, A&Ox2, sitting in a chair, mildly dyspneic, coughing HEENT: EOMI, MMM Heart: RRR, no m/r/g Lungs: quiet rales at B bases, quiet Rhonchi Abdomen: soft, obese, nontender Extremities: 2+ BLE edema, chronic venous stasis; L knee hot to touch, mildly erythematous, no open wounds or drianage Psych Mental Status: other (delirious, A&Ox2, inattentive) Speech and Movement: speech and movement normal Mood: congruent mood and other (delirious, A&Ox2, inattentive) Affect: normal affect DS: Data Vitals/I&O Vitals and I&O: Vital Signs Temperature 37.0 C 08/30/19 11:30 Temperature Source Tympanic 08/30/19 11:30 Pulse 96 H 08/30/19 14:20 Pulse Rhythm Regular 08/30/19 07:55 Pulse 94 H 08/29/19 14:01 Respiratory Rate 21 08/30/19 11:30 Respiratory Effort Short of Breath 08/30/19 09:23 Respiratory Depth Normal 08/30/19 09:23 Respiratory Pattern Normal 08/30/19 09:23 Blood Pressure 173/74 H 08/30/19 11:30 Blood Pressure Mean 85 08/29/19 16:44 Blood Pressure Position Sitting 08/29/19 16:40 Pulse Oximetry 92 L 08/30/19 14:10 Oxygen Delivery Method Nasal Cannula 08/30/19 14:10 Oxygen Flow Rate 3 08/30/19 14:20 Fraction of Inspired Oxygen (FIO2) 3 08/29/19 12:46 Pain Level 8 08/30/19 11:30 Comment 08/30/19 01:10 Intake & Output 08/29/19 08/30/19 08/30/19 23:59 11:59 23:59 Intake Total 980 / 1430 670 / 1160 490 / 1160 Output Total 700 / 2000 825 / 825 Balance 280 / -570 -155 / 335 490 / 335 Weight 142.7 kg Intake: IV 680 / 1130 320 / 320 Oral 300 / 300 350 / 840 490 / 840 Output: Urine 700 / 2000 825 / 825 Other: Urine Color Dark Ester Straw Urine Appearance Clear Clear Urine Odor Normal Normal Comment jones discontinued pt voided Voiding Methods Bedside Commode Bedside Commode Data Completed and Pending Completed studies during hospitalization [Text1]: CXR 08/19/2019: Bibasilar densities could indicate atelectasis versus infiltrates. XR knee 08/20/2019: No change in appearance the left total knee prosthesis or surrounding bone. XR R shoulder 08/20/2019: Degenerative changes of the glenohumeral joint. Echo 08/20/2019: See full report. Briefly, EF 65%, no LV wall motion abnormalities. RV systolic function is normal. Mild aortic stenosis, PA systolic pressure of 52 mmHg. No pericardial effusion. CT head w/o contrast 08/25/2019: No acute intracranial process. CXR 08/25/2019: No gross interval change from film of August 18. Slight interstitial prominence, question bibasilar atelectasis. MRI Lumbar spine w/o contrast 08/26/2019: Abnormal findings at L5-S1 with abnormal appearance of the intervertebral disc and adjoining vertebral bodies and abnormal signal in the epidural fat in the anterior spinal canal along with disruption of the disc margin. Possibility of infectious process should be considered in the presence of these findings, additional MR scan with pre and post contrast multiplanar T1 fat-sat imaging recommended for further evaluation. MRI lumbar spine w/ contrast 08/26/2019: Findings worrisome for infectious process, discitis and/or osteomyelitis, at L5-S1. No gross epidural abscess identified although there is enhancement of the epidural fat and displacement of the thecal sac posteriorly at this level. Neoplastic disease not excluded. Additional evaluation with whole-body bone scan may be considered. CXR 08/26/2019: Findings raising the possibility of developing CHF. PA and lateral chest suggested for correlation. Underlying pneumonia not entirely excluded but no gross consolidation is seen. CXR 08/30/2019: Redemonstrated cardiomegaly, possible left pleural effusion, mild interstitial vascular prominence may represent decompensated cardiogenic pulmonary edema; however, cannot exclude underlying infectious process in the proper clinical setting. Labs on day of discharge: Labs from last 24 hours 08/30/19 08/30/19 08/30/19 13:53 13:53 13:53 WBC RBC Hgb Hct MCV MCH MCHC RDW Plt Count MPV Immature Gran % Neutrophils % Lymphocytes % Monocytes % Eosinophils % Basophils % Absolute Neutrophils Absolute Lymphocytes Absolute Monocytes Absolute Eosinophils Absolute Basophils Differential Comment RBC Morphology PT INR VBG pH 7.42 VBG pCO2 61 H* VBG pO2 33 VBG HCO3 40 H VBG Total CO2 37 H VBG O2 Saturation 65 L VBG Base Excess > 15.0 H Sodium Potassium Chloride Carbon Dioxide Anion Gap BUN Creatinine Estimated GFR/1.73 m2 Glucose Lactate Calcium Magnesium Total Bilirubin 0.6 Conjugated Bilirubin 0.13 AST 33 ALT 55 Alkaline Phosphatase 100 Ammonia 16 C-Reactive Protein Total Protein 6.9 Albumin 2.3 L Procalcitonin 08/30/19 08/30/19 08/30/19 13:53 13:53 13:53 WBC 13.39 H RBC 3.50 L Hgb 10.6 L Hct 32.9 L MCV 94.0 MCH 30.3 MCHC 32.2 RDW 14.4 H Plt Count 282 MPV 10.0 Immature Gran % 1.6 Neutrophils % 74.2 Lymphocytes % 9.7 Monocytes % 12.8 Eosinophils % 1.6 Basophils % 0.1 Absolute Neutrophils 9.94 H Absolute Lymphocytes 1.30 Absolute Monocytes 1.71 H Absolute Eosinophils 0.21 Absolute Basophils 0.01 Differential Comment Agrees w/ instrument RBC Morphology Normal PT 10.9 INR 1.1 VBG pH VBG pCO2 VBG pO2 VBG HCO3 VBG Total CO2 VBG O2 Saturation VBG Base Excess Sodium Potassium Chloride Carbon Dioxide Anion Gap BUN Creatinine Estimated GFR/1.73 m2 Glucose Lactate 1.0 Calcium Magnesium Total Bilirubin Conjugated Bilirubin AST ALT Alkaline Phosphatase Ammonia C-Reactive Protein Total Protein Albumin Procalcitonin Pending 08/30/19 08/30/19 08/30/19 13:53 06:15 06:15 WBC RBC Hgb Hct MCV MCH MCHC RDW Plt Count 261 MPV Immature Gran % Neutrophils % Lymphocytes % Monocytes % Eosinophils % Basophils % Absolute Neutrophils Absolute Lymphocytes Absolute Monocytes Absolute Eosinophils Absolute Basophils Differential Comment RBC Morphology PT INR VBG pH VBG pCO2 VBG pO2 VBG HCO3 VBG Total CO2 VBG O2 Saturation VBG Base Excess Sodium 137 Potassium 4.7 Chloride 97 L Carbon Dioxide 36.5 H Anion Gap 3.5 BUN 25 H Creatinine 1.49 H Estimated GFR/1.73 m2 46.36 Glucose 130 H Lactate Calcium 9.6 Magnesium 1.7 L Total Bilirubin Conjugated Bilirubin AST ALT Alkaline Phosphatase Ammonia C-Reactive Protein 14.56 H 12.32 H Total Protein Albumin Procalcitonin Preliminary micro results at discharge 08/28/19 12:15 Blood Culture - Preliminary Blood NO GROWTH 48 HOURS 08/28/19 12:10 Blood Culture - Preliminary Blood NO GROWTH 48 HOURS 08/26/19 12:25 Body Fluid Culture - Preliminary Synovial - Left Knee Enterococcus Species 08/19/19 20:15 Blood Culture - Preliminary Blood Enterococcus Faecalis 08/19/19 20:15 Blood Culture - Preliminary Blood Enterococcus Faecalis [facility] Medical History (Updated 08/30/19 @ 15:08 by Jazmine Hua MD) Chronic renal disease, stage 3, moderately decreased glomerular filtration rate (GFR) between 30-59 mL/min/1.73 square meter (Chronic) COPD (chronic obstructive pulmonary disease) with emphysema (Chronic) COPD exacerbation (Acute) Hyperkalemia, diminished renal excretion (Resolved) Hypomagnesemia (Acute) Morbid obesity (Acute) Osteomyelitis of lumbar spine (Acute) Septic arthritis of knee, left (Acute) Type 2 diabetes mellitus (Chronic) Social History Smoking/Tobacco Use Status: Former Tobacco Use Alcohol Intake: never Drug use: Never Substance use type: does not use Do you feel safe at home: Yes Do you feel safe in your relationship?: Yes
--- NOTE | 2019-08-30 15:06 | RESPIRATORY ---
On SundayAugust 28, O2 port for the patient's Home Bipap unit was broke off by RT. Currently, the plan is to replace the patient tubing to his machine. RT has emailed our supplier to get a new one and will get on markell. The hose was [place] with [place] [facility] [place] with a note in the back explaining what happened and what the current Bipap settings he's on.
[2019-08-30] MEDS: MAGNESIUM SULFATE 1 GM/100 ML BAG IVPB (15:31)
[2019-08-30] MEDS: Furosemide 40 MG/4 ML VIAL IVP (15:31)
--- NOTE | 2019-08-31 09:46 | CMPROGNOTE_ITS ---
- If Service Date Differs Date of service: 08/30/19 Time of Service: 16:30 Care Management Progress Note S/O: Kiran reports increased back pain and left knee pain. After a review of MRIs of Kiran's lumbar spine with [facility] [place], the decision is made to transfer Kiran to [facility] [place] for a spine surgery eval. A: Kiran is a 74 year old male admitted [facility] with SIRS, diabetic leg cellulitis, dehydration and CKD, and positive blood cultures. P: Kiran is transferred to [facility] for evaluation, treatment and possible spine surgery.
--- NOTE | 2019-08-31 09:46 | PDOC.CMPRO ---
- If Service Date Differs Date of service: 08/30/19 Time of Service: 16:30 Care Management Progress Note S/O: Kiran reports increased back pain and left knee pain. After a review of MRIs of Kiran's lumbar spine with [facility] [place]surgery, the decision is made to transfer Kiran to [facility] for a spine surgery eval. A: Kiran is a 74 year old male admitted to [facility] on 08/19/2019 with SIRS, diabetic leg cellulitis, dehydration and CKD, and positive blood cultures. P: Kiran is transferred to [facility] for evaluation, treatment and possible spine surgery.
--- NOTE | 2019-08-31 12:16 | INDS_ITS ---
Date of service: 08/31/19 PT Notes Visit Reasons: SIRS W/DIABETIC LEG CELLULITIS,DEHYDRATION IN CKD3 Inpatient Physical Therapy Discharge Summary Dates: 08/31/2019 Dates of Service: 08/30/2019 only Referring Doctor: Millie Mariscal NP PT Orders: PT CONSULT: Extended Stay Weakness Precautions: Fall. Standard. Will await orthopedic surgeon's WB recommendations. Patient Profile/Admitting Diagnosis: [place] [facility] [place] order for urgent spinal surgery evaluation due to suspected epidural abcess. Patient is a 75-year-old male who was transferred to ICU on 08/26/2019 for exacerbation of CHF, SIRS, and COPD and returned to [facility] on 08/29/2019. Patient initially presented to the ED on 08/19/2019 with chief complaint of weakness, difficulty with ambulation, fall in the morning (of 08/19/2019) as well as an episode of diarrhea at home prior to admission, and some confusion with diagnoses of SIRS, cellulitis to bilateral lower extremities, dehydration, COPD exacerbation, stage III chronic kidney disease, and type 2 diabetes mellitus. Pa bk's L knee joint was aspirated by Dr. Brothers on 08/26/2019 and is found to have septic arthritis. MRI of the lumbar spine showed osteomyelitis/discitis of L4-L5. PMHX: Medical History (Updated 08/20/19 @ 06:09 by Bryson Payan) Chronic renal disease, stage 3, moderately decreased glomerular filtration rate (GFR) between 30-59 mL/min/1.73 square meter (Chronic) COPD (chronic obstructive pulmonary disease) with emphysema (Chronic) COPD exacerbation (Chronic) Hyperkalemia, diminished renal excretion (Acute) Morbid obesity (Acute) Type 2 diabetes mellitus (Chronic) Social History/Home Situation: Patient lives alone in a private home with a ramp to enter. He has a home health nurse who comes in once a week and a home health aide who comes in 2 hours every Sunday to help with grocery shopping, dishwashing, and house chores. Patient's main mode of mobility was through the use of the wheelchair indoors and outdoors. He was independent with all transfers using his front wheeled walker. He managed all bathing activities using a shower chair. He was independent with all self-care and dressing tasks prior to admission. He made his own meals Equipment Owned/DME: Front wheeled walker, wheelchair, recliner, shower chair, compression stockings, ramp Subjective: NT. Please see PT notes on 08/30/2019 Objective: General Observation: NT. Please see PT notes on 08/30/2019 Mental Status: NT. Please see PT notes on 08/30/2019 Pain: NT. Please see PT notes on 08/30/2019 ROM: (On initial evalaution) Right Upper Extremity: Shoulder Flexion 0 to 70 degrees. Shoulder abduction 0 to 60 degrees. Elbow flexion WFL. Wrist flexion WFL. Opening and closing of hand WFL. Left Upper Extremity: Shoulder Flexion WFL. Shoulder abduction WFL. Elbow flexion WFL. Wrist flexion WFL. Opening and closing of hand WFL. Right Lower Extremity: Hip flexion allows up to 15 degrees beyond 90 while seated on chair. Hip abduction WFL. Knee flexion WFL. Ankle dorsiflexion WFL. Ankle plantarflexion WFL. Left Lower Extremity: Hip flexion llows up to 15 degrees beyond 90 while seated on chair. Hip abduction WFL. Knee flexion WFL. Knee extension at -50 degrees. Ankle dorsiflexion WFL. Ankle plantarflexion WFL. Strength: (On initial evalaution) Right Upper Extremity: Shoulder flexors 3-/5. Shoulder abductors 4/5. Elbow flexors 4/5. Elbow extensors 4/5. [employer] strong. Left Upper Extremity: Shoulder flexors 4/5. Shoulder abductors 4/5. Elbow flexors 4/5. Elbow extensors 4/5. Electronic Warfare Technician strong. Right Lower Extremity: Hip flexors 3-/5. Hip abductors 4/5. Knee flexors 4/5. Knee extensors 4/5. Ankle dorsiflexors 4/5. Ankle plantarflexors 4/5. Left Lower Extremity: Hip flexors 3-/5. Hip abductors 4/5. Knee flexors 4/5. Knee extensors 3-/5. Ankle dorsiflexors 4/5. Ankle plantarflexors 4/5. Sensation: Intact as to pain and pressure on bilateral lower extremities. Bed Mobility/Transfers: Rolling maximum asist of 2 Supine to sit maximum asist of 2 Sit to supine maximum asist of 2 Sit to stand maximum asist of 2 Stand to sit maximum asist of 2 Bed to chair maximum asist of 2 Chair to bed maximum asist of 2 Gait: Unable to pivot nor to take a step due to pain and morbid obesity Balance: Static Sitting: Poor Dynamic Sitting: Poor Static Standing: Unable Dynamic Standing: Unable Assessment:[place] [facility] [place] evaluation for suspected epidural abcess. Inability to fully WB due to painful back and B knees and morbid obesity, functional mobility decline, decreased activity tolerance, difficulty with walking, unsteadiness on feet, increased fall risk, impaired mobility ADL performance, and generalized weakness. L knee erythematous, warm, significantly weak, and with AROM of -50 degrees. Prognosis is poor due to co-morbid conditions, ongoing encephalopathy, body habitus, and lack of motivation. Patient did clarify last week on initial evalaution that he did not walk too far at home prior to this most recent hospitalization. Would like to recommend holding off on any weight bearing activities and on performing any joint mobilization to L knee until cleared by orthopedic surgeon in light of ongoing L knee sepsis/prosthetic joint infection. Patient presented with clinical signs and symptoms consistent with current/admitting diagnoses that have resulted to mobility limitations, gait instability, generalized weakness, and impairment of motor control as demonstra tanja by the following impairment level findings: 1. Decreased strength to B LE and right UE major muscle groups 2. Impaired sitting/standing balance 3. Impaired activity tolerance 4. Limitation of joint range of motion in right shoulder and L knee Impairments continued to contribute to the following functional limitations: 1. Dependent bed mobility skills 2. Increased dependence with transfers 3. Inability to safely ambulate without assistive device and physical assistance 4. Increase completion time for mobility ADL performance 5. Increased fall risk 6. Inability to negotiate steps alone safely Goals: Goals X1 week 1. Supine-Sit SBA NOT MET 2. Sit-Supine SBA NOT MET 3. Sit-Stand SBA NOT MET 4. Stand-Sit SBA NOT MET 5. Bed-Chair SBA NOT MET 6. Chair-Bed SBA NOT MET 7. Minimal assist for all transfer task performance using FWW NOT MET 9. Good static and dynamic standing balance/tolerance NOT MET DISCHARGE RECOMMENDATIONS: PT to re-evaluate upon readmission prn. TREATMENT CODE/TIME: NC. Thank you very much for this referral. Janine Calixto PT, DPT, CLT [facility] [place], [place]
--- NOTE | 2019-10-06 16:13 | NUR.NOTE ---
Nursing Note:addendum to chart- Dr. Stevens was present on unit at time of pt. fall on evening of August 24- no further interventions were ordered at that time.
== END 2019-08-30 16:10 | disposition short-term general hospital (02) | DRG 871 ==
LOC: ER 22:31 → ICU 23:59 → MS 08-22 05:19 → ICU 08-29 14:19 → MS 08-30 15:25 → ICU 09-01 09:52 → MS 09-01 09:52
PROVIDERS: Family Medicine; General Practice; Internal Medicine; Orthopaedic Surgery; Admitting Provider Family Medicine; Emergency Provider Physician Assistant; PCP Nurse Practitioner Primary Care; Visit Provider Internal Medicine
DX: A41.81 Sepsis due to Enterococcus (principal); J15.8 Pneumonia due to other specified bacteria; I50.33 Acute on chronic diastolic (congestive) heart failure; G93.41 Metabolic encephalopathy; I33.9 Acute and subacute endocarditis, unspecified; G06.1 Intraspinal abscess and granuloma; L03.116 Cellulitis of left lower limb; L03.115 Cellulitis of right lower limb; J44.1 Chronic obstructive pulmonary disease with (acute) exacerbation; J44.0 Chronic obstructive pulmonary disease with (acute) lower respiratory infection; J96.12 Chronic respiratory failure with hypercapnia; J96.11 Chronic respiratory failure with hypoxia; M46.37 Infection of intervertebral disc (pyogenic), lumbosacral region; M46.26 Osteomyelitis of vertebra, lumbar region; T84.54XA Infection and inflammatory reaction due to internal left knee prosthesis, initial encounter; M00.862 Arthritis due to other bacteria, left knee; N17.9 Acute kidney failure, unspecified; E66.2 Morbid (severe) obesity with alveolar hypoventilation; Z68.41 Body mass index [BMI] 40.0-44.9, adult; R65.20 Severe sepsis without septic shock; E11.628 Type 2 diabetes mellitus with other skin complications; E11.22 Type 2 diabetes mellitus with diabetic chronic kidney disease; N18.3 Chronic kidney disease, stage 3 (moderate); B95.2 Enterococcus as the cause of diseases classified elsewhere; Z96.652 Presence of left artificial knee joint; D63.1 Anemia in chronic kidney disease; E86.0 Dehydration; Z99.81 Dependence on supplemental oxygen; R41.0 Disorientation, unspecified; I27.29 Other secondary pulmonary hypertension; I87.2 Venous insufficiency (chronic) (peripheral); E83.42 Hypomagnesemia; Z87.891 Personal history of nicotine dependence; M25.511 Pain in right shoulder; Z79.84 Long term (current) use of oral hypoglycemic drugs; Z71.3 Dietary counseling and surveillance
CPT/HCPCS: 20610; 36410; 36415; 36569; 51701; 80048; 80053; 80076; 82805; 83690; 84145; 85027; 87040; 87077; 93005; 93306; 94640; 96361; 96365; 97110; 97162; 97163; 97530; 99221; 99223; 99232; 99233; 99239; 99252; 99285; 99291; 36600; 70450; 71045; 72148; 72149; 73030; 73560; 80198; 81003; 81015; 82140; 82728; 83540; 83550; 83605; 83615; 83735; 83880; 84439; 84443; 84484; 85014; 85018; 85025; 85045; 85049; 85610; 85730; 86140; 87070; 87086; 87186; 87205; 89051; 93010; 94660; 94667; J0290; J0295; J1644; J1940; J1941; J2270; J2543; J2700; J2930; J3475; J3490; J7512; J7613; J7620; L1810